=== PATIENT | female | born 1945 | race Caucasian/White ===

== ENCOUNTER → 2017-05-27 13:42 | Outpatient (CLI) | payer MEDICARE, OTHER, SELFPAY ==
[2017-05-27 15:49] LABS: Absolute Lymphocyte Count 1.73 X10^3/ul (0.83-4.51); Absolute Neutrophil Count 4.9 X10^3/uL (2.0-7.7); Basophil# 0.04 X10^3/uL; Basophil% 0.6 % (0-1); Eosinophil# 0.13 X10^3/uL; Eosinophils% 1.8 % (0-5); Hematocrit 44.8 % (37-47); Hemoglobin 13.8 g/dl (12.0-15.0); Lymphocyte # 1.73 X10^3/ul (4.0); Lymphocyte % 23.8 % (19-41); Mean Corp Hgb Conc 30.8 g/gl (32-36); Mean Corpuscular Hgb 29.6 pg (27.0-32.0); Mean Corpuscular Volume 95.9 fL (81-99); Mean Platelet Vol. 11.3 fl (6.2-12.0); Monocyte# 0.49 X10^3/uL; Monocyte% 6.7 % (0-10); Neutrophil # 4.87 X10^3/uL (2.7-7.7); Platelet Count 276 K/mm3 (150-450); RBC Distribution Width CV 14.1 % (11.6-14.6); RBC Distribution Width SD 49.4 fl (35.1-43.9); Red Blood Count 4.67 M/mm3 (4.2-5.4); White Blood Count 7.3 K/mm3 (4.4-11.0)
[2017-05-27 15:51] LABS: POSITIVE COUNT NO; POSITIVE DIFFERENTIAL NO; POSITIVE MORPHOLOGY NO
[2017-05-27 16:02] LABS: AST(SGOT) 24 U/L (15-37); Alanine Aminotransfer ALT/SGPT 24 U/L (13-56); Albumin, Serum 3.7 g/dL (3.2-5.0); Alkaline Phosphatase 92 U/L (45-117); Anion Gap 8 (5-15); BUN 18 mg/dL (7-18); BUN/Creat Ratio 14.5 RATIO (10-20); Calcium,Total 9.1 mg/dL (8.5-10.1); Chloride 105 mmol/L (98-107); Cholesterol 247 mg/dL (200); Creatinine, Serum 1.24 mg/dL (0.55-1.02); EST Glomerular Filtration Rate 45 mL/min (>60); Est Glom Filt Rate - Afr Amer 55 mL/min (>60); Globulin 3.8 g/dL (2.2-4.2); Glucose 90 mg/dL (74-106); High Density Lipoprotein 83 mg/dL; Lipase 56 U/L (73-393); Potassium 4.3 mmol/L (3.5-5.1); Protein, Total 7.5 g/dL (6.4-8.2); Sodium Level 143 mmol/L (136-145); Triglycerides 64 mg/dL; Very Low Density Lipoprotein 13 mg/dL (5-40)
[2017-05-27 16:05] LABS: Hemoglobin A1c 5.9 % (4.2-6.3)
[2017-05-27 16:13] LABS: T4 Free Direct 1.37 ng/dL (0.76-1.46); Thyroid Stim Hormone (TSH) 1.71 uIU/mL (0.358-3.74)
== END ==
PROVIDERS: Internal Medicine Cardiovascular Disease; Family Provider Family Medicine; PCP Family Medicine; Visit Provider Family Medicine
DX: I48.91 Unspecified atrial fibrillation (principal); I50.32 Chronic diastolic (congestive) heart failure; R07.9 Chest pain, unspecified; R73.01 Impaired fasting glucose
CPT/HCPCS: 36415; 80053; 80061; 83036; 83690; 83735; 84439; 84443; 85025

== ENCOUNTER → 2017-06-25 09:51 | Outpatient (CLI) | payer MEDICARE, OTHER, SELFPAY ==
--- NOTE | 2017-06-25 09:56 | BI_ITS ---
MAMMOGRAPHY - BILATERAL SCREENING REASON FOR EXAM: Female, 72 years old. Routine annual screening examination. PERTINENT HISTORY: Aunt with breast cancer. TECHNIQUE: Digital bilateral breast patricia (3D mammographic acquisition) in the CC and MLO projections. 2-D mediolateral oblique (MLO) and craniocaudad (CC) views of both breasts were obtained. CAD: Full Field Digital Mammography with Computer Added Detection was performed. COMPARISON: Comparison is made with prior study dated January 28, 2016 and July 31, 2014. FINDINGS: Breast Composition: There are scattered areas of fibroglandular density. There are no dominant masses or suspicious calcifications. No other significant abnormalities are identified. There has been no significant change since the prior study. BI/SCREENING MAMM (CAD), BILAT IMPRESSION: Stable bilateral screening mammogram. Yearly follow-up mammogram recommended. (A) ASSESSMENT CATEGORY: BIRADS Category 1: Negative. A letter regarding these results will be sent to the patient by the facility within 30 days. Approximately 10% of breast cancers are not detected by mammography. A normal mammogram should not delay biopsy of a clinically suspicious abnormality. [id number] Electronically Signed: Taiwo Tejada MD at 13:35 EDT Tel [phone], Service support ,
== END ==
PROVIDERS: Family Provider Family Medicine; PCP Family Medicine; Visit Provider Family Medicine
DX: Z12.31 Encounter for screening mammogram for malignant neoplasm of breast (principal)
CPT/HCPCS: 77063; 77067

== ENCOUNTER → 2018-04-06 13:11 | Outpatient (CLI) | payer MEDICARE, OTHER, SELFPAY ==
[2018-04-06 17:36] LABS: Absolute Lymphocyte Count 2.76 X10^3/ul (0.83-4.51); Absolute Neutrophil Count 5.3 X10^3/uL (2.0-7.7); Basophil# 0.04 X10^3/uL; Basophil% 0.5 % (0-1); Eosinophil# 0.13 X10^3/uL; Eosinophils% 1.5 % (0-5); Hematocrit 45.7 % (37-47); Hemoglobin 13.8 g/dl (12.0-15.0); Lymphocyte # 2.76 X10^3/ul (4.0); Lymphocyte % 31.5 % (19-41); Mean Corp Hgb Conc 30.2 g/gl (32-36); Mean Corpuscular Hgb 29.1 pg (27.0-32.0); Mean Corpuscular Volume 96.4 fL (81-99); Mean Platelet Vol. 10.9 fl (6.2-12.0); Monocyte# 0.53 X10^3/uL; Monocyte% 6.1 % (0-10); Neutrophil # 5.28 X10^3/uL (2.7-7.7); Neutrophil % 60.2 % (47-70); POSITIVE COUNT NO; POSITIVE DIFFERENTIAL NO; POSITIVE MORPHOLOGY NO; Platelet Count 327 K/mm3 (150-450); RBC Distribution Width CV 14.4 % (11.6-14.6); RBC Distribution Width SD 50.9 fl (35.1-43.9); Red Blood Count 4.74 M/mm3 (4.2-5.4); White Blood Count 8.8 K/mm3 (4.4-11.0)
[2018-04-06 17:54] LABS: Anion Gap 8 (5-15); BUN 19 mg/dL (7-18); Chloride 106 mmol/L (98-107); Creatinine, Serum 1.27 mg/dL (0.55-1.02); EST Glomerular Filtration Rate 44 mL/min (>60); Est Glom Filt Rate - Afr Amer 53 mL/min (>60); Glucose 90 mg/dL (74-106); Magnesium 2.1 mg/dL (1.6-2.6); Potassium 4.2 mmol/L (3.5-5.1); Sodium Level 140 mmol/L (136-145)
== END ==
PROVIDERS: Family Provider Family Medicine; PCP Family Medicine; Visit Provider Family Medicine
DX: I48.91 Unspecified atrial fibrillation (principal); I10 Essential (primary) hypertension; R04.0 Epistaxis
CPT/HCPCS: 36415; 80048; 83735; 85025

== ENCOUNTER 2018-04-08 08:57 | Outpatient (CLI) | payer MEDICARE, OTHER, SELFPAY ==
--- NOTE | 2018-04-08 09:17 | ECHOTEE_ITS ---
Reason For Study: A. fib/flutter Medication REAL probe passed without difficulty. No complications were noted. [place] Topical [place] given X4 metered doses orally. Versed 1 mg given slow IVP. Fentanyl 25 mcg given slow IVP. Left Ventricle Normal LV size. Left ventricular systolic function is normal. The estimated ejection fraction is 65 %. No regional wall motion abnormalities noted. Right Ventricle Normal RV size. Normal systolic function. Atria Probable secondum atrial septal defect. The left atrium is moderately enlarged. No thrombus is detected in the left atrial appendage. Normal right atrium. Mitral Valve Normal mitral valve. Mild (1+) eccentric mitral valve insufficiency. Tricuspid Valve Normal tricuspid valve. Aortic Valve Normal aortic valve. Trisinus/trileaflet aortic valve. Pulmonic Valve Normal pulmonic valve. Vessels Normal aortic root. Mild atherosclerosis of the aortic arch. The pulmonary artery is normal size. Pericardium No pericardial effusion. Interpretation Summary Normal LV size. Left ventricular systolic function is normal. The estimated ejection fraction is 65 %. The left atrium is moderately enlarged. No thrombus is detected in the left atrial appendage. Probable secondum atrial septal defect. Ordering Physician: Raghu Rollins Referring Physician: Harpreet Crain Performed By: Flakita Agustin RDCS
--- NOTE | 2018-04-08 09:26 | PCM.HP.BLA ---
Problem List (1) Atrial flutter Status: Acute Qualifiers: History and Physical Date of Admission: 04/08/18 HPI DOROTEO HANKS, is a 72 F who presents to the office today for a REAL with cardioversion. Patient does have a history of paroxysmal atrial fibrillation. Patient had called our office last week with concerns over nosebleeds. We had instructed her to hold her Eliquis and seek attention for her nosebleeds for possible cauterization. Patient was in to see her primary care doctor yesterday, she was noted to be in 2-1 atrial flutter. With a heart rate of 116. Patient states that this was out of follow-up from her nosebleed. She states that she was aware that she went in atrial fibrillation/flutter on Thursday evening. She felt that her heart was beating irregularly. She does feel the palpitations. Because she had interrupted her Eliquis for a few days for her nosebleeds patient is undergoing a REAL with a cardioversion post REAL. This is scheduled for today Intake: vital signs see clinical chart Allergies bacitracin [From Neosporin ([id number])] Allergy (Verified 09/07/17 13:09) Rash bacitracin zinc [From Neosporin ([id number])] Allergy (Verified 09/07/17 13:09) Rash neomycin sulfate [From Neosporin ([id number])] Allergy (Verified 09/07/17 13:09) Rash polymyxin B [From Neosporin ([id number])] Allergy (Verified 09/07/17 13:09) Rash Sulfa (Sulfonamide Antibiotics) Allergy (Verified 09/07/17 13:09) Rash sulfamethoxazole [From Bactrim] Allergy (Verified 09/07/17 13:09) Rash trimethoprim [From Bactrim] Allergy (Verified 09/07/17 13:09) Rash codeine Adverse Reaction (Verified 09/07/17 13:09) Vomiting Medications Lysine [l-Lysine] 500 mg PO DAILY 02/22/13 [History Confirmed 04/07/18] Multivitamins,Therapeutic [Multivitamin] 1 tab PO DAILY 02/22/13 [History Confirmed 04/07/18] diltiazem CD 120 mg capsule,extended release 24 hr 120 mg PO QPM cap 02/19/17 [History Confirmed 04/07/18] coenzyme Q10 100 mg capsule 100 mg PO QDAY 09/02/17 [History Confirmed 04/07/18] furosemide 20 mg tablet 20 mg PO DAILY PRN 09/02/17 [History Confirmed 04/07/18] Apixaban [Eliquis] 5 mg PO DAILY 04/07/18 [History Confirmed 04/07/18] PFSH Medical History Atrial flutter (Acute) History of supraventricular tachycardia (Chronic) Nonrheumatic mitral valve prolapse (Chronic) Chronic diastolic heart failure (Chronic) Typical atrial flutter (Chronic) Paroxysmal atrial fibrillation (Chronic) Syncope and collapse (Resolved) Surgical History History of cardioversion (Chronic ~03/19/16) History of laparoscopic cholecystectomy (Chronic) 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) lumbar disc decompression (Chronic) Family History Brother CAD (coronary artery disease) PPM Mother Congestive heart failure Social History Smoking Status: Never smoker ROS Const: Positive for fatigue; negative for weakness, body ache, fever(s), headache(s), chills, frequent falls, night sweats, daytime sleepiness, difficulty sleeping, excessive sweating, weight gain, weight loss, increased appetite, poor appetite, anorexia or other Eyes: Negative for blind spots, loss of peripheral vision, transient loss of vision, blurry vision, change in vision, double vision, floaters, tunnel vision or other ENT: Positive for Nosebleed/epistaxis; negative for headache(s) or balance problems Cardio Chest Pain: No Palpitations: Yes Edema: None Muscle aches with walking: None Respiratory: Negative for SOB with activity, SOB at rest, SOB orthopnea\SOB lying down, Coughing up blood/hemoptysis, chest congestion, pain on inspiration, snoring, stridor, wheezing, crackles, paroxysmal nocturnal dyspnea or other GI: Negative nausea, vomiting, heartburn, constipation, belching, bloating, cramping, vomiting blood/hematemesis, bright, red blood in stools, black,tarry stools, loose stools, Difficulty Swallowing or other : Negative for hematuria, frequent nighttime urination/ nocturia, erectile dysfunction or abnormal vaginal bleeding Musc: Negative for muscle aches/ myalgia, muscle weakness, joint pain or balance problems Skin: Negative redness, non-healing lesions, rash, unusual bruising, skin ulcer, wounds, jaundice or other Neuro: Negative for frequent falls, headache(s), weakness, blurry vision or double vision Hematologic/Lymphatic: Negative for easy bleeding, easy bruising, enlarged lymph nodes or other Endo: Positive for fatigue; negative for excessive sweating Psych: Negative for anxiety, depression, thoughts of harming anyone, thoughts of harming yourself, visual hallucinations, panic attacks or audible hallucinations Allergy/Immunology: Negative for rash Cardiology Exam Appearance: cooperative, healthy appearing and no acute distress Nutritional Appearance: well nourished Orientation: alert, oriented x3 and oriented to person Head: normal to inspection, normocephalic and atraumatic Nose: external nose normal Face and Sinus: face symmetric Mouth: oral mucosae normal Eyes General: appearance normal, both eyes and all related structures Eyelids: eyelids normal Conjunctivae: conjunctivae normal Pupils: PERRL and normal by confrontation EOM: EOM intact bilaterally Neck: normal visual inspection and full ROM Carotids: normal carotid upstroke Chest inspection: normal inspection of the chest Auscultation: Bilateral: Clear to Auscultation Cardio Palpation: normal PMI Rate: regular rate Rhythm: irregularly irregular Heart sounds: S1 normal and S2 normal GI: normal to inspection, no hepatosplenomegaly and bowel sounds present Neuro General: alert, awake, oriented x3, CN's II-XI intact bilaterally and moves all extremities Skin: no rashes or lesions noted Pulses: Normal: Right Femoral Pulse, Left Femoral Pulse, Right Dorsalis Pedis Pulse, Left Dorsalis Pedis Pulse, Right Posterior Tibial Pulse, Left Posterior Tibial Pulse, Right Radial Pulse, Left Radial Pulse Lower Extremity Edema: None: Bilateral Psychological: normal affect Assessment & Plan Problems 1. Atrial flutter, unspecified type I48.92 Plan Patient is scheduled to undergo a REAL with cardioversion. With her cardioversion she will need to continue with her anti-coagulation. She will also continue with her rate limiting medication. Procedure will be done by Dr. Rollins, he agrees with plan of care. She will be scheduled for a follow-up in the office
--- NOTE | 2018-04-08 09:31 | HP.PCM_ITS ---
Problem List (1) Atrial flutter Status: Acute Qualifiers: History and Physical Date of Admission: 04/08/18 HPI DOROTEO HANKS, is a 72 F who presents to the office today for a REAL with cardioversion. Patient does have a history of paroxysmal atrial fibrillation. Patient had called our office last week with concerns over nosebleeds. We had instructed her to hold her Eliquis and seek attention for her nosebleeds for possible cauterization. Patient was in to see her primary care doctor yesterday, she was noted to be in 2-1 atrial flutter. With a heart rate of 116. Patient states that this was out of follow-up from her nosebleed. She states that she was aware that she went in atrial fibrillation/flutter on Thursday evening. She felt that her heart was beating irregularly. She does feel the palpitations. Because she had interrupted her Eliquis for a few days for her nosebleeds patient is undergoing a REAL with a cardioversion post REAL. This is scheduled for today Intake: vital signs see clinical chart Allergies bacitracin [From Neosporin ([id number])] Allergy (Verified 09/07/17 13:09) Rash bacitracin zinc [From Neosporin ([id number])] Allergy (Verified 09/07/17 13:09) Rash neomycin sulfate [From Neosporin ([id number])] Allergy (Verified 09/07/17 13:09) Rash polymyxin B [From Neosporin ([id number]-[id number]-[id number])] Allergy (Verified 09/07/17 13:09) Rash Sulfa (Sulfonamide Antibiotics) Allergy (Verified 09/07/17 13:09) Rash sulfamethoxazole [From Bactrim] Allergy (Verified 09/07/17 13:09) Rash trimethoprim [From Bactrim] Allergy (Verified 09/07/17 13:09) Rash codeine Adverse Reaction (Verified 09/07/17 13:09) Vomiting Medications Lysine [l-Lysine] 500 mg PO DAILY 02/22/13 [History Confirmed 04/07/18] Multivitamins,Therapeutic [Multivitamin] 1 tab PO DAILY 02/22/13 [History Confirmed 04/07/18] diltiazem CD 120 mg capsule,extended release 24 hr 120 mg PO QPM cap 02/19/17 [History Confirmed 04/07/18] coenzyme Q10 100 mg capsule 100 mg PO QDAY 09/02/17 [History Confirmed 04/07/18] furosemide 20 mg tablet 20 mg PO DAILY PRN 09/02/17 [History Confirmed 04/07/18] Apixaban [Eliquis] 5 mg PO DAILY 04/07/18 [History Confirmed 04/07/18] PFSH Medical History Atrial flutter (Acute) History of supraventricular tachycardia (Chronic) Nonrheumatic mitral valve prolapse (Chronic) Chronic diastolic heart failure (Chronic) Typical atrial flutter (Chronic) Paroxysmal atrial fibrillation (Chronic) Syncope and collapse (Resolved) Surgical History History of cardioversion (Chronic ~03/19/16) History of laparoscopic cholecystectomy (Chronic) 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) lumbar disc decompression (Chronic) Family History Brother CAD (coronary artery disease) PPM Mother Congestive heart failure Social History Smoking Status: Never smoker ROS Const: Positive for fatigue; negative for weakness, body ache, fever(s), headache(s), chills, frequent falls, night sweats, daytime sleepiness, difficulty sleeping, excessive sweating, weight gain, weight loss, increased appetite, poor appetite, anorexia or other Eyes: Negative for blind spots, loss of peripheral vision, transient loss of vision, blurry vision, change in vision, double vision, floaters, tunnel vision or other ENT: Positive for Nosebleed/epistaxis; negative for headache(s) or balance problems Cardio Chest Pain: No Palpitations: Yes Edema: None Muscle aches with walking: None Respiratory: Negative for SOB with activity, SOB at rest, SOB orthopnea\SOB lying down, Coughing up blood/hemoptysis, chest congestion, pain on inspiration, snoring, stridor, wheezing, crackles, paroxysmal nocturnal dyspnea or other GI: Negative nausea, vomiting, heartburn, constipation, belching, bloating, cramping, vomiting blood/hematemesis, bright, red blood in stools, black,tarry stools, loose stools, Difficulty Swallowing or other : Negative for hematuria, frequent nighttime urination/ nocturia, erectile dysfunction or abnormal vaginal bleeding Musc: Negative for muscle aches/ myalgia, muscle weakness, joint pain or balance problems Skin: Negative redness, non-healing lesions, rash, unusual bruising, skin ulcer, wounds, jaundice or other Neuro: Negative for frequent falls, headache(s), weakness, blurry vision or double vision Hematologic/Lymphatic: Negative for easy bleeding, easy bruising, enlarged lymph nodes or other Endo: Positive for fatigue; negative for excessive sweating Psych: Negative for anxiety, depression, thoughts of harming anyone, thoughts of harming yourself, visual hallucinations, panic attacks or audible hallucinations Allergy/Immunology: Negative for rash Cardiology Exam Appearance: cooperative, healthy appearing and no acute distress Nutritional Appearance: well nourished Orientation: alert, oriented x3 and oriented to person Head: normal to inspection, normocephalic and atraumatic Nose: external nose normal Face and Sinus: face symmetric Mouth: oral mucosae normal Eyes General: appearance normal, both eyes and all related structures Eyelids: eyelids normal Conjunctivae: conjunctivae normal Pupils: PERRL and normal by confrontation EOM: EOM intact bilaterally Neck: normal visual inspection and full ROM Carotids: normal carotid upstroke Chest inspection: normal inspection of the chest Auscultation: Bilateral: Clear to Auscultation Cardio Palpation: normal PMI Rate: regular rate Rhythm: irregularly irregular Heart sounds: S1 normal and S2 normal GI: normal to inspection, no hepatosplenomegaly and bowel sounds present Neuro General: alert, awake, oriented x3, CN's II-XI intact bilaterally and moves all extremities Skin: no rashes or lesions noted Pulses: Normal: Right Femoral Pulse, Left Femoral Pulse, Right Dorsalis Pedis Pulse, Left Dorsalis Pedis Pulse, Right Posterior Tibial Pulse, Left Posterior Tibial Pulse, Right Radial Pulse, Left Radial Pulse Lower Extremity Edema: None: Bilateral Psychological: normal affect Assessment & Plan Problems 1. Atrial flutter, unspecified type I48.92 Plan Patient is scheduled to undergo a REAL with cardioversion. With her cardioversio n she will need to continue with her anti-coagulation. She will also continue with her rate limiting medication. Procedure will be done by Dr. Rollins, he agrees with plan of care. She will be scheduled for a follow-up in the office
--- NOTE | 2018-04-08 11:53 | PCM.PN.BLA ---
Progress Note Procedure note. DC cardioversion. Patient was noted to be in atrial fibrillation flutter. Patient underwent a transesophageal echocardiogram this morning which demonstrated no evidence of left atrial appendage thrombus. Left ventricular systolic function was normal. The patient was brought brought into the noninvasive lab. Patient was seen by Dr. Machuca of the critical care division. Informed consent was obtained. Anterior-posterior pads were applied. The patient was administered 40 mg of intravenous propofol and then 200 J of synchronized DC cardioversion energy were applied with prompt reversal to sinus rhythm. Patient tolerated the procedure well. Conclusion: Successful DC cardioversion from atrial fibrillation to sinus rhythm. Continue current medications including anticoagulation.
--- NOTE | 2018-04-08 13:14 | PCM.OPRPT ---
Problem List (1) Atrial flutter Status: Acute Qualifiers: (2) Chronic diastolic heart failure Status: Chronic (3) History of cardioversion Status: Chronic Comment: 09/12/2015, 03/19/2016 (4) Nonrheumatic mitral valve prolapse Status: Chronic (5) Paroxysmal atrial fibrillation Status: Chronic (6) Typical atrial flutter Status: Chronic Report of Operation Date of Procedure: 04/08/18 Pre-Operative Diagnosis: A. fib Post-Operative Diagnosis: A. fib Surgery/Procedure Performed:: Conscious sedation Description of Surgical Findings:: CONSCIOUS SEDATION REPORT BRIEF HISTORY OF PRESENT ILLNESS: The patient is a 72-year-old female who presented to [facility] for an elective outpatient cardioversion due to underlying atrial fibrillation. The patient reports no PO intake since midnight. The patient does not have a history of obstructive sleep apnea. The patient reports no history of smoking and COPD. The patient denies any recent constitutional symptoms such as fevers, chills, nausea or vomiting. The patient denies previous anesthetic complications. Patient did have a REAL earlier in the day, for which she received 1 mg of Versed and 50 mcg of fentanyl. This showed an ejection fraction of 65% and no clots. PHYSICAL EXAMINATION: VITAL SIGNS: Reviewed and were acceptable. GENERAL: The patient is a female, in no apparent distress, speaking in full sentences. HEENT: Normocephalic, atraumatic. Mucous membranes are moist and pink. Good mouth opening noted. Trachea is midline. Good neck mobility. MP II CHEST: S1, S2 irregularly irregular. No murmurs, rubs or gallops were noted. LUNGS: Clear to auscultation bilaterally without appreciable wheezes, rales or rhonchi. ABDOMEN: Soft, nontender, nondistended. Positive bowel sounds. EXTREMITIES: There is no clubbing, cyanosis or edema. ASA Class: II DESCRIPTION OF PROCEDURE: After confirmation of informed consent, the patient's anesthesia plan was reviewed in detail. Propofol was chosen. Risks and benefits were reviewed and the patient agreed to proceed. At 11:47 AM, the patient was given 40 mg of propofol. The patient achieved an appropriate level of sedation and received 1 attempt synchronized cardioversion, at [address] Rollins at the bedside. This was successful in achieving normal sinus rhythm. The patient was monitored until 11:53 AM, at which time the patient reached their baseline mental status and function. The patient tolerated the procedure well. COMPLICATIONS: None ESTIMATED BLOOD LOSS: None RECOMMENDATIONS: Okay to recover in usual fashion. Code Visit 9xxxx: Other Procedure See Report - [id number] - 8 minutes
--- NOTE | 2018-04-08 13:17 | OP.PCM_ITS ---
Problem List (1) Atrial flutter Status: Acute Qualifiers: (2) Chronic diastolic heart failure Status: Chronic (3) History of cardioversion Status: Chronic Comment: 09/12/2015, 03/19/2016 (4) Nonrheumatic mitral valve prolapse Status: Chronic (5) Paroxysmal atrial fibrillation Status: Chronic (6) Typical atrial flutter Status: Chronic Report of Operation Date of Procedure: 04/08/18 Pre-Operative Diagnosis: A. fib Post-Operative Diagnosis: A. fib Surgery/Procedure Performed:: Conscious sedation Description of Surgical Findings:: CONSCIOUS SEDATION REPORT BRIEF HISTORY OF PRESENT ILLNESS: The patient is a 72-year-old female who presented to [facility] for an elective outpatient cardioversion due to underlying atrial fibrillation. The patient reports no PO intake since midnight. The patient does not have a history of obstructive sleep apnea. The patient reports no history of smoking and COPD. The patient denies any recent constitutional symptoms such as fevers, chills, nausea or vomiting. The patient denies previous anesthetic complications. Patient did have a REAL earlier in the day, for which she rece ived 1 mg of Versed and 50 mcg of fentanyl. This showed an ejection fraction of 65% and no clots. PHYSICAL EXAMINATION: VITAL SIGNS: Reviewed and were acceptable. GENERAL: The patient is a female, in no apparent distress, speaking in full sentences. HEENT: Normocephalic, atraumatic. Mucous membranes are moist and pink. Good mouth opening noted. Trachea is midline. Good neck mobility. MP II CHEST: S1, S2 irregularly irregular. No murmurs, rubs or gallops were noted. LUNGS: Clear to auscultation bilaterally without appreciable wheezes, rales or rhonchi. ABDOMEN: Soft, nontender, nondistended. Positive bowel sounds. EXTREMITIES: There is no clubbing, cyanosis or edema. ASA Class: II DESCRIPTION OF PROCEDURE: After confirmation of informed consent, the patient's anesthesia plan was reviewed in detail. Propofol was chosen. Risks and benefits were reviewed and the patient agreed to proceed. At 11:47 AM, the patient was given 40 mg of propofol. The patient achieved an appropriate level of sedation and received 1 attempt synchronized cardioversion, at [address] Rollins at the bedside. This was successful in achieving normal sinus rhythm. The patient was monitored until 11:53 AM, at which time the patient reached their baseline mental status and function. The patient tolerated the procedure well. COMPLICATIONS: None ESTIMATED BLOOD LOSS: None RECOMMENDATIONS: Okay to recover in usual fashion. Code Visit 9xxxx: Other Procedure See Report - [id number] - 8 minutes
== END 2018-04-08 14:31 | disposition home health service (06) ==
LOC: CLSP 08:59
PROVIDERS: Family Provider Family Medicine; PCP Family Medicine; Referring Provider Internal Medicine Cardiovascular Disease; Visit Provider Internal Medicine Cardiovascular Disease
DX: I48.92 Unspecified atrial flutter (principal); I34.1 Nonrheumatic mitral (valve) prolapse; I50.32 Chronic diastolic (congestive) heart failure; I48.0 Paroxysmal atrial fibrillation; Z79.01 Long term (current) use of anticoagulants; Z79.899 Other long term (current) drug therapy
CPT/HCPCS: 92960; 93005; 93312; 93320; 93325; J7040; A4216

== ENCOUNTER → 2018-05-25 | Outpatient (CLI) | payer MEDICARE, OTHER, SELFPAY ==
[2018-04-16 09:59] VITALS: BMI 29.7
--- NOTE | 2018-05-25 10:32 | RAD_ITS ---
STUDY: X-RAY CHEST REASON FOR EXAM: Female, 73 years old. Fever and cough TECHNIQUE: PA and lateral views of the chest. COMPARISON: 2017 FINDINGS: Lungs are expanded with chronic interstitial changes in both lung rivera. There is a lingular opacification with small pleural effusion new since the previous study. Follow-up recommended to assure resolution. There is no demonstrated pleural abnormality. Normal size heart. Normal mediastinum and johnathon. Normal visualized pulmonary arteries. There is atherosclerotic calcification of the aortic arch with tortuosity. There are diffuse degenerative changes of the visualized thoracic spine. Normal visualized ribs, clavicles, and shoulders. There is no demonstrated abnormality of the visualized soft tissue structures of the upper abdomen. RAD/Chest PA and Lateral IMPRESSION: Lingular infiltrate with small pleural effusion. Follow-up recommended to assure resolution. Electronically Signed: Willem Suzao MD at 10:59 EDT , Service support ,
[2018-05-25 12:29] LABS: Absolute Lymphocyte Count 1.42 X10^3/ul (0.83-4.51); Absolute Neutrophil Count 5.3 X10^3/uL (2.0-7.7); Basophil# 0.02 X10^3/uL; Basophil% 0.3 % (0-1); Eosinophil# 0.07 X10^3/uL; Eosinophils% 0.9 % (0-5); Hemoglobin 13.1 g/dl (12.0-15.0); Lymphocyte # 1.42 X10^3/ul (4.0); Lymphocyte % 18.6 % (19-41); Mean Corp Hgb Conc 31.2 g/gl (32-36); Mean Corpuscular Hgb 28.8 pg (27.0-32.0); Mean Corpuscular Volume 92.3 fL (81-99); Mean Platelet Vol. 11.1 fl (6.2-12.0); Monocyte# 0.79 X10^3/uL; Monocyte% 10.3 % (0-10); Neutrophil # 5.33 X10^3/uL (2.7-7.7); Neutrophil % 69.8 % (47-70); POSITIVE COUNT NO; POSITIVE DIFFERENTIAL NO; POSITIVE MORPHOLOGY NO; Platelet Count 276 K/mm3 (150-450); RBC Distribution Width CV 13.8 % (11.6-14.6); RBC Distribution Width SD 45.8 fl (35.1-43.9); Red Blood Count 4.55 M/mm3 (4.2-5.4); White Blood Count 7.6 K/mm3 (4.4-11.0)
[2018-05-25 12:47] LABS: BNP,B-Type NATRIURETIC PEPTIDE 195.7 pg/mL (0-100)
[2018-05-25 12:51] LABS: Anion Gap 8 (5-15); BUN 14 mg/dL (7-18); BUN/Creat Ratio 10.9 RATIO (10-20); Calcium,Total 8.9 mg/dL (8.5-10.1); Chloride 103 mmol/L (98-107); Creatinine, Serum 1.28 mg/dL (0.55-1.02); EST Glomerular Filtration Rate 43 mL/min (>60); Est Glom Filt Rate - Afr Amer 52 mL/min (>60); Glucose 104 mg/dL (74-106); Potassium 4.1 mmol/L (3.5-5.1); Sodium Level 140 mmol/L (136-145); T4 Free Direct 1.31 ng/dL (0.76-1.46); Thyroid Stim Hormone (TSH) 1.17 uIU/mL (0.358-3.74)
== END | disposition home or self-care (01) ==
LOC: MTRAD 10:32
PROVIDERS: Family Provider Family Medicine; PCP Family Medicine; Referring Provider Physician Assistant Medical; Visit Provider Physician Assistant Medical
DX: R00.2 Palpitations (principal); R06.02 Shortness of breath
CPT/HCPCS: 36415; 71046; 80048; 83880; 84439; 84443; 85025

== ENCOUNTER → 2018-06-15 13:19 | Outpatient (CLI) | payer MEDICARE, OTHER, SELFPAY ==
[2018-04-16 09:59] VITALS: BMI 29.7
--- NOTE | 2018-06-15 14:59 | PFTCOMP ---
COMPLETE PULMONARY FUNCTION TEST INTERPRETATION Brief HPI: Patient is a 73 year old female, currently under the care of Kathleen Zhou, who presents to [facility] for complete pulmonary function tests secondary to diagnosis of dyspnea. Respiratory therapist reports good effort and reproducible results. Interpretation: Forced expiration spirometry shows no large airways obstructive ventilatory defect with an FEV1 of 95% predicted. There is no significant bronchodilator response by strict ATS criteria. Spirograms are of good quality and plateau normally. The respiratory flow volume loop shows decreased expiratory flow rates at high lung volumes consistent with small airways obstruction. Lung volumes by body plethysmography show a normal total lung capacity at 5.31 L, 106% predicted. All other lung volumes are within normal limits. Diffusion capacity by carbon monoxide is normal at 77% predicted. The airway resistance is normal. No previous pulmonary function tests were available for review. Impression: These pulmonary function tests are within normal limits.
== END ==
PROVIDERS: Family Provider Family Medicine; PCP Family Medicine; Referring Provider Physician Assistant Medical; Visit Provider Physician Assistant Medical
DX: R06.09 Other forms of dyspnea (principal); R00.2 Palpitations
CPT/HCPCS: 94060; 94726; 94729

== ENCOUNTER → 2018-06-28 10:23 | Outpatient (CLI) | payer MEDICARE, OTHER, SELFPAY ==
[2018-04-16 09:59] VITALS: BMI 29.7
--- NOTE | 2018-06-28 10:27 | RAD_ITS ---
STUDY: X-RAY CHEST REASON FOR EXAM: Female, 73 years old. Recent pneumonia TECHNIQUE: PA and lateral views of the chest COMPARISON: X-ray chest May 25, 2018 FINDINGS: There has been interval marked improvement of left lower lung zone consolidation. The left pleural space is now clear. The right lung and pleural space are clear. There is no pneumothorax. The heart is normal in size. The visualized osseous structures are within normal limits. RAD/Chest PA and Lateral IMPRESSION: Interval marked improvement of left lower lung zone consolidation and resolution of left pleural effusion. Electronically Signed: Jose A Nevarez, at 19:39 EDT Tel , Service support ,
== END ==
PROVIDERS: Family Provider Family Medicine; PCP Family Medicine; Referring Provider Family Medicine; Visit Provider Family Medicine
DX: J18.9 Pneumonia, unspecified organism (principal)
CPT/HCPCS: 71046

== ENCOUNTER → 2018-08-02 12:22 | Outpatient (CLI) | payer MEDICARE, OTHER, SELFPAY ==
[2018-04-16 09:59] VITALS: BMI 29.7
[2018-07-22 10:56] VITALS: BMI 29.6
--- NOTE | 2018-08-02 12:25 | BI_ITS ---
MAMMOGRAPHY - BILATERAL SCREENING REASON FOR EXAM: Female, 73 years old. Routine annual screening examination. PERTINENT HISTORY: Aunt with breast cancer. TECHNIQUE: Digital bilateral breast masoud (3D mammographic acquisition) in the CC and MLO projections. 2-D mediolateral oblique (MLO) and craniocaudad (CC) views of both breasts were obtained. CAD: Full Field Digital Mammography with Computer Added Detection was performed. COMPARISON: Comparison is made with prior mammogram dated June 25, 2017 and January 28, 2016. FINDINGS: Breast Composition: There are scattered areas of fibroglandular density. There are no dominant masses or suspicious calcifications. No other significant abnormalities are identified. There has been no significant change since the prior study. BI/SCREEN MAMM (CAD) W/MASOUD BILAT IMPRESSION: Stable bilateral screening mammogram. Yearly follow-up mammogram recommended. (A) ASSESSMENT CATEGORY: BIRADS Category 1: Negative. A letter regarding these results will be sent to the patient by the facility within 30 days. Approximately 10% of breast cancers are not detected by mammography. A normal mammogram should not delay biopsy of a clinically suspicious abnormality. [id number] Electronically Signed: Taiwo Tejada, at 13:31 EDT , Service support ,
== END ==
PROVIDERS: Family Provider Family Medicine; PCP Family Medicine; Referring Provider Family Medicine; Visit Provider Family Medicine
DX: Z12.31 Encounter for screening mammogram for malignant neoplasm of breast (principal)
CPT/HCPCS: 77063; 77067

== ENCOUNTER → 2018-10-27 10:57 | Outpatient (CLI) | payer MEDICARE, OTHER, SELFPAY ==
[2018-07-22 10:56] VITALS: BMI 29.6
[2018-10-27 12:14] LABS: Absolute Lymphocyte Count 1.78 X10^3/uL (0.83-4.51); Absolute Neutrophil Count 3.8 X10^3/uL (2.0-7.7); Basophil# 0.04 X10^3/uL; Basophil% 0.6 % (0-1); Eosinophil# 0.13 X10^3/uL; Eosinophils% 2.1 % (0-5); Hematocrit 39.8 % (37-47); Hemoglobin 12.2 g/dL (12.0-15.0); Lymphocyte # 1.78 X10^3/ul (4.0); Lymphocyte % 28.3 % (19-41); Mean Corp Hgb Conc 30.7 g/dL (32-36); Mean Corpuscular Hgb 27.5 pg (27.0-32.0); Mean Corpuscular Volume 89.6 fL (81-99); NRBC Flagged by Analyzer 0 % (0-5); Neutrophil # 3.82 X10^3/uL (2.7-7.7); Neutrophil % 60.8 % (47-70); Platelet Count 294 K/mm3 (150-450); RBC Distribution Width CV 14.3 % (11.6-14.6); RBC Distribution Width SD 47.3 fl (35.1-43.9); Red Blood Count 4.44 M/mm3 (4.2-5.4); White Blood Count 6.3 K/mm3 (4.4-11.0)
[2018-10-27 12:50] LABS: Anion Gap 8 (5-15); BUN 21 mg/dL (7-18); BUN/Creat Ratio 16.5 RATIO (10-20); Chloride 111 mmol/L (98-107); Creatinine, Serum 1.27 mg/dL (0.55-1.02); EST Glomerular Filtration Rate 44 mL/min (>60); Est Glom Filt Rate - Afr Amer 53 mL/min (>60); Glucose 84 mg/dL (74-106); Potassium 4.2 mmol/L (3.5-5.1); Sodium Level 145 mmol/L (136-145); T4 Free Direct 1.95 ng/dL (0.76-1.46); Thyroid Stim Hormone (TSH) 0.02 uIU/mL (0.358-3.74)
== END ==
PROVIDERS: Family Provider Family Medicine; PCP Family Medicine; Referring Provider Family Medicine; Visit Provider Family Medicine
DX: I48.91 Unspecified atrial fibrillation (principal); N18.3 Chronic kidney disease, stage 3 (moderate)
CPT/HCPCS: 36415; 80048; 84439; 84443; 85025

== ENCOUNTER → 2018-11-24 14:14 | Outpatient (CLI) | payer MEDICARE, OTHER, SELFPAY ==
[2018-07-22 10:56] VITALS: BMI 29.6
[2018-11-24 16:31] LABS: Anion Gap 8 (5-15); BUN 19 mg/dL (7-18); Calcium,Total 9.1 mg/dL (8.5-10.1); Chloride 108 mmol/L (98-107); Creatinine, Serum 1.27 mg/dL (0.55-1.02); EST Glomerular Filtration Rate 44 mL/min (>60); Est Glom Filt Rate - Afr Amer 53 mL/min (>60); Free T3 2.7 pg/mL (2.18-3.98); Glucose 85 mg/dL (74-106); Sodium Level 144 mmol/L (136-145); T4 Free Direct 1.71 ng/dL (0.76-1.46); Thyroid Stim Hormone (TSH) 0.05 uIU/mL (0.358-3.74)
== END ==
PROVIDERS: Family Provider Family Medicine; PCP Family Medicine; Visit Provider Family Medicine
DX: R73.01 Impaired fasting glucose (principal); E80.4 Gilbert syndrome; I48.91 Unspecified atrial fibrillation; E05.90 Thyrotoxicosis, unspecified without thyrotoxic crisis or storm
CPT/HCPCS: 36415; 80048; 83735; 84439; 84443; 84481

== ENCOUNTER → 2018-12-30 11:17 | Outpatient (CLI) | payer MEDICARE, OTHER, SELFPAY ==
[2018-07-22 10:56] VITALS: BMI 29.6
[2018-12-30 15:39] LABS: Absolute Neutrophil Count 4.7 X10^3/uL (2.0-7.7); Basophil# 0.06 X10^3/uL; Basophil% 0.8 % (0-1); Eosinophil# 0.18 X10^3/uL; Eosinophils% 2.3 % (0-5); Hemoglobin 12.8 g/dL (12.0-15.0); Lymphocyte % 27.3 % (19-41); Mean Corp Hgb Conc 29.1 g/dL (32-36); Mean Corpuscular Hgb 26.7 pg (27.0-32.0); Mean Corpuscular Volume 91.9 fL (81-99); Mean Platelet Vol. 10.8 fl (6.2-12.0); Monocyte# 0.64 X10^3/uL; Monocyte% 8.3 % (0-10); NRBC Flagged by Analyzer 0 % (0-5); Neutrophil # 4.68 X10^3/uL (2.7-7.7); Platelet Count 359 K/mm3 (150-450); RBC Distribution Width CV 14.6 % (11.6-14.6); RBC Distribution Width SD 49.5 fl (35.1-43.9); Red Blood Count 4.79 M/mm3 (4.2-5.4); White Blood Count 7.7 K/mm3 (4.4-11.0)
[2018-12-30 15:59] LABS: ALB/GLOB Ratio 0.9 RATIO (0.9-2.4); AST(SGOT) 17 U/L (15-37); Alanine Aminotransfer ALT/SGPT 18 U/L (13-56); Albumin, Serum 3.5 g/dL (3.2-5.0); Alkaline Phosphatase 101 U/L (45-117); Anion Gap 7 (5-15); BUN 15 mg/dL (7-18); BUN/Creat Ratio 11.5 RATIO (10-20); Chloride 105 mmol/L (98-107); EST Glomerular Filtration Rate 43 mL/min (>60); Est Glom Filt Rate - Afr Amer 51 mL/min (>60); Free T3 2.3 pg/mL (2.18-3.98); Globulin 4.1 g/dL (2.2-4.2); Glucose 94 mg/dL (74-106); Magnesium 1.9 mg/dL (1.6-2.6); Potassium 4.4 mmol/L (3.5-5.1); Protein, Total 7.6 g/dL (6.4-8.2); Sodium Level 141 mmol/L (136-145); T4 Free Direct 1.13 ng/dL (0.76-1.46); Thyroid Stim Hormone (TSH) 1.54 uIU/mL (0.358-3.74)
== END ==
LOC: LAB.FUTURE 11:17 → BFHLAB 11:18
PROVIDERS: Family Provider Family Medicine; PCP Family Medicine; Visit Provider Family Medicine
DX: I48.91 Unspecified atrial fibrillation (principal); E05.90 Thyrotoxicosis, unspecified without thyrotoxic crisis or storm; N18.3 Chronic kidney disease, stage 3 (moderate)
CPT/HCPCS: 36415; 80053; 83735; 84439; 84443; 84481; 85025

== ENCOUNTER → 2019-02-01 12:01 | Outpatient (CLI) | payer MEDICARE, OTHER, SELFPAY ==
[2018-07-22 10:56] VITALS: BMI 29.6
[2019-02-01 15:39] LABS: Anion Gap 4 (5-15); BUN 16 mg/dL (7-18); BUN/Creat Ratio 12.5 RATIO (10-20); Calcium,Total 8.6 mg/dL (8.5-10.1); Chloride 106 mmol/L (98-107); Creatinine, Serum 1.28 mg/dL (0.55-1.02); EST Glomerular Filtration Rate 43 mL/min (>60); Est Glom Filt Rate - Afr Amer 52 mL/min (>60); Free T3 2.3 pg/mL (2.18-3.98); Glucose 81 mg/dL (74-106); Potassium 4.1 mmol/L (3.5-5.1); Sodium Level 139 mmol/L (136-145); T4 Free Direct 1.12 ng/dL (0.76-1.46); Thyroid Stim Hormone (TSH) 4.89 uIU/mL (0.358-3.74)
== END ==
PROVIDERS: Family Provider Family Medicine; PCP Family Medicine; Visit Provider Family Medicine
DX: I48.91 Unspecified atrial fibrillation (principal); E05.90 Thyrotoxicosis, unspecified without thyrotoxic crisis or storm
CPT/HCPCS: 36415; 80048; 84439; 84443; 84481

== ENCOUNTER → 2019-03-08 11:21 | Outpatient (CLI) | payer MEDICARE, OTHER, SELFPAY ==
[2018-07-22 10:56] VITALS: BMI 29.6
[2019-03-03 09:18] VITALS: BMI 30.4
[2019-03-08 16:14] LABS: T4 Free Direct 1.01 ng/dL (0.76-1.46); Thyroid Stim Hormone (TSH) 5.35 uIU/mL (0.358-3.74)
[2019-03-10 16:08] LABS: Thyroid Peroxidase AB 10 IU/mL (0-34)
[2019-03-10 17:07] LABS: Thyroglobulin Antibody < 1.0 IU/mL (0.0-0.9)
== END ==
PROVIDERS: Family Provider Family Medicine; PCP Family Medicine; Visit Provider Family Medicine
DX: E05.90 Thyrotoxicosis, unspecified without thyrotoxic crisis or storm (principal)
CPT/HCPCS: 36415; 84439; 84443; 86376; 86800

== ENCOUNTER → 2019-05-12 13:43 | Outpatient (CLI) | payer MEDICARE, OTHER, SELFPAY ==
[2019-03-03 09:18] VITALS: BMI 30.4
[2019-05-12 17:22] LABS: Anion Gap 7 (5-15); BUN 18 mg/dL (7-18); BUN/Creat Ratio 14.9 RATIO (10-20); Calcium,Total 9.6 mg/dL (8.5-10.1); Chloride 105 mmol/L (98-107); Creatinine, Serum 1.21 mg/dL (0.55-1.02); EST Glomerular Filtration Rate 46 mL/min (>60); Est Glom Filt Rate - Afr Amer 56 mL/min (>60); Glucose 139 mg/dL (74-106); Sodium Level 141 mmol/L (136-145); T4 Free Direct 0.94 ng/dL (0.76-1.46); Thyroid Stim Hormone (TSH) 2.83 uIU/mL (0.358-3.74)
== END ==
PROVIDERS: PCP Family Medicine; Visit Provider Family Medicine
DX: I48.91 Unspecified atrial fibrillation (principal); R06.00 Dyspnea, unspecified; R53.83 Other fatigue
CPT/HCPCS: 36415; 80048; 84439; 84443

== ENCOUNTER 2019-09-12 16:49 | Inpatient (IN) | payer MEDICARE, OTHER, SELFPAY ==
[2019-09-12] VITALS (8 sets, daily range): BP systolic 113–144; BP diastolic 77–93; PULSE 75–145; RESP 16–18; TEMP 36.6–37.2; O2SAT 94–97; BMI 30.9; BMI 29.7; BMI 30.2
--- NOTE | 2019-09-12 17:25 | EKG12_ITS ---
Test Reason : TACHYCARDIA Blood Pressure : / mmHG Vent. Rate : 143 BPM Atrial Rate : 144 BPM P-R Int : 000 ms QRS Dur : 110 ms QT Int : 328 ms P-R-T Axes : 000 065 021 degrees QTc Int : 506 ms Atrial flutter Nonspecific ST abnormality Abnormal ECG Confirmed by IRVIN RUBI, SARAH ([id number]), editorial manager BOY RICH ([id number]) on 09/14/2019 12:36:38 PM Referred By: RHEA Confirmed By:SARAH BRYAN MD
--- NOTE | 2019-09-12 17:26 | ED.DCSUM_ITS ---
History of Present Illness Chief Complaint: Palpitations Informant: Patient Narrative: Patient states she has a history of atrial fibrillation/atrial flutter. She has had several cardiac ablations and cardioversions. She has been doing well since her last ablation since the being of the ER has not had any episodes. She has been maintained on flecainide Cardizem and Eliquis. Approximately 1 week ago she decided to try to wean herself off of the medications. She continued to take the Cardizem as directed but was taking every other day Eliquis and flecainide. On Thursday she felt her self going to atrial fibrillation which is persisted throughout the weekend and into today. She feels generally fatigued. She notes a chest heaviness today. Today her heart rate has stayed in the 150s or 160s as compared to over the weekend when it was pretty variable. She also noted her systolic blood pressure was around 96 today so she made an appointment and went to cardiology's office and was referred to the emergency department Past Medical History - Allergies and Home Meds Allergies/Adverse Reactions: Allergies bacitracin [From Neosporin ([id number])] Allergy (Verified 06/17/19 10:44) Rash bacitracin zinc [From Neosporin (emh-hqz-newer)] Allergy (Verified 06/17/19 10:44) Rash neomycin sulfate [From Neosporin (fuc-lfb-lfuvo)] Allergy (Verified 06/17/19 10:44) Rash polymyxin B [From Neosporin (bse-iin-jbusv)] Allergy (Verified 06/17/19 10:44) Rash Sulfa (Sulfonamide Antibiotics) Allergy (Verified 06/17/19 10:44) Rash sulfamethoxazole [From Bactrim] Allergy (Verified 06/17/19 10:44) Rash trimethoprim [From Bactrim] Allergy (Verified 06/17/19 10:44) Rash codeine Adverse Reaction (Verified 06/17/19 10:44) Vomiting Surgical History: - - T+A, Cholecystectomy, Back surgery, BL THR. Smoking Status: Never smoker - Family History Maternal Family History: Family History (Last Reviewed 09/12/19 @ 17:20 by ROBINSON Wright) Brother CAD (coronary artery disease) Mother Congestive heart failure Family History: Reports: Heart Disease Paternal Family History: Family History (Last Reviewed 09/12/19 @ 17:20 by ROBINSON Wright) Brother CAD (coronary artery disease) Mother Congestive heart failure Family History: Reports: - - Lupus Sibling Family History: Family History (Last Reviewed 09/12/19 @ 17:20 by ROBINSON Wright) Brother CAD (coronary artery disease) Mother Congestive heart failure Family History: Reports: Heart Disease Review of Systems General: Reports: Malaise. Denies: Chills, Fever, Sweats Eyes: Denies: Visual changes - bilaterally, Diplopia ENT: Denies: Rhinorrhea, Sore throat Cardiovascular: Reports: Palpitations, Heart racing. Denies: Chest pain Respiratory: Denies: Dyspnea, Cough, Dyspnea on exertion Gastrointestinal: Denies: Abdominal pain, Nausea, Vomiting, Diarrhea, Melena, Hematochezia Genitourinary: Denies: Dysuria, Hematuria, Frequency Musculoskeletal: Denies: Back pain, Extremity Pain Skin: Denies: Rash, Wounds Neurological: Denies: Headache, Weakness, Numbness Physical Exam Vital Signs/Narrative: Vital Signs Temp Pulse Resp BP Pulse Ox 09/12/19 16:51 98.0 F 145 H 16 139/83 H 96 General: Well nourished, Well developed, No Acute Distress Head: Normocephalic, Atraumatic Eyes: Perrl, EOMI ENT: Moist mucous membranes, No rhinorrhea Neck: Supple, Nontender Cardiovascular: No murmurs, Irregular, Tachycardia Respiratory: No distress, CTA bilaterally, Chest nontender Abdomen: Soft, Nontender, Nondistended, Normal bowel sounds Back: Nontender, Normal Inspection Extremities: Nontender, No edema Skin: Normal color, No rash Neurological: Alert, Oriented x3, Cranial nerves II-XII grossly intact, Normal Strength, Normal Sensation Psychological: Normal affect, Normal Mood Diagnostic/Tx/Re-eval Laboratory Last Values WBC 9.1 K/mm3 (4.4-11.0) 09/12/19 17:15 RBC 4.86 M/mm3 (4.2-5.4) 09/12/19 17:15 Hgb 13.9 g/dL (12.0-15.0) 09/12/19 17:15 Hct 45.6 % (37-47) 09/12/19 17:15 MCV 93.8 fL (81-99) 09/12/19 17:15 MCH 28.6 pg (27.0-32.0) 09/12/19 17:15 MCHC 30.5 g/dL (32-36) L 09/12/19 17:15 RDW Std Deviation 48.3 fl (35.1-43.9) H 09/12/19 17:15 RDW Coeff of Igor 14.2 % (11.6-14.6) 09/12/19 17:15 Plt Count 316 K/mm3 (150-450) 09/12/19 17:15 MPV 10.9 fl (6.2-12.0) 09/12/19 17:15 Immature Gran % (Auto) 0.300 % (0.0-0.9) 09/12/19 17:15 Neut % (Auto) 76.2 % (47-70) H 09/12/19 17:15 Lymph % (Auto) 17.7 % (19-41) L 09/12/19 17:15 [place] % (Auto) 4.8 % (0-10) 09/12/19 17:15 Eos % (Auto) 0.5 % (0-5) 09/12/19 17:15 Baso % (Auto) 0.5 % (0-1) 09/12/19 17:15 Absolute Neuts (auto) 6.9 X10^3/uL (2.0-7.7) 09/12/19 17:15 Absolute Lymphs (auto) 1.62 X10^3/uL (0.83-4.51) 09/12/19 17:15 Nucleated RBC % 0 % (0-5) 09/12/19 17:15 PT 15.4 SECONDS (11.7-14.9) H 09/12/19 17:15 INR 1.3 09/12/19 17:15 APTT 31.7 Seconds (24.1-36.2) 09/12/19 17:15 Sodium 139 mmol/L (136-145) 09/12/19 17:15 Potassium 4.4 mmol/L (3.5-5.1) 09/12/19 17:15 Chloride 105 mmol/L (98-107) 09/12/19 17:15 Carbon Dioxide 28.0 mmol/L (21.0-32.0) 09/12/19 17:15 Anion Gap 6 (5-15) 09/12/19 17:15 BUN 18 mg/dL (7-18) 09/12/19 17:15 Creatinine 1.34 mg/dL (0.55-1.02) H 09/12/19 17:15 Estim Creat Clear Calc 32.64 ml/min 09/12/19 17:15 Est GFR (MDRD) Af Amer 50 mL/min (>60) L 09/12/19 17:15 Est GFR (MDRD) Non-Af 41 mL/min (>60) L 09/12/19 17:15 BUN/Creatinine Ratio 13.4 RATIO (10-20) 09/12/19 17:15 Glucose 161 mg/dL (74-106) H 09/12/19 17:15 Calcium 9.3 mg/dL (8.5-10.1) 09/12/19 17:15 Magnesium 2.0 mg/dL (1.6-2.6) 09/12/19 17:15 Troponin I < 0.015 ng/mL (<0.045) 09/12/19 17:15 - Rhythm Strip Rhythm Strip: A-fib Rate: 141 - EKG Initial EKG Interpretation: Atrial Fibrillation - EKG shows atrial fibrillation with rapid ventricular response at a rate of 143. No concerning features of ACS. - Medical Decision Making She was given an IV dose of Cardizem. Her heart rate responded well to that. Basic blood work negative. Plan is going to be to admit her. ED Disposition - Plan for ED Patient: Disposition: Acute Care Hospital [facility] Diagnosis: Atrial fibrillation with RVR, Chest pain
[2019-09-12] MEDS: dilTIAZem 25 MG/5 ML Vial 10 MG IV BOLUS (17:30)
[2019-09-12 17:53] LABS: Absolute Lymphocyte Count 1.62 X10^3/uL (0.83-4.51); Absolute Neutrophil Count 6.9 X10^3/uL (2.0-7.7); Basophil# 0.05 X10^3/uL; Basophil% 0.5 % (0-1); Eosinophil# 0.05 X10^3/uL; Eosinophils% 0.5 % (0-5); Hematocrit 45.6 % (37-47); Hemoglobin 13.9 g/dL (12.0-15.0); Lymphocyte # 1.62 X10^3/ul (4.0); Lymphocyte % 17.7 % (19-41); Mean Corp Hgb Conc 30.5 g/dL (32-36); Mean Corpuscular Hgb 28.6 pg (27.0-32.0); Mean Corpuscular Volume 93.8 fL (81-99); Mean Platelet Vol. 10.9 fl (6.2-12.0); Monocyte# 0.44 X10^3/uL; Monocyte% 4.8 % (0-10); NRBC Flagged by Analyzer 0 % (0-5); Neutrophil # 6.94 X10^3/uL (2.7-7.7); Neutrophil % 76.2 % (47-70); Platelet Count 316 K/mm3 (150-450); RBC Distribution Width CV 14.2 % (11.6-14.6); RBC Distribution Width SD 48.3 fl (35.1-43.9); Red Blood Count 4.86 M/mm3 (4.2-5.4); White Blood Count 9.1 K/mm3 (4.4-11.0)
[2019-09-12 17:59] LABS: Anion Gap 6 (5-15); BUN 18 mg/dL (7-18); BUN/Creat Ratio 13.4 RATIO (10-20); Calcium,Total 9.3 mg/dL (8.5-10.1); Chloride 105 mmol/L (98-107); Creatinine, Serum 1.34 mg/dL (0.55-1.02); EST Glomerular Filtration Rate 41 mL/min (>60); Est Glom Filt Rate - Afr Amer 50 mL/min (>60); Estimated Creatinine Clearance 32.64 ml/min; Glucose 161 mg/dL (74-106); Potassium 4.4 mmol/L (3.5-5.1); Sodium Level 139 mmol/L (136-145)
--- NOTE | 2019-09-12 17:59 | NURSING ---
per dr austin, hold caardizem drip at this time
[2019-09-12 18:08] LABS: International Normalized Ratio 1.3; Prothrombin Time (Protime)PT. 15.4 SECONDS (11.7-14.9)
[2019-09-12 18:09] LABS: Partial Thromboplast Time 31.7 Seconds (24.1-36.2)
--- NOTE | 2019-09-12 18:16 | HP.PCM_ITS ---
Problem List (1) Atrial fibrillation with RVR Status: Acute (2) HTN (hypertension) Status: Chronic Qualifiers: Hypertension type: essential hypertension Qualified Code(s): I10 - Essential (primary) hypertension (3) Chest pain Status: Acute Qualifiers: Chest pain type: unspecified Qualified Code(s): R07.9 - Chest pain, unspecified (4) HLD (hyperlipidemia) Status: Chronic Qualifiers: Hyperlipidemia type: unspecified Qualified Code(s): E78.5 - Hyperlipidemia, unspecified (5) Multiple pulmonary nodules determined by computed tomography of lung Status: Acute (6) Chronic diastolic heart failure Status: Chronic (7) Paroxysmal atrial fibrillation Status: Chronic (8) CKD (chronic kidney disease), stage III Status: Chronic History of Present Illness Date of Admission: 09/12/19 Chief Complaint: Palpitations, racing heart, lightheadedness, chest pressure, recently started to wean herself off of her cardiac medications The patient is a 74 y/o F w/ PMHx: CKD stage III, PAF s/p RFA x 2 most recently 12/2018, Chronic Diastolic CHF, HTN, HLD, Hx multiple pulmonary nodules, Hx previously being on Amiodarone however d/c secondary to thyroid disease who presents to the [facility] ED on 09/12/19 with history of doing well since her last ablation per her report previously maintained on flecainide, Cardizem and Eliquis however approximately 1 week prior to current presentation she decided to wean herself off of her medications and had been taking her Eliquis and flecainide every other day with sudden onset on Thursday of tachycardia, palpitations, lightheadedness and dizziness with episode on day of ED presentation prior to presentation, episode of midsternal chest heaviness rated 2-3 out of 10 in severity with associated dyspnea but no diaphoresis or nausea improved since initial ED presentation, currently 1 out of 10 but patient points to her underneath her rib cages instead of midsternal at that time. Work-up in the ED included T 98, heart rate initially 145 with improvement 88 following C ardizem bolus, BP 139/83, respiratory rate 16, 96% on room air, CBC with WBC 9.1, hemoglobin 13.9, platelet 316 with mild left shift but absolute appropriate and no significant lymphopenia, coags with PT 15.4, INR 1.3, PTT 31.7, BMP with BUN/creatinine 18/1.34, glucose 161, magnesium 2.0, troponin < 0.015, EKG with atrial fibrillation with RVR. In the ED patient ministered Cardizem 10 mg IV bolus x1 with improvement of rate into the 80s to 100. Chest x-ray pending per ED upon evaluation. Past Medical History Past Medical History (Chronic Problems): Chronic Problems (Last Reviewed 09/12/19 @ 17:20 by ROBINSON Wright) HTN (hypertension) (Chronic) HLD (hyperlipidemia) (Chronic) CKD (chronic kidney disease), stage III (Chronic) Fatigue (Chronic) Palpitations (Chronic) History of supraventricular tachycardia (Chronic) Nonrheumatic mitral valve prolapse (Chronic) Chronic diastolic heart failure (Chronic) Typical atrial flutter (Chronic) Paroxysmal atrial fibrillation (Chronic) Medical History: Medical History (Last Reviewed 09/12/19 @ 17:20 by ROBINSON Wright) Syncope and collapse (Resolved) R55 Multiple pulmonary nodules determined by computed tomography of lung (Acute) R91.8 Pneumonia (Acute) Onset Date: ~06/28/18 J18.9 Palpitations (Chronic) R00.2 Atrial flutter (Acute) I48.92 History of supraventricular tachycardia (Chronic) Z86.79 Nonrheumatic mitral valve prolapse (Chronic) I34.1 Chronic diastolic heart failure (Chronic) I50.32 Typical atrial flutter (Chronic) I48.3 Paroxysmal atrial fibrillation (Chronic) I48.0 Allergies bacitracin [From Neosporin (lek-ctm-uiajr)] Allergy (Verified 06/17/19 10:44) Rash bacitracin zinc [From Neosporin (gjo-axr-fhveo)] Allergy (Verified 06/17/19 10:44) Rash neomycin sulfate [From Neosporin (nig-gyj-ojeyl)] Allergy (Verified 06/17/19 10:44) Rash polymyxin B [From Neosporin (yls-vty-iomva)] Allergy (Verified 06/17/19 10:44) Rash Sulfa (Sulfonamide Antibiotics) Allergy (Verified 06/17/19 10:44) Rash sulfamethoxazole [From Bactrim] Allergy (Verified 06/17/19 10:44) Rash trimethoprim [From Bactrim] Allergy (Verified 06/17/19 10:44) Rash codeine Adverse Reaction (Verified 06/17/19 10:44) Vomiting Home Medications: Ambulatory Orders Medication Instructions Recorded Lysine [l-Lysine] 500 mg PO DAILY 02/22/13 Multivitamins,Therapeutic 1 tab PO DAILY 02/22/13 [Multivitamin] flecainide 50 mg tablet 50 mg PO BID 03/03/19 cyanocobalamin (vitamin B-12) 1,000 mcg PO DAILY PRN PRN 06/17/19 1,000 mcg capsule Apixaban [Eliquis] 5 mg PO BID 09/12/19 Diltiazem HCl [Diltiazem 12Hr ER] 120 mg PO DAILY 09/12/19 Magnesium Oxide [Mag-Ox 400] 400 mg PO DAILY PRN PRN 09/12/19 Ubidecarenone [Co Q-10] 100 mg PO DAILY 09/12/19 Surgical History: Surgical History (Last Reviewed 09/12/19 @ 17:20 by ROBINSON Wright) History of total replacement of both hip joints (Resolved) Z96.643 History of laparoscopic cholecystectomy (Resolved) Z98.890, Z90.49 lumbar disc decompression (Resolved) History of transesophageal echocardiography (REAL) (Resolved) Onset Date: 04/08/18 Z87.898 History of cardioversion (Resolved) Onset Date: 04/08/18 Z98.890 09/12/2015, 03/19/2016, 04/08/2018 Surgical History: - - T+A, Cholecystectomy, Back surgery, BL THR, RFA x 2 last 12/2018 per patient report. Psychiatric History: No pertinent psych hx [employer] History: No pertinent [employer] history Lives: Spouse/ Significant Other Smoking Status: Never smoker Tobacco Use: Non-smoker Alcohol: None Drugs: None - *Family History Maternal Family History: Family History (Last Reviewed 09/12/19 @ 17:20 by ROBINSON Wright) Brother CAD (coronary artery disease) Mother Congestive heart failure History Items: Heart Disease Paternal Family History: Family History (Last Reviewed 09/12/19 @ 17:20 by ROBINSON Wright) Brother CAD (coronary artery disease) Mother Congestive heart failure History Items: - - Lupus Sibling Family History: Family History (Last Reviewed 09/12/19 @ 17:20 by ROBINSON Wright) Brother CAD (coronary artery disease) Mother Congestive heart failure History Items: Heart Disease Review of Systems Constitutional: Reports: Malaise, Weakness, Fatigue. Denies: Anorexia, Chills, Fever, Weight Change HEENT: Denies: Head Aches, Sinus Congestion, Sinus Drainage Cardiovascular: Reports: Chest Pressure, Light Headedness, Palpitations. Denies: Chest Pain, Chest Tightness, Orthopnea, Syncope Respiratory: Reports: Shortness of Breath. Denies: Cough, Shortness of breath at rest, Shortness of breath upon exertion, Sputum production Gastrointestinal: Denies: Abdominal Pain, Nausea, Vomiting Genitourinary: Denies: Dysuria Musculoskeletal: Denies: Joint Pain, Joint Tenderness Skin: Denies: Rash, Wounds Neurological: Denies: Numbness, Tingling, Focal weakness Psychiatric: Denies: Anxiety, Depression, Homicidal Ideations, Suicidal Ideations Hematologic/ Lymphatic: Reports: Easy Bruising, Easy Bleeding VTE Information - Inpt Only VTE Present on Admission: No VTE Mechan Device Prophylaxis: SCD's VTE Pharm Prophylaxis ordered?: No Reason prophylaxis not ordered:: Treatment Not Indicated - We will continue patient oral home Eliquis regimen. Patient Problems: Active and Suspected Problems (Last Reviewed 09/12/19 @ 17:20 by ROBINSON Wright) Atrial fibrillation with RVR (Acute) Chest pain (Acute) Subjective: Patient seated upright in ED bed, notes feeling improved since initial ED presentation, chest pressure now 1 out of 10, no lightheadedness or dizziness, rate improved. Objective: Physical Examination: General: awake, alert, oriented x 3 and cooperative, seated upright in the ED bed, fatigued appearance, notes feeling improved since initial ED presentation, chest pressure improved, rate improved. Skin: normal color, turgor, no icterus, cyanosis. HEENT: AT/NC, EOMI, PERRLA, mildly dry MM, no carotid bruits or JVD noted. Lungs: CTA bilaterally, moderate effort, mild decrease BL bases, no rales, ronchi or wheezing. Heart: Irregular, rate controlled currently; no gallop, rub audible. Abdomen: soft, NTTP, ND, normal BS, no HSM. Extremities: no cyanosis, clubbing, or edema. Neurological: patient awake, alert, oriented as noted; cognitive function intact; pupils equally reactive to light and accomodation; cranial nerves II-XII grossly normal, moving all 4 extremities, no focal deficits, strength mildly to moderately global decrease secondary to acute presentation. Psychiatric: affect appears mildly fatigued otherwise normal, no acute evidence of depressive or anxiety feelings. - Physical Exam Vitals/I&O's: Vital Signs Temp Pulse Resp BP Pulse Ox 98.0 F 88 18 113/77 95 09/12/19 16:51 09/12/19 17:59 09/12/19 17:59 09/12/19 17:59 09/12/19 17:59 Oxygen Delivery Method Room Air Weight: 178 lb 9.191 oz Body Mass Index (BMI) 29.7 Laboratory Results 09/12/19 17:15: WBC 9.1, RBC 4.86, Hgb 13.9, Hct 45.6, MCV 93.8, MCH 28.6, MCHC 30.5 L, RDW Std Deviation 48.3 H, RDW Coeff of Igor 14.2, Plt Count 316, MPV 10.9, Immature Gran % (Auto) 0.300, Neut % (Auto) 76.2 H, Lymph % (Auto) 17.7 L, Swain % (Auto) 4.8, Eos % (Auto) 0.5, Baso % (Auto) 0.5, Absolute Neuts (auto) 6.9, Absolute Lymphs (auto) 1.62, Nucleated RBC % 0 09/12/19 17:15: PT 15.4 H, INR 1.3, APTT 31.7 09/12/19 17:15: Sodium 139, Potassium 4.4, Chloride 105, Carbon Dioxide 28.0, Anion Gap 6, BUN 18, Creatinine 1.34 H, Estim Creat Clear Calc 32.64, Est GFR (MDRD) Af Amer 50 L, Est GFR (MDRD) Non-Af 41 L, BUN/Creatinine Ratio 13.4, Glucose 161 H, Calcium 9.3, Magnesium 2.0, Troponin I < 0.015 Current Medications Diltiazem HCl 125 mg/ Dextrose 125 mls @ 5 mls/hr IV .Q25H [facility]; Protocol Stop: 09/13/19 18:24 Assessment/Plan All Active Problems (Last Reviewed 09/12/19 @ 17:20 by ROBINSON Wright) Atrial fibrillation with RVR (Acute) Chest pain (Acute) Syncope and collapse (Resolved) History of total replacement of both hip joints (Resolved) History of laparoscopic cholecystectomy (Resolved) lumbar disc decompression (Resolved) Multiple pulmonary nodules determined by computed tomography of lung (Acute) Pneumonia (Acute ~06/28/18) Dyspnea on exertion (Acute) History of transesophageal echocardiography (REAL) (Resolved 04/08/18) Atrial flutter (Acute) History of cardioversion (Resolved 04/08/18) The patient is a 74 y/o F w/ PMHx: CKD stage III, PAF s/p RFA x 2 most recently 12/2018, Chronic Diastolic CHF, HTN, HLD, Hx multiple pulmonary nodules, Hx previously being on Amiodarone however d/c secondary to thyroid disease who presents to the [facility] ED on 09/12/19 with history of doing well since her last ab lation per her report previously maintained on flecainide, Cardizem and Eliquis however approximately 1 week prior to current presentation she decided to wean herself off of her medications with onset over the last several days palpitations, tachycardia, lightheadedness, dizziness and onset of chest pressure. 1. Paroxsymal atrial fibrillation with RVR with associated Chest pain: EKG in ED w/ atrial fibrillation w/ RVR. Patient administered cardizem 10 mg IV x 1 in ED. Will admit to PCU, maintain on telemetry, obtain cardiac enzyme serial set, obtain magnesium level, most recent ECHO 04/08/18 with normal LV size, normal LV systolic function, EF 65%, moderately enlarged LA, no evidence of thrombus, probable second of atrial septal defect noted thus will repeat, obtain TSH level, continue apixaban, will resume patient diltiazem, flecainide with dose now given patient recent noncompliance and self initiated withdrawal off medications. 2. Hyperglycemia: Admission glucose 161, hemoglobin A1c requested. 3. Hypertension: Continue home regimen including diltiazem, hold as needed Lasix, PRN hydralazine. 4. Hyperlipidemia: Not on regimen, defer to outpatient. 5. Chronic diastolic CHF: We will continue patient Eliquis, diltiazem, currently appears compensated but if necessary may add Lasix regimen given atrial fibrillation with RVR, not on CAT inhibitor or ARB nor statin therapy. 6. Chronic Kidney Disease Stage III: Admission BUN/Cr 18/1.34, baseline renal function 1.2-1.3, repeat BMP in AM. 7. DVT prophylaxis: SCDs, continue Eliquis. 8. CODE status: Patient REED is her and living will is currently in place. Discussed CODE status at length including difference between FULL code, DNR-CCA and DNR-CC status. Following discussions about the differences in these status, requested full CODE STATUS. Advanced Care Planning Face to Face Time: 16 minutes. OBSV E&M: [id number] Initial observation care L3 Procedures: [id number] Advncd Care Plan 30 Min
--- NOTE | 2019-09-12 18:30 | RAD_ITS ---
STUDY: X-RAY CHEST REASON FOR EXAM: Female, 74 years old. chest pain, a-fib TECHNIQUE: AP portable COMPARISON: 06-28-18 FINDINGS: There is a small left pleural effusion and mild left lower lobe atelectasis.. Mild pulmonary interstitial edema. Normal size heart. Normal mediastinum and johnathon. Normal visualized pulmonary arteries. Mildly calcified aortic arch and descending thoracic aorta. Dorsal spine and shoulders demonstrate degenerative change. Normal visualized ribs, and clavicles. There is no demonstrated abnormality of the visualized soft tissue structures of the upper abdomen. RAD/Chest 1 View (Portable) IMPRESSION: Mild pulmonary interstitial edema. Small left pleural effusion and left lower lobe atelectasis Electronically Signed: Jose A Rothman MD at 18:44 EDT , Service support ,
--- NOTE | 2019-09-12 19:53 | ECHOD_ITS ---
Reason For Study: ARRYTHYMIA Procedure This was a 2D Doppler, Color Flow transthoracic echocardiogram. Exam performed portable in patient room. Left Ventricle Normal size and thickness. The estimated ejection fraction is 65 %. Unable to assess diastolic dysfunction due to arrhythmia. No regional wall motion abnormalities noted. Right Ventricle Normal size and thickness. Normal systolic function. Atria Normal left atrium. Normal right atrium. Normal atrial septum. Patent foramen ovale. Mitral Valve Mild diffuse mitral valve thickening. Moderate mitral annular calcification extending into the posterior leaflet. Trivial mitral valve insufficiency. Tricuspid Valve Normal tricuspid valve. Trivial tricuspid valve insufficiency. Right ventricular systolic pressure estimated to be 40 mmHg. Mild pulmonary hypertension. Aortic Valve Normal aortic valve. Trisinus/trileaflet aortic valve. Pulmonic Valve Normal pulmonic valve. Great Vessels Normal aortic root. Normal arch. Normal inferior vena cava. Inferior vena cava collapse with sniff. Pericardium/Pleural No pericardial effusion. MMode/2D Measurements & Calculations LVIDd: 4.1 cm IVSd: 0.87 cm Ao root diam: 3.4 cm LVIDs: 2.2 cm LVPWd: 0.81 cm RVDd: 3.1 cm FS: 46.0 % LAV(MOD-bp): 71.0 ml LVAd ap4: 19.6 cm2 SV(MOD-sp4): 36.2 ml LAV(MOD-bp) Indexed: 37.6 ml/m2 EDV(MOD-sp4): 49.8 ml LAV(MOD-sp2): 69.7 ml EDV(sp4-el): 50.6 ml LAV(MOD-sp4): 69.6 ml LVAs ap4: 9.1 cm2 ESV(MOD-sp4): 13.5 ml ESV(sp4-el): 13.2 ml EF(MOD-sp4): 72.8 % EF(sp4-el): 73.9 % SV(sp4-el): 37.4 ml LA A4 area: 22.7 cm2 LA dimension(2D): 3.6 cm RA A4 area: 18.5 cm2 Time Measurements MV dec time: 0.18 sec Doppler Measurements & Calculations MV E max paul: 109.0 cm/sec Ao V2 max: 113.6 cm/sec LV V1 max: 108.0 cm/sec MV A max paul: 40.5 cm/sec Ao max P.2 mmHg LV V1 max P.7 mmHg MV E/A: 2.7 PA V2 max: 93.8 cm/sec TR max paul: 249.8 cm/sec TR max P.0 mmHg Interpretation Summary The estimated ejection fraction is 65 %. Unable to assess diastolic dysfunction due to arrhythmia. Patent foramen ovale. Trivial mitral valve insufficiency. Trivial tricuspid valve insufficiency. Right ventricular systolic pressure estimated to be 40 mmHg. Mild pulmonary hypertension. Compared to echo report dated 08/23/2015, LV function has remained the same but RVSP is increased from 23 to 40 mmHg. Patient appears to be in atrial fibrillation with controlled ventricular response. Ordering Physician: Letty Aguillon Referring Physician: MEKA PELAEZ Performed By: Diamond Gustafson RDCS
[2019-09-12 20:26] LABS: Hemoglobin A1c 6.2 % (3.8-5.6)
[2019-09-12 20:28] LABS: T4 Free Direct 0.87 ng/dL (0.76-1.46); Thyroid Stim Hormone (TSH) 2.84 uIU/mL (0.358-3.74)
--- NOTE | 2019-09-12 21:10 | EKG12_ITS ---
Test Reason : CP ADMISSION Blood Pressure : / mmHG Vent. Rate : 076 BPM Atrial Rate : 076 BPM P-R Int : 000 ms QRS Dur : 108 ms QT Int : 416 ms P-R-T Axes : 000 050 076 degrees QTc Int : 468 ms Normal sinus rhythm with atrial bigeminy Otherwise normal ECG When compared with ECG of 12-SEP-2019 17:02, MANUAL COMPARISON REQUIRED, DATA IS UNCONFIRMED Confirmed by ISAIAH WALKER ([id number]), multimedia editor BOY RICH ([id number]) on 09/15/2019 11:29:37 AM Referred By: KELLY Confirmed By:ISAIAH WALKER
[2019-09-12] MEDS: dilTIAZem CD 120 MG Capsule PO (21:23)
[2019-09-12] MEDS: Famotidine 20 MG Tablet PO (21:23)
[2019-09-12] MEDS: APIXABAN 5 MG TABLET PO (21:23)
[2019-09-12] MEDS: Flecainide 100 MG Tablet 50 MG PO (21:23)
[2019-09-12] MEDS: MELATONIN 3 MG TABLET PO (21:25)
[2019-09-13] VITALS (15 sets, daily range): BP systolic 112–145; BP diastolic 67–88; PULSE 68–100; RESP 14–18; TEMP 36.4–36.8; O2SAT 94–97; BMI 30.2
--- NOTE | 2019-09-13 05:55 | EKG12_ITS ---
Test Reason : AM EKG Blood Pressure : / mmHG Vent. Rate : 071 BPM Atrial Rate : 220 BPM P-R Int : 000 ms QRS Dur : 102 ms QT Int : 214 ms P-R-T Axes : 000 049 108 degrees QTc Int : 232 ms Atrial fibrillation Nonspecific T wave abnormality Abnormal ECG When compared with ECG of 12-SEP-2019 21:05, MANUAL COMPARISON REQUIRED, DATA IS UNCONFIRMED Confirmed by ISAIAH WALKER ([id number]), copy editor BOY RICH ([id number]) on 09/15/2019 11:30:07 AM Referred By: KELLY Confirmed By:ISAIAH WALKER
[2019-09-13 06:02] LABS: Absolute Lymphocyte Count 2.43 X10^3/uL (0.83-4.51); Absolute Neutrophil Count 4.9 X10^3/uL (2.0-7.7); Basophil# 0.06 X10^3/uL; Basophil% 0.7 % (0-1); Eosinophil# 0.31 X10^3/uL; Eosinophils% 3.7 % (0-5); Hematocrit 42.2 % (37-47); Hemoglobin 13.3 g/dL (12.0-15.0); Lymphocyte # 2.43 X10^3/ul (4.0); Lymphocyte % 28.8 % (19-41); Mean Corp Hgb Conc 31.5 g/dL (32-36); Mean Corpuscular Hgb 29.7 pg (27.0-32.0); Mean Corpuscular Volume 94.2 fL (81-99); Mean Platelet Vol. 10.4 fl (6.2-12.0); Monocyte# 0.69 X10^3/uL; Monocyte% 8.2 % (0-10); NRBC Flagged by Analyzer 0 % (0-5); Neutrophil # 4.94 X10^3/uL (2.7-7.7); Neutrophil % 58.4 % (47-70); Platelet Count 271 K/mm3 (150-450); RBC Distribution Width CV 14.4 % (11.6-14.6); RBC Distribution Width SD 48.8 fl (35.1-43.9); Red Blood Count 4.48 M/mm3 (4.2-5.4); White Blood Count 8.5 K/mm3 (4.4-11.0)
[2019-09-13 06:28] LABS: ALB/GLOB Ratio 0.7 RATIO (0.9-2.4); AST(SGOT) 17 U/L (15-37); Alanine Aminotransfer ALT/SGPT 15 U/L (13-56); Alkaline Phosphatase 91 U/L (45-117); Anion Gap 4 (5-15); BUN 17 mg/dL (7-18); BUN/Creat Ratio 15.3 RATIO (10-20); Calcium,Total 8.8 mg/dL (8.5-10.1); Chloride 106 mmol/L (98-107); Creatinine, Serum 1.11 mg/dL (0.55-1.02); EST Glomerular Filtration Rate 51 mL/min (>60); Est Glom Filt Rate - Afr Amer 62 mL/min (>60); Estimated Creatinine Clearance 39.41 ml/min; Globulin 4.4 g/dL (2.2-4.2); Glucose 93 mg/dL (74-106); Protein, Total 7.4 g/dL (6.4-8.2); Sodium Level 138 mmol/L (136-145)
[2019-09-13] MEDS: APIXABAN 5 MG TABLET PO ×2 (09:13→21:44)
[2019-09-13] MEDS: Famotidine 20 MG Tablet PO ×2 (09:13→21:44)
--- NOTE | 2019-09-13 10:33 | STEWCON_ITS ---
Reason For Study: AFIB/FLUTTER Stress Results Protocol: Vel Protocol WITH DEFINITY Maximum Predicted HR: 145 bpm Target HR: 123 bpm % Maximum Predicted HR: 81 % DurationHeart Rate Stage (mm:ss) (bpm) BP Comment BASELINE 83 142/744 CC DEFINITY TOTAL FOR TEST STAGE 1 3:00 118 142/58INCREASED SOB AND FATIGUE RECOVERY 99 122/68 Stress Duration: 3:00 mm:ss Maximum Stress HR: 118 bpm Baseline Echocardiogram Findings The estimated ejection fraction is 65 %. Stress Echo Wall motion Data Resting WM Intermediate WM Stress WM Resting Wall Motion Wall Motion Stress No regional wall motion No regional wall motion abnormalities noted. abnormalities noted. EKG Data Atrial fibrillation with controlled ventricular response. The patient exercised according to the regular Vel protocol for a total duration of 3:00. The maximum heart rate attained was 129 beats per minute. This was 88% of maximum predicted heart rate. The patient exercised into stage 1 of the Vel protocol. During stress, there were no ST or T wave changes noted to suggest ischemia. No clinical angina was noted. Interpretation Summary The estimated ejection fraction is 65 %. Normal, adequate, treadmill echocardiogram. Negative for ischemia by EKG and echocardiographic criteria. No anginal symptoms noted. Baseline atrial fibrillation but no other arrhythmias noted. Appropriate blood pressure response to exercise. Below average exercise capacity for age. Decrease sensitivity due to poor echo windows requiring Definity agent. Test terminated due to fatigue. Final LVEF is 75%. Patient tolerated procedure well. No complications. The study was technically difficult. Contrast injection was performed. Ordering Physician: David Sands Referring Physician: Toro Espinal MD Performed By: Diamond Gustafson RDCS
[2019-09-13] MEDS: Flecainide 100 MG Tablet PO (10:49)
--- NOTE | 2019-09-13 10:59 | EKG12_ITS ---
Test Reason : RHYTHM Blood Pressure : / mmHG Vent. Rate : 079 BPM Atrial Rate : 079 BPM P-R Int : 304 ms QRS Dur : 102 ms QT Int : 436 ms P-R-T Axes : -86 071 078 degrees QTc Int : 499 ms Atrial flutter with 2:[address] abnormality Prolonged QT Abnormal ECG When compared with ECG of 13-SEP-2019 04:50, MANUAL COMPARISON REQUIRED, DATA IS UNCONFIRMED Confirmed by ISAIAH WALKER ([id number]), editor school photograph BOY RICH ([id number]) on 09/15/2019 11:30:57 AM Referred By: KELLY Confirmed By:ISAIAH WALKER
--- NOTE | 2019-09-13 12:44 | CON.PCM_ITS ---
Problem List (1) Atrial fibrillation with RVR Status: Acute (2) HTN (hypertension) Status: Chronic Qualifiers: Hypertension type: essential hypertension Qualified Code(s): I10 - Essential (primary) hypertension (3) HLD (hyperlipidemia) Status: Chronic Qualifiers: Hyperlipidemia type: unspecified Qualified Code(s): E78.5 - Hyperlipidemia, unspecified (4) Atrial flutter Status: Acute Qualifiers: (5) History of supraventricular tachycardia Status: Chronic (6) History of cardioversion Status: Resolved Comment: 09/12/2015, 03/19/2016, 04/08/2018 Reason for Consult Date of Consultation: 09/13/19 Reason for Consultation: Afib with RVR History of Present Illness: Mrs Meade is a very pleasant 74-year-old nondiabetic, nonsmoking female, 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 The patient has noted that she's been on propranolol therapy since the for what appears to be intermittent palpitations and mitral valve prolapse. Recently in February 2013 the patient was taken off of her propranolol by her primary care physician. While in their office in February 2013, the patient developed a near syncopal event and was admitted Through [facility] ER. At that time the patient underwent a 2-D echo with Doppler on 02/22/13 which demonstrated normal LV size and function with an LVEF of 65%, 1+ mitral regurgitation, and RVSP of 24 mmHg. In addition she underwent a regedenson/MPI 02/23/13 which was negative for ischemia. On 07/28/13 the patient presented to [facility] ER after developing sudden onset of heart racing and beating strongly. An EKG at that time demonstrated a supraventricular tachycardia with a heart rate of 150 bpm. Patient was given 6 mg of IV adenosine which converted to normal sinus rhythm. I was consulted over the phone and we reinitiated her beta daniel but this time chose Toprol-XL 25 mg by mouth daily. Since initiating Toprol, the patient has had profound fatigue, tiredness, and of energy. At her last visit we switched her to propranolol, and she did not tolerate that either. She was seen urgently in the office by our GL[facility] [employer]OWER Kathleen and was switched from propranolol to Cardizem CD 180 mg a day. Patient also has a couple of nonspecific complaints which preceded her SVT including severe neck pain which lasted 1 day and was not relieved with Tylenol. Patient also complained of palpitations and chest pressure with exertion. patient a repeat stress test on 08/24/15 which was a nuclear non-walking stress test at which time it appears that she became hypotensive and bradycardic requiring IV fluids and prolonged recovery. In addition since initiating Cardizem she's complained of blurry vision in both eyes but she is unsure whether this is related to Cardizem or just getting older. Patient underwent successful REAL guided DC cardioversion on 09/12/15. She is now here for follow-up. She reports no palpitations, chest pain goes in and out of atrial fibrillation as she becomes fatigued and short of breath. Her main complaint today is fatigue and tiredness from the Cardizem. She again underwent successful repeat DC cardioversion on 03/19/16 and has remained in sinus rhythm ever since. She is now on low-dose amiodarone, combined with low-dose Cardizem at 120mg daily. Patient was referred to Dr. Chang at [facility], and was seen by Kirstie Tellez on 11/04/2017. At that time she was recommended to undergo medical management per patient reports that her palpitations are much improved and only had one episode of atrial fibrillation since her last visit, but still complains of fatigue which she ascribes to the side effects of her medications. Patient had recently seen Dr. Chang who agrees that the patient should undergo a atrial fibrillation ablation if nothing else just to try and get her off of some of these medications. Patient underwent successful atrial fibrillation ablation procedure by Dr. Chang on 11/10/2017. This held until around March 2018 where she returned with atrial fibrillation. Apparently bran berg underwent repeat REAL guided cardioversion on 04/08/[address] Rollins. She has remained in sinus rhythm ever since. She remains on Eliquis, Cardizem, and remain on amiodarone 100 mg a day but was unable to tolerate this due to shortness of breath which was subsequently discontinued.. Unfortunately due to scheduling issues she was unable to revisit with Dr. Chang after her cardioversion in March. Patient revisited with Dr. Chang and discontinued her amiodarone around September 2018. She then underwent repeat ablation with Dr. Chang in October 2018 which was successful for about 1 month and then she reverted back to atrial fibrillation. She is currently on flecainide therapy which appears to be controlling her heart rate and rhythm, and is awaiting a repeat visit with Dr. Chang to discuss possible AV node ablation and dual-chamber pacemaker placement. In addition she was evaluated with a CT scan which found multiple pulmonary nodules and has been referred to pulmonary for evaluation. 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 She denies any exertional chest pain symptoms, presyncope or syncope. She was most recently on flecainide 50 mg p.o. twice daily, Cardizem CD 180 mg a day, and Eliquis. The patient appeared to come down with a viral illness last week, with fatigue, runny nose, and her blood pressure decreased. Patient, on her own, without cardiac consultation in our office, changed her medication regimen to Eliquis and flecainide every other day but continued her Cardizem. The patient noted last Thursday that she may got back in atrial fibrillation and resumed her full dose of flecainide, Cardizem, and Eliquis. Since heart rate increased over the weekend, and she sought medical attention in her office yesterday with Kathleen. EKG demonstrated atrial fibrillation with rapid ventricular response. Patient was sent to the emergency room and when it was discovered that she had adjusted her medications, she was admitted for rapid atrial fibrillation with associated chest pressure. Her flecainide was increased to 100 mg p.o. twice daily, and her heart rate improved. Currently her most recent EKG suggest that she is in normal sinus rhythm with first-degree AV block versus atrial flutter with flutter waves hidden in the T wave component. A repeat 2D echo with Doppler was performed today 09/13/2019 with the following results: The estimated ejection fraction is 65 %. Unable to assess diastolic dysfunction due to arrhythmia. Patent foramen ovale. Trivial mitral valve insufficiency. Trivial tricuspid valve insufficiency. Right ventricular systolic pressure estimated to be 40 mmHg. Mild pulmonary hypertension. Compared to echo report dated 08/23/2015, LV function has remained the same but RVSP is increased from 23 to 40 mmHg. Patient appears to be in atrial fibrillation with controlled ventricular response. She was ruled out for myocardial infarction her TSH and T4 within normal limits. She is feeling much better now. Stress echo is pending. [] Past Medical History Allergies/Adverse Reactions: Allergies bacitracin [From Neosporin ([id number])] Allergy (Verified 06/17/19 10:44) Rash bacitracin zinc [From Neosporin ([id number])] Allergy (Verified 06/17/19 10:44) Rash neomycin sulfate [From Neosporin ([id number])] Allergy (Verified 06/17/19 10:44) Rash polymyxin B [From Neosporin ([id number])] Allergy (Verified 06/17/19 10:44) Rash Sulfa (Sulfonamide Antibiotics) Allergy (Verified 06/17/19 10:44) Rash sulfamethoxazole [From Bactrim] Allergy (Verified 06/17/19 10:44) Rash trimethoprim [From Bactrim] Allergy (Verified 06/17/19 10:44) Rash codeine Adverse Reaction (Verified 06/17/19 10:44) Vomiting Home Medications: Ambulatory Orders Medication Instructions Recorded Lysine [l-Lysine] 500 mg PO DAILY 02/22/13 Multivitamins,Therapeutic 1 tab PO DAILY 02/22/13 [Multivitamin] flecainide 50 mg tablet 50 mg PO BID 03/03/19 cyanocobalamin (vitamin B-12) 1,000 mcg PO DAILY PRN PRN 06/17/19 1,000 mcg capsule Apixaban [Eliquis] 5 mg PO BID 09/12/19 Diltiazem HCl [Diltiazem 12Hr ER] 120 mg PO DAILY 09/12/19 Magnesium Oxide [Mag-Ox 400] 400 mg PO DAILY PRN PRN 09/12/19 Ubidecarenone [Co Q-10] 100 mg PO DAILY 09/12/19 Past Medical History (Chronic Problems): Chronic Problems (Last Reviewed 09/12/19 @ 17:20 by ROBINSON Wright) HTN (hypertension) (Chronic) HLD (hyperlipidemia) (Chronic) CKD (chronic kidney disease), stage III (Chronic) Fatigue (Chronic) Palpitations (Chronic) History of supraventricular tachycardia (Chronic) Nonrheumatic mitral valve prolapse (Chronic) Chronic diastolic heart failure (Chronic) Typical atrial flutter (Chronic) Paroxysmal atrial fibrillation (Chronic) Surgical History: - - T+A, Cholecystectomy, Back surgery, BL THR, RFA x 2 last 12/2018 per patient report. 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: No pertinent CORE BAKER history - *Family History Maternal Family History: Family History (Last Reviewed 09/12/19 @ 17:20 by ROBINSON Wright) Brother CAD (coronary artery disease) Mother Congestive heart failure History Items: Heart Disease Paternal Family History: Family History (Last Reviewed 09/12/19 @ 17:20 by ROBINSON Wright) Brother CAD (coronary artery disease) Mother Congestive heart failure History Items: - - Lupus Sibling Family History: Family History (Last Reviewed 09/12/19 @ 17:20 by ROBINSON Wright) Brother CAD (coronary artery disease) Mother Congestive heart failure History Items: Heart Disease Lives: Spouse/ Significant Other Smoking Status: Never smoker Tobacco Use: Non-smoker Alcohol: None Drugs: None Subjectve: Pt in no distress Objective: Vital Signs Temp Pulse Resp BP Pulse Ox 97.8 F 74 16 115/69 95 09/13/19 09:10 09/13/19 10:54 09/13/19 09:10 09/13/19 10:48 09/13/19 09:10 Oxygen Delivery Method Room Air Weight: 181 lb 14.102 oz Body Mass Index (BMI) 30.2 Intake and Output for Last 24 Hours 09/11/19 09/12/19 09/13/19 23:59 23:59 23:59 Intake Total 600 / 600 Balance 600 / 600 General: Awake, Alert, Oriented x 3 HEENT: PERRL, EOMI, Sclera Non Icteric Neck: Supple, Good ROM, No Lymph Node Enlargement Lungs: Clear to auscultation Cardiovascular: Regular Rhythm, Premature Ectopic Beats, Normal S1, Normal S2, No Murmurs, No Rubs, No Gallops Vascular: No Carotid Bruits, Normal Femoral Pulses, Normal Radial Pulses, Normal Dorsalis Pedal Pulse, Normal Posterior Tibial Pulses Abdomen: Bowel Sounds Present, Soft, Non Tender, No HSM, No Organomegaly Extremities: No Cyanosis, No Clubbing, No edema Neurological: No Focal Motor or Sensory Deficit 09/12/19 17:15: WBC 9.1, RBC 4.86, Hgb 13.9, Hct 45.6, MCV 93.8, MCH 28.6, MCHC 30.5 L, Plt Count 316, MPV 10.9, Immature Gran % (Auto) 0.300, Neut % (Auto) 76.2 H, Lymph % (Auto) 17.7 L, Laurel % (Auto) 4.8, Eos % (Auto) 0.5, Baso % (Auto) 0.5, Absolute Neuts (auto) 6.9, Nucleated RBC % 0 09/12/19 17:15: PT 15.4 H, INR 1.3, APTT 31.7 09/12/19 17:15: Sodium 139, Potassium 4.4, Chloride 105, Carbon Dioxide 28.0, Anion Gap 6, BUN 18, Creatinine 1.34 H, Est GFR (MDRD) Af Amer 50 L, Est GFR (MDRD) Non-Af 41 L, BUN/Creatinine Ratio 13.4, Glucose 161 H, Calcium 9.3, Magnesium 2.0, Troponin I < 0.015 09/12/19 17:15: Hemoglobin A1c 6.2 H 09/12/19 20:40: Troponin I < 0.015 09/12/19 23:28: Troponin I < 0.015 09/13/19 05:34: WBC 8.5, RBC 4.48, Hgb 13.3, Hct 42.2, MCV 94.2, MCH 29.7, MCHC 31.5 L, Plt Count 271, MPV 10.4, Immature Gran % (Auto) 0.200, Neut % (Auto) 58.4, Lymph % (Auto) 28.8, Laurel % (Auto) 8.2, Eos % (Auto) 3.7, Baso % (Auto) 0.7, Absolute Neuts (auto) 4.9, Nucleated RBC % 0 09/13/19 05:34: Sodium 138, Potassium 4.0, Chloride 106, Carbon Dioxide 28.0, Anion Gap 4 L, BUN 17, Creatinine 1.11 H, Est GFR (MDRD) Af Amer 62, Est GFR (MDRD) Non-Af 51 L, BUN/Creatinine Ratio 15.3, Glucose 93, Calcium 8.8, Total Bilirubin 1.50 H Rhythm: EKG: ECHO: Stress Test: Cardiac Cath: PCI: CT Surgery: Holter monitor: EPS: PPM: CXR: Chest CT Scan: Assessment/Plan 1. Atrial fibrillation/flutter: The patient adjusted her 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 medications last week, changing her flecainide to 50 mg twice a day every other day which precipitated atrial fibrillation despite continuing Cardizem therapy. The patient did not seek medical attention to make these changes. Patient was admitted with rapid atrial fibrillation which was responded to resumption of her flecainide with increased dose of 100 mg p.o. twice daily. In fact, the patient may have chemically cardioverted on her own. During this admission she underwent a 2D echo with Doppler on 09/13/2019 with the following results: The estimated ejection fraction is 65 %. Unable to assess diastolic dysfunction due to arrhythmia. Patent foramen ovale. Trivial mitral valve insufficiency. Trivial tricuspid valve insufficiency. Right ventricular systolic pressure estimated to be 40 mmHg. Mild pulmonary hypertension. Compared to echo report dated 08/23/2015, LV function has remained the same but RVSP is increased from 23 to 40 mmHg. Patient appears to be in atrial fibrillation with controlled ventricular response. Given the patient's recurrence of atrial fibrillation with associated substernal chest pressure, I recommended that she undergo a treadmill echocardiogram. If this is negative for ischemia, and assuming that she is in atrial fibrillation, I would recommend a elective DC cardioversion tomorrow morning. However her most recent EKG late this morning demonstrates what appears to be sinus rhythm with first-degree AV block and left atrial enlargement. If her stress test is negative, would recommend confirming that she is in sinus rhythm versus atrial flutter with adenosine 6 mg IV during a rhythm strip run. If she is in atrial flutter she will then undergo a cardioversion tomorrow. If she is in sinus rhythm however she may be discharged home today. I had a long and thorough discussion regarding the patient's Cardizem, flecaini de, and Eliquis, and instructed the patient never to adjust her medicines on her own. Patient has had a long history of trying to get off her medications but I believe she will require lifelong atrial fibrillation medications going forward. This was conveyed to the patient, and the patient voiced understanding. I would recommend that she reduce her flecainide to 50 mg p.o. twice daily as she appeared to do well with flecainide 50 mg p.o. twice daily and it was not until she adjusted her 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 therapy did she lose atrial fibrillation suppression. 2. Thank you very much for the opportunity to participate in the cardiac care of your patient. Discussed with Dr. Ruiz. Consultation time took place between 1230 and 1 PM. Inpatient E&M: 07200 Init Hosp L2
--- NOTE | 2019-09-13 14:56 | EKG12_ITS ---
Test Reason : RHYTHM Blood Pressure : / mmHG Vent. Rate : 085 BPM Atrial Rate : 076 BPM P-R Int : 000 ms QRS Dur : 106 ms QT Int : 420 ms P-R-T Axes : 000 050 069 degrees QTc Int : 499 ms Atrial fibrillation Prolonged QT Abnormal ECG When compared with ECG of 13-SEP-2019 11:11, MANUAL COMPARISON REQUIRED, DATA IS UNCONFIRMED Confirmed by ISAIAH WALKER ([id number]), supervising editor trailer BOY RICH ([id number]) on 09/15/2019 11:31:30 AM Referred By: KELLY Confirmed By:ISAIAH WALKER
--- NOTE | 2019-09-13 19:07 | PCM.PROGNOTE ---
Patient Problems: Active and Suspected Problems (Last Reviewed 09/12/19 @ 17:20 by ROBINSON Wright) Atrial fibrillation with RVR (Acute) Chest pain (Acute) Subjective: Patient was seen and examined today, I talked with cardiology about her care, cardiology is planning to do a stress echo on her tomorrow. It appeared for a time today that the patient converted to normal sinus but later on this afternoon, it appeared that the patient was still in atrial fib. Cardiology readjusted her flecainide dosage today. Patient does not complain of any shortness of breath or cough - Physical Exam Vitals/I&O's: Vital Signs Temp Pulse Resp BP Pulse Ox 97.6 F L 68 16 122/86 H 95 09/13/19 15:50 09/13/19 15:50 09/13/19 15:50 09/13/19 15:50 09/13/19 15:50 Oxygen Delivery Method Room Air Weight: 82.5 kg Body Mass Index (BMI) 30.2 Intake and Output for Last 24 Hours 09/11/19 09/12/19 09/13/19 23:59 23:59 23:59 Intake Total 1200 / 1200 Balance 1200 / 1200 General: Alert, Oriented x3, Cooperative, No apparent distress, Well developed HEENT: Atraumatic, PERRLA, EOMI, Normocephalic Oral: Moist Mucosa Neck: Supple, No JVD, Trachea Midline, Thyroid Normal Size and Texture Lungs: Clear to auscultation, Normal air movement, No rhonchi, No wheeze, No rales Cardiovascular: No murmurs, PMI Normal, Irregular Rate, No rub noted, No Gallop Abdomen: Bowel Sounds Present, Soft, Non Tender, Non-Distended, No hernias noted Extremities: No clubbing, No cyanosis, No edema, Capillary Refill Less than 3 Seconds Skin: No rashes, No breakdown Musculoskeletal: No Tenderness to Palpation of Joints or Extremities Neurological: Cranial nerves II-XII grossly intact, Neuro grossly intact, Sensory exam intact to light touch and pain, Coordination normal Psych/Mental Status: Normal Affect, Appropriate, Alert and oriented to time, place, person, mood and affect Laboratory Results 09/12/19 17:15: TSH 2.84, Free T4 0.87 09/12/19 17:15: Hemoglobin A1c 6.2 H 09/12/19 20:40: Troponin I < 0.015 09/12/19 23:28: Troponin I < 0.015 09/13/19 05:34: WBC 8.5, RBC 4.48, Hgb 13.3, Hct 42.2, MCV 94.2, MCH 29.7, MCHC 31.5 L, RDW Std Deviation 48.8 H, RDW Coeff of Igor 14.4, Plt Count 271, MPV 10.4, Immature Gran % (Auto) 0.200, Neut % (Auto) 58.4, Lymph % (Auto) 28.8, Ashley % (Auto) 8.2, Eos % (Auto) 3.7, Baso % (Auto) 0.7, Absolute Neuts (auto) 4.9, Absolute Lymphs (auto) 2.43, Nucleated RBC % 0 09/13/19 05:34: Sodium 138, Potassium 4.0, Chloride 106, Carbon Dioxide 28.0, Anion Gap 4 L, BUN 17, Creatinine 1.11 H, Estim Creat Clear Calc 39.41, Est GFR (MDRD) Af Amer 62, Est GFR (MDRD) Non-Af 51 L, BUN/Creatinine Ratio 15.3, Glucose 93, Calcium 8.8, Total Bilirubin 1.50 H, AST 17, ALT 15, Alkaline Phosphatase 91, Total Protein 7.4, Albumin 3.0 L, Globulin 4.4 H, Albumin/Globulin Ratio 0.7 L Current Medications Acetaminophen (Tylenol) 650 mg PO Q6H PRN PRN PRN Reason: Pain Score 1-10/Temp > 100.7 F Al Hydroxide/Mg Hydroxide (Mylanta Ii) 30 ml PO Q6H PRN PRN PRN Reason: Gastric Burning Albuterol Sulfate (Ventolin Aerosols) 2.5 mg INHALATION Q2H PRN PRN PRN Reason: Dyspnea, wheezing Apixaban (Eliquis) 5 mg PO BID [facility] Last Admin: 09/13/19 09:13 Dose: 5 mg Documented by: Dextrose (D50w Syringe) 0 gm IV X1 PRN; Protocol PRN Reason: Hypoglycemia Diltiazem HCl (Cardizem Cd) 120 mg PO QHS [facility] Famotidine (Pepcid) 20 mg PO BID [facility] Last Admin: 09/13/19 09:13 Dose: 20 mg Documented by: Flecainide Acetate (Tambocor) 50 mg PO BID [facility] Glucagon () 1 mg IM .X1 PRN PRN Reason: Hypoglycemia Guaifenesin (Robitussin) 20 ml PO Q4H PRN PRN PRN Reason: COUGH Hydralazine HCl (Apresoline Iv) 10 mg IV Q4H PRN PRN PRN Reason: SBP > 160 Sodium Chloride () 250 mls @ 15 mls/hr IV .[id number] PRN PRN Reason: Saline Flush Sodium Chloride () 250 mls @ 15 mls/hr IV .[id number] PRN PRN Reason: Additional IVPB Infusion Sodium Chloride () 500 mls @ 0 mls/hr IV .Q0M MAISHA Magnesium Hydroxide (Milk Of Magnesia) 30 ml PO DAILY PRN PRN PRN Reason: Constipation Melatonin (Melatonin) 3 mg PO QHS PRN PRN PRN Reason: INSOMNIA Last Admin: 09/12/19 21:25 Dose: 3 mg Documented by: Morphine Sulfate () 2 mg IV Q3H PRN PRN PRN Reason: Pain Score 6-10/10 Nitroglycerin (Nitrostat) 0.4 mg SUBLINGUAL Q5M PRN PRN Reason: CARDIAC/CHEST PAIN Ondansetron HCl (Zofran) 4 mg IV Q8H PRN PRN PRN Reason: NAUSEA/VOMITING Oxycodone HCl (Oxyir) 5 mg PO Q4H PRN PRN PRN Reason: Pain Score 4-5/10 Prochlorperazine Edisylate (Compazine Iv) 5 mg IV Q4H PRN PRN PRN Reason: Breakthrough Nausea/Vomiting Psyllium Hydrophilic Mucilloid (Metamucil) 1 packet PO DAILY PRN PRN PRN Reason: Constipation Senna/Docusate Sodium (Senokot-S, Yary-Colace) 2 tablet PO BID PRN PRN PRN Reason: Constipation Sodium Chloride () 10 - 40 ml IV UD PRN PRN Reason: SALINE FLUSH Throat Lozenges (Cepacol Sore Throat Lozenge) 1 lozenge MUCOUS MEM Q2H PRN PRN PRN Reason: SORE THROAT Medical Necessity - Tobacco Use Smoking Status: Never smoker Tobacco Use: Non-smoker Assessment/Plan All Active Problems (Last Reviewed 09/12/19 @ 17:20 by ROBINOSN Wright) Atrial fibrillation with RVR (Acute) Chest pain (Acute) Syncope and collapse (Resolved) History of total replacement of both hip joints (Resolved) History of laparoscopic cholecystectomy (Resolved) lumbar disc decompression (Resolved) Multiple pulmonary nodules determined by computed tomography of lung (Acute) Pneumonia (Acute ~06/28/18) Dyspnea on exertion (Acute) History of transesophageal echocardiography (REAL) (Resolved 04/08/18) Atrial flutter (Acute) History of cardioversion (Resolved 04/08/18) #1 new onset atrial fib with RVR-continue present rate control medications per cardiology, patient will have a stress echo performed tomorrow #2 essential hypertension #3 hyperlipidemia #4 chronic kidney disease stage III #5 elevated bilirubin-etiology unclear, recheck liver enzymes tomorrow Inpatient E&M: 80047 Subs Hosp L2
[2019-09-13] MEDS: dilTIAZem CD 120 MG Capsule PO (21:44)
[2019-09-13] MEDS: Flecainide 100 MG Tablet 50 MG PO (21:44)
--- NOTE | 2019-09-13 23:44 | EKG12_ITS ---
Test Reason : RHYTHM CHG Blood Pressure : / mmHG Vent. Rate : 094 BPM Atrial Rate : 376 BPM P-R Int : 000 ms QRS Dur : 106 ms QT Int : 402 ms P-R-T Axes : 070 058 066 degrees QTc Int : 502 ms Atrial flutter Nonspecific ST abnormality Prolonged QT Abnormal ECG When compared with ECG of 13-SEP-2019 15:14, MANUAL COMPARISON REQUIRED, DATA IS UNCONFIRMED Confirmed by ISAIAH WALKER ([id number]), web editor BOY RICH ([id number]) on 09/15/2019 11:31:41 AM Referred By: DR WALKER Confirmed By:ISAIAH WALKER
[2019-09-14] VITALS (11 sets, daily range): BP systolic 102–156; BP diastolic 51–100; PULSE 65–97; RESP 16–18; TEMP 36.5–36.8; O2SAT 93–96
[2019-09-14] MEDS: Famotidine 20 MG Tablet PO (09:12)
[2019-09-14] MEDS: dilTIAZem CD 120 MG Capsule PO (09:12)
[2019-09-14] MEDS: Flecainide 100 MG Tablet 50 MG PO (09:12)
[2019-09-14] MEDS: APIXABAN 5 MG TABLET PO (09:12)
--- NOTE | 2019-09-14 10:46 | NURSING ---
Report called to medical lab tech instructor
--- NOTE | 2019-09-14 11:28 | CASEMGMT ---
RN CM COLOR MAKER FORMULATOR CM to room to meet with patient for initial transition planning/care coordination assessment. KRYSTEN LEE introduced self and role at [facility]. Pt voices understanding and consents to assessment at this time. Pt sitting up in chair in room in no distress at this time. Pt is A/O at this time and answers all questions appropriately. Care providers, pharmacy, and demographics verified/updated at this time. PCP: Dr Harpreet Crain Specialists: Dr Sands--cardiology, Dr Chang--[facility] Preferred Pharmacy: [facility] Retail Insurance: [place], [employer] Prescription Benefit: Yes Living Will/HPOA: Has both LW and Healthcare POA, who is her , Parker. Copies of both are on e-file @ [facility] LNOK: , Parker. 5 children. Living Arrangements: Lives w/her and son in 2-story home w/1-2 steps to enter. FFSU. Independent w/ADL's and IADL's. Transportation: Pt states drives self and states no transportation concerns at this time. will take her home @ discharge. DME: Denies using any DME and denies needs. HHC/SNF: No history of either. No needs identified. Pt wishes to return home and states has no concerns with going home at time of discharge. CM to follow for any discharge planning/needs. Pt voices no concerns/needs at this time. Advised pt to ask for CM if any questions/concerns/needs arise. Voices understanding. PLAN: Home w/family support and discharge plans in place. Cole ASHBY RN, CM
--- NOTE | 2019-09-14 11:30 | EKG12_ITS ---
Test Reason : PRE CARDIOVERSION Blood Pressure : / mmHG Vent. Rate : 098 BPM Atrial Rate : 098 BPM P-R Int : 200 ms QRS Dur : 104 ms QT Int : 382 ms P-R-T Axes : 092 063 071 degrees QTc Int : 487 ms Atrial flutter with 2:1 conduction Consider right ventricular involvement in acute inferior infarct Abnormal ECG When compared with ECG of 13-SEP-2019 23:56, MANUAL COMPARISON REQUIRED, DATA IS UNCONFIRMED Confirmed by ISAIAH WALKER ([id number]), senior editor BOY RICH ([id number]) on 09/15/2019 11:32:32 AM Referred By: EVELIN Confirmed By:ISAIAH WALKER
--- NOTE | 2019-09-14 12:28 | CARDIOVERS ---
Cardioversion Cardioversion: DC cardioversion results: The patient was brought to the Lead Portfolio Manager in the fasting state, and the risk/benefits of the procedure were thoroughly explained to the patient and informed consent was obtained. An EKG was obtained, in order to determine whether the patient was in sinus rhythm versus atrial flutter she received a single dose of 6 mg of IV adenosine during a rhythm strip. The rhythm strip demonstrated adequate AV francis blockage with evidence of atrial flutter waves. Once her atrial flutter was confirmed, we then proceeded with DC cardioversion. With the assistance of Dr. Hiro Santamaria the patient received a single dose of 40 mg of IV propofol. Once adequate sedation was obtained the patient received a single biphasic synchronized shock of 200 J of energy which converted from atrial flutter to normal sinus rhythm. This rhythm remained durable, and the patient spontaneously awoke, move all 4 extremities and tolerated the procedure well. Conclusions: Successful Eliquis and flecainide assisted DC cardioversion from atrial flutter to normal sinus rhythm. Would recommend the patient continue flecainide 50 mg p.o. twice daily, Cardizem CD 120 mg a day, and continue Eliquis therapy. She will have an EKG in 1 week's time in our office and follow-up with Dr. Sands going forward. Patient tolerated the procedure well. No complications, many thanks to Dr. Hiro Santamaria for his assistance.
--- NOTE | 2019-09-14 12:55 | PRO.PCM_ITS ---
Procedure Report Date of Procedure: 09/14/19 CONSCIOUS SEDATION REPORT DATE OF SERVICE: September 14, 2019 BRIEF HISTORY OF PRESENT ILLNESS: The patient is a 74-year-old female who is currently admitted to [facility] with heart palpitations. The patient was subsequently found to be in atrial fibrillation. She does have a history of prior cardioversions and ablations. She has already been evaluated by cardiology. During her last cardioversion, she did require 40 mg of propofol to achieve an appropriate level of sedation. Her last surface echocardiogram revealed an ejection fraction of approximately 65%. She is systemically anticoagulated on Eliquis. She denies any previous anesthetic complications. PHYSICAL EXAMINATION: VITAL SIGNS: Reviewed and were acceptable. GENERAL: The patient is a female, in no apparent distress, speaking in full sentences. HEENT: Normocephalic, atraumatic. Mucous membranes are moist and pink. Good mouth opening noted. Trachea is midline. CHEST: S1, S2 irregularly irregular. No murmurs, rubs or gallops were noted. LUNGS: Clear to auscultation bilaterally without appreciable wheezes, rales or rhonchi. ABDOMEN: Soft, nontender, nondistended. Positive bowel sounds. EXTREMITIES: There is no clubbing, cyanosis or edema. ASA Class: II DESCRIPTION OF PROCEDURE: After confirmation of informed consent, the patient's anesthesia plan was reviewed in detail. Propofol was chosen. Risks and benefits were reviewed and the patient agreed to proceed. At 1212, the patient was given 40 mg of propofol. The patient achieved an appropriate level of sedation and was given a 200 joule synchronized cardioversion by Dr. Sands at the bedside. This was successful in achieving normal sinus rhythm. The patient was monitored until 1222, at which time she reached her baseline mental status and function. The patient tolerated the procedure well. COMPLICATIONS: None ESTIMATED BLOOD LOSS: None RECOMMENDATIONS: Okay to recover in usual fashion. 9xxxx: Other Procedure See Report - [id number]
--- NOTE | 2019-09-14 15:56 | DCINST_ITS ---
- Discharge Diagnoses Current Active Problems: Current Active and Chronic Problems (Last Reviewed 09/12/19 @ 17:20 by ROBINSON Wright) Atrial fibrillation with RVR (Acute) Chest pain (Acute) HTN (hypertension) (Chronic) HLD (hyperlipidemia) (Chronic) CKD (chronic kidney disease), stage III (Chronic) You will use the following diet at home:: No restrictions Your food should be the consistency of: Regular Your liquids should be the consistency of: Regular/Thin Discharge Activity: Return to Normal Activity Weight Bearing Status: Full weight bearing Allergies/Adverse Reactions: Allergies bacitracin [From Neosporin ([id number])] Allergy (Verified 06/17/19 10:44) Rash bacitracin zinc [From Neosporin ([id number])] Allergy (Verified 06/17/19 10:44) Rash neomycin sulfate [From Neosporin ([id number])] Allergy (Verified 06/17/19 10:44) Rash polymyxin B [From Neosporin ([id number])] Allergy (Verified 06/17/19 10:44) Rash Sulfa (Sulfonamide Antibiotics) Allergy (Verified 06/17/19 10:44) Rash sulfamethoxazole [From Bactrim] Allergy (Verified 06/17/19 10:44) Rash trimethoprim [From Bactrim] Allergy (Verified 06/17/19 10:44) Rash codeine Adverse Reaction (Verified 06/17/19 10:44) Vomiting Medications to take at Discharge Lysine [l-Lysine] 500 mg PO DAILY 02/22/13 Multivitamins,Therapeutic [Multivitamin] 1 tab PO DAILY 02/22/13 flecainide 50 mg tablet 50 mg PO BID 03/03/19 cyanocobalamin (vitamin B-12) 1,000 mcg capsule 1,000 mcg PO DAILY PRN PRN 06/17/19 Apixaban [Eliquis] 5 mg PO BID 09/12/19 Diltiazem HCl [Diltiazem 12Hr ER] 120 mg PO DAILY 09/12/19 Magnesium Oxide [Mag-Ox 400] 400 mg PO DAILY PRN PRN 09/12/19 Ubidecarenone [Co Q-10] 100 mg PO DAILY 09/12/19 Flecainide [Tambocor] 50 mg PO BID tab 09/14/19 Primary Care Physician: Harpreet Crain MD [Primary Care Provider] - Please follow up with your Primary Care Physician in: AT REGULAR APPOINTMENT TIME Test Results: Test results from this visit will be discussed in further detail at your follow- up appointment, if applicable. Please Follow Up With: David Sands MD When: DIRECTED
--- NOTE | 2019-09-16 08:52 | DS.PCM_ITS ---
Discharge Date and Diagnosis Date of Admission: 09/12/19 - Primary Discharge Diagnosis Acute Problems: #1 new onset atrial fib/flutter with RVR #2 essential hypertension #3 hyperlipidemia #4 chronic kidney disease stage III #5 elevated bilirubin-etiology unclear #6 mild pulmonary hypertension - Secondary Discharge Diagnosis Chronic Problems: Chronic Problems (Last Reviewed 09/12/19 @ 17:20 by ROBINSON Wright) HTN (hypertension) (Chronic) HLD (hyperlipidemia) (Chronic) CKD (chronic kidney disease), stage III (Chronic) Fatigue (Chronic) Palpitations (Chronic) History of supraventricular tachycardia (Chronic) Nonrheumatic mitral valve prolapse (Chronic) Chronic diastolic heart failure (Chronic) Typical atrial flutter (Chronic) Paroxysmal atrial fibrillation (Chronic) Hospital Course and Treatment Operations: None Procedures: 2-D Echocardiogram, Cardioversion, - - Stress echocardiogram Summary of Care Provided: The patient is a 74 year old was seen in the emergency room at [facility] with a chief complaint of palpitations, she had had several cardiac ablations and cardioversions in the past. Patient not been taking her medication however as directed at home because she tried to wean herself off her medications. Patient was found to be in atrial fibrillation with rapid ventricular response at a rate of 143. Patient was given a dose of IV Cardizem in the ER with some control on her heart rate. Patient was admitted to PCU, she was seen in consultation by cardiology who felt that the patient may be actually flipping from fib to flutter. Patient underwent an echo stress test which was negative for reversible ischemia, she also on an echocardiogram. She was noted to have normal EF with mild pulmonary hypertension. On 09/14/2019, patient was taken to the cardiovascular department, she was given adenosine which revealed her to be in atrial flutter, she underwent cardioversion which was successful with return to normal sinus rhythm. On that date, she was seen and examined: On examination she appeared in good health and spirits, she does not appear to be in any distress. Vital signs as documented. Skin warm and dry and without overt rashes. Neck without JVD, thyroid appears normal, trachea is midline, neck is supple. Lungs clear, normal air movement was noted. Heart exam notable for regular rhythm, normal sounds and absence of murmurs, rubs or gallops. Abdomen unremarkable and without evidence of organomegaly, masses, or abdominal aortic enlargement, bowel sounds are present in all 4 quadrants, no abdominal tenderness was noted. Extremities nonedematous, no cyanosis was noted, no clubbing was noted. Neuro: Cranial nerves II through XII are grossly intact, no focal motor deficits were noted, sensation to light touch and pinprick is intact, motor exam 5/5 throughout. Psych: Patient is alert and oriented x3, she does not appear anxious or depressed, she does not appear agitated. On 09/14/2019, patient was seen and examined felt to be in stable condition for discharge home - Physical Exam Vitals/I&O's: Vital Signs Temp Pulse Resp BP Pulse Ox 98.1 F 67 16 102/51 L 96 09/14/19 15:01 09/14/19 15:01 09/14/19 15:01 09/14/19 15:01 09/14/19 15:01 Oxygen Delivery Method Room Air Weight: 83.2 kg Body Mass Index (BMI) 30.2 Intake and Output for Last 24 Hours 09/14/19 09/15/19 09/16/19 23:59 23:59 23:59 Intake Total 300 / 300 Balance 300 / 300 Discharge Activity: Return to Normal Activity Weight Bearing Status: Full weight bearing Home Medications: Medications to take at Discharge Lysine [l-Lysine] 500 mg PO DAILY 02/22/13 Multivitamins,Therapeutic [Multivitamin] 1 tab PO DAILY 02/22/13 cyanocobalamin (vitamin B-12) 1,000 mcg capsule 1,000 mcg PO DAILY PRN PRN 06/17/19 Apixaban [Eliquis] 5 mg PO BID 09/12/19 Diltiazem HCl [Diltiazem 12Hr ER] 120 mg PO DAILY 09/12/19 Magnesium Oxide [Mag-Ox 400] 400 mg PO DAILY PRN PRN 09/12/19 Ubidecarenone [Co Q-10] 100 mg PO DAILY 09/12/19 Flecainide [Tambocor] 50 mg PO BID tab 09/14/19 Primary Care Physician: Harpreet Crain MD [Primary Care Provider] - Please follow up with your Primary Care Physician in: AT REGULAR APPOINTMENT TIME Please Follow Up With: David Sands MD When: DIRECTED Please Follow Up With: Harpreet Crain MD Medical Necessity - Tobacco Use Smoking Status: Never smoker Tobacco Use: Non-smoker Meaningful Use Info Meaningful Use Diagnoses (Choose all that apply): None applicable Inpatient E&M: 19114 Disch Hosp
== END 2019-09-14 16:57 | disposition home or self-care (01) | DRG 309 ==
LOC: ED 18:51 → PCU 20:40
PROVIDERS: Admitting Provider Family Medicine; Emergency Provider Emergency Medicine; PCP Family Medicine; Visit Provider Internal Medicine
DX: I48.0 Paroxysmal atrial fibrillation (principal); I13.0 Hypertensive heart and chronic kidney disease with heart failure and stage 1 through stage 4 chronic kidney disease, or unspecified chronic kidney disease; I50.32 Chronic diastolic (congestive) heart failure; I48.92 Unspecified atrial flutter; Z91.19 Patient's noncompliance with other medical treatment and regimen; N18.3 Chronic kidney disease, stage 3 (moderate); I27.20 Pulmonary hypertension, unspecified; I34.1 Nonrheumatic mitral (valve) prolapse; E78.5 Hyperlipidemia, unspecified; R73.9 Hyperglycemia, unspecified; E80.6 Other disorders of bilirubin metabolism; Z79.01 Long term (current) use of anticoagulants; Z79.899 Other long term (current) drug therapy; Z96.643 Presence of artificial hip joint, bilateral
CPT/HCPCS: 36415; 71045; 80048; 80053; 83036; 83735; 84439; 84443; 84484; 85025; 85610; 85730; 92960; 93005; 93017; 93306; 93350; 99251; 99285; J7040; Q9957; A4216; C8928; G0463; J0153

== ENCOUNTER → 2019-09-27 10:35 | Outpatient (CLI) | payer MEDICARE, OTHER, SELFPAY ==
[2019-06-17 10:12] VITALS: BMI 30.9
[2019-09-21 14:46] VITALS: BMI 30.2
--- NOTE | 2019-09-27 10:53 | BI_ITS ---
MAMMOGRAPHY - BILATERAL SCREENING REASON FOR EXAM: Female, 74 years old. Routine annual screening examination. PERTINENT HISTORY: Aunt with breast cancer. TECHNIQUE: Digital bilateral breast masoud (3D mammographic acquisition) in the CC and MLO projections. 2-D mediolateral oblique (MLO) and craniocaudad (CC) views of both breasts were obtained. CAD: Full Field Digital Mammography with Computer Added Detection was performed. COMPARISON: Comparison is made with prior study dated 08/02/2018 and 06/25/2017. FINDINGS: Breast Composition: There are scattered areas of fibroglandular density. There are no dominant masses or suspicious calcifications. Stable benign-appearing bilateral axillary lymph nodes. No other significant abnormalities are identified. There has been no significant change since the prior study. BI/SCREEN MAMM (CAD) W/MASOUD BILAT IMPRESSION: Stable bilateral screening mammogram. Yearly follow-up mammogram recommended. (A) ASSESSMENT CATEGORY: BIRADS Category 2: Benign. A letter regarding these results will be sent to the patient by the facility within 30 days. Approximately 10% of breast cancers are not detected by mammography. A normal mammogram should not delay biopsy of a clinically suspicious abnormality. [id number] Electronically Signed: Taiwo Tejada, at 13:43 EDT , Service support ,
== END ==
PROVIDERS: PCP Family Medicine; Referring Provider Family Medicine; Visit Provider Family Medicine
DX: Z12.31 Encounter for screening mammogram for malignant neoplasm of breast (principal)
CPT/HCPCS: 77063; 77067

== ENCOUNTER → 2019-10-05 11:52 | Outpatient (CLI) | payer MEDICARE, OTHER, SELFPAY ==
--- NOTE | 2019-10-05 11:52 | LES_PTH ---
PATIENT: DOROTEO HANKS LOC: [facility] U#:[id number] AGE/SX: 79/F ROOM: RE10/05/[address]: Dr. Parker Elizabeth MD : 1945 BED: DIS: SPEC #: [id number] RECD: 10/05/19 16:58 STATUS: CHICO FAUSTO #: [id number] MICHAEL: 10/05/19 11:[address]: Parker Elizabeth DEPT: SURGICAL PATHOLOGY RECD BY: Fernando Nielson ENTERED: 10/06/19 09:29 SP TYPE: Lesion OTHR DR: Dr. Harpreet Crain MD Tissues: Skin of forehead Procedures: Surgery Specimen Level IV HEADER OPERATION: Skin lesion shave biopsy of forehead PRE-OP DIAGNOSIS: Skin lesion forehead TISSUE SUBMITTED: Forehead tissue MICROSCOPIC DIAGNOSIS Forehead lesion, shave biopsy: Squamous papilloma. GREGG:yessi 10/07/19 MICROSCOPIC DESCRIPTION Slides are reviewed. GROSS DESCRIPTION Received in fixative is one container labeled with the patient's name and designated forehead. The specimen consists of a shave biopsy of frost-white skin measuring 0.3 x 0.3 x 0.1 cm. The specimen is inked and submitted entirely in one cassette. / SJ:rg 10/06/19 TC:1 CPT: 96055
[2019-10-05 11:59] VITALS: BMI 30.2
== END ==
PROVIDERS: PCP Family Medicine; Referring Provider Surgery; Visit Provider Surgery
DX: L98.9 Disorder of the skin and subcutaneous tissue, unspecified (principal)
CPT/HCPCS: 88305

== ENCOUNTER 2019-11-01 23:21 | Observation (INO) | payer MEDICARE, OTHER, SELFPAY ==
[2019-10-27 09:40] VITALS: BMI 30.1
[2019-11-01 23:21] VITALS: BP 223/101; PULSE 75; RESP 16; TEMP 36.2; O2SAT 96; BMI 30.7
[2019-11-01 23:39] VITALS: BP 200/103; PULSE 66; RESP 13; O2SAT 99
--- NOTE | 2019-11-01 23:48 | EKG12_ITS ---
Test Reason : CP Blood Pressure : / mmHG Vent. Rate : 076 BPM Atrial Rate : 076 BPM P-R Int : 270 ms QRS Dur : 114 ms QT Int : 406 ms P-R-T Axes : 079 054 073 degrees QTc Int : 456 ms Sinus rhythm with 1st degree A-V block with occasional Premature ventricular complexes Nonspecific ST abnormality Abnormal ECG Confirmed by LETI RUBI, CINDY ([id number]), research editor LIDIA CALDERON ([id number]) on 11/07/2019 1:16:56 PM Referred By: RADHA Confirmed By:ALEX LANDEROS MD
--- NOTE | 2019-11-01 23:48 | RAD_ITS ---
STUDY: X-RAY CHEST REASON FOR EXAM: Female, 74 years old. TIGHTNESS IN CHEST AND HTN TECHNIQUE: PA and lateral views of the chest. COMPARISON: 08/13/2019. 06/28/2018. FINDINGS: There are superimposed monitor leads. Improved inspiratory level. There are areas of hyperinflation. Increased interstitial markings bilaterally without focal consolidation. Probable minimal scarring in the left base. There is no demonstrated pleural abnormality. Normal size heart. Normal mediastinum and johnathon. Normal visualized pulmonary arteries. There is atherosclerosis of the aortic arch. There are diffuse degenerative changes of the visualized thoracic spine. There is degenerative osteoarthritis of the bilateral shoulders. There is no demonstrated abnormality of the visualized soft tissue structures of the upper abdomen. RAD/Chest PA and Lateral IMPRESSION: Hyperinflation with interstitial prominence. Mild vascular congestion possible. No confluent pneumonia. Probable scarring in the left base. Resolution of previous atelectasis. Electronically Signed: Terese Ferreira MD at 0:18 EDT , Service support ,
--- NOTE | 2019-11-01 23:50 | ED.VIS.GEN ---
History of Present Illness Chief Complaint: Chest Pain Informant: Patient Narrative: Stated approximately 3 hours ago she started having lower chest tightness diffuse. No radiation. Denies any significant pain but feels tight. She took her blood pressure and it was 200 systolic. She normally run has a normal blood pressure. She does take Cardizem for history of atrial fibrillation and atrial flutter. She stated she does not have a history of hypertension however it appears in her medical record that she does. She is not on any other antihypertensives. No home treatment. Patient stated she recently had an admission for [facility] with RVR. She was cardioverted. She stated she had an echocardiogram and a stress test and reported that Dr. Sands told her that everything was fine. She has not had a heart catheterization. Patient denies any shortness of breath or other symptoms. Denies any pulmonary embolism risk factors. She is on Eliquis. Current severity is mild. - Past Medical History (1) Atrial fibrillation with RVR Status: Acute (2) Atrial flutter Status: Acute (3) Chest pain Status: Acute (4) Dyspnea on exertion Status: Acute (5) Multiple pulmonary nodules determined by computed tomography of lung Status: Acute (6) Pneumonia Status: Acute (7) Positive colorectal cancer screening using Cologuard test Status: Acute (8) Skin lesion of face Status: Acute (9) CKD (chronic kidney disease), stage III Status: Chronic (10) Chronic diastolic heart failure Status: Chronic (11) Fatigue Status: Chronic (12) HLD (hyperlipidemia) Status: Chronic (13) HTN (hypertension) Status: Chronic (14) History of supraventricular tachycardia Status: Chronic (15) Nonrheumatic mitral valve prolapse Status: Chronic (16) Palpitations Status: Chronic (17) Paroxysmal atrial fibrillation Status: Chronic (18) Typical atrial flutter Status: Chronic (19) History of cardioversion Status: Resolved Comment: 09/12/2015, 03/19/2016, 04/08/2018 (20) History of laparoscopic cholecystectomy Status: Resolved (21) History of total replacement of both hip joints Status: Resolved (22) History of transesophageal echocardiography (REAL) Status: Resolved (23) Syncope and collapse Status: Resolved (24) lumbar disc decompression Status: Resolved Past Medical History - Allergies and Home Meds Allergies/Adverse Reactions: Allergies bacitracin [From Neosporin ([id number])] Allergy (Verified 10/27/19 09:41) Rash bacitracin zinc [From Neosporin ([id number])] Allergy (Verified 10/27/19 09:41) Rash neomycin sulfate [From Neosporin ([id number]-[id number])] Allergy (Verified 10/27/19 09:41) Rash polymyxin B [From Neosporin ([id number])] Allergy (Verified 10/27/19 09:41) Rash Sulfa (Sulfonamide Antibiotics) Allergy (Verified 10/27/19 09:41) Rash sulfamethoxazole [From Bactrim] Allergy (Verified 10/27/19 09:41) Rash trimethoprim [From Bactrim] Allergy (Verified 10/27/19 09:41) Rash codeine Adverse Reaction (Verified 10/27/19 09:41) Vomiting Primary Care Physician: Harpreet Crain MD [Primary Care Provider] - Prior records reviewed: Yes Past Medical History: - - See problem list Surgical History: - - T+A, Cholecystectomy, Back surgery, BL THR, RFA x 2 last 12/2018 per patient report. Lives: With Family Smoking Status: Never smoker Alcohol: None Drugs: None - Family History Maternal Family History: Family History (Last Reviewed 10/27/19 @ 09:40 by Theresa Matias) Brother CAD (coronary artery disease) Mother Congestive heart failure Family History: Reports: Heart Disease Paternal Family History: Family History (Last Reviewed 10/27/19 @ 09:40 by Theresa Matias) Brother CAD (coronary artery disease) Mother Congestive heart failure Family History: Reports: - - Lupus Sibling Family History: Family History (Last Reviewed 10/27/19 @ 09:40 by Theresa Matias) Brother CAD (coronary artery disease) Mother Congestive heart failure Family History: Reports: Heart Disease Review of Systems General: Denies: Chills, Fever, Sweats Eyes: Denies: Visual changes - bilaterally, Diplopia ENT: Denies: Rhinorrhea, Sore throat Cardiovascular: Reports: Chest pain. Denies: Palpitations Respiratory: Denies: Dyspnea, Cough, Dyspnea on exertion Gastrointestinal: Denies: Abdominal pain, Nausea, Vomiting, Diarrhea, Melena, Hematochezia Genitourinary: Denies: Dysuria, Hematuria, Frequency Musculoskeletal: Denies: Back pain, Extremity Pain Skin: Denies: Rash, Wounds Neurological: Denies: Headache, Weakness, Numbness Physical Exam Vital Signs/Narrative: Vital Signs Temp Pulse Resp BP Pulse Ox 11/01/19 23:39 66 13 200/103 H 99 11/01/19 23:21 97.1 F L 75 16 223/101 H 96 General: Well nourished, Well developed, No Acute Distress Head: Normocephalic, Atraumatic Eyes: Perrl, EOMI ENT: Moist mucous membranes, No rhinorrhea Neck: Supple, Nontender Cardiovascular: Regular rate, Regular rhythm, No murmurs Respiratory: No distress, CTA bilaterally, Chest nontender Abdomen: Soft, Nontender, Nondistended, Normal bowel sounds Back: Nontender, Normal Inspection Extremities: Nontender, No edema Skin: Normal color, No rash Neurological: Alert, Oriented x3, Cranial nerves II-XII grossly intact, Normal Strength, Normal Sensation Psychological: Normal affect, Normal Mood Diagnostic/Tx/Re-eval - Medical Decision Making EKG shows sinus rhythm at a rate of 76. PVC noted. First-degree heart block appears similar to previous EKG in August. She does have new ST depression in V4 through V6. No STEMI. Lab work and. Patient given nitroglycerin sublingual series. I held off aspirin as she is on Eliquis. Lab work shows nothing acute. Troponin negative. CBC BMP normal. Chest x-ray shows slight interstitial prominence however no overt CHF. I did review she had a stress echo and August of this year that showed nothing acute normal ejection fraction. On reevaluation after treatment with 2 sublingual nitroglycerin the patient blood pressure down to 130 systolic. Currently is 143 systolic. She feels much better. Repeat EKG shows sinus bradycardia with first-degree heart block. Heart rate is 59. ST segment changes that were seen earlier are now resolved in V4 through V6. Discussed with the hospitalist. I feel it is important to bring this patient in for further evaluation and treatment. It may be just she had uncontrolled hypertension causing chest pain with ischemic changes on her EKG. Patient is in agreement. - Critical Care Time Critical care time (excluding procedures): 30-74 minutes ED Disposition - Plan for ED Patient: Disposition: Acute Care Hospital [facility] Diagnosis: Hypertensive emergency, Chest pain Referrals: Harpreet Crain MD [Primary Care Provider] -
[2019-11-01 23:54] LABS: Absolute Lymphocyte Count 3.37 X10^3/uL (0.83-4.51); Absolute Neutrophil Count 5.3 X10^3/uL (2.0-7.7); Basophil# 0.07 X10^3/uL; Basophil% 0.7 % (0-1); Eosinophil# 0.32 X10^3/uL; Eosinophils% 3.2 % (0-5); Hematocrit 44.3 % (37-47); Hemoglobin 13.8 g/dL (12.0-15.0); Lymphocyte # 3.37 X10^3/ul (4.0); Lymphocyte % 34.1 % (19-41); Mean Corp Hgb Conc 31.2 g/dL (32-36); Mean Corpuscular Hgb 29.2 pg (27.0-32.0); Mean Corpuscular Volume 93.7 fL (81-99); Mean Platelet Vol. 10.7 fl (6.2-12.0); Monocyte# 0.78 X10^3/uL; Monocyte% 7.9 % (0-10); NRBC Flagged by Analyzer 0 % (0-5); Neutrophil # 5.32 X10^3/uL (2.7-7.7); Neutrophil % 53.8 % (47-70); Platelet Count 282 K/mm3 (150-450); RBC Distribution Width CV 13.9 % (11.6-14.6); RBC Distribution Width SD 47.8 fl (35.1-43.9); Red Blood Count 4.73 M/mm3 (4.2-5.4); White Blood Count 9.9 K/mm3 (4.4-11.0)
[2019-11-02] VITALS (17 sets, daily range): BP systolic 114–190; BP diastolic 60–97; PULSE 58–71; RESP 10–18; TEMP 36.2–36.9; O2SAT 93–97; BMI 30.5
[2019-11-02] MEDS: Nitroglycerin SL (ED/IMG/CATH) 0.4 MG TABLET SUBLINGUAL ×2 (00:03→00:10)
[2019-11-02 00:18] LABS: Anion Gap 4 (5-15); BUN 14 mg/dL (7-18); BUN/Creat Ratio 13.7 RATIO (10-20); Calcium,Total 9.5 mg/dL (8.5-10.1); Chloride 106 mmol/L (98-107); Creatinine, Serum 1.02 mg/dL (0.55-1.02); EST Glomerular Filtration Rate 56 mL/min (>60); Est Glom Filt Rate - Afr Amer 68 mL/min (>60); Estimated Creatinine Clearance 42.88 ml/min; Glucose 100 mg/dL (74-106); Potassium 3.5 mmol/L (3.5-5.1); Sodium Level 140 mmol/L (136-145)
--- NOTE | 2019-11-02 00:29 | EKG12_ITS ---
Test Reason : CP ADMIT Blood Pressure : / mmHG Vent. Rate : 061 BPM Atrial Rate : 061 BPM P-R Int : 274 ms QRS Dur : 108 ms QT Int : 448 ms P-R-T Axes : 075 054 070 degrees QTc Int : 450 ms Sinus rhythm with 1st degree A-V block Otherwise normal ECG Confirmed by IRVIN RUBI, SARAH ([id number]), managing editor LIDIA CALDERON ([id number]) on 11/03/2019 1:13:28 PM Referred By: GELA Confirmed By:SARAH BRYAN MD
--- NOTE | 2019-11-02 00:50 | EKG12_ITS ---
Test Reason : REPEAT EKG Blood Pressure : / mmHG Vent. Rate : 059 BPM Atrial Rate : 059 BPM P-R Int : 246 ms QRS Dur : 108 ms QT Int : 456 ms P-R-T Axes : 074 049 064 degrees QTc Int : 451 ms Sinus bradycardia with 1st degree A-V block Otherwise normal ECG Confirmed by ELTI RUBI, CINDY ([id number]), makeup editor LIDIA CALDERON ([id number]) on 11/07/2019 1:17:14 PM Referred By: RADHA Confirmed By:ALEX LANDEROS MD
--- NOTE | 2019-11-02 01:17 | PCM.HP.STD ---
Problem List (1) Hypertensive emergency Status: Acute (2) Positive colorectal cancer screening using Cologuard test Status: Chronic (3) Chest pain Status: Acute Qualifiers: Chest pain type: unspecified Qualified Code(s): R07.9 - Chest pain, unspecified (4) HTN (hypertension) Status: Chronic Qualifiers: Hypertension type: essential hypertension Qualified Code(s): I10 - Essential (primary) hypertension (5) HLD (hyperlipidemia) Status: Chronic Qualifiers: Hyperlipidemia type: unspecified Qualified Code(s): E78.5 - Hyperlipidemia, unspecified (6) CKD (chronic kidney disease), stage III Status: Chronic (7) History of total replacement of both hip joints Status: Chronic (8) History of laparoscopic cholecystectomy Status: Chronic (9) Multiple pulmonary nodules determined by computed tomography of lung Status: Chronic (10) Fatigue Status: Chronic Qualifiers: Fatigue type: unspecified Qualified Code(s): R53.83 - Other fatigue (11) Palpitations Status: Chronic (12) History of transesophageal echocardiography (REAL) Status: Chronic (13) Atrial flutter Status: Chronic Qualifiers: (14) History of supraventricular tachycardia Status: Chronic (15) Nonrheumatic mitral valve prolapse Status: Chronic (16) Chronic diastolic heart failure Status: Chronic (17) Typical atrial flutter Status: Chronic (18) Paroxysmal atrial fibrillation Status: Chronic History of Present Illness Date of Admission: 11/02/19 Chief Complaint: Chest Pain The patient is a 74 year old F with a significant history of atrial fibrillation; a flutter; SVT; status post cardioversion; who presents to the emergency department with chest pain that started 3 hours prior to presentation. Her chest pain is located under her bilateral breasts. She described her chest pain as tightness. The chest pain is a continuous and of same intensity. She rates the severity of her pain as 5 out of 10. Her pain is nonradiating. She denies any aggravating factors to the pain. She took tylenol and an extra dose of Cardizem which helped with her pain. Also she received nitroglycerin at emergency department which helped with her pain and her blood pressure. At home at about the same time that she was having chest pain she checked her blood pressure. Her blood pressure was 217 - 218 over 117. At the ED she had first-degree AV block with ST depressions in leads V4 to V6. Her ST depression improved after receiving nitroglycerin and after her blood pressure has improved. Past Medical History Past Medical History (Chronic Problems): Chronic Problems (Last Reviewed 11/02/19 @ 02:[address] 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) History of laparoscopic cholecystectomy (Chronic) Multiple pulmonary nodules determined by computed tomography of lung (Chronic) Fatigue (Chronic) Palpitations (Chronic) History of transesophageal echocardiography (REAL) (Chronic 04/08/18) Atrial flutter (Chronic) History of supraventricular tachycardia (Chronic) Nonrheumatic mitral valve prolapse (Chronic) Chronic diastolic heart failure (Chronic) Typical atrial flutter (Chronic) Paroxysmal atrial fibrillation (Chronic) Medical History: Medical History (Last Reviewed 11/02/19 @ 05:[address] Ton Allan MD) Positive colorectal cancer screening using Cologuard test (Chronic) R19.5 Skin lesion of face (Inactive) L98.9 Syncope and collapse (Inactive) R55 Multiple pulmonary nodules determined by computed tomography of lung (Chronic) R91.8 Pneumonia (Inactive) Onset Date: ~06/28/18 J18.9 Palpitations (Chronic) R00.2 Atrial flutter (Chronic) I48.92 History of supraventricular tachycardia (Chronic) Z86.79 Nonrheumatic mitral valve prolapse (Chronic) I34.1 Chronic diastolic heart failure (Chronic) I50.32 Typical atrial flutter (Chronic) I48.3 Paroxysmal atrial fibrillation (Chronic) I48.0 Allergies bacitracin [From Neosporin ([id number]-[id number])] Allergy (Verified 10/27/19 09:41) Rash bacitracin zinc [From Neosporin ([id number])] Allergy (Verified 10/27/19 09:41) Rash neomycin sulfate [From Neosporin ([id number]-[id number])] Allergy (Verified 10/27/19 09:41) Rash polymyxin B [From Neosporin ([id number]-[id number])] Allergy (Verified 10/27/19 09:41) Rash Sulfa (Sulfonamide Antibiotics) Allergy (Verified 10/27/19 09:41) Rash sulfamethoxazole [From Bactrim] Allergy (Verified 10/27/19 09:41) Rash trimethoprim [From Bactrim] Allergy (Verified 10/27/19 09:41) Rash codeine Adverse Reaction (Verified 10/27/19 09:41) Vomiting Home Medications: Ambulatory Orders Medication Instructions Recorded Lysine [l-Lysine] 500 mg PO DAILY 02/22/13 Multivitamins,Therapeutic 1 tab PO DAILY 02/22/13 [Multivitamin] cyanocobalamin (vitamin B-12) 1,000 mcg PO QODAY 06/17/19 1,000 mcg capsule Diltiazem HCl [Diltiazem 12Hr ER] 120 mg PO DAILY 09/12/19 Magnesium Oxide [Mag-Ox 400] 400 mg PO DAILY PRN PRN 09/12/19 apixaban 5 mg tablet 5 mg PO BID #180 tab 09/21/19 flecainide 50 mg tablet 50 mg PO BID #180 tab 09/21/19 cholecalciferol (vitamin D3) 25 25 mcg PO DAILY 10/13/19 mcg (1,000 unit) capsule furosemide 20 mg tablet 20 mg PO DAILY PRN 10/13/19 zinc and copper 1 tablet PO QODAY 10/13/19 Surgical History: Surgical History (Last Reviewed 11/02/19 @ 05:[address] Ton Allan MD) 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) Z96.643 History of laparoscopic cholecystectomy (Chronic) Z98.890, Z90.49 lumbar disc decompression (Resolved) History of transesophageal echocardiography (REAL) (Chronic) Onset Date: 04/08/18 Z87.898 History of cardioversion (Resolved) Onset Date: 04/08/18 Z98.890 09/12/2015, 03/19/2016, 04/08/2018 History of colonoscopy Onset Date: ~2006 Z98.890 Surgical History: - - T+A, Cholecystectomy, Back surgery, BL THR, RFA x 2 last 12/2018 per patient report. 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 Ton Allan MD) Brother CAD (coronary artery disease) Mother Congestive heart failure History Items: Heart Disease Paternal Family History: Family History (Last Reviewed 11/02/19 @ 05:[address] Ton Allan MD) Brother CAD (coronary artery disease) Mother Congestive heart failure History Items: - - Lupus Sibling Family History: Family History (Last Reviewed 11/02/19 @ 05:[address] Ton Allan MD) Brother CAD (coronary artery disease) Mother Congestive heart failure History Items: Heart Disease Review of Systems Constitutional: Denies: Chills, Fever, Weight Change HEENT: Denies: Head Aches, Sinus Congestion, Sinus Drainage Cardiovascular: Reports: Chest Pain. Denies: Palpitations Respiratory: Denies: Cough, Shortness of breath at rest, Sputum production Gastrointestinal: Denies: Abdominal Pain, Nausea, Vomiting Genitourinary: Denies: Dysuria Musculoskeletal: Reports: Back Pain - New complaint of right-sided mid paraspinal pain while lying on the hospital bed.. Denies: Joint Pain, Joint Tenderness Skin: Denies: Rash, Wounds Neurological: Denies: Numbness, Tingling, Focal weakness Psychiatric: Denies: Anxiety, Depression, Homicidal Ideations, Suicidal Ideations Hematologic/ Lymphatic: Denies: Easy Bruising, Easy Bleeding VTE Information - Inpt Only VTE Present on Admission: No VTE Mechan Device Prophylaxis: SCD's VTE Pharm Prophylaxis ordered?: No Patient Problems: Active and Suspected Problems (Last Reviewed 11/02/19 @ 02:[address] Ton Allan MD) Hypertensive emergency (Acute) Chest pain (Acute) - Physical Exam Vitals/I&O's: Vital Signs Temp Pulse Resp BP Pulse Ox 97.1 F L 59 L 12 170/83 H 95 11/01/19 23:21 11/02/19 01:00 11/02/19 01:00 11/02/19 01:00 11/02/19 01:00 Oxygen Delivery Method Room Air Weight: 83.9 kg Body Mass Index (BMI) 30.7 General: Alert, Oriented x3, Cooperative HEENT: Atraumatic, PERRLA, EOMI, Normocephalic Neck: Supple, No JVD, Negative Carotid Bruits Lungs: Clear to auscultation, Normal air movement Cardiovascular: Regular rate, Normal S1, Normal S2, No murmurs Abdomen: Bowel Sounds Present, Soft, Non Tender Extremities: No edema, Capillary Refill Less than 3 Seconds Skin: No rashes, No breakdown Musculoskeletal: No Tenderness to Palpation of Joints or Extremities Neurological: Cranial nerves II-XII grossly intact Psych/Mental Status: Normal Affect, Appropriate Laboratory Results 11/01/19 23:32: WBC 9.9, RBC 4.73, Hgb 13.8, Hct 44.3, MCV 93.7, MCH 29.2, MCHC 31.2 L, RDW Std Deviation 47.8 H, RDW Coeff of Igor 13.9, Plt Count 282, MPV 10.7, Immature Gran % (Auto) 0.300, Neut % (Auto) 53.8, Lymph % (Auto) 34.1, [place] % (Auto) 7.9, Eos % (Auto) 3.2, Baso % (Auto) 0.7, Absolute Neuts (auto) 5.3, Absolute Lymphs (auto) 3.37, Nucleated RBC % 0 11/01/19 23:32: Sodium 140, Potassium 3.5, Chloride 106, Carbon Dioxide 30.0, Anion Gap 4 L, BUN 14, Creatinine 1.02, Estim Creat Clear Calc 42.88, Est GFR (MDRD) Af Amer 68, Est GFR (MDRD) Non-Af 56 L, BUN/Creatinine Ratio 13.7, Glucose 100, Calcium 9.5, Troponin I < 0.015 Current Medications Nitroglycerin (Nitrostat) 0.4 mg SUBLINGUAL Q5M PRN PRN Reason: Chest pain Last Admin: 11/02/19 00:10 Dose: 0.4 mg Documented by: Assessment/Plan All Active Problems (Last Reviewed 11/02/19 @ 02:[address] Ton Allan MD) Hypertensive emergency (Acute) Chest pain (Acute) lumbar disc decompression (Resolved) History of cardioversion (Resolved 04/08/18) The patient is a 74 year old F with a significant history of atrial fibrillation; a flutter; SVT; status post cardioversion; essential hypertension who presents emergency department with chest pain; and elevated blood pressure. Chest pain Etiology could be from hypertensive emergency or CAD. Review of old record showed negative stress echocardiogram in August 2019. Place on a monitored bed at PCU Actual CXR image was independently visualized. Chest x-ray showed vascular congestion. Will get BNP. Actual EKG tracing was independently visualized. EKG tracing showed a first-degree AV block with ST depression in lead V4 to V6. Follow-up EKG after nitroglycerin showed significant correction of ST depression in above leads. Aspirin 325 mg x 1 ordered; and then 81 mg daily. SL NTG 0.4 mg prn as needed for chest pain ordered Statin: Start patient on Lipitor 20 mg nightly. Initial troponin was negative. Serial cardiac enzymes ordered Stat EKG as needed for chest pain Discussed case with cardiology. Will hold Eliquis for now.. Hypertensive emergency At the ED: Highest systolic blood pressure 223; highest highest diastolic blood pressure 103. Reports home systolic blood pressure of 217 to 218/117 Patient is on home Cardizem for atrial fibrillation. She denies history of hypertension. Received nitroglycerin sublingual which helped improve her blood pressure. Will start patient on amlodipine p.o. 5 mg daily. Labetalol IV PRN for systolic blood pressure more than 160 or diastolic blood pressure more than 120 Cardizem p.o. continued. Trend blood sugar blood pressure and adjust blood pressure medication. Atrial fibrillation Status post cardioversion Cardizem continued Flecainide continued Eliquis on hold secondary to possible cardiac catheterization. Heart failure with preserved ejection fraction Echocardiogram on 09/13/2019 showed estimated ejection fraction of 65%. Diastolic dysfunction was unable to be assessed secondary to arrhythmia. Right ventricular systolic pressure was 40 mmHg. There was trivial tricuspid valve insufficiency. There was trivial mitral valve insufficiency. On Lasix 20 mg daily as needed. We will get BNP. Of note patient denies shortness of breath. DVT prophylaxis SCD. Inpatient E&M: 42138 Init Hosp L3
[2019-11-02 02:46] LABS: Magnesium 1.8 mg/dL (1.6-2.6)
[2019-11-02 02:56] LABS: BNP,B-Type NATRIURETIC PEPTIDE 158.5 pg/mL (0-100)
[2019-11-02] MEDS: Aspirin 81 MG TAB.CHEW 324 MG PO (03:20)
[2019-11-02] MEDS: amLODIPine 5 MG Tablet PO (03:50)
[2019-11-02 06:26] LABS: Anion Gap 4 (5-15); BUN 13 mg/dL (7-18); BUN/Creat Ratio 13.4 RATIO (10-20); Calcium,Total 9.1 mg/dL (8.5-10.1); Chloride 107 mmol/L (98-107); Cholesterol 233 mg/dL (200); Creatinine, Serum 0.97 mg/dL (0.55-1.02); EST Glomerular Filtration Rate 59 mL/min (>60); Est Glom Filt Rate - Afr Amer 72 mL/min (>60); Estimated Creatinine Clearance 45.09 ml/min; Glucose 93 mg/dL (74-106); High Density Lipoprotein 67 mg/dL; Potassium 4.3 mmol/L (3.5-5.1); Sodium Level 141 mmol/L (136-145); Triglycerides 77 mg/dL; Very Low Density Lipoprotein 15 mg/dL (5-40)
--- NOTE | 2019-11-02 08:27 | RDU_ITS ---
Reason For Study: HTN Right Renal Artery Left Renal Artery Right renal artery ostium Left renal artery ostium 100.3/21.7 270.4/38.8 RSV/EDV. PSV/EDV. Right renal artery proximal Left renal artery proximal PSV/EDV 258.6/31 PSV/EDV. 108.6/25.7 . Right renal artery mid 131.5/41.5 Left renal artery mid 116.4/28.2 PSV/EDV. PSV/EDV . Right renal artery distal Left renal artery distal 108.6/28.2 142.4/34.9 PSV/EDV. PSV/EDV. Right RAR 4.24. Left RAR 1.83. Right Renal Parenchyma Left Renal Parenchyma Upper Pole Medula 30/9.2 PSV/EDV. Left upper pole medulla 25.1/6.1 Right upper pole medulla EDR 0.31 . PSV/EDV . Right upper pole medulla R.I. Left upper pole medulla EDR 0.24 . 0.70 . Left upper pole medulla R.I. 0.76 . Upper Gerard Cortx 21.4/6.7 PSV/EDV. UP Cortex 18.4/4.9 PSV/EDV. Right upper pole cortex EDR 0.31 . Left upper pole cortex EDR 0.27 . Right upper pole cortex R.I. 0.69 . Left upper pole cortex R.I. 0.74 . Right lower Pole medulla 25.7/7.3 Left lower Pole medulla 27/7.9 PSV/EDV . PSV/EDV . Right lower pole medulla EDR 0.28 . Left lower pole medulla EDR 0.29 . Right lower pole medulla R.I. Left lower pole medulla R.I. 0.71 . 0.72 . Lower Pole Cortx 16.5/5.5 PSV/EDV. Lower Pole Cortex 18.4/6.1 PSV/EDV. Left lower pole cortex EDR 0.33 . Right lower pole cortex EDR 0.33 . Left lower pole cortex R.I. 0.67 . Right lower pole cortex R.I. 0.67 . Left Renal Hilar Right Renal Hilar LT Hilar avg 29.4/7.9 PSV/EDV . Right Hilar avg 52/11.8 PSV/EDV. Left hilar acceleration time 50 Right hilar acceleration time 50 m/sec. m/sec. Left Renal Dimensions Right Renal Dimensions Left kidney size 8.91 cm . Right kidney size 9.51 cm . Left cortical dimension 1.13 cm . Right cortical dimension 1.24 cm . Aorta Proximal abdominal aorta 1.93 x 1.95 cm . Proximal abdominal aorta peak systolic velocity is 63.7 cm/sec . Distal abdominal aorta 1.46 x 1.42 cm . Distal abdominal aorta peak systolic velocity is 79.7 cm/sec . Patient Safety Prelim to Luci. Interpretation Summary >60% stenosis right renal artery Right renal length 9.51cm <60% stenosis left renal artery Left renal length 8.91cm Maximal aortic dimensions proximally at 1.93 x 1.95cm Ordering Physician: Surya Verma Referring Physician: Harpreet Crain Performed By: Rhina Elliott RVT
--- NOTE | 2019-11-02 08:28 | CON.PCM_ITS ---
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 She appears to have an extensive past cardiovascular history which has revolved around her cardiac dysrhythmia history for which she has been cared for locally and at [facility] electrophysiology where she is undergone medical adjustment and EPS/RFA x2 different settings. She continues to follow with [facility] electrophysiology for her atrial dysrhythmias and monitoring as to whether or not in the future she may need an AV node ablation and permanent pacemaker backup. She states she was feeling well until yesterday evening. After conversation with her son who lives in [place] she began to feel the discomfort around her lower rib cage/upper abdominal area. She checked her blood pressure and noted it was markedly elevated with a systolic blood pressure in excess of 200 mmHg. She took additional medication at home with respect to her diltiazem/Cardizem with no significant improvement. She had her bring her to the hospital for further evaluation. There she states she was treated with nitroglycerin sublingual which improved her blood pressure and then subsequently her symptoms. She states she has an otherwise active individual. She cares for her grandchildren. She mows multiple lawns. She states that she has been feeling well otherwise and has not noted any other resting or exertional forms of chest discomfort. She had no issues with associated dyspnea. There is been no orthopnea or PND. She has no longstanding peripheral pitting edema. There has been no near syncope or syncope. She states since being in the hospital she feels better. Her blood pressure is noted to improved but not normalized. She does note that she is very sensitive to medications and thus her medications have been kept at a somewhat low dose. She has undergone troponin I levels which have remained negative. She had an ECG which demonstrated sinus rhythm with very subtle nonspecific ST segment change which appeared to improve as her blood pressure improved. She is undergone noninvasive cardiovascular evaluation in past with echoca rdiographic studies and exercise tolerance test/imaging studies. She has not required diagnostic cardiac catheterization in the past. This included a recent stress echocardiogram performed in the latter part of August of this year which was interpreted as negative. She does not recall undergoing any evaluation of hypertension in the past with respect to studies such as renal artery duplex studies, etc. [] Past Medical History Allergies/Adverse Reactions: Allergies bacitracin [From Neosporin ([id number])] Allergy (Verified 10/27/19 09:41) Rash bacitracin zinc [From Neosporin ([id number])] Allergy (Verified 10/27/19 09:41) Rash neomycin sulfate [From Neosporin ([id number])] Allergy (Verified 10/27/19 09:41) Rash polymyxin B [From Neosporin ([id number])] Allergy (Verified 10/27/19 09:41) Rash Sulfa (Sulfonamide Antibiotics) Allergy (Verified 10/27/19 09:41) Rash sulfamethoxazole [From Bactrim] Allergy (Verified 10/27/19 09:41) Rash trimethoprim [From Bactrim] Allergy (Verified 10/27/19 09:41) Rash codeine Adverse Reaction (Verified 10/27/19 09:41) Vomiting Home Medications: Ambulatory Orders Medication Instructions Recorded Lysine [l-Lysine] 500 mg PO DAILY 02/22/13 Multivitamins,Therapeutic 1 tab PO DAILY 02/22/13 [Multivitamin] cyanocobalamin (vitamin B-12) 1,000 mcg PO QODAY 06/17/19 1,000 mcg capsule Diltiazem HCl [Diltiazem 12Hr ER] 120 mg PO DAILY 09/12/19 Magnesium Oxide [Mag-Ox 400] 400 mg PO DAILY PRN PRN 09/12/19 apixaban 5 mg tablet 5 mg PO BID #180 tab 09/21/19 flecainide 50 mg tablet 50 mg PO BID #180 tab 09/21/19 cholecalciferol (vitamin D3) 25 25 mcg PO DAILY 10/13/19 mcg (1,000 unit) capsule furosemide 20 mg tablet 20 mg PO DAILY PRN 10/13/19 zinc and copper 1 tablet PO QODAY 10/13/19 Past Medical History (Chronic Problems): Chronic Problems (Last Reviewed 11/02/19 @ 05:[address] 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 Ton Allan MD) Brother CAD (coronary artery disease) Mother Congestive heart failure History Items: Heart Disease Paternal Family History: Family History (Last Reviewed 11/02/19 @ 05:[address] Ton Allan MD) Brother CAD (coronary artery disease) Mother Congestive heart failure History Items: - - Lupus Sibling Family History: Family History (Last Reviewed 11/02/19 @ 05:[address] Ton Allan MD) Brother CAD (coronary artery disease) Mother Congestive heart failure History Items: Heart Disease Lives: With Family Smoking Status: Never smoker Alcohol: None Drugs: None Review of Systems - Review of Systems General: Denies: Fever, Night Sweats, Fatigue HEENT: Reports: Head Aches Cardiovascular: Reports: Chest Discomfort Respiratory: Denies: Cough, Sputum Production, Hemoptysis Gastrointestinal: Denies: Hematemesis, Hematochezia, Melena Genitourinary: Denies: Dysuria, Hematuria Skin: Denies: Rash Subjectve: This is a 74-year-old white female who appears resting comfortably at the moment in no acute distress. Objective: Vital Signs Temp Pulse Resp BP Pulse Ox 97.7 F L 58 L 12 178/75 H 96 11/02/19 02:35 11/02/19 06:45 11/02/19 03:53 11/02/19 02:35 11/02/19 02:35 Oxygen Delivery Method Room Air Weight: 183 lb 6.793 oz Body Mass Index (BMI) 30.5 General: Awake, Alert, Oriented x 3, Cooperative, No Acute Distress HEENT: Atraumatic, Normocephalic, PERRL, EOMI, Sclera Non Icteric Neck: Supple, Good ROM, No JVD Lungs: Clear to auscultation Cardiovascular: Regular Rhythm, Normal S1, Normal S2 Vascular: No Carotid Bruits Abdomen: Bowel Sounds Present, Soft, Non Tender Extremities: No edema Neurological: No Focal Motor or Sensory Deficit Psych/Mental Status: Appropriate 11/01/19 23:32: WBC 9.9, RBC 4.73, Hgb 13.8, Hct 44.3, MCV 93.7, MCH 29.2, MCHC 31.2 L, Plt Count 282, MPV 10.7, Immature Gran % (Auto) 0.300, Neut % (Auto) 53.8, Lymph % (Auto) 34.1, [place] % (Auto) 7.9, Eos % (Auto) 3.2, Baso % (Auto) 0.7, Absolute Neuts (auto) 5.3, Nucleated RBC % 0 11/01/19 23:32: Sodium 140, Potassium 3.5, Chloride 106, Carbon Dioxide 30.0, Anion Gap 4 L, BUN 14, Creatinine 1.02, Est GFR (MDRD) Af Amer 68, Est GFR (MDRD) Non-Af 56 L, BUN/Creatinine Ratio 13.7, Glucose 100, Calcium 9.5, Troponin I < 0.015 11/01/19 23:32: Magnesium 1.8 11/01/19 23:32: B-Natriuretic Peptide 158.5 H 11/02/19 02:53: Troponin I < 0.015 11/02/19 05:45: Sodium 141, Potassium 4.3, Chloride 107, Carbon Dioxide 30.0, Anion Gap 4 L, BUN 13, Creatinine 0.97, Est GFR (MDRD) Af Amer 72, Est GFR (MDRD) Non-Af 59 L, BUN/Creatinine Ratio 13.4, Glucose 93, Calcium 9.1, Troponin I < 0.015, Triglycerides 77, Cholesterol 233 H, LDL Cholesterol 151 H, VLDL Cholesterol 15, HDL Cholesterol 67 Rhythm: Sinus rhythm EKG: Sinus rhythm; no acute ECG changes ECHO: Interpretation Summary The estimated ejection fraction is 65 %. Unable to assess diastolic dysfunction due to arrhythmia. Patent foramen ovale. Trivial mitral valve insufficiency. Trivial tricuspid valve insufficiency. Right ventricular systolic pressure estimated to be 40 mmHg. Mild pulmonary hypertension. Compared to echo report dated 08/23/2015, LV function has remained the same but RVSP is increased from 23 to 40 mmHg. Patient appears to be in atrial fibrillation with controlled ventricular response. Stress Test: 09-12-2019 Per the report: Considered negative for stress-induced ECG evidence or echocardi ographic evidence of stress-induced myocardial ischemia CXR: Per radiology: No acute cardiopulmonary disease process appears to been reported: Please see official report Assessment/Plan 1. Chest pain The patient experienced a chest discomfort as previously described. This was in the setting of her marked hypertension with systolic blood pressures greater than 200 mmHg. She has undergone evaluation which has included repetitive cardiac enzymes/troponin I levels which have been negative. Her ECG had demonstrated sinus rhythm with a very subtle nonspecific ST segment change which appeared to improve as her blood pressure has improved. At the present time the concern would be regarding her chest discomfort in the setting of her hypertensive urgency/emergency and noting her unremarkable cardiac enzymes and her previous unremarkable noninvasive study with respect to findings of any evidence of stress-induced myocardial ischemia that her symptoms and ECG changes may all be related to her hypertensive event. At the moment she is going to continue to be monitored. She will continue medical adjustment and attempt to bring her blood pressure under better control. This will include using agents such as hydrochlorothiazide diuretics, her calcium channel antagonist, and potential addition of CAT inhibitors or ARB's. At the moment there are no immediate plans for additional cardiac diagnostic studies either noninvasive or invasive barring a change in her clinical course or other objective findings. 2. Hypertensive urgency/emergency She will continue evaluation of her hypertension. This will include a renal artery duplex study to evaluate for any obvious evidence of renal artery stenosis that may be contributing to her blood pressure related issues. In the interim she will continue medical adjustment. 3. Atrial fibrillation status post EPS/RFA x2 At the moment she appears to be remaining in sinus rhythm. She will continue her medical therapy with respect to her rate control, 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 therapy, and anticoagulant therapy. She notes she has been very sensitive to various medications including beta-blockers and/or the dose of her rate limiting medications/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 therapy. She also has a follow-up appointment at [facility] electrophysiology in November/early December to continue to monitor her cardiac dysrhythmia for the need for additional evaluation and care. 4. Hyperlipidemia She does have a history of hyperlipidemia. She states she wants to avoid lipid- lowering therapy especially statins. Thus she is trying to take care of this issue with diet and activity. Comment: The patient's case has been discussed and reviewed with the patient. She is agreeable to the aforementioned evaluation and care plan. This note was generated using a voice recognition system and there may be incorrect words, spelling or punctuation that were not noted when reviewing the office note prior to saving.
[2019-11-02] MEDS: Multivitamins,Therapeutic Tablet 1 TABLET PO (09:18)
[2019-11-02] MEDS: dilTIAZem CD 120 MG Capsule PO (09:18)
[2019-11-02] MEDS: Flecainide 100 MG Tablet 50 MG PO ×2 (09:18→21:18)
[2019-11-02] MEDS: hydroCHLOROthiazide 25 MG Tablet PO (09:19)
[2019-11-02] MEDS: Aspirin E.C. 81 MG Tablet PO (09:19)
--- NOTE | 2019-11-02 12:00 | CASEMGMT ---
Patient has a Healthcare Power of Mechanical Service Technician and a Healthcare Living Will on file at [facility]. Her is her Healthcare Power of Mechanical Service Technician. Puja JACOBS MSW
--- NOTE | 2019-11-02 13:37 | PCM.PROGNOTE ---
<CalebDarlin INVESTMENT TRADER - Last Filed: 11/02/19 13:53> Patient Problems: Active and Suspected Problems (Last Reviewed 11/02/19 @ 05:[address] Ton Allan MD) Hypertensive emergency (Acute) Chest pain (Acute) Subjective: Patient seen and examined. Denies further chest pain. Denies previous history of hypertension. To undergo renal ultrasound. - Physical Exam Vitals/I&O's: Vital Signs Temp Pulse Resp BP Pulse Ox 98.5 F 64 18 121/60 H 95 11/02/19 09:12 11/02/19 09:12 11/02/19 09:12 11/02/19 09:12 11/02/19 09:12 Oxygen Delivery Method Room Air Weight: 183 lb 6.793 oz Body Mass Index (BMI) 30.5 Intake and Output for Last 24 Hours 10/31/19 11/01/19 11/02/19 23:59 23:59 23:59 Intake Total 400 / 400 Balance 400 / 400 General: Alert, Oriented x3, Cooperative HEENT: Atraumatic, PERRLA, EOMI, Normocephalic Neck: Supple, No JVD, Negative Carotid Bruits Lungs: Clear to auscultation, Normal air movement Cardiovascular: Regular rate, No murmurs Abdomen: Bowel Sounds Present, Soft, Non Tender Extremities: No clubbing, No cyanosis, No edema, Capillary Refill Less than 3 Seconds Skin: No rashes, No breakdown Musculoskeletal: No Tenderness to Palpation of Joints or Extremities Neurological: Cranial nerves II-XII grossly intact, Neuro grossly intact Psych/Mental Status: Normal Affect, Appropriate Laboratory Results 11/01/19 23:32: WBC 9.9, RBC 4.73, Hgb 13.8, Hct 44.3, MCV 93.7, MCH 29.2, MCHC 31.2 L, RDW Std Deviation 47.8 H, RDW Coeff of Igor 13.9, Plt Count 282, MPV 10.7, Immature Gran % (Auto) 0.300, Neut % (Auto) 53.8, Lymph % (Auto) 34.1, [place] % (Auto) 7.9, Eos % (Auto) 3.2, Baso % (Auto) 0.7, Absolute Neuts (auto) 5.3, Absolute Lymphs (auto) 3.37, Nucleated RBC % 0 11/01/19 23:32: Sodium 140, Potassium 3.5, Chloride 106, Carbon Dioxide 30.0, Anion Gap 4 L, BUN 14, Creatinine 1.02, Estim Creat Clear Calc 42.88, Est GFR (MDRD) Af Amer 68, Est GFR (MDRD) Non-Af 56 L, BUN/Creatinine Ratio 13.7, Glucose 100, Calcium 9.5, Troponin I < 0.015 11/01/19 23:32: Magnesium 1.8 11/01/19 23:32: B-Natriuretic Peptide 158.5 H 11/02/19 02:53: Troponin I < 0.015 11/02/19 05:45: Sodium 141, Potassium 4.3, Chloride 107, Carbon Dioxide 30.0, Anion Gap 4 L, BUN 13, Creatinine 0.97, Estim Creat Clear Calc 45.09, Est GFR (MDRD) Af Amer 72, Est GFR (MDRD) Non-Af 59 L, BUN/Creatinine Ratio 13.4, Glucose 93, Calcium 9.1, Troponin I < 0.015, Triglycerides 77, Cholesterol 233 H, LDL Cholesterol 151 H, VLDL Cholesterol 15, HDL Cholesterol 67 Current Medications Acetaminophen (Tylenol) 650 mg PO Q6H PRN PRN PRN Reason: Pain Score 1-10/Temp > 100.7 F Aspirin (Ecotrin) 81 mg PO DAILY [facility] Last Admin: 11/02/19 09:19 Dose: 81 mg Documented by: Atorvastatin Calcium (Lipitor) 20 mg PO QHS [facility] Last Admin: 11/02/19 03:52 Dose: Not Given Documented by: Cyanocobalamin (Vitamin B12) 1,000 mcg PO QODAY [facility] Diltiazem HCl (Cardizem Cd) 120 mg PO DAILY [facility] Last Admin: 11/02/19 09:18 Dose: 120 mg Documented by: Flecainide Acetate (Tambocor) 50 mg PO BID [facility] Last Admin: 11/02/19 09:18 Dose: 50 mg Documented by: Furosemide (Lasix) 20 mg PO DAILY PRN PRN PRN Reason: edema Hydrochlorothiazide (Hctz) 25 mg PO DAILY [facility] Last Admin: 11/02/19 09:19 Dose: 25 mg Documented by: Labetalol HCl (Trandate) 10 mg IV Q4H PRN PRN PRN Reason: sbp > 160; or DBP > 120 Melatonin (Melatonin) 3 mg PO QHS PRN PRN PRN Reason: INSOMNIA Multivitamins (Multivitamin) 1 tablet PO DAILYCM [facility] Last Admin: 11/02/19 09:18 Dose: 1 tablet Documented by: Nitroglycerin (Nitrostat) 0.4 mg SUBLINGUAL Q5M PRN PRN Reason: CARDIAC/CHEST PAIN Ondansetron HCl (Zofran) 4 mg IV Q8H PRN PRN PRN Reason: NAUSEA/VOMITING Sodium Chloride () 10 - 40 ml IV UD PRN PRN Reason: SALINE FLUSH Medical Necessity - Tobacco Use Smoking Status: Never smoker Assessment/Plan All Active Problems (Last Reviewed 11/02/19 @ 05:[address] Ton Allan MD) Hypertensive emergency (Acute) Chest pain (Acute) lumbar disc decompression (Resolved) History of cardioversion (Resolved 04/08/18) 1. Hypertensive urgency-improved. Cardiology following. Recent stress echo 09/13/2019 demonstrated an EF of 65%, negative for ischemia. Continue home Cardizem regimen. Added on hydrochlorothiazide 25 mg daily. Renal ultrasound pending. Continue BP monitoring with further adjustment in medication regimen as deemed appropriate. 2. Chest pain-ACS ruled out. Troponin negative. EKG without ST-T changes. Suspect secondary to #1. 3. Paroxysmal atrial fibrillation-on flecainide, Cardizem and Eliquis. Attempted beta-blockers in the past and patient was very symptomatic. 4. Hyperlipidemia-continue statin. 5. Heart failure with preserved ejection fraction-recent echo August 2019 demonstrated an EF of 65%, RVSP estimated to be 40 mmHg. 6. Multiple pulmonary nodules-following outpatient with pulmonary medicine. Found to be benign. 7. Chronic kidney disease stage III-at baseline. DVT prophylaxis-Lovenox subcu This patient was seen by CARLA Salas under the supervision of Dr. Hardy. <Michael Hardy F - Last Filed: 11/02/19 17:12> - Physical Exam Vitals/I&O's: Vital Signs Temp Pulse Resp BP Pulse Ox 98.5 F 70 18 125/71 H 94 11/02/19 15:08 11/02/19 15:08 11/02/19 15:08 11/02/19 15:08 11/02/19 15:08 Oxygen Delivery Method Room Air Weight: 183 lb 6.793 oz Body Mass Index (BMI) 30.5 Intake and Output for Last 24 Hours 10/31/19 11/01/19 11/02/19 23:59 23:59 23:59 Intake Total 400 / 400 Balance 400 / 400 Laboratory Results 11/01/19 23:32: WBC 9.9, RBC 4.73, Hgb 13.8, Hct 44.3, MCV 93.7, MCH 29.2, MCHC 31.2 L, RDW Std Deviation 47.8 H, RDW Coeff of Igor 13.9, Plt Count 282, MPV 10.7, Immature Gran % (Auto) 0.300, Neut % (Auto) 53.8, Lymph % (Auto) 34.1, [place] % (Auto) 7.9, Eos % (Auto) 3.2, Baso % (Auto) 0.7, Absolute Neuts (auto) 5.3, Absolute Lymphs (auto) 3.37, Nucleated RBC % 0 11/01/19 23:32: Sodium 140, Potassium 3.5, Chloride 106, Carbon Dioxide 30.0, Anion Gap 4 L, BUN 14, Creatinine 1.02, Estim Creat Clear Calc 42.88, Est GFR (MDRD) Af Amer 68, Est GFR (MDRD) Non-Af 56 L, BUN/Creatinine Ratio 13.7, Glucose 100, Calcium 9.5, Troponin I < 0.015 11/01/19 23:32: Magnesium 1.8 11/01/19 23:32: B-Natriuretic Peptide 158.5 H 11/02/19 02:53: Troponin I < 0.015 11/02/19 05:45: Sodium 141, Potassium 4.3, Chloride 107, Carbon Dioxide 30.0, Anion Gap 4 L, BUN 13, Creatinine 0.97, Estim Creat Clear Calc 45.09, Est GFR (MDRD) Af Amer 72, Est GFR (MDRD) Non-Af 59 L, BUN/Creatinine Ratio 13.4, Glucose 93, Calcium 9.1, Troponin I < 0.015, Triglycerides 77, Cholesterol 233 H, LDL Cholesterol 151 H, VLDL Cholesterol 15, HDL Cholesterol 67 Current Medications Acetaminophen (Tylenol) 650 mg PO Q6H PRN PRN PRN Reason: Pain Score 1-10/Temp > 100.7 F Aspirin (Ecotrin) 81 mg PO DAILY [facility] Last Admin: 11/02/19 09:19 Dose: 81 mg Documented by: Atorvastatin Calcium (Lipitor) 20 mg PO QHS [facility] Last Admin: 11/02/19 03:52 Dose: Not Given Documented by: Cyanocobalamin (Vitamin B12) 1,000 mcg PO QODAY [facility] Diltiazem HCl (Cardizem Cd) 120 mg PO DAILY [facility] Last Admin: 11/02/19 09:18 Dose: 120 mg Documented by: Flecainide Acetate (Tambocor) 50 mg PO BID [facility] Last Admin: 11/02/19 09:18 Dose: 50 mg Documented by: Furosemide (Lasix) 20 mg PO DAILY PRN PRN PRN Reason: edema Hydrochlorothiazide (Hctz) 25 mg PO DAILY [facility] Last Admin: 11/02/19 09:19 Dose: 25 mg Documented by: Labetalol HCl (Trandate) 10 mg IV Q4H PRN PRN PRN Reason: sbp > 160; or DBP > 120 Melatonin (Melatonin) 3 mg PO QHS PRN PRN PRN Reason: INSOMNIA [facility]it[facility] ([facility]amin) [facility] Last Admin: 11/02/19 09:18 Dose: 1 tablet Documented by: Nitroglycerin (Nitrostat) 0.4 mg SUBLINGUAL Q5M PRN PRN Reason: CARDIAC/CHEST PAIN Ondansetron HCl (Zofran) 4 mg IV Q8H PRN PRN PRN Reason: NAUSEA/VOMITING Sodium Chloride () 10 - 40 ml IV UD PRN PRN Reason: SALINE FLUSH Addendum: Dr. Hardy I personally examined the patient and reviewed the chart. I agree with the above. 74-year-old female presenting with chest pain. She had previous noninvasive cardiac work-up fairly recently which was unremarkable, cardiology was consulted and felt that controlling her blood pressure would be best at this point with managing her chest pain. Currently awaiting renal artery duplex results we will continue to monitor her blood pressure, at home she was on Cardizem, flecainide, furosemide, here she has hydrochlorothiazide added to her daily regimen. Now that her blood pressures under control she states that her chest pain has resolved. We will continue to monitor overnight and evaluate for any electrolyte abnormalities in the morning as well. OBSV E&M: 72228 Subsequent observation care L2
--- NOTE | 2019-11-02 19:16 | CT_ITS ---
STUDY: CTA OF THE ABDOMINAL AORTA AND BILATERAL LOWER EXTREMITIES REASON FOR EXAM: Female, 74 years old. Renal artery stenosis. Elevated hypertension. Cardiomegaly and bilateral hip replacement. Renal ultrasound may scan in 2 exam. RADIATION DOSAGE (If Supplied By Facility): CTDIvol = ( 25.41 ) mGy, DLP = ( 526.50 ) mGycm TECHNIQUE: Axial CT angiography multi-detector data acquisition was obtained from the diaphragm to the upper pelvis following intravenous administration of IV 100mL [id number]-370. Axial images and MIP images were reconstructed from the axial data set. Post-processing of the angiographic images was performed, with multiplanar reformation and 3D reconstruction. Individualized dose optimization techniques were used for this CT. TECHNICAL QUALITY: Good COMPARISON: Renal artery duplex ultrasound, 11/02/2019. Descriptors of Narrowing: None (0%) Mild (< 50%) Moderate (50-70%) Severe (70-90%) Subtotal/Total Occlusion (90-100%) Non-Evaluable (technically non-diagnostic FINDINGS: Abdominal aorta: There is minimal atherosclerotic changes of the abdominal aorta without aneurysm or dissection. Celiac and superior mesenteric arteries: Minimal atherosclerotic changes without stenosis. The splenic artery arises directly from the aorta adjacent to the celiac artery. Inferior mesenteric artery: No demonstrated narrowing. Right renal artery(arteries): There are atherosclerotic changes at the origin of the right renal artery. Just beyond the origin is in approximate 50-60% stenosis. The distal artery appears normal. Left renal artery(arteries): There is atherosclerotic changes at the origin of the left renal artery. Less than 50% stenosis. The distal artery is unremarkable. Right common iliac artery: Minimal atherosclerotic changes with mild stenosis. Right external iliac artery: No demonstrated narrowing. Right internal iliac artery: Minimal atherosclerotic changes. Left common iliac artery: Minimal atherosclerotic changes with mild stenosis Left external iliac artery: No demonstrated narrowing. Left internal iliac artery: Atherosclerotic changes with mild stenosis. The lung bases are clear. The heart is borderline enlarged. Normal liver. Status post cholecystectomy. Normal spleen. Atrophic pancreas. Normal adrenal glands. Normal kidneys. Normal IVC and retroperitoneum. Normal stomach. Normal visualized small bowel. There are scattered diverticuli in the distal descending colon. The proximal colon is unremarkable. Normal abdominal wall. There are degenerative changes of the lumbar spine. CT/CTA Abdomen W/WO Contrast IMPRESSION: 1. 50-60% stenoses of the proximal right renal artery. 2. A less than 50% stenosis of the proximal left renal artery. 3. Atherosclerotic changes of the abdominal aorta and common iliac arteries without dissection or aneurysm. 4. No evidence of acute intra-abdominal process. Electronically Signed: Joe Ashley DO at 21:34 EDT Tel [phone], Service support ,
[2019-11-02] MEDS: Docusate Sodium 100 MG Capsule PO (21:18)
[2019-11-02] MEDS: MELATONIN 3 MG TABLET PO (22:48)
[2019-11-03 02:57] VITALS: PULSE 57
[2019-11-03 03:16] VITALS: BP 108/58; PULSE 60; RESP 11; TEMP 36.8; O2SAT 94
[2019-11-03 06:38] VITALS: PULSE 58
[2019-11-03 06:44] VITALS: O2SAT 97
--- NOTE | 2019-11-03 08:05 | PCM.PN.CARD ---
Subjectve: The patient is awake and alert. She denies any ongoing chest discomfort or other symptoms at this time. Objective: Vital Signs Temp Pulse Resp BP Pulse Ox 98.2 F 58 L 11 L 108/58 L 97 11/03/19 03:16 11/03/19 06:38 11/03/19 03:16 11/03/19 03:16 11/03/19 06:44 Oxygen Delivery Method Room Air Weight: 183 lb 6.793 oz Body Mass Index (BMI) 30.5 Intake and Output for Last 24 Hours 11/01/19 11/02/19 11/03/19 23:59 23:59 23:59 Intake Total 940 / 940 Balance 940 / 940 General: Awake, Alert, Oriented x 3, Cooperative, No Acute Distress HEENT: Atraumatic, Normocephalic, PERRL, EOMI, Sclera Non Icteric Neck: Supple, Good ROM, No JVD Lungs: Clear to auscultation Cardiovascular: Regular Rhythm, Normal S1, Normal S2 Abdomen: Bowel Sounds Present, Soft Extremities: No edema Neurological: No Focal Motor or Sensory Deficit Psych/Mental Status: Appropriate Rhythm: Sinus rhythm Renal artery duplex study: Interpretation Summary >60% stenosis right renal artery Right renal length 9.51cm <60% stenosis left renal artery Left renal length 8.91cm Maximal aortic dimensions proximally at 1.93 x 1.95cm Abdominal CTA: FINDINGS: Abdominal aorta: There is minimal atherosclerotic changes of the abdominal aorta without aneurysm or dissection. Celiac and superior mesenteric arteries: Minimal atherosclerotic changes without stenosis. The splenic artery arises directly from the aorta adjacent to the celiac artery. Inferior mesenteric artery: No demonstrated narrowing. Right renal artery(arteries): There are atherosclerotic changes at the origin of the right renal artery. Just beyond the origin is in approximate 50-60% stenosis. The distal artery appears normal. Left renal artery(arteries): There is atherosclerotic changes at the origin of the left renal artery. Less than 50% stenosis. The distal artery is unremarkable. Right common iliac artery: Minimal atherosclerotic changes with mild stenosis. Right external iliac artery: No demonstrated narrowing. Right internal iliac artery: Minimal atherosclerotic changes. Left common iliac artery: Minimal atherosclerotic changes with mild stenosis Left external iliac artery: No demonstrated narrowing. Left internal iliac artery: Atherosclerotic changes with mild stenosis. The lung bases are clear. The heart is borderline enlarged. Normal liver. Status post cholecystectomy. Normal spleen. Atrophic pancreas. Normal adrenal glands. Normal kidneys. Normal IVC and retroperitoneum. Normal stomach. Normal visualized small bowel. There are scattered diverticuli in the distal descending colon. The proximal colon is unremarkable. Normal abdominal wall. There are degenerative changes of the lumbar spine. CT/CTA Abdomen W/WO Contrast IMPRESSION: 1. 50-60% stenoses of the proximal right renal artery. 2. A less than 50% stenosis of the proximal left renal artery. 3. Atherosclerotic changes of the abdominal aorta and common iliac arteries without dissection or aneurysm. 4. No evidence of acute intra-abdominal process. Medical Necessity - Tobacco Use Smoking Status: Never smoker Assessment/Plan 1. Chest pain The patient experienced a chest discomfort as previously described. This was in the setting of her marked hypertension with systolic blood pressures greater than 200 mmHg. She has undergone evaluation which has included repetitive cardiac enzymes/troponin I levels which have been negative. Her ECG had demonstrated sinus rhythm with a very subtle nonspecific ST segment change which appeared to improve as her blood pressure has improved. At the present time the concern would be regarding her chest discomfort in the setting of her hypertensive urgency/emergency and noting her unremarkable cardiac enzymes and her previous unremarkable noninvasive study with respect to findings of any evidence of stress-induced myocardial ischemia that her symptoms and ECG changes may all be related to her hypertensive event. She has undergone medical management. As her blood pressure has improved she has noted no recurrent chest discomfort. There is been no other acute cardiovascular changes. 2. Hypertensive urgency/emergency She will continue evaluation of her hypertension. She has undergone further evaluation with a renal artery duplex study and an abdominal CTA. She does have an element of renal artery stenosis greater on the right than the left. It would not be unreasonable to have the patient officially evaluated by peripheral vascular surgery for comment on her renal arteries for continued evaluation/care. In the interim her medications have been adjusted. With the dose of HCTZ she has had marked improvement in her systolic blood pressures while at [facility]. 3. Atrial fibrillation status post EPS/RFA x2 At the moment she appears to be remaining in sinus rhythm. She will continue her medical therapy with respect to her rate control, 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 therapy, and anticoagulant therapy. She notes she has been very sensitive to various medications including beta-blockers and/or the dose of her rate limiting medications/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 therapy. She also has a follow-up appointment at [facility] electrophysiology in November/early December to continue to monitor her cardiac dysrhythmia for the need for additional evaluation and care. 4. Hyperlipidemia She does have a history of hyperlipidemia. She states she would be willing to try a low dose of a statin. Overall, at the present time, the patient will continue medication adjustment as noted. There are no immediate plans for additional cardiovascular diagnostic studies/intervention. She will need to be followed as an outpatient for her long-term cardiovascular history as well as follow-up with her medications such as her HCTZ with a BMP and her lipid history with future fasting lipid and hepatic profile. Comment: The patient's case has been discussed and reviewed with the patient. She is agreeable to the aforementioned evaluation and care plan. This note was generated using a voice recognition system and there may be incorrect words, spelling or punctuation that were not noted when reviewing the office note prior to saving.
[2019-11-03 08:21] VITALS: BP 119/63; PULSE 61; RESP 18; TEMP 36.7; O2SAT 93
[2019-11-03] MEDS: Multivitamins,Therapeutic Tablet 1 TABLET PO (08:52)
[2019-11-03] MEDS: dilTIAZem CD 120 MG Capsule PO (08:53)
[2019-11-03] MEDS: Aspirin E.C. 81 MG Tablet PO (08:53)
[2019-11-03] MEDS: hydroCHLOROthiazide 25 MG Tablet PO (08:54)
[2019-11-03] MEDS: Flecainide 100 MG Tablet 50 MG PO (08:56)
[2019-11-03] MEDS: Cyanocobalamin 500 MCG Tablet 1000 MCG PO (08:57)
[2019-11-03] MEDS: Docusate Sodium 100 MG Capsule PO (09:00)
--- NOTE | 2019-11-03 10:00 | PCM.DC ---
- Discharge Diagnoses Current Active Problems: Current Active and Chronic Problems (Last Reviewed 11/02/19 @ 05:[address] Ton Allan MD) Hypertensive emergency (Acute) Chest pain (Acute) You will use the following diet at home:: Cardiac Your food should be the consistency of: Regular Your liquids should be the consistency of: Regular/Thin Discharge Activity: Return to Normal Activity Allergies/Adverse Reactions: Allergies bacitracin [From Neosporin ([id number])] Allergy (Verified 10/27/19 09:41) Rash bacitracin zinc [From Neosporin ([id number])] Allergy (Verified 10/27/19 09:41) Rash neomycin sulfate [From Neosporin ([id number])] Allergy (Verified 10/27/19 09:41) Rash polymyxin B [From Neosporin ([id number])] Allergy (Verified 10/27/19 09:41) Rash Sulfa (Sulfonamide Antibiotics) Allergy (Verified 10/27/19 09:41) Rash sulfamethoxazole [From Bactrim] Allergy (Verified 10/27/19 09:41) Rash trimethoprim [From Bactrim] Allergy (Verified 10/27/19 09:41) Rash codeine Adverse Reaction (Verified 10/27/19 09:41) Vomiting Medications to take at Discharge Lysine [l-Lysine] 500 mg PO DAILY 02/22/13 Multivitamins,Therapeutic [Multivitamin] 1 tab PO DAILY 02/22/13 cyanocobalamin (vitamin B-12) 1,000 mcg capsule 1,000 mcg PO QODAY 06/17/19 Diltiazem HCl [Diltiazem 12Hr ER] 120 mg PO DAILY 09/12/19 Magnesium Oxide [Mag-Ox 400] 400 mg PO DAILY PRN PRN 09/12/19 apixaban 5 mg tablet 5 mg PO BID #180 tab 09/21/19 flecainide 50 mg tablet 50 mg PO BID #180 tab 09/21/19 cholecalciferol (vitamin D3) 25 mcg (1,000 unit) capsule 25 mcg PO DAILY 10/13/19 furosemide 20 mg tablet 20 mg PO DAILY PRN 10/13/19 Aspirin E.C. [Ecotrin] 81 mg PO DAILY tablet 11/03/19 Atorvastatin Calcium [Lipitor] 20 mg PO QHS #30 tab 11/03/19 Hydrochlorothiazide [Hctz] 25 mg PO DAILY #30 tab 11/03/19 The following prescriptions were given: Hydrochlorothiazide [Hctz] 25 mg PO DAILY #30 tab Transmission Status: Pending to [facility] Atorvastatin Calcium [Lipitor] 20 mg PO QHS #30 tab Transmission Status: Pending to [facility] Primary Care Physician: Harpreet Crain MD [Primary Care Provider] - Please follow up with your Primary Care Physician in: 1-2 weeks Test Results: Test results from this visit will be discussed in further detail at your follow-up appointment, if applicable. Please Follow Up With: Surya Verma MD When: as directed Please Follow Up With: Parker Elizabeth MD - renal artery stenosis When: 3-4 weeks Proposed Discharge Date: 11/03/19
--- NOTE | 2019-11-03 12:34 | PCM.DC.SUM ---
<Curt Garibay - Last Filed: 11/03/19 12:34> Discharge Date and Diagnosis Date of Admission: 11/02/19 Date of Discharge: 11/03/19 - Primary Discharge Diagnosis Acute Problems: HTN urgency renal artery stenosis pAfib - Secondary Discharge Diagnosis Chronic Problems: Chronic Problems (Last Reviewed 11/02/19 @ 05:[address] 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) History of laparoscopic cholecystectomy (Chronic) Multiple pulmonary nodules determined by computed tomography of lung (Chronic) Fatigue (Chronic) Palpitations (Chronic) History of transesophageal echocardiography (REAL) (Chronic 04/08/18) Atrial flutter (Chronic) History of supraventricular tachycardia (Chronic) Nonrheumatic mitral valve prolapse (Chronic) Chronic diastolic heart failure (Chronic) Typical atrial flutter (Chronic) Paroxysmal atrial fibrillation (Chronic) Hospital Course and Treatment Imaging Results: RAD/Chest PA and Lateral IMPRESSION: Hyperinflation with interstitial prominence. Mild vascular congestion possible. No confluent pneumonia. Probable scarring in the left base. Resolution of previous atelectasis. renal artery US: Interpretation Summary >60% stenosis right renal artery Right renal length 9.51cm <60% stenosis left renal artery Left renal length 8.91cm Maximal aortic dimensions proximally at 1.[address]/CTA Abdomen W/WO Contrast IMPRESSION: 1. 50-60% stenoses of the proximal right renal artery. 2. A less than 50% stenosis of the proximal left renal artery. 3. Atherosclerotic changes of the abdominal aorta and common iliac arteries without dissection or aneurysm. 4. No evidence of acute intra-abdominal process. consults: Cardiology - [place] Operations: None Procedures: None Summary of Care Provided: The patient is a 74 year old F with past medical history as above who presented to the ER with chest pain that was somewhat relieved by nitro, Cardizem, Tylenol. She had markedly elevated blood pressure at 223/101. She had nonspecific EKG changes. Troponin was negative. Patient was admitted to the PCU for chest pain and hypertensive emergency. Cardiology was consulted. Hydrochlorothiazide was added to her home regimen. CT angiogram of the abdomen demonstrated 50 to 60% stenosis right proximal renal artery, less than 50% stenosis of the left left proximal renal artery. Follow-up ultrasound was obtained which demonstrated greater than 60% stenosis of the right renal artery less than 60% stenosis left renal artery. Troponin was negative x3. Cardiology recommended follow-up with vascular surgery as an outpatient, and going home on HCTZ and atorvastatin. The patient was discharged home in stable condition and will follow up with in 3 to 4 weeks and with cardiology as directed, routine follow-up with PCP in 1 to 2 weeks. This patient was seen by Curt Garibay PA-C under the supervision of Doctor Hayley [] - Physical Exam Vitals/I&O's: Vital Signs Temp Pulse Resp BP Pulse Ox 98.0 F 61 18 119/63 93 11/03/19 08:21 11/03/19 08:21 11/03/19 08:21 11/03/19 08:21 11/03/19 08:21 Oxygen Delivery Method Room Air Weight: 183 lb 6.793 oz Body Mass Index (BMI) 30.5 Intake and Output for Last 24 Hours 11/01/19 11/02/19 11/03/19 23:59 23:59 23:59 Intake Total 940 / 940 Balance 940 / 940 General: Alert, Oriented x3, Cooperative HEENT: Atraumatic, PERRLA, EOMI, Normocephalic Neck: Supple, No JVD, Negative Carotid Bruits Lungs: Clear to auscultation, Normal air movement Cardiovascular: Regular rate, No murmurs Abdomen: Bowel Sounds Present, Soft, Non Tender Extremities: No edema, Capillary Refill Less than 3 Seconds Skin: No rashes, No breakdown Musculoskeletal: No Tenderness to Palpation of Joints or Extremities Neurological: Cranial nerves II-XII grossly intact Psych/Mental Status: Normal Affect, Appropriate, Alert and oriented to time, place, person, mood and affect Discharge Diet: Low fat/ Low Cholesterol, 2000 mg Sodium Diet Discharge Activity: Return to Normal Activity Home Medications: Medications to take at Discharge Lysine [l-Lysine] 500 mg PO DAILY 02/22/13 Multivitamins,Therapeutic [Multivitamin] 1 tab PO DAILY 02/22/13 cyanocobalamin (vitamin B-12) 1,000 mcg capsule 1,000 mcg PO QODAY 06/17/19 Diltiazem HCl [Diltiazem 12Hr ER] 120 mg PO DAILY 09/12/19 Magnesium Oxide [Mag-Ox 400] 400 mg PO DAILY PRN PRN 09/12/19 apixaban 5 mg tablet 5 mg PO BID #180 tab 09/21/19 flecainide 50 mg tablet 50 mg PO BID #180 tab 09/21/19 cholecalciferol (vitamin D3) 25 mcg (1,000 unit) capsule 25 mcg PO DAILY 10/13/19 furosemide 20 mg tablet 20 mg PO DAILY PRN 10/13/19 Aspirin E.C. [Ecotrin] 81 mg PO DAILY tab 11/03/19 Atorvastatin Calcium [Lipitor] 20 mg PO QHS #30 tab 11/03/19 Hydrochlorothiazide [Hctz] 25 mg PO DAILY #30 tab 11/03/19 Following Prescriptions Were Given to Patient: Hydrochlorothiazide [Hctz] 25 mg PO DAILY #30 tab Transmission Status: Received by [facility] Atorvastatin Calcium [Lipitor] 20 mg PO QHS #30 tab Transmission Status: Received by [facility] Primary Care Physician: Harpreet Crain MD [Primary Care Provider] - Please follow up with your Primary Care Physician in: 1-2 weeks Please Follow Up With: Surya Verma MD When: as directed Please Follow Up With: Parker Elizabeth MD - renal artery stenosis When: 3-4 weeks Disposition: Home Minutes spent on discharge:: 35 Patient Condition:: Stable Medical Necessity - Tobacco Use Smoking Status: Never smoker Meaningful Use Info Meaningful Use Diagnoses (Choose all that apply): None applicable <Michael Hardy - Last Filed: 11/03/19 14:07> Discharge Date and Diagnosis - Secondary Discharge Diagnosis Chronic Problems: Chronic Problems (Last Reviewed 11/02/19 @ 05:[address] 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) History of laparoscopic cholecystectomy (Chronic) Multiple pulmonary nodules determined by computed tomography of lung (Chronic) Fatigue (Chronic) Palpitations (Chronic) History of transesophageal echocardiography (REAL) (Chronic 04/08/18) Atrial flutter (Chronic) History of supraventricular tachycardia (Chronic) Nonrheumatic mitral valve prolapse (Chronic) Chronic diastolic heart failure (Chronic) Typical atrial flutter (Chronic) Paroxysmal atrial fibrillation (Chronic) Hospital Course and Treatment Summary of Care Provided: The patient is a 74 year old F [] - Physical Exam Vitals/I&O's: Vital Signs Temp Pulse Resp BP Pulse Ox 98.0 F 61 18 119/63 93 11/03/19 08:21 11/03/19 08:21 11/03/19 08:21 11/03/19 08:21 11/03/19 08:21 Oxygen Delivery Method Room Air Weight: 183 lb 6.793 oz Body Mass Index (BMI) 30.5 Intake and Output for Last 24 Hours 11/01/19 11/02/19 11/03/19 23:59 23:59 23:59 Intake Total 940 / 940 Balance 940 / 940 Addendum: Dr. Hardy I personally examined the patient and reviewed the chart. I agree with the above. 74-year-old female presenting with chest pain. She had previous noninvasive cardiac work-up fairly recently which was unremarkable, cardiology was consulted and felt that controlling her blood pressure would be best at this point with managing her chest pain. Currently awaiting renal artery duplex results we will continue to monitor her blood pressure, at home she was on Cardizem, flecainide, furosemide, here she has hydrochlorothiazide added to her daily regimen. Now that her blood pressures under control she states that her chest pain has resolved. We will continue to monitor overnight and evaluate for any electrolyte abnormalities in the morning as well. 11/03/2019: Doing well today, and feels much better with medications. Her renal artery duplex demonstrated greater than 60% stenosis on the right kidney and she had a CTA of the abdomen which confirmed that. She had no other types of narrowing in the rest of her vasculature. She was started on hydrochlorothiazide per cardiology which has helped control her blood pressure. She will need to follow-up with vascular surgery for evaluation of that right renal artery stenosis. I discussed with her the plan for discharge today and she expressed understanding the risks and benefits of going home and she will like to follow-up with Dr. Elizabeth as an outpatient. OBSV E&M: [id number] Observation care discharge
== END 2019-11-03 10:01 | disposition other institution (70) ==
LOC: ED 11-02 01:32 → PCU 11-02 01:42
PROVIDERS: Admitting Provider Hospitalist; Emergency Provider Emergency Medicine; PCP Family Medicine; Visit Provider Family Medicine
DX: I16.1 Hypertensive emergency (principal); I70.1 Atherosclerosis of renal artery; I48.0 Paroxysmal atrial fibrillation; E78.5 Hyperlipidemia, unspecified; I13.0 Hypertensive heart and chronic kidney disease with heart failure and stage 1 through stage 4 chronic kidney disease, or unspecified chronic kidney disease; I50.32 Chronic diastolic (congestive) heart failure; N18.3 Chronic kidney disease, stage 3 (moderate); Z79.899 Other long term (current) drug therapy; Z79.01 Long term (current) use of anticoagulants; I48.3 Typical atrial flutter; R91.8 Other nonspecific abnormal finding of lung field; I10 Essential (primary) hypertension; R00.1 Bradycardia, unspecified; I44.0 Atrioventricular block, first degree
CPT/HCPCS: 36415; 71046; 74175; 80048; 80061; 83735; 83880; 84484; 85025; 93005; 93975; 99218; 99285; Q9967; A4216; G0378

== ENCOUNTER → 2019-11-10 11:57 | Outpatient (CLI) | payer MEDICARE, OTHER, SELFPAY ==
[2019-11-02 02:43] VITALS: BMI 30.5
[2019-11-10 16:01] LABS: Anion Gap 6 (5-15); BUN 17 mg/dL (7-18); BUN/Creat Ratio 13.6 RATIO (10-20); Calcium,Total 9.2 mg/dL (8.5-10.1); Chloride 101 mmol/L (98-107); Creatinine, Serum 1.25 mg/dL (0.55-1.02); EST Glomerular Filtration Rate 44 mL/min (>60); Est Glom Filt Rate - Afr Amer 54 mL/min (>60); Glucose 119 mg/dL (74-106); Potassium 3.2 mmol/L (3.5-5.1); Sodium Level 139 mmol/L (136-145)
== END ==
LOC: LAB.FUTURE 12:00 → MTLAB 12:09
PROVIDERS: PCP Family Medicine; Referring Provider Family Medicine; Visit Provider Family Medicine
DX: I12.9 Hypertensive chronic kidney disease with stage 1 through stage 4 chronic kidney disease, or unspecified chronic kidney disease (principal); N18.3 Chronic kidney disease, stage 3 (moderate)
CPT/HCPCS: 36415; 80048

== ENCOUNTER → 2019-11-21 09:43 | Outpatient (CLI) | payer MEDICARE, OTHER, SELFPAY ==
[2019-11-02 02:43] VITALS: BMI 30.5
[2019-11-21 12:01] LABS: Absolute Lymphocyte Count 1.82 X10^3/uL (0.83-4.51); Absolute Neutrophil Count 4.9 X10^3/uL (2.0-7.7); Basophil# 0.05 X10^3/uL; Basophil% 0.7 % (0-1); Eosinophil# 0.23 X10^3/uL; Eosinophils% 3.1 % (0-5); Hematocrit 42.4 % (37-47); Hemoglobin 13.6 g/dL (12.0-15.0); Lymphocyte # 1.82 X10^3/ul (4.0); Lymphocyte % 24.4 % (19-41); Mean Corp Hgb Conc 32.1 g/dL (32-36); Mean Corpuscular Hgb 30.7 pg (27.0-32.0); Mean Corpuscular Volume 95.7 fL (81-99); Mean Platelet Vol. 11.3 fl (6.2-12.0); Monocyte# 0.49 X10^3/uL; Monocyte% 6.6 % (0-10); NRBC Flagged by Analyzer 0 % (0-5); Neutrophil # 4.85 X10^3/uL (2.7-7.7); Neutrophil % 64.9 % (47-70); Platelet Count 278 K/mm3 (150-450); RBC Distribution Width CV 14.7 % (11.6-14.6); RBC Distribution Width SD 50.5 fl (35.1-43.9); Red Blood Count 4.43 M/mm3 (4.2-5.4); White Blood Count 7.5 K/mm3 (4.4-11.0)
[2019-11-21 12:32] LABS: Anion Gap 6 (5-15); BUN 17 mg/dL (7-18); BUN/Creat Ratio 13.9 RATIO (10-20); Chloride 104 mmol/L (98-107); Creatinine, Serum 1.22 mg/dL (0.55-1.02); EST Glomerular Filtration Rate 46 mL/min (>60); Est Glom Filt Rate - Afr Amer 55 mL/min (>60); Glucose 136 mg/dL (74-106); Potassium 3.7 mmol/L (3.5-5.1); Sodium Level 139 mmol/L (136-145); Thyroid Stim Hormone (TSH) 2.54 uIU/mL (0.358-3.74)
== END ==
PROVIDERS: Physician Assistant Medical; PCP Family Medicine; Visit Provider Family Medicine
DX: E87.6 Hypokalemia (principal); I48.92 Unspecified atrial flutter; R55 Syncope and collapse; R53.83 Other fatigue
CPT/HCPCS: 36415; 80048; 83735; 84443; 85025

== ENCOUNTER → 2019-12-15 14:24 | Outpatient (CLI) | payer MEDICARE, OTHER, SELFPAY ==
[2019-11-30 10:11] VITALS: BMI 29.7
== END ==
PROVIDERS: PCP Family Medicine; Visit Provider Family Medicine
DX: N39.0 Urinary tract infection, site not specified (principal)
CPT/HCPCS: 87086; 87088

== ENCOUNTER → 2020-01-02 09:20 | Outpatient (CLI) | payer MEDICARE, OTHER, SELFPAY ==
[2019-11-30 10:11] VITALS: BMI 29.7
[2020-01-02 10:42] LABS: Anion Gap 6 (5-15); BUN 18 mg/dL (7-18); BUN/Creat Ratio 13.8 RATIO (10-20); Calcium,Total 9.2 mg/dL (8.5-10.1); Chloride 101 mmol/L (98-107); EST Glomerular Filtration Rate 42 mL/min (>60); Est Glom Filt Rate - Afr Amer 51 mL/min (>60); Glucose 112 mg/dL (74-106); Potassium 3.8 mmol/L (3.5-5.1); Sodium Level 139 mmol/L (136-145)
[2020-01-02 19:01] LABS: Probe Check PASS; Specimen Processing Control PASS
== END ==
PROVIDERS: Surgery; PCP Family Medicine; Referring Provider Internal Medicine Cardiovascular Disease; Visit Provider Internal Medicine Cardiovascular Disease
DX: I48.91 Unspecified atrial fibrillation (principal); E78.5 Hyperlipidemia, unspecified; I10 Essential (primary) hypertension; Z98.890 Other specified postprocedural states
CPT/HCPCS: 36415; 80048; 87635; U0002

== ENCOUNTER → 2020-01-02 09:30 | Outpatient (CLI) | payer MEDICARE, OTHER, SELFPAY ==
[2019-10-27 09:40] VITALS: BMI 30.1
[2019-11-30 10:11] VITALS: BMI 29.7
== END ==
PROVIDERS: PCP Family Medicine; Referring Provider Family Medicine; Visit Provider Surgery
DX: Z20.828 Contact with and (suspected) exposure to other viral communicable diseases (principal)
CPT/HCPCS: 87426; C9803

== ENCOUNTER → 2020-03-27 10:35 | Outpatient (CLI) | payer MEDICARE, OTHER, SELFPAY ==
[2019-11-30 10:11] VITALS: BMI 29.7
[2020-03-27 13:16] LABS: Hemoglobin A1c 5.8 % (3.8-5.6)
[2020-03-27 13:25] LABS: ALB/GLOB Ratio 0.9 RATIO (0.9-2.4); AST(SGOT) 25 U/L (15-37); Alanine Aminotransfer ALT/SGPT 23 U/L (13-56); Albumin, Serum 3.7 g/dL (3.2-5.0); Alkaline Phosphatase 103 U/L (45-117); Anion Gap 5 (5-15); BUN 19 mg/dL (7-18); BUN/Creat Ratio 16.5 RATIO (10-20); Calcium,Total 9.4 mg/dL (8.5-10.1); Chloride 102 mmol/L (98-107); Cholesterol 225 mg/dL (200); Creatinine, Serum 1.15 mg/dL (0.55-1.02); EST Glomerular Filtration Rate 49 mL/min (>60); Est Glom Filt Rate - Afr Amer 59 mL/min (>60); Globulin 4.3 g/dL (2.2-4.2); Glucose 90 mg/dL (74-106); High Density Lipoprotein 86 mg/dL; Potassium 3.7 mmol/L (3.5-5.1); Sodium Level 140 mmol/L (136-145); T4 Free Direct 1.03 ng/dL (0.76-1.46); Thyroid Stim Hormone (TSH) 4.13 uIU/mL (0.358-3.74); Triglycerides 66 mg/dL; Very Low Density Lipoprotein 13 mg/dL (5-40)
== END ==
PROVIDERS: PCP Family Medicine; Visit Provider Family Medicine
DX: R73.01 Impaired fasting glucose (principal); E78.5 Hyperlipidemia, unspecified; I48.91 Unspecified atrial fibrillation; E05.90 Thyrotoxicosis, unspecified without thyrotoxic crisis or storm
CPT/HCPCS: 36415; 80053; 80061; 83036; 83735; 84439; 84443

== ENCOUNTER → 2020-04-09 12:35 | Outpatient (CLI) | payer MEDICARE, OTHER, SELFPAY ==
[2019-11-30 10:11] VITALS: BMI 29.7
--- NOTE | 2020-04-09 12:37 | CDU_ITS ---
Reason For Study: CAROTID STENOSIS Rt. Velocities/BP Lt. Velocities/BP Prox CCA 81/11 cm/sec. Prox CCA 118/19 cm/sec. Mid CCA 81/13 cm/sec. Mid CCA 107/19 cm/sec. Dist CCA 58/13 cm/sec. Dist CCA 87/14 cm/sec. Prox ICA 64/14 cm/sec. Prox ICA 105/29 cm/sec. Mid ICA 69/20 cm/sec. Mid ICA 78/25 cm/sec. Dist ICA 56/17 cm/sec. Dist ICA 95/29 cm/sec. Rt. ICA/CCA = .9. Lt. ICA/CCA = .9. Prox ECA 66/13 cm/sec. Prox ECA 78/11 cm/sec. Rt. Vert. 44/13 cm/sec. Lt. Vert. 46/13 cm/sec. Right Extracranial There is homogeneous, smooth atherosclerotic plaque noted in the right common carotid artery. There is heterogeneous, irregular atherosclerotic plaque noted in the right internal carotid artery. The atherosclerotic plaque causes acoustic shadowing. There is heterogeneous, irregular atherosclerotic plaque noted in the right external carotid artery. Antegrade flow is noted in the right vertebral artery. Left Extracranial There is homogeneous, smooth atherosclerotic plaque noted in the left common carotid artery. There is heterogeneous, irregular atherosclerotic plaque noted in the left internal carotid artery. The atherosclerotic plaque causes acoustic shadowing. There is no significant atherosclerotic plaque noted in the left external carotid artery. Antegrade flow is noted in the left vertebral artery. Procedure This is a Carotid Duplex examination using B-mode, color flow and specral Doppler. Exam performed in department. Interpretation Summary Irregular calcific plague at the proximal right internal carotid with <50% stenosis <50% stenosis right external carotid Irregular calcific plague proximal left internal carotid with <50% stenosis. <50% stenosis left external carotid Patent, antegrade vertebrals bilaterally Ordering Physician: Harpreet Crain Referring Physician: Harpreet Crain Performed By: Laurie Wade, ROSALIE, RVT
== END ==
PROVIDERS: PCP Family Medicine; Referring Provider Family Medicine; Visit Provider Family Medicine
DX: I65.23 Occlusion and stenosis of bilateral carotid arteries (principal)
CPT/HCPCS: 93880

== ENCOUNTER → 2020-05-24 12:16 | Outpatient (CLI) | payer MEDICARE, OTHER, SELFPAY ==
[2020-05-24 11:32] VITALS: BMI 29.8
--- NOTE | 2020-05-24 12:18 | CT_ITS ---
STUDY: CT BRAIN WITHOUT CONTRAST REASON FOR EXAM: Female, 74 years old. Orbital trauma RADIATION DOSAGE (If Supplied By Facility): CTDIvol = ( 44.99 ) mGy, DLP = ( 829.85 ) mGycm TECHNIQUE: Transaxial CT imaging of the brain was performed without administration of intravenous contrast material. Coronal and sagittal reconstructions were performed. Individualized dose optimization techniques were used for this CT. COMPARISON: None. FINDINGS: Small right frontal scalp hematoma. Mild right periorbital soft tissue swelling. Normal calvarium. Normal size ventricles and extra-axial spaces for the patient''s age. Normal white matter tracts of the cerebral hemispheres. Normal basal ganglia and thalami. Normal brainstem. Normal cerebellum. There is no intracranial hemorrhage. There are no findings of an acute ischemic infarction. Normal visualized paranasal sinuses. CT/Brain/Head without Contrast IMPRESSION: 1. Normal unenhanced CT scan of the brain. 2. Mild right periorbital soft tissue swelling and small right frontal scalp hematoma. Electronically Signed: Rafael Paz MD at 12:38 EDT , Service support ,
== END ==
PROVIDERS: PCP Family Medicine; Visit Provider Internal Medicine Cardiovascular Disease
DX: S00.10XA Contusion of unspecified eyelid and periocular area, initial encounter (principal)
CPT/HCPCS: 70450

== ENCOUNTER 2020-05-31 05:21 | Day surgery (SDC) | payer MEDICARE, OTHER, SELFPAY ==
[2020-05-24 12:43] VITALS: BMI 29.8
[2020-05-31 05:44] VITALS: BP 126/69; PULSE 63; RESP 18; TEMP 36.6; O2SAT 18; BMI 29.9
--- NOTE | 2020-05-31 05:52 | HP.PCM_ITS ---
Problem List (1) Positive colorectal cancer screening using Cologuard test Status: Chronic History and Physical Date of Admission: 05/31/20 Intake Visit Reasons: update history and physical C-scope Chief Complaint: update H&P for colonoscopy Cleaning Team Member Required: No Is patient in pain?: No Allergies bacitracin [From Neosporin ([id number]-ovapp)] Allergy (Verified 05/24/20 12:44) Rash bacitracin zinc [From Neosporin ([id number]-bkj-jdqip)] Allergy (Verified 05/24/20 12:44) Rash neomycin sulfate [From Neosporin (hzf-acd-hlixy)] Allergy (Verified 05/24/20 12:44) Rash polymyxin B [From Neosporin (few-fki-feemg)] Allergy (Verified 05/24/20 12:44) Rash Sulfa (Sulfonamide Antibiotics) Allergy (Verified 05/24/20 12:44) Rash sulfamethoxazole [From Bactrim] Allergy (Verified 05/24/20 12:44) Rash trimethoprim [From Bactrim] Allergy (Verified 05/24/20 12:44) Rash atorvastatin Adverse Reaction (Verified 05/24/20 12:44) Pain in joints codeine Adverse Reaction (Verified 05/24/20 12:44) Vomiting Is last menstrual period known: No Post menopausal: Yes Patient : No PFSH Medical History (Updated 05/24/20 @ 12:45 by Theresa Matias) Essential hypertension (Chronic) Renal artery stenosis (Acute) Positive colorectal cancer screening using Cologuard test (Chronic) CKD (chronic kidney disease), stage III (Chronic) Skin lesion of face (Inactive) Syncope and collapse (Inactive) Multiple pulmonary nodules determined by computed tomography of lung (Chronic) Palpitations (Chronic) Atrial flutter (Chronic) History of supraventricular tachycardia (Chronic) Nonrheumatic mitral valve prolapse (Chronic) Chronic diastolic heart failure (Chronic) Typical atrial flutter (Chronic) Paroxysmal atrial fibrillation (Chronic) History of COVID-19 (Acute ~12/2019) Pneumonia (Inactive ~06/28/18) Surgical History History of transesophageal echocardiography (REAL) (Chronic 04/08/18) History of colonoscopy (Acute ~2006) History of laparoscopic cholecystectomy (Chronic) 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 Patient notes she was scheduled for this procedure last year and found out she had COVID the day prior to her procedure. She recovered from this and was rescheduled however elective surgeries were placed on hold and her procedure was canceled. She returns today to schedule her procedure. She follows with cardiology for A fib. She is on eliquis and aspirin. She had a follow-up with her manager [employer] today who has given clearance for her to proceed with her scope procedures. She notes she recently fell over her mower. 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 Dr. Verma ordered a CT of her head as she did not seek treatment after this fall. Patient's previous history per Dr. Elizabeth: DOROTEO HANKS, is a 74 F who presents to the office today for surgical consultation regarding positive Cologuard test of October 02, 2019. She is on Eliquis because of refractory atrial fibrillation. No bright red blood per rectum or melena. No abdominal pain. Previous colonoscopy was 2006. There is an area of granulation tissue in the proximal sigmoid colon but otherwise nonspecific. Diverticulosis. She has not had any history of peptic ulcer disease. Recently I removed a skin lesion from her forehead. That was a squamous papilloma. There is no family history of colon cancer. ROS General General: Yes fatigue; no weight change, appetite, colon cancer, breast cancer or weakness HEENT HEENT: No difficulty swallowing, eye injury, eye surgery, swollen glands or hoarseness Endo Endocrine: No thyroid disease, diabetes mellitus, thyroid cancer, Hair loss, heat intolerance or cold intolerance Skin Skin: No rash or changing moles Breast Breast: No left breast lump, right breast lump, nipple discharge, breast pain, abnormal mammogram, abnormal US or breast enlargement Musc Musculoskeletal: Yes back problems and arthritis; no rheumatoid arthritis, gout or joint pain Cardio Cardiovascular: Yes atrial fibrillation; no murmur, pacemaker, heart disease, high blood pressure, heart attack, heart stent, palpitations, shortness of breat with exertion or chest pain Psych Psychiatric: No depression, anxiety or hearing voices Resp Respiratory: Yes shortness of breath, No sleep apnea, No cough, No COPD, No asthma, No emphysema, No wheezing Gastro Gastrointestinal: No abdominal pain, No nausea or vomiting, No diarrhea, No constipation, No blood in stool, No acid reflux, Yes hemorrhoids, No ulcers, Yes gallbladder problem, No black,tarry stools Peter Hematologic: Yes blood thinners, No blood disorders, No bleeding, No anemia, No blood clots Neuro Neurologic: No weakness Exam Const General: cooperative, healthy appearing, comfortable, no acute distress HENMT Head: normal to inspection Eyes General: appearance normal, both eyes and all related structures Neck Neck: normal visual inspection Chest Breast Palpation: No nipple discharge Resp Effort & Inspection: normal respiratory effort Auscultation: clear to auscultation bilaterally Cardio Rate: regular rate Rhythm: regular rhythm Heart Sounds: no murmurs GI Inspection: normal to inspection Palpation: soft Auscultation: normal bowel sounds Skin General: no rashes or lesions noted Neuro General: no focal motor deficits, CN's II-XI intact bilaterally Extrem General: normal to inspection Psych Appearance: grossly normal Affect: normal affect Assessment & Plan Problems 1. Positive colorectal cancer screening using Cologuard test R19.[address] Elizabeth will plan to perform an upper and lower endoscopy with possible biops ies, possible cessation of bleeding. Procedure details, risks and benefits have been reviewed with the patient. Patient has had the opportunity to ask and have questions answered. She will hold her Eliquis 2 days prior to the procedure and her aspirin 5 days prior to her procedure. Patient verbally understands and agrees with the plan. Patient would prefer a printed copy of her procedure report directly following the procedure that day. Will also review results from her brain CT. Coding Level of Care Code No Charge Diagnoses Positive colorectal cancer screening using Cologuard test R19.5 Comment Update H&P 05/24/20 1408 <Electronically signed by Lissy BOWERS PA-C> Date _ Lissy BOWERS PA-C I concur with the above findings. I have re-examined the patient. There are no clinical changes since date of exam. Procedure Criteria Procedure Type: Elective COVID Risk Discussion: The surgeon/proceduralist and patient have discussed in detail the risk of exposure to and/or potential harm posed by the COVID-19 virus with having a surgery/procedure at this time versus the risk of delaying the surgery/procedure. It is not possible to know either the risk of delaying the surgery or procedure or chance of getting an infection with perfect accuracy, but a joint decision was made between the patient and the surgeon/proceduralist to proceed at this time with the scheduled surgery/procedure as indicated on the consent form.
[2020-05-31] MEDS: Lactated Ringers 1,000 ML 100 ML IV (05:55)
--- NOTE | 2020-05-31 06:30 | EGD_PTH ---
PATIENT: DOROTEO HANKS LOC: EN U#:[id number] AGE/SX: 75/F ROOM: RE05/31/[address]: Dr. Parker Elizabeth MD : 1945 BED: DIS: 05/31/2020 SPEC #: [id number] RECD: 05/31/20 07:46 STATUS: CHICO LAMBERT #: [id number] MICHAEL: 05/31/20 06:[address]: Parker Elizabeth DEPT: SURGICAL PATHOLOGY RECD BY: Arlette Nesbitt ENTERED: 05/31/20 08:39 SP TYPE: EGD BIOPSY OT DR: Dr. Harpreet Crain MD Tissues: A - Gastric mucous membrane B - Esophagus, NOS C - Ascending colon Procedures: Special Stain Group II Surgery Specimen Level IV Alcian Blue/PAS (control) HEADER OPERATION: Colonoscopy, EGD ([facility] [place]) PRE-OP DIAGNOSIS: Positive colorectal cancer screening using Cologuard test TISSUE SUBMITTED: A - Antrum biopsy for H. pylori and path, B - Distal esophagus biopsy, C - Proximal ascending colon polyp biopsy cold snare MICROSCOPIC DIAGNOSIS A. Gastric antrum, biopsy: Chronic gastritis. See comment. B. Distal esophagus, biopsy: Gastroesophageal junction mucosa with mild chronic inflammation. No evidence of dysplasia. See comment. C. Proximal ascending colon polyp, biopsy: Fragments of tubular adenoma. AM:yessi 06/01/2020 COMMENT A. The results of immunohistochemistry for Helicobacter pylori will be reported separately ([id number]). B. Alcian blue/PAS stain with matched control supports the above diagnosis. MICROSCOPIC DESCRIPTION Slides are reviewed. GROSS DESCRIPTION A - Received in fixative is one container labeled with the patient's name and designated antrum biopsy. The specimen consists of one irregular fragment of light frost soft tissue that measures 0.3 x 0.3 x 0.1 cm. The specimen is totally submitted in one cassette. B - Received in fixative is one container labeled with the patient's name and designated distal esophagus biopsy. The specimen consists of multiple irregular fragments of light frost soft tissue that in aggregate measure 0.6 x 0.5 x 0.1 cm. The specimen is totally submitted in one cassette. C - Received in fixative is one container labeled with the patient's name and designated proximal ascending colon polyp biopsy snare. The specimen consists of multiple irregular fragments of light frost soft tissue that in aggregate measure 0.7 x 0.6 x 0.2 cm. The specimen is totally submitted in one cassette. / SJ:rg 05/31/20 TC:5 CPT: 92487 x3, 31856
--- NOTE | 2020-05-31 06:30 | IMM_PTH ---
PATIENT: DOROTEO HANKS LOC: EN U#:[id number] AGE/SX: 75/F ROOM: RE05/31/[address]: Dr. Parker Elizabeth MD : 1945 BED: DIS: 05/31/2020 SPEC #: [id number] RECD: 05/31/20 08:57 STATUS: CHICO REQ #: [id number] MICHAEL: 05/31/20 06:[address]: Parker Elizabeth DEPT: IMMUNOHISTOCHEMISTRY RECD BY: Kianna Muir ENTERED: 05/31/20 08:58 SP TYPE: IMMUNO OTHR DR: Dr. Harpreet Crain MD Tissues: A - Stomach, NOS Procedures: H Pylori (initial) PHYSICIAN & INSTITUTION [place] [address] SPECIMEN INFORMATION: Tissue Source: A - Antrum biopsy Clinical Info: Positive colorectal cancer screening using Cologuard test Specimen Number: [id number] CPT code: 69889 METHODOLOGY: Deparaffinized sections of prefer/formalin-fixed tissue or PAP/DQ stained slides are incubated with monoclonal/polyclonal antibodies/oligonucleotide probes. Localization is made via biotin free immunoperoxidase method. Appropriate controls are performed and reacted as expected. Results on target cell population are indicated in the following table: RESULTS: ANTIBODY / CLONE RESULT Block A H Pylori (polyclonal) negative These tests were developed and their performance characteristics determined by [facility]. They may not have been cleared or approved by the U.S. Food and Drug Administration. The FDA has determined that such clearance or approval is not necessary. INTERPRETATION: A. Antrum biopsy: Negative for Helicobacter pylori organisms. AM:yessi 06/04/2020
--- NOTE | 2020-05-31 06:30 | EGD_PTH ---
PATIENT: DOROTEO HANKS LOC: EN U#:[id number] AGE/SX: 75/F ROOM: RE05/31/[address]: Dr. Parker Elizabeth MD : 1945 BED: DIS: 05/31/2020 SPEC #: [id number] RECD: 05/31/20 07:46 STATUS: CHICO LAMBERT #: [id number] MICHAEL: 05/31/20 06:[address]: Parker Elizabeth DEPT: SURGICAL PATHOLOGY RECD BY: Arlette Nesbitt ENTERED: 05/31/20 08:39 SP TYPE: EGD BIOPSY OT DR: Dr. Harpreet Crain MD Tissues: A - Gastric mucous membrane B - Esophagus, NOS C - Ascending colon Procedures: Special Stain Group II Surgery Specimen Level IV Alcian Blue/PAS (control) HEADER OPERATION: Colonoscopy, EGD ([facility] [place]) PRE-OP DIAGNOSIS: Positive colorectal cancer screening using Cologuard test TISSUE SUBMITTED: A - Antrum biopsy for H. pylori and path, B - Distal esophagus biopsy, C - Proximal ascending colon polyp biopsy cold snare MICROSCOPIC DIAGNOSIS A. Gastric antrum, biopsy: Chronic gastritis. See comment. B. Distal esophagus, biopsy: Gastroesophageal junction mucosa with mild chronic inflammation. No evidence of goblet cell metaplasia. See comment. C. Proximal ascending colon polyp, biopsy: Fragments of tubular adenoma. AM:yessi 06/01/2020 AM:yessi 06/07/2020 COMMENT A. The results of immunohistochemistry for Helicobacter pylori will be reported separately ([id number]). B. Alcian blue/PAS stain with matched control supports the above diagnosis. MICROSCOPIC DESCRIPTION Slides are reviewed. GROSS DESCRIPTION A - Received in fixative is one container labeled with the patient's name and designated antrum biopsy. The specimen consists of one irregular fragment of light frost soft tissue that measures 0.3 x 0.3 x 0.1 cm. The specimen is totally submitted in one cassette. B - Received in fixative is one container labeled with the patient's name and designated distal esophagus biopsy. The specimen consists of multiple irregular fragments of light frost soft tissue that in aggregate measure 0.6 x 0.5 x 0.1 cm. The specimen is totally submitted in one cassette. C - Received in fixative is one container labeled with the patient's name and designated proximal ascending colon polyp biopsy snare. The specimen consists of multiple irregular fragments of light frost soft tissue that in aggregate measure 0.7 x 0.6 x 0.2 cm. The specimen is totally submitted in one cassette. / SJ:yessi 05/31/20 TC:5 CPT: 45289 x3, 73974
[2020-05-31 07:16] VITALS: BP 114/95; BP 126/69; PULSE 66; RESP 16; TEMP 36.3; O2SAT 100
--- NOTE | 2020-05-31 07:16 | OP.EGD_ITS ---
Patient Name: Chelo Meade Procedure Date: 05/31/2020 6:16 AM Date of : 1945 Age: 75 Procedure: Upper GI endoscopy Indications: Cologuard positive Providers: Parker Elizabeth MD Referring MD: Harpreet Crain Medicines: See the Anesthesia note for documentation of the administered medications Complications: No immediate complications. Procedure: Pre-Anesthesia Assessment: - Prior to the procedure, a History and Physical was performed, and patient medications and allergies were reviewed. The patient's tolerance of previous anesthesia was also reviewed. The risks and benefits of the procedure and the sedation options and risks were discussed with the patient. All questions were answered, and informed consent was obtained. Prior Anticoagulants: The patient has taken Eliquis (apixaban), last dose was 2 days prior to procedure. ASA Grade Assessment: III - A patient with severe systemic disease. After reviewing the risks and benefits, the patient was deemed in satisfactory condition to undergo the procedure. After obtaining informed consent, the endoscope was passed under direct vision. Throughout the procedure, the patient's blood pressure, pulse, and oxygen saturations were monitored continuously. The Endoscope was introduced through the mouth, and advanced to the second part of duodenum. The upper GI endoscopy was accomplished without difficulty. The patient tolerated the procedure well. Scope In: 6:34:15 AM Scope Out: 6:39:48 AM Total Procedure Duration Time 0 hours 5 minutes 33 seconds Findings: Esophagitis with no bleeding was found 41 cm from the incisors. Biopsies were taken with a cold forceps for histology. A small hiatal hernia was present. Diffuse mild inflammation characterized by erosions was found in the gastric body and in the gastric antrum. Biopsies were taken with a cold forceps for histology. Bilious fluid was found in the gastric body. The examined duodenum was normal. A non-bleeding diverticulum was found in the area of the papilla. Impression: - Reflux esophagitis. Biopsied. - Small hiatal hernia. - Acute gastritis. Biopsied. - Bilious gastric fluid. - Normal examined duodenum. - Non-bleeding duodenal diverticulum. Recommendation: - Discharge patient to home. - Resume previous diet. - Continue present medications. - Use Prilosec (omeprazole) 40 mg PO daily. - Telephone my office for pathology results in 1 week. Procedure Code(s): --- Professional --- 25463, Esophagogastroduodenoscopy, flexible, transoral; with biopsy, single or multiple Diagnosis Code(s): --- Professional --- K21.0, Gastro-esophageal reflux disease with esophagitis K44.9, Diaphragmatic hernia without obstruction or gangrene K29.00, Acute gastritis without bleeding K57.10, Diverticulosis of small intestine without perforation or abscess without bleeding CPT copyright 2017 [employer]. All rights reserved. The codes documented in this report are preliminary and upon technician preventative medicine review may be revised to meet current compliance requirements. Parker Elizabeth MD 05/31/2020 7:16:27 AM This report has been signed electronically. Number of Addenda: 0 Note Initiated On: 05/31/2020 6:16 AM
--- NOTE | 2020-05-31 07:17 | OP.CCLET_ITS ---
05/31/2020 Harpreet Crain Re : Upper GI endoscopy procedure for Chelo Meade Dear Breann This procedure was performed on May. My impressions and recommendations are as follows: Impressions : - Reflux esophagitis. Biopsied. - Small hiatal hernia. - Acute gastritis. Biopsied. - Bilious gastric fluid. - Normal examined duodenum. - Non-bleeding duodenal diverticulum. Recommendations : - Discharge patient to home. - Resume previous diet. - Continue present medications. - Use Prilosec (omeprazole) 40 mg PO daily. - Telephone my office for pathology results in 1 week. My findings are described in the full procedure note, which is enclosed. If I can be of further assistance, please feel free to contact me at Doctor phone number(s): Work: . Sincerely, Parker Elizabeth MD 05/31/2020 7:16:27 AM This report has been signed electronically.
--- NOTE | 2020-05-31 07:19 | OP.CCLET_ITS ---
05/31/2020 Harpreet Crain Re : Colonoscopy procedure for Chelo Meade Dear Breann This procedure was performed on May. My impressions and recommendations are as follows: Impressions : - Hemorrhoids found on perianal exam. - One 7 mm polyp in the proximal ascending colon, removed with a cold snare. Resected and retrieved. - Diverticulosis in the sigmoid colon and in the descending colon. Recommendations : - Discharge patient to home. - Resume previous diet. - Continue present medications. - Repeat colonoscopy in 5 years for surveillance based on pathology results. - Telephone my office for pathology results in 1 week. My findings are described in the full procedure note, which is enclosed. If I can be of further assistance, please feel free to contact me at Doctor phone number(s): Work: . Sincerely, Parker Elizabeth MD 05/31/2020 7:19:21 AM This report has been signed electronically.
--- NOTE | 2020-05-31 07:19 | OP.COLON_ITS ---
Patient Name: Chelo Meade Procedure Date: 05/31/2020 6:39 AM Date of : 1945 Age: 75 Procedure: Colonoscopy Indications: Cologuard positive Providers: Parker Elizabeth MD Referring MD: Harpreet Crain Medicines: See the Anesthesia note for documentation of the administered medications Patient Profile: Last Colonoscopy: 2008. Complications: No immediate complications. Procedure: Pre-Anesthesia Assessment: - Prior to the procedure, a History and Physical was performed, and patient medications and allergies were reviewed. The patient's tolerance of previous anesthesia was also reviewed. The risks and benefits of the procedure and the sedation options and risks were discussed with the patient. All questions were answered, and informed consent was obtained. Prior Anticoagulants: The patient has taken Eliquis (apixaban), last dose was 2 days prior to procedure. ASA Grade Assessment: III - A patient with severe systemic disease. After reviewing the risks and benefits, the patient was deemed in satisfactory condition to undergo the procedure. After I obtained informed consent, the scope was passed under direct vision. Throughout the procedure, the patient's blood pressure, pulse, and oxygen saturations were monitored continuously. The colonoscope was introduced through the anus and advanced to the cecum, identified by appendiceal orifice and ileocecal valve. The colonoscopy was performed with moderate difficulty due to a tortuous colon. Successful completion of the procedure was aided by applying abdominal pressure. The patient tolerated the procedure well. The quality of the bowel preparation was good. The ileocecal valve and the appendiceal orifice were photographed. Scope In: 6:42:23 AM Scope Withdrawal Time 0 hours 15 minutes 17 seconds Scope Out: 7:08:37 AM Total Procedure Duration Time 0 hours 26 minutes 14 seconds Findings: Hemorrhoids were found on perianal exam. A 7 mm polyp was found in the proximal ascending colon. The polyp was sessile. The polyp was removed with a cold snare. Resection and retrieval were complete. Multiple diverticula were found in the sigmoid colon and descending colon. Impression: - Hemorrhoids found on perianal exam. - One 7 mm polyp in the proximal ascending colon, removed with a cold snare. Resected and retrieved. - Diverticulosis in the sigmoid colon and in the descending colon. Recommendation: - Discharge patient to home. - Resume previous diet. - Continue present medications. - Repeat colonoscopy in 5 years for surveillance based on pathology results. - Telephone my office for pathology results in 1 week. Procedure Code(s): --- Professional --- 46717, Colonoscopy, flexible; with removal of tumor(s), polyp(s), or other lesion(s) by snare technique Diagnosis Code(s): --- Professional --- K64.9, Unspecified hemorrhoids D12.2, Benign neoplasm of ascending colon K57.30, Diverticulosis of large intestine without perforation or abscess without bleeding CPT copyright 2017 [employer]. All rights reserved. The codes documented in this report are preliminary and upon dragline operator helper review may be revised to meet current compliance requirements. Parker Elizabeth MD 05/31/2020 7:19:21 AM This report has been signed electronically. Number of Addenda: 0 Note Initiated On: 05/31/2020 6:39 AM
[2020-05-31 07:21] VITALS: BP 116/69; BP 126/69; PULSE 66; RESP 16; O2SAT 100
[2020-05-31 07:26] VITALS: BP 126/69; BP 127/76; PULSE 67; RESP 16; O2SAT 100
[2020-05-31 07:31] VITALS: BP 117/75; BP 126/69; PULSE 67; RESP 16; TEMP 36.4; O2SAT 100
[2020-05-31 08:15] VITALS: BP 126/69
== END 2020-05-31 08:15 | disposition home or self-care (01) ==
LOC: EN 05:22 → AC 05:22
PROVIDERS: PCP Family Medicine; Referring Provider Family Medicine; Visit Provider Surgery
PROC: 0DJD8ZZ Inspection of Lower Intestinal Tract, Via Natural or Artificial Opening Endoscopic (ICD-10-PCS; CPT 45378; principal; 2020-05-31 06:25)
DX: D12.2 Benign neoplasm of ascending colon (principal); K57.50 Diverticulosis of both small and large intestine without perforation or abscess without bleeding; K21.00 Gastro-esophageal reflux disease with esophagitis, without bleeding; K44.9 Diaphragmatic hernia without obstruction or gangrene; K29.50 Unspecified chronic gastritis without bleeding; K64.9 Unspecified hemorrhoids; I13.0 Hypertensive heart and chronic kidney disease with heart failure and stage 1 through stage 4 chronic kidney disease, or unspecified chronic kidney disease; N18.30 Chronic kidney disease, stage 3 unspecified; I50.32 Chronic diastolic (congestive) heart failure; I27.20 Pulmonary hypertension, unspecified; I48.0 Paroxysmal atrial fibrillation; I48.92 Unspecified atrial flutter; Z79.01 Long term (current) use of anticoagulants; Z86.16 Personal history of COVID-19; Z79.82 Long term (current) use of aspirin; Z87.19 Personal history of other diseases of the digestive system
CPT/HCPCS: 43239; 45385; 87426; 88305; 88313; 88342; C9803; J7120; J2405

== ENCOUNTER → 2020-07-09 13:18 | Outpatient (CLI) | payer MEDICARE, OTHER, SELFPAY | PROVIDERS: PCP Family Medicine; Referring Provider Urology; Visit Provider Urology | DX: N30.01 Acute cystitis with hematuria (principal) | CPT/HCPCS: 87086; 87088 ==

== ENCOUNTER → 2020-07-10 11:26 | Outpatient (CLI) | payer MEDICARE, OTHER, SELFPAY ==
--- NOTE | 2020-07-10 11:28 | US_ITS ---
STUDY: RENAL ULTRASOUND - COMPLETE REASON FOR EXAM: Female, 75 years old. Gross hematuria TECHNIQUE: Ultrasound evaluation of the kidneys was performed with real-time and static bruno-scale imaging. COMPARISON: None. FINDINGS: RIGHT KIDNEY: Normal location of the right kidney, which is normal in size. The right kidney measures 9 cm x 5.4 cm x 4.1 cm. There is a normal cortex of the right kidney. The renal cortex measures 1.1 cm. There is a 1 cm x 1 cm x 0.7 cm cyst in the lower pole. There are no right renal calculi. There is no right hydronephrosis. DISTAL RIGHT URETER: There is non-visualization of the distal right ureter. There is no demonstrated right ureterovesical junction calculus. There is a visualized right ureteral jet. LEFT KIDNEY: Normal location of the left kidney, which is normal in size. The left kidney measures 9.6 x 4.2 cm x 5.1 cm. There is a normal cortex of the left kidney. The renal cortex measures 1.2 cm. There is an 8 mm x 7 mm x 8 mm cyst. There are no left renal calculi. There is no left hydronephrosis. DISTAL LEFT URETER: There is non-visualization of the distal left ureter. There is no demonstrated left ureterovesical junction calculus. There is a visualized left ureteral jet. BLADDER: The distended urinary bladder has a volume of 81 ml. There is a normal wall thickness of the distended urinary bladder. There is no demonstrated mass within the urinary bladder. There are no demonstrated bladder calculi. US/Kidney and Bladder IMPRESSION: Small bilateral renal cysts. Electronically Signed: Taiwo Tejada MD at 13:53 EDT , Service support ,
== END ==
PROVIDERS: PCP Family Medicine; Referring Provider Urology; Visit Provider Urology
DX: R31.0 Gross hematuria (principal)
CPT/HCPCS: 76770

== ENCOUNTER 2020-07-21 10:07 | Emergency (ER) | payer MEDICARE, OTHER, SELFPAY ==
[2020-07-21 10:08] VITALS: BP 145/80; PULSE 63; RESP 18; TEMP 36.6; O2SAT 99; BMI 31.6
--- NOTE | 2020-07-21 10:21 | EX.ED.UPPERE ---
HPI History of Present Illness Chief Complaint: Upper Extremity Injury Informant: patient Occured/Mechanism Mechanism/Context: Yes fall and Yes same level fall Onset/Context/Timing Onset: Yesterday Context: Gradual Onset Quality of Pain: Aching Current Severity: Mild Maximum Severity: Mild Narrative Narrative: Patient presents secondary to right upper extremity injury. Patient states she was working in her flower bed yesterday when she lost her balance and fell forward. She struck her face and that her right arm tangled underneath her. She denies loss of consciousness. She denies headache or vision change. She states she has had some increased bruising and pain on her right wrist and hand today. Patient is currently on Eliquis. She did take Tylenol for pain prior to arrival. [facility] Medical History Atrial flutter Chronic diastolic heart failure CKD (chronic kidney disease), stage III Essential hypertension History of COVID-19 (~12/2019) History of supraventricular tachycardia Multiple pulmonary nodules determined by computed tomography of lung Nonrheumatic mitral valve prolapse Palpitations Paroxysmal atrial fibrillation Pneumonia (~06/28/18) Positive colorectal cancer screening using Cologuard test Renal artery stenosis Skin lesion of face Syncope and collapse Typical atrial flutter Home Medications lysine 500 mg PO DAILY 02/22/13 [History Last Taken 11/01/19 08:00] multivitamin with folic acid 1 tab PO DAILY 02/22/13 [History Last Taken 11/01/19 08:00] cyanocobalamin (vitamin B-12) 1,000 mcg capsule 1,000 mcg PO DAILY 06/17/19 [History Last Taken 11/01/19 08:00] apixaban 5 mg tablet 5 mg PO BID #180 tab 09/21/19 [Rx Last Taken 05/28/20] cholecalciferol (vitamin D3) 25 mcg (1,000 unit) capsule 25 mcg PO DAILY 10/13/19 [History Last Taken 11/01/19 08:00] aspirin 81 mg PO DAILY tab 11/03/19 [Rx Last Taken 05/25/20] hydrochlorothiazide 25 mg tablet 25 mg PO DAILY #90 tab 11/30/19 [Rx Last Taken Unknown] magnesium 200 mg tablet 100 mg PO .QOD tab 11/30/19 [History Last Taken Unknown] potassium chloride 10 mEq tablet,extended release 10 meq PO BID 11/30/19 [History Last Taken Unknown] diltiazem HCl 120 mg capsule,extended release 12 hr 120 mg PO BID #180 cap 01/30/20 [Rx Last Taken 05/31/20] flecainide 100 mg tablet 100 mg PO Q12H #180 tab 01/30/20 [Rx Last Taken 05/31/20] omeprazole 40 mg PO DAILY #90 capsule. 05/31/20 [Rx Last Taken Unknown] Allergy/AdvReac Type Severity Reaction Status Date / Time bacitracin Allergy Rash Verified 07/21/20 10:10 [From Neosporin ([id number])] bacitracin zinc Allergy Rash Verified 07/21/20 10:10 [From Neosporin ([id number])] neomycin sulfate Allergy Rash Verified 07/21/20 10:10 [From Neosporin ([id number])] polymyxin B Allergy Rash Verified 07/21/20 10:10 [From Neosporin ([id number])] Sulfa (Sulfonamide Allergy Rash Verified 07/21/20 10:10 Antibiotics) sulfamethoxazole Allergy Rash Verified 07/21/20 10:10 [From Bactrim] trimethoprim [From Bactrim] Allergy Rash Verified 07/21/20 10:10 atorvastatin AdvReac Pain in Verified 07/21/20 10:10 joints ciprofloxacin [From Cipro] AdvReac Pain in Verified 07/21/20 10:10 joints codeine AdvReac Vomiting Verified 07/21/20 10:10 Family History Brother CAD (coronary artery disease) PPM Mother Congestive heart failure Surgical History History of cardioversion (04/08/18) History of colonoscopy (~2006) History of laparoscopic cholecystectomy History of total replacement of both hip joints History of transesophageal echocardiography (REAL) (04/08/18) lumbar disc decompression Social History Smoking Status: Never smoker second hand exposure: Yes ROS ROS ED Constitutional Constitutional ED: Denies chills or fever(s) Eyes Eyes: Denies change in vision ENT ENT ED: Denies sore throat Cardiovascular Cardiovascular: Denies chest pain Respiratory/Chest Respiratory/Chest: Denies cough or dyspnea Gastrointestinal Gastrointestinal: Denies abdominal pain, diarrhea, nausea or vomiting Genitourinary Genitourinary ED: Denies dysuria Musculoskeletal Musculoskeletal: Reports other Details: Right upper extremity pain ; Denies back pain or neck pain Integumentary Denies rash Neurologic Neurologic: Denies headache(s), paresthesias or weakness Psychiatric Psychiatric: Denies anxiety or depression Endocrine Endocrinology: Denies polydipsia or polyuria Allergic/Immunologic Allergic/Immunologic ED: Denies urticaria EXAM Physical Exam Const Vital Signs: 07/21/20 10:08 Temperature 97.9 F Temperature Source Temporal Pulse Rate 63 Respiratory Rate 18 Blood Pressure 145/80 H Blood Pressure Mean 101 Pulse Ox 99 Oxygen Delivery Method Room Air Positive well nourished and well developed General Appearance ED: well developed HEENT normocephalic and atraumatic Neck supple Neck Narrative: No C-spine tenderness. Chest Wall inspection of chest normal and palpation of chest normal Resp normal respiratory effort and clear to auscultation bilaterally Cardio regular rate and regular rhythm GI non-tender Palpation: soft Back/Spine Cervical Spine: Negative for cervical spine tenderness Extremity Extremity Narrative: Ecchymosis to the volar aspect of the right wrist. Minimal edema. No obvious deformity. Full range of motion of the hand with no loss of strength or sensation. Neuro oriented x3 and no sensory deficits noted Sensorium / Orientation: alert Motor Exam: strength 5/5 throughout Skin Skin Narrative: Ecchymosis as above MDM MDM MDM Narrative Medical decision making narrative: Patient had taken Tylenol prior to arrival. She declined anything further for pain. Right hand and wrist x-rays are obtained. Treatment and Re-Evaluation Comments:: Per my interpretation of x-rays patient has a nondisplaced corner fracture of the distal radius. Patient was placed in a Velcro wrist splint. She can remove this to gently cleanse her skin and replace it. She wishes to follow-up with Dr. Arthur and his information will be provided. She declined a prescription for anything stronger for pain. Discharge Plan Triage Chief Complaint: Upper Extremity Injury ED Provider: Evelin Curry Dx/Rx/DC Orders Clinical Impression: Fracture of wrist Instructions: ED Fracture, Wrist, General Prescriptions: No Action cholecalciferol (vitamin D3) 25 mcg (1,000 unit) capsule 25 mcg PO DAILY RF: 0 cyanocobalamin (vitamin B-12) 1,000 mcg capsule 1,000 mcg PO DAILY RF: 0 potassium chloride 10 mEq tablet extended release 10 meq PO BID RF: 0 magnesium 200 mg tablet 100 mg PO .QOD RF: 0 hydrochlorothiazide 25 mg tablet 25 mg PO DAILY Qty: 90 RF: 3 lysine 500 MG tablet 500 mg PO DAILY RF: 0 multivitamin with folic acid 1 TABLET tablet 1 tab PO DAILY RF: 0 aspirin 81 MG tablet 81 mg PO DAILY RF: 0 omeprazole 40 MG capsule,delayed release(DR/EC) 40 mg PO DAILY Qty: 90 RF: 1 apixaban 5 mg tablet 5 mg PO BID Qty: 180 RF: 3 flecainide 100 mg tablet 100 mg PO Q12H Qty: 180 RF: 3 diltiazem HCl 120 mg capsule,extended release 12 hr 120 mg PO BID Qty: 180 RF: 3 Primary Care Provider: Harpreet Crain Referrals: Harpreet Crain MD [Primary Care Provider] - Terence Arthur MD [STAFF PHYSICIAN] - 5-7 Days Disposition Disposition: Home, self care
--- NOTE | 2020-07-21 10:40 | RAD_ITS ---
STUDY: X-RAY - RIGHT HAND REASON FOR EXAM: Female, 75 years old. injury TECHNIQUE: 3 view(s) of the hand. COMPARISON: None. FINDINGS: Normal radiocarpal articulation. Normal distal radioulnar joint. Acute nondisplaced oblique fracture of the lateral aspect of the distal radius at the radiocarpal joint. Normal visualized carpal bones. 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 The remainder of the carpal articulations are normal. There is degenerative arthrosis of the carpometacarpal (CMC) articulation of the thumb. Normal second through fifth carpometacarpal joints. Normal metacarpi. Normal metacarpophalangeal joint of the thumb. Normal interphalangeal joint of the thumb. Normal proximal and distal phalanges of the thumb. Normal metacarpophalangeal joints of the second through fifth fingers. There is diffuse articular joint space narrowing of the proximal and distal interphalangeal joints of the second through fifth fingers, but without erosive changes or periarticular soft tissue swelling. Normal phalanges of the second through fifth fingers. The soft tissue structures are unremarkable. RAD/Hand Min 3 Views IMPRESSION: Acute nondisplaced oblique fracture of the lateral aspect of the distal radius (Faulkner fracture) with extension into the radiocarpal joint.. Electronically Signed: Alfredito Haile MD at 11:08 EDT Tel , Service support ,
--- NOTE | 2020-07-21 10:40 | RAD_ITS ---
STUDY: X-RAY - RIGHT WRIST REASON FOR EXAM: Female, 75 years old. injury TECHNIQUE: 3 view(s) of the wrist were obtained. COMPARISON: None. FINDINGS: Acute nondisplaced oblique fracture the lateral aspect of the distal radius (Faulkner fracture) with extension the radiocarpal joint. Normal radiocarpal articulation. Normal distal radioulnar articulation. Normal carpal bones. There is degenerative arthrosis of the carpal articulations. There is degenerative arthrosis of the carpometacarpal articulation of the thumb. Normal second through fifth carpometacarpal articulations. Normal visualized metacarpal bones. The soft tissue structures are unremarkable. RAD/Wrist min 3 Views IMPRESSION: Acute Faulkner fracture of the distal radius with extension into the radiocarpal joint. Electronically Signed: Alfredito Haile MD at 11:10 EDT Tel , Service support ,
[2020-07-21 11:09] VITALS: RESP 17
== END 2020-07-21 11:09 | disposition home or self-care (01) ==
PROVIDERS: Emergency Provider Emergency Medicine; PCP Family Medicine
DX: S62.101A Fracture of unspecified carpal bone, right wrist, initial encounter for closed fracture (principal); W19.XXXA Unspecified fall, initial encounter
CPT/HCPCS: 73110; 73130; 99283

== ENCOUNTER → 2020-09-18 15:39 | Outpatient (CLI) | payer MEDICARE, OTHER, SELFPAY | PROVIDERS: PCP Family Medicine; Visit Provider Family Medicine | DX: N39.0 Urinary tract infection, site not specified (principal) | CPT/HCPCS: 87086; 87088 ==

== ENCOUNTER → 2020-10-02 10:58 | Outpatient (CLI) | payer MEDICARE, OTHER, SELFPAY ==
[2020-10-02 15:15] LABS: Anion Gap 6 (5-15); BUN 22 mg/dL (7-18); BUN/Creat Ratio 17.5 RATIO (10-20); Calcium,Total 9.2 mg/dL (8.5-10.1); Chloride 103 mmol/L (98-107); Creatinine, Serum 1.26 mg/dL (0.55-1.02); EST Glomerular Filtration Rate 44 mL/min (>60); Est Glom Filt Rate - Afr Amer 53 mL/min (>60); Glucose 85 mg/dL (74-106); Sodium Level 141 mmol/L (136-145)
== END ==
PROVIDERS: PCP Family Medicine; Referring Provider Family Medicine; Visit Provider Family Medicine
DX: I10 Essential (primary) hypertension (principal); E83.52 Hypercalcemia
CPT/HCPCS: 36415; 80048

== ENCOUNTER → 2020-12-24 09:40 | Outpatient (CLI) | payer MEDICARE, OTHER, SELFPAY | PROVIDERS: PCP Family Medicine; Referring Provider Physician Assistant Medical; Visit Provider Physician Assistant Medical | DX: I48.92 Unspecified atrial flutter (principal); R00.1 Bradycardia, unspecified; I48.91 Unspecified atrial fibrillation; I48.3 Typical atrial flutter; I48.0 Paroxysmal atrial fibrillation; Z51.81 Encounter for therapeutic drug level monitoring; Z79.899 Other long term (current) drug therapy | CPT/HCPCS: 93225; 93226 ==

== ENCOUNTER 2021-04-29 10:35 | Outpatient (CLI) | payer MEDICARE, OTHER, SELFPAY ==
--- NOTE | 2021-04-29 10:40 | BI_ITS ---
MAMMOGRAPHY - BILATERAL SCREENING 3-D TOMOSYNTHESIS REASON FOR EXAM: Female, 75 years old. SCREENING PERTINENT HISTORY: No significant family history. TECHNIQUE: 2-D mammograms and 3-D Tomosynthesis of the breast (s) were performed. CAD was performed. COMPARISON: 1120 FINDINGS: The breast composition is heterogeneously dense that can obscure small breast masses. Scattered benign calcifications are seen. No dense spiculated masses or suspicious microcalcifications are identified. No architectural distortion is identified. There is no skin thickening or retraction. There has been no significant change since the prior study. BI/SCRN MAMM (CAD)W/MASOUD BILAT IMPRESSION: No mammographic signs of malignancy. Routine yearly mammograms recommended. ASSESSMENT CATEGORY: BIRADS Category 1: Negative. A letter regarding these results will be sent to the patient by the facility within 30 days. FOLLOW UP RECOMMENDATION: Yearly follow up mammogram recommended. (A) Approximately 10% of breast cancers are not detected by mammography. A normal mammogram should not delay biopsy of a clinically suspicious abnormality. Electronically Signed: Alfredito Haile MD at 14:43 EDT ,
== END 2021-04-29 23:59 | disposition home or self-care (01) ==
LOC: OPBI 10:36
PROVIDERS: PCP Family Medicine; Visit Provider Family Medicine
DX: Z12.31 Encounter for screening mammogram for malignant neoplasm of breast (principal)
CPT/HCPCS: 77063; 77067

== ENCOUNTER 2021-05-05 17:05 | Emergency (ER) | payer MEDICARE, OTHER, SELFPAY ==
[2021-05-05 17:05] VITALS: BP 135/70; PULSE 69; RESP 18; TEMP 36.6; O2SAT 97; BMI 29.3
--- NOTE | 2021-05-05 17:24 | RAD_ITS ---
EXAM: XR CHEST, 2 VIEWS : 1945 CLINICAL INDICATION: cough TECHNIQUE: Frontal and lateral views of the chest. This report was created using [employer] report generation technology. COMPARISON: 11/01/2019 FINDINGS: LUNGS AND PLEURAL SPACES: Unremarkable. No consolidation or edema. No pneumothorax. No effusion. HEART: Unremarkable. Cardiac silhouette not enlarged. MEDIASTINUM: Central airways and mediastinal contour are unremarkable. BONES/JOINTS: Unremarkable. SOFT TISSUES: Unremarkable. RAD/Chest PA and Lateral IMPRESSION: No radiographic evidence of acute cardiopulmonary disease. at 1745 Reported and signed by: Greg Costa MD Electronically Signed: Greg Costa MD at 17:44 EDT ,
--- NOTE | 2021-05-05 17:24 | EX.ED.VIS.UR ---
HPI HPI - URI History of Present Illness Chief Complaint: Cough Narrative Narrative: 75-year-old female presenting with cough. She states she has some minor congestion nasal itching and eye itching associated with it. She states she does not know if she has seasonal allergies presents never been diagnosed. She has had to take allergy medicine before which does seem to help. She has been taking Zyrtec with some relief although she still has a cough. She states she has a mucousy cough. No fever, chills, shortness of breath chest pain, palpitations. She is not having nausea or vomiting. She is eating and drinking normally. Is making normal urine and stool. ROS ROS ED Constitutional Constitutional ED: Denies chills or fever(s) Eyes Eyes: Reports itchy eyes; Denies blurry vision or diplopia ENT ENT ED: Reports nasal congestion and rhinorrhea; Denies sore throat Cardiovascular Cardiovascular: Denies chest pain or palpitations Respiratory/Chest Respiratory/Chest: Reports cough; Denies dyspnea or dyspnea on exertion Gastrointestinal Gastrointestinal: Denies abdominal pain, nausea or vomiting Genitourinary Genitourinary ED: Denies dysuria or hematuria Musculoskeletal Musculoskeletal: Denies arthralgias or myalgias Integumentary Denies rash Neurologic Neurologic: Denies headache(s) or paresthesias Psychiatric Psychiatric: Denies anxiety or depression [facility] Medical History Atrial flutter Chronic diastolic heart failure CKD (chronic kidney disease), stage III Essential hypertension History of COVID-19 (~12/2019) History of supraventricular tachycardia Multiple pulmonary nodules determined by computed tomography of lung Nonrheumatic mitral valve prolapse Palpitations Paroxysmal atrial fibrillation Pneumonia (~06/28/18) Positive colorectal cancer screening using Cologuard test Renal artery stenosis Skin lesion of face Syncope and collapse Typical atrial flutter Home Medications lysine 500 mg PO DAILY 02/22/13 [History Last Taken 11/01/19 08:00] multivitamin with folic acid 1 tab PO DAILY 02/22/13 [History Last Taken 11/01/19 08:00] cyanocobalamin (vitamin B-12) 1,000 mcg capsule 1,000 mcg PO DAILY 06/17/19 [History Last Taken 11/01/19 08:00] apixaban 5 mg tablet 5 mg PO BID #180 tab 09/21/19 [Rx Last Taken 05/28/20] cholecalciferol (vitamin D3) 25 mcg (1,000 unit) capsule 25 mcg PO DAILY 10/13/19 [History Last Taken 11/01/19 08:00] magnesium 200 mg tablet 100 mg PO .QOD tab 11/30/19 [History Last Taken Unknown] potassium chloride 10 mEq tablet,extended release 10 meq PO DAILY tab 12/17/20 [History Last Taken Unknown] diltiazem HCl 120 mg capsule,24 hr,extended release 120 mg PO DAILY #90 cap 02/13/21 [Rx Last Taken Unknown] flecainide 50 mg tablet 50 mg PO Q12H tab 04/24/21 [History Last Taken Unknown] fluticasone propionate [Flonase Allergy Relief] 1 spray INTRANASAL DAILY #16 g 05/05/21 [Rx Last Taken Unknown] Allergy/AdvReac Type Severity Reaction Status Date / Time bacitracin Allergy Rash Verified 05/05/21 17:09 [From Neosporin ([id number])] bacitracin zinc Allergy Rash Verified 05/05/21 17:09 [From Neosporin ([id number])] neomycin sulfate Allergy Rash Verified 05/05/21 17:09 [From Neosporin ([id number])] polymyxin B Allergy Rash Verified 05/05/21 17:09 [From Neosporin ([id number])] Sulfa (Sulfonamide Allergy Rash Verified 05/05/21 17:09 Antibiotics) sulfamethoxazole Allergy Rash Verified 05/05/21 17:09 [From Bactrim] trimethoprim [From Bactrim] Allergy Rash Verified 05/05/21 17:09 atorvastatin AdvReac Pain in Verified 05/05/21 17:09 joints ciprofloxacin [From Cipro] AdvReac Pain in Verified 05/05/21 17:09 joints codeine AdvReac Vomiting Verified 05/05/21 17:09 Family History Brother CAD (coronary artery disease) PPM Mother Congestive heart failure Surgical History History of cardioversion (04/08/18) History of colonoscopy (~2006) History of laparoscopic cholecystectomy History of total replacement of both hip joints History of transesophageal echocardiography (REAL) (04/08/18) lumbar disc decompression Social History Smoking Status: Never smoker second hand exposure: Yes EXAM Physical Exam Const Vital Signs: 05/05/21 17:05 05/05/21 17:20 05/05/21 18:14 Temperature 97.8 F Temperature Source Temporal Pulse Rate 69 Respiratory Rate 18 18 Respiratory Effort Normal Non-Labored Respiratory Depth Normal Respiratory Pattern Normal Blood Pressure 135/70 H Blood Pressure Mean 91 Pulse Ox 97 Oxygen Delivery Method Room Air Room Air Positive well nourished General Appearance ED: NAD; Negative for pallor HEENT Reports moist mucous membranes normocephalic and atraumatic Eyes PERRL and EOMs intact bilaterally Neck no lymphadenopathy, supple and no meningeal signs Resp normal respiratory effort and clear to auscultation bilaterally Cardio Rate: regular rate Rhythm: regular rhythm Extremity normal to inspection and full ROM Neuro oriented x3, CN's II-XII intact bilaterally and no sensory deficits noted Sensorium / Orientation: alert Motor Exam: strength 5/5 throughout Skin General Skin Exam: Negative for jaundice or pallor Rashes: no rashes MDM MDM MDM Narrative Medical decision making narrative: I feel the patient's symptoms are likely caused by allergic rhinitis. This was discussed with the patient at length. I did obtain an x-ray of the chest 2 view which on my interpretation shows no acute cardiopulmonary process. Radiologist agree. Patient will be started on Flonase. She is already on Zyrtec. She is counseled to follow-up with her primary care physician to ensure resolution. Patient is given return precautions as well. Impression: 1. Allergic rhinitis Radiography Diagnostic Testing: Clinical Impression(s) from Imaging Studies Chest X-Ray 05/05/21 17:24 IMPRESSION: No radiographic evidence of acute cardiopulmonary disease. at 1745 Reported and signed by: Greg Costa MD Electronically Signed: Greg Costa MD at 17:44 EDT , Discharge Plan Triage Chief Complaint: Cough ED Provider: Michael Griffin Dx/Rx/DC Orders Instructions: ED Allergic Rhinitis Prescriptions: New fluticasone propionate [Flonase Allergy Relief] 50 mcg/actuation spray,suspension 1 spray intranasal DAILY Qty: 16 RF: 0 No Action cholecalciferol (vitamin D3) 25 mcg (1,000 unit) capsule 25 mcg PO DAILY RF: 0 cyanocobalamin (vitamin B-12) 1,000 mcg capsule 1,000 mcg PO DAILY RF: 0 magnesium 200 mg tablet 100 mg PO .QOD RF: 0 flecainide 50 mg tablet 50 mg PO Q12H RF: 0 lysine 500 MG tablet 500 mg PO DAILY RF: 0 multivitamin with folic acid 1 TABLET tablet 1 tab PO DAILY RF: 0 apixaban 5 mg tablet 5 mg PO BID Qty: 180 RF: 3 potassium chloride 10 mEq tablet extended release 10 meq PO DAILY RF: 0 diltiazem HCl 120 mg capsule,extended release 24 hr 120 mg PO DAILY Qty: 90 RF: 3 Primary Care Provider: Harpreet Crain Referrals: Harpreet Crain MD [Primary Care Provider] - Disposition Disposition: Home, Self Care Discharge Date/Time: 05/05/21 18:14
[2021-05-05 18:14] VITALS: RESP 18
== END 2021-05-05 18:14 | disposition home or self-care (01) ==
PROVIDERS: Emergency Provider Student in an Organized Health Care Education/Training Program; PCP Family Medicine; Visit Provider Student in an Organized Health Care Education/Training Program
DX: J30.9 Allergic rhinitis, unspecified (principal); Z86.16 Personal history of COVID-19
CPT/HCPCS: 71046; 99282

== ENCOUNTER 2021-05-10 15:27 | Outpatient (CLI) | payer MEDICARE, OTHER, SELFPAY | END 2021-05-10 23:59 | disposition home or self-care (01) | LOC: LABSPEC 15:28 | PROVIDERS: PCP Family Medicine; Visit Provider Otolaryngology | DX: J02.9 Acute pharyngitis, unspecified (principal) | CPT/HCPCS: 87070 ==

== ENCOUNTER 2021-06-11 01:30 | Emergency (ER) | payer MEDICARE, OTHER, SELFPAY ==
[2021-06-11 01:31] VITALS: BP 174/97; PULSE 93; RESP 16; TEMP 36.2; O2SAT 97; BMI 28.3
[2021-06-11] MEDS: Oxymetazoline 0.05% 1 SPRAY SPRAY.BTL NASAL (02:21)
--- NOTE | 2021-06-11 02:44 | EX.ED.DYSGE1 ---
HPI History of Present Illness Chief Complaint: Nosebleed Informant: patient Narrative Narrative: Patient is a 76-year-old female chronic Eliquis secondary to atrial flutter presenting with epistaxis. Has had increase dfreqeuncy of nosebleeds for that past 1-2 weeks. No started bleeding earlier tonight and she could not get it to stop after 2 hours so she came in the emergency room. No other complaints at this time. Does not feel lightheaded. PFSH PFSH Medical History Atrial flutter Chronic diastolic heart failure CKD (chronic kidney disease), stage III Essential hypertension History of COVID-19 (~12/2019) History of supraventricular tachycardia Multiple pulmonary nodules determined by computed tomography of lung Nonrheumatic mitral valve prolapse Palpitations Paroxysmal atrial fibrillation Pneumonia (~06/28/18) Positive colorectal cancer screening using Cologuard test Renal artery stenosis Skin lesion of face Syncope and collapse Typical atrial flutter Home Medications lysine 500 mg PO DAILY 02/22/13 [History Last Taken 11/01/19 08:00] multivitamin with folic acid 1 tab PO DAILY 02/22/13 [History Last Taken 11/01/19 08:00] cyanocobalamin (vitamin B-12) 1,000 mcg capsule 1,000 mcg PO DAILY 06/17/19 [History Last Taken 11/01/19 08:00] apixaban 5 mg tablet 5 mg PO BID #180 tab 09/21/19 [Rx Last Taken 05/28/20] cholecalciferol (vitamin D3) 25 mcg (1,000 unit) capsule 25 mcg PO DAILY 10/13/19 [History Last Taken 11/01/19 08:00] magnesium 200 mg tablet 100 mg PO .QOD tab 11/30/19 [History Last Taken Unknown] potassium chloride 10 mEq tablet,extended release 10 meq PO DAILY tab 12/17/20 [History Last Taken Unknown] diltiazem HCl 120 mg capsule,24 hr,extended release 120 mg PO DAILY #90 cap 02/13/21 [Rx Last Taken Unknown] fluticasone propionate [Flonase Allergy Relief] 1 spray INTRANASAL DAILY #16 g 05/05/21 [Rx Last Taken Unknown] flecainide 100 mg tablet 100 mg PO Q12H #180 tab 05/27/21 [Rx Last Taken Unknown] Allergy/AdvReac Type Severity Reaction Status Date / Time bacitracin Allergy Rash Verified 06/11/21 01:35 [From Neosporin ([id number])] bacitracin zinc Allergy Rash Verified 06/11/21 01:35 [From Neosporin ([id number])] neomycin sulfate Allergy Rash Verified 06/11/21 01:35 [From Neosporin ([id number])] polymyxin B Allergy Rash Verified 06/11/21 01:35 [From Neosporin ([id number])] Sulfa (Sulfonamide Allergy Rash Verified 06/11/21 01:35 Antibiotics) sulfamethoxazole Allergy Rash Verified 06/11/21 01:35 [From Bactrim] trimethoprim [From Bactrim] Allergy Rash Verified 06/11/21 01:35 atorvastatin AdvReac Pain in Verified 06/11/21 01:35 joints ciprofloxacin [From Cipro] AdvReac Pain in Verified 06/11/21 01:35 joints codeine AdvReac Vomiting Verified 06/11/21 01:35 Family History Brother CAD (coronary artery disease) PPM Mother Congestive heart failure Surgical History History of cardioversion (04/08/18) History of colonoscopy (~2006) History of laparoscopic cholecystectomy History of total replacement of both hip joints History of transesophageal echocardiography (REAL) (04/08/18) lumbar disc decompression Social History Smoking Status: Never smoker second hand exposure: Yes ROS ROS ED Constitutional Constitutional ED: Denies chills or fever(s) Eyes Eyes: Denies blurry vision or change in vision ENT ENT ED: Reports other Details: Epistaxis ; Denies ear pain or rhinorrhea Cardiovascular Cardiovascular: Denies chest pain Respiratory/Chest Respiratory/Chest: Denies dyspnea Gastrointestinal Gastrointestinal: Denies nausea or vomiting Integumentary Denies rash Neurologic Neurologic: Denies headache(s) or weakness Psychiatric Psychiatric: Denies anxiety EXAM Physical Exam Const Vital Signs: 06/11/21 01:31 Temperature 97.2 F L Temperature Source Temporal Pulse Rate 93 Respiratory Rate 16 Blood Pressure 174/97 H Blood Pressure Mean 122 Pulse Ox 97 Oxygen Delivery Method Room Air Positive well nourished and well developed General Appearance ED: well developed and NAD; Negative for pallor HEENT Reports moist mucous membranes HEENT Narrative: dried blood noted in left nares . Small area of blood vessels noted in the left anterior septum likely the cause of her earlier nosebleed. No active bleeding at this time.no blood in the oropharnyx. Negative for trauma Eyes PERRL and EOMs intact bilaterally Neck supple Chest Wall inspection of chest normal Resp normal respiratory effort Cardio regular rate and regular rhythm Extremity normal to inspection General Extremety ED: Negative for edema General Extremity: Negative for edema Neuro oriented x3 Sensorium / Orientation: alert Motor Exam: Negative for general weakness Psych mental status grossly normal Skin no rashes or lesions noted and no wounds General Skin Exam: Negative for pallor MDM MDM MDM Narrative Medical decision making narrative: Patient evaluated for epistaxis. Nose clamp is applied and pressure was held for approximately 10 minutes. On my evaluation patient has no active bleeding. Afrin is applied to help vasoconstrict. At this time given that she is not having active bleeding I do not think nasal packing is indicated. She is on chronic anticoagulation would like to refrain from cautery at this time. Is given ENT for outpatient follow-up. Patient counseled return precautions. Discussed using humidifier. Patient initially is hypertensive however this improves without any intervention. Discussed using short-term Afrin for vasoconstriction with nosebleeds. Counseled to not use regularly for more than 3 days of because and cause rebound rhinorrhea. Discharge Plan Triage Chief Complaint: Nosebleed ED Provider: Sera Grissom Dx/Rx/DC Orders Clinical Impression: Acute anterior epistaxis, Chronic anticoagulation Instructions: ED Epistaxis (Adult) Prescriptions: No Action cholecalciferol (vitamin D3) 25 mcg (1,000 unit) capsule 25 mcg PO DAILY RF: 0 cyanocobalamin (vitamin B-12) 1,000 mcg capsule 1,000 mcg PO DAILY RF: 0 magnesium 200 mg tablet 100 mg PO .QOD RF: 0 lysine 500 MG tablet 500 mg PO DAILY RF: 0 multivitamin with folic acid 1 TABLET tablet 1 tab PO DAILY RF: 0 fluticasone propionate [Flonase Allergy Relief] 50 mcg/actuation spray,suspension 1 spray intranasal DAILY Qty: 16 RF: 0 apixaban 5 mg tablet 5 mg PO BID Qty: 180 RF: 3 potassium chloride 10 mEq tablet extended release 10 meq PO DAILY RF: 0 diltiazem HCl 120 mg capsule,extended release 24 hr 120 mg PO DAILY Qty: 90 RF: 3 flecainide 100 mg tablet 100 mg PO Q12H Qty: 180 RF: 3 Primary Care Provider: Harpreet Crain Referrals: Kashif Jimenez MD [STAFF PHYSICIAN] - As soon as possible Harpreet Crain MD [Primary Care Provider] - Disposition Disposition: Home, Self Care Discharge Date/Time: 06/11/21 02:51
[2021-06-11 02:50] VITALS: BP 138/97; PULSE 62; RESP 15; O2SAT 98
--- NOTE | 2021-06-12 17:29 | CASEMGMT ---
[facility] ED visit f/u call: ED visit: 06/11/21 Complaint: Nosebleed Call to pt's #. No answer. Non-descript VM left requesting return call if there are any questions or concerns. Phone number provided. Cole CONKLINN RN CM
== END 2021-06-11 02:51 | disposition home or self-care (01) ==
PROVIDERS: Emergency Provider Emergency Medicine; PCP Family Medicine; Visit Provider Emergency Medicine
DX: R04.0 Epistaxis (principal); I48.92 Unspecified atrial flutter; I48.0 Paroxysmal atrial fibrillation; N18.30 Chronic kidney disease, stage 3 unspecified; Z86.16 Personal history of COVID-19; Z79.899 Other long term (current) drug therapy; Z79.01 Long term (current) use of anticoagulants
CPT/HCPCS: 30901; 99282

== ENCOUNTER → 2021-07-03 | Outpatient (CLI) | payer MEDICARE, OTHER, SELFPAY ==
[2021-07-17 08:10] LABS: Aldosterone, Serum 12.8 ng/dL (0.0-30.0)
[2021-07-17 08:22] LABS: Renin, Plasma 0.652 ng/mL/hr (0.167-5.380)
== END | disposition home or self-care (01) ==
LOC: LAB 12:36
PROVIDERS: PCP Family Medicine; Referring Provider Physician Assistant Medical; Visit Provider Physician Assistant Medical
DX: I70.1 Atherosclerosis of renal artery (principal); I16.1 Hypertensive emergency
CPT/HCPCS: 36415; 82088; 84244

== ENCOUNTER 2021-09-22 09:26 | Emergency (ER) | payer MEDICARE, OTHER, SELFPAY ==
[2021-09-22 09:27] VITALS: BP 122/76; PULSE 83; RESP 16; TEMP 36.2; O2SAT 99; BMI 28.3
--- NOTE | 2021-09-22 10:09 | EKG12_ITS ---
Test Reason : Blood Pressure : / mmHG Vent. Rate : 079 BPM Atrial Rate : 079 BPM P-R Int : 318 ms QRS Dur : 150 ms QT Int : 450 ms P-R-T Axes : 000 072 089 degrees QTc Int : 516 ms Sinus rhythm with 1st degree A-V block Brugada pattern, type 1 Confirmed by KAILEY RUBI, ATUL ([id number]), editor newspaper SHERRON GIL ([id number]) on 09/24/2021 9:08:27 AM Referred By: Confirmed By:ATUL BONNER MD
--- NOTE | 2021-09-22 10:09 | RAD_ITS ---
STUDY: X-RAY CHEST REASON FOR EXAM: Female, 76 years old. Near syncope TECHNIQUE: Single AP portable view of the chest. COMPARISON: May 05, 2021. FINDINGS: The lungs are clear and expanded. There is no demonstrated pleural abnormality. There is mild cardiac enlargement. Normal mediastinum and johnathon. Normal visualized pulmonary arteries. There is atherosclerotic calcification of the aortic arch with tortuosity. There are diffuse degenerative changes of the visualized thoracic spine. There is degenerative osteoarthritis of the bilateral shoulders. There is no demonstrated abnormality of the visualized soft tissue structures of the upper abdomen. RAD/Chest 1 View (Portable) IMPRESSION: Degenerative changes, as described above. No demonstrated acute cardiopulmonary process. Electronically Signed: Tejinder Marx MD at 11:18 EDT ,
--- NOTE | 2021-09-22 10:10 | EX.ED.DYSGE1 ---
HPI History of Present Illness Chief Complaint: Dizziness Detail of Chief Complaint: Dizziness and near Informant: patient and spouse/S.O. Narrative Narrative: Patient presents to the emergency department with complaint of feeling lightheaded and near syncopal this morning. 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 She describes feeling lightheaded and nauseated and sweaty. She did not actually pass out. Patient states that she had a similar episode yesterday and so she laid down and afterwards felt better. Patient states couple weeks ago she had similar episodes and she relates it may be to her blood pressure medication. Patient takes Cardizem in the morning 120 mg and she also takes losartan at night. Patient states typically at night her blood pressure goes up and when she wakes up in the morning it is in the 140s to 150 systolic. About an hour after taking her Cardizem patient states that at times she is felt lightheaded and felt like she was going to pass out and when she checks her blood pressure her systolics in the 90s. Patient has history of A. fib. Patient had been on Eliquis but was taken off recently for history of frequent nosebleeds. Patient denies recent illness. She denies any chest pain. She denies shortness of breath. Prior similar symptoms: Yes PFSH [facility] Medical History (Updated 09/22/21 @ 12:[address] Julia Meza, ) Atrial fibrillation/flutter Atrial flutter Chronic diastolic heart failure CKD (chronic kidney disease), stage III Essential hypertension History of COVID-19 (~12/2019) History of supraventricular tachycardia Multiple pulmonary nodules determined by computed tomography of lung Nonrheumatic mitral valve prolapse Palpitations Paroxysmal atrial fibrillation Pneumonia (~06/28/18) Positive colorectal cancer screening using Cologuard test Renal artery stenosis Skin lesion of face Syncope and collapse Typical atrial flutter Home Medications lysine 500 mg tablet 500 mg PO DAILY supplement 02/22/13 [History Last Taken 11/01/19 08:00] multivitamin with folic acid 400 mcg tablet 1 tab PO DAILY supplement 02/22/13 [History Last Taken 11/01/19 08:00] cyanocobalamin (vitamin B-12) 1,000 mcg capsule 1,000 mcg PO DAILY supplement 06/17/19 [History Last Taken 11/01/19 08:00] cholecalciferol (vitamin D3) 25 mcg (1,000 unit) capsule 25 mcg PO DAILY supplement 10/13/19 [History Last Taken 11/01/19 08:00] potassium chloride 10 mEq tablet,extended release 10 meq PO DAILY 12/17/20 [History Last Taken Unknown] diltiazem HCl 120 mg capsule,24 hr,extended release 120 mg PO DAILY #90 caps 02/13/21 [Rx Last Taken Unknown] flecainide 100 mg tablet 100 mg PO Q12H #180 tabs 05/27/21 [Rx Last Taken Unknown] magnesium 200 mg tablet 100 mg PO .2xWEEK 06/17/21 [History Last Taken Unknown] losartan 25 mg tablet 25 mg PO QHS 09/22/21 [History Last Taken Unknown] Allergy/AdvReac Type Severity Reaction Status Date / Time bacitracin Allergy Rash Verified 09/22/21 09:30 [From Neosporin ([id number])] bacitracin zinc Allergy Rash Verified 09/22/21 09:30 [From Neosporin ([id number])] neomycin sulfate Allergy Rash Verified 09/22/21 09:30 [From Neosporin ([id number])] polymyxin B Allergy Rash Verified 09/22/21 09:30 [From Neosporin ([id number]-[id number])] Sulfa (Sulfonamide Allergy Rash Verified 09/22/21 09:30 Antibiotics) sulfamethoxazole Allergy Rash Verified 09/22/21 09:30 [From Bactrim] trimethoprim [From Bactrim] Allergy Rash Verified 09/22/21 09:30 atorvastatin AdvReac Pain in Verified 09/22/21 09:30 joints ciprofloxacin [From Cipro] AdvReac Pain in Verified 09/22/21 09:30 joints codeine AdvReac Vomiting Verified 09/22/21 09:30 Family History Brother CAD (coronary artery disease) PPM Mother Congestive heart failure Surgical History History of cardioversion (04/08/18) History of colonoscopy (~2006) History of laparoscopic cholecystectomy History of total replacement of both hip joints History of transesophageal echocardiography (REAL) (04/08/18) lumbar disc decompression Social History Smoking Status: Never smoker second hand exposure: Yes ROS ROS ED ROS Narrative Near syncope, diaphoresis Review of Systems ROS Unobtainable: other Constitutional Constitutional ED: Reports lethargy; Denies chills, fever(s), sweats or weight loss Eyes Eyes: Denies blurry vision, change in vision or diplopia ENT ENT ED: Denies rhinorrhea or sore throat Cardiovascular Cardiovascular: Denies chest pain, orthopnea or racing heartbeat Respiratory/Chest Respiratory/Chest: Reports dyspnea and dyspnea on exertion; Denies cough, orthopnea or sputum Gastrointestinal Gastrointestinal: Reports nausea; Denies abdominal pain, diarrhea or vomiting Genitourinary Genitourinary ED: Denies dysuria, hematuria or urinary frequency Musculoskeletal Musculoskeletal: Denies arthralgias, back pain, myalgias or neck pain Integumentary Denies abscess, Abrasions or rash Neurologic Neurologic: Reports other Details: Dizziness ; Denies headache(s) or weakness Psychiatric Psychiatric: Denies anxiety, depression or suicidal thoughts Endocrine Endocrinology: Denies polydipsia, polyphagia or polyuria Hematologic/Lymphatic Hematologic/Lymphatic: Denies easy bleeding, easy bruising or lymphadenopathy Allergic/Immunologic Allergic/Immunologic ED: Denies mouth swelling, tongue swelling or urticaria EXAM Physical Exam Const Vital Signs: 09/22/21 09:27 09/22/21 10:30 09/22/21 10:45 Temperature 97.1 F L Temperature Source Temporal Pulse Rate 83 79 Pulse Rate [Lying] 80 Pulse Rate [Sitting (for 1 minute prior to obtaining)] 78 Pulse Rate [Standing (for 1 minute prior to obtaining)] 80 Respiratory Rate 16 18 Respiratory Effort Respiratory Pattern Blood Pressure 122/76 H 155/92 H Blood Pressure [Lying] 144/91 H Blood Pressure [Sitting (for 1 minute prior to obtaining)] 148/94 H Blood Pressure [Standing (for 1 minute prior to obtaining)] 141/90 H Blood Pressure Mean 91 113 Blood Pressure Mean [Lying] 108 Blood Pressure Mean [Sitting (for 1 minute prior to obtaining)] 112 Blood Pressure Mean [Standing (for 1 minute prior to obtaining)] 107 Pulse Ox 99 99 Oxygen Delivery Method Room Air Room Air 09/22/21 10:46 09/22/21 12:02 Temperature Temperature Source Pulse Rate 83 Pulse Rate [Lying] Pulse Rate [Sitting (for 1 minute prior to obtaining)] Pulse Rate [Standing (for 1 minute prior to obtaining)] Respiratory Rate 16 Respiratory Effort Normal Respiratory Pattern Normal Blood Pressure 168/101 H Blood Pressure [Lying] Blood Pressure [Sitting (for 1 minute prior to obtaining)] Blood Pressure [Standing (for 1 minute prior to obtaining)] Blood Pressure Mean 123 Blood Pressure Mean [Lying] Blood Pressure Mean [Sitting (for 1 minute prior to obtaining)] Blood Pressure Mean [Standing (for 1 minute prior to obtaining)] Pulse Ox 100 Oxygen Delivery Method Room Air Positive well nourished and well developed General Appearance ED: well developed and NAD HEENT Reports TM's clear and moist mucous membranes normocephalic and atraumatic; Negative for trauma or tenderness Tympanic Membrane ED: Yes TM's clear Eyes PERRL and EOMs intact bilaterally General Eye ED: Negative for pale conjunctiva or scleral icterus Neck no lymphadenopathy, supple and no JVD General: Negative for tenderness Chest Wall inspection of chest normal and palpation of chest normal Chest: Negative for tenderness Resp normal respiratory effort and clear to auscultation bilaterally Effort and Inspection: Negative for respiratory distress or pain with movement Auscultation: Negative for rhonchi, wheezes or diminished lung sounds Cardio regular rate, regular rhythm, S1 normal heart sound, S2 normal heart sound and no murmurs Peripheral Pulses: pulses 2+ throughout GI normal to inspection, nondistended, normoactive bowel sounds, soft to palpation, non-tender, non-distended and no masses Back/Spine no CVA tenderness and no thoracic nor lumbar tenderness Extremity normal to inspection General Extremety ED: Negative for edema General Extremity: Negative for edema Neuro oriented x3, CN's II-XII intact bilaterally, no sensory deficits noted and gait normal Sensorium / Orientation: awake, alert, oriented to person, oriented to place and oriented to time Motor Exam: strength 5/5 throughout and strength abnormal Psych mental status grossly normal Skin no rashes or lesions noted and no wounds MDM MDM MDM Narrative Medical decision making narrative: IV line established on arrival. Orthostatic vital signs performed were negative. Lab work-up was unremarkable. Urinalysis was normal. EKG obtained arrival showed a sinus rhythm with ST elevations in V1 and V2 which appear to be chronic when compared with old EKG from a month ago. There was a Brugada type I pattern. I discussed case with channel business manager on-call who recommended admission for further evaluation of these more frequent near syncopal episodes. I spoke with hospitalist who discussed case with Dr. Zavaleta who felt the patient might need an EP study and recommended transfer to [facility]. The hospitalist was able to find old records that showed patient has been seeing an snuff maker at [facility] and recommended transfer to [facility] for definitive care. I discussed case with transfer line at [facility] and they will be happy to accept her for transfer but do not have a bed available at this time and may be later today or tomorrow so they recommended temporarily admitting her at [facility]. Discussed case with hospitalist again who will admit patient Lab Data Attestation: I reviewed the patient's lab results. Labs: Laboratory Results - last 24 hr 09/22/21 09/22/21 09/22/21 10:25 10:25 10:30 WBC 9.4 RBC 4.67 Hgb 14.0 Hct 43.8 MCV 93.8 MCH 30.0 MCHC 32.0 RDW Std Deviation 50.0 H RDW Coeff of Igor 14.6 Plt Count 251 MPV 10.3 Immature Gran % (Auto) 0.100 Neut % (Auto) 77.7 H Lymph % (Auto) 16.1 L Roberts % (Auto) 5.0 Eos % (Auto) 0.7 Baso % (Auto) 0.4 Absolute Neuts (auto) 7.3 Absolute Lymphs (auto) 1.51 Nucleated RBC % 0 Sodium 139 Potassium 4.1 Chloride 105 Carbon Dioxide 30.0 Anion Gap 4 L BUN 25 H Creatinine 1.52 H Estim Creat Clear Calc 27.89 Est GFR (MDRD) Af Amer 43 L Est GFR (MDRD) Non-Af 35 L BUN/Creatinine Ratio 16.4 Glucose 120 H Calcium 9.4 Troponin I High Sens 16 Urine Color Yellow Urine Clarity Clear Urine pH 6.0 Ur Specific [place] 1.025 Urine Protein 30 H Urine Glucose (UA) Normal Urine Ketones 5 H Urine Occult Blood 10 H Urine Nitrite Negative Urine Bilirubin Negative Urine Urobilinogen 4 H Ur Leukocyte Esterase 100 H Urine RBC 0 SEEN Urine WBC 0-5 SEEN Ur Squamous Epith Cells 0-5 SEEN Urine Bacteria 1+ Urine Mucus 0 SEEN Radiography Chest X-Ray - ED: 1 View Diagnostic Testing: Clinical Impression(s) from Imaging Studies Chest X-Ray 09/22/21 10:09 IMPRESSION: Degenerative changes, as described above. No demonstrated acute cardiopulmonary process. Electronically Signed: Tejinder Marx MD at 11:18 EDT Reading Location ID and State: [facility] / [place] , Service support , 1 view chest are obtained interpreted by myself no acute disease process. Radiology in agreement. EKG Initial EKG: Attestation: I personally reviewed and interpreted this EKG as follows: Comments: Sinus rhythm with a ventricular rate of 79 bpm with a first-degree AV block and Brugada pattern type I. Prior EKG tracings: available for review Prior: Unchanged Discharge Plan Triage Chief Complaint: Dizziness ED Provider: Julia Meza Dx/Rx/DC Orders Clinical Impression: AF (paroxysmal atrial fibrillation), Syncope, near, History of hypertension Prescriptions: No Action cholecalciferol (vitamin D3) 25 mcg (1,000 unit) capsule 25 mcg PO DAILY cyanocobalamin (vitamin B-12) 1,000 mcg capsule 1,000 mcg PO DAILY magnesium 200 mg tablet 100 mg PO .2xWEEK lysine 500 MG tablet 500 mg PO DAILY Label Comments: Supplement multivitamin with folic acid 1 TABLET tablet 1 tab PO DAILY Label Comments: Supplement losartan 25 mg tablet 25 mg PO QHS potassium chloride 10 mEq tablet extended release 10 meq PO DAILY diltiazem HCl 120 mg capsule,extended release 24 hr 120 mg PO DAILY Qty: 90 3RF flecainide 100 mg tablet 100 mg PO Q12H Qty: 180 3RF Primary Care Provider: Harpreet Crain Referrals: Harpreet Crain MD [Primary Care Provider] - Disposition Disposition: Acute Care Hospital [facility]
[2021-09-22 10:30] VITALS: BP 141/90; BP 144/91; BP 148/94; PULSE 78; PULSE 80
[2021-09-22 10:34] LABS: Absolute Lymphocyte Count 1.51 X10^3/uL (0.83-4.51); Absolute Neutrophil Count 7.3 X10^3/uL (2.0-7.7); Basophil# 0.04 X10^3/uL; Basophil% 0.4 % (0-1); Eosinophil# 0.07 X10^3/uL; Eosinophils% 0.7 % (0-5); Hematocrit 43.8 % (37-47); Lymphocyte # 1.51 X10^3/ul (0.83-4.51); Lymphocyte % 16.1 % (19-41); Mean Corpuscular Volume 93.8 fL (81-99); Mean Platelet Vol. 10.3 fl (6.2-12.0); Monocyte# 0.47 X10^3/uL; NRBC Flagged by Analyzer 0 % (0-5); Neutrophil % 77.7 % (47-70); Platelet Count 251 K/mm3 (150-450); RBC Distribution Width CV 14.6 % (11.6-14.6); Red Blood Count 4.67 M/mm3 (4.2-5.4); White Blood Count 9.4 K/mm3 (4.4-11.0)
[2021-09-22 10:42] LABS: Mucous, Urine 0 SEEN /hpf (<or=2+); Red Blood Cells-Urine 0 SEEN /hpf (0-5)
[2021-09-22 10:45] VITALS: BP 155/92; PULSE 79; RESP 18; O2SAT 99
[2021-09-22] MEDS: 0.9% Normal Saline 1,000 ML 150 ML IV (10:45)
[2021-09-22 10:50] LABS: Color, Urine Yellow (Yellow); Glucose, Dipstick Normal (Normal); Ketone-Dipstick 5 mg/dl (Negative); Leukocyte Esterase-Dipstick 100 /ul (Negative); Nitrite-Dipstick Negative (Negative); Occult Blood-Urine 10 /ul (Negative); Protein-Dipstick 30 mg/dl (Negative); Specific Gravity, Urine 1.025 (1.002-1.030); Urine Bilirubin Dipstick Negative (Negative); Urine Clarity Clear (Clear); Urine Urobilinogen 4 mg/dl (Normal)
[2021-09-22 10:52] LABS: Anion Gap 4 (5-15); BUN 25 mg/dL (7-18); BUN/Creat Ratio 16.4 RATIO (10-20); Calcium,Total 9.4 mg/dL (8.5-10.1); Chloride 105 mmol/L (98-107); Creatinine, Serum 1.52 mg/dL (0.55-1.02); EST Glomerular Filtration Rate 35 mL/min (>60); Est Glom Filt Rate - Afr Amer 43 mL/min (>60); Estimated Creatinine Clearance 27.89 ml/min; Glucose 120 mg/dL (74-106); Potassium 4.1 mmol/L (3.5-5.1); Sodium Level 139 mmol/L (136-145); Troponin-I HS (w/2H Reflex) 16 pg/mL (3.0-54.0)
[2021-09-22 11:00] LABS: Bacteria 1+ /hpf (None Seen); Squamous Epithelial Cells - UA 0-5 SEEN /hpf (5-10); White Blood Cells 0-5 SEEN /hpf (0-5)
[2021-09-22 12:02] VITALS: BP 168/101; PULSE 83; RESP 16; O2SAT 100
[2021-09-22 12:29] LABS: Reflex Troponin-HS? (from REC) Y
[2021-09-22 13:19] LABS: Troponin-I HS 15 pg/mL (3.0-54.0)
[2021-09-22 14:07] VITALS: BP 163/91; PULSE 84; RESP 18; TEMP 36.6; O2SAT 94
--- NOTE | 2021-09-22 14:09 | ED.RN ---
CALLED [facility] TO GIVEN REPORT. NURSE NOT AVAILABLE. NUMBER GIVEN TO [facility] AND [facility] FOR NURSE TO CALL BACK FOR REPORT.
== END 2021-09-22 14:32 | disposition short-term general hospital (02) ==
PROVIDERS: Emergency Provider Emergency Medicine; PCP Family Medicine; Visit Provider Emergency Medicine
DX: I48.0 Paroxysmal atrial fibrillation (principal); I50.32 Chronic diastolic (congestive) heart failure; I13.0 Hypertensive heart and chronic kidney disease with heart failure and stage 1 through stage 4 chronic kidney disease, or unspecified chronic kidney disease; N18.30 Chronic kidney disease, stage 3 unspecified; R55 Syncope and collapse; Z86.16 Personal history of COVID-19; Z79.899 Other long term (current) drug therapy
CPT/HCPCS: 71045; 80048; 81001; 84484; 85025; 87811; 93005; 99285; J7030; A4216

== ENCOUNTER → 2021-12-17 | Outpatient (CLI) | payer MEDICARE, OTHER, SELFPAY ==
[2021-12-17 09:53] LABS: Hematocrit 45.1 % (37-47); Hemoglobin 14.6 g/dL (12.0-15.0); Mean Corp Hgb Conc 32.4 g/dL (32-36); Mean Corpuscular Hgb 30.7 pg (27.0-32.0); Mean Corpuscular Volume 94.9 fL (81-99); Mean Platelet Vol. 10.5 fl (6.2-12.0); Platelet Count 254 K/mm3 (150-450); RBC Distribution Width CV 13.2 % (11.6-14.6); RBC Distribution Width SD 46.8 fl (35.1-43.9); Red Blood Count 4.75 M/mm3 (4.2-5.4); White Blood Count 7.6 K/mm3 (4.4-11.0)
[2021-12-17 10:29] LABS: Anion Gap 5 (5-15); BUN 18 mg/dL (7-18); BUN/Creat Ratio 14.8 RATIO (10-20); Calcium,Total 9.5 mg/dL (8.5-10.1); Chloride 107 mmol/L (98-107); Creatinine, Serum 1.22 mg/dL (0.55-1.02); EST Glomerular Filtration Rate 45 mL/min (>60); Est Glom Filt Rate - Afr Amer 55 mL/min (>60); Glucose 73 mg/dL (74-106); Potassium 4.3 mmol/L (3.5-5.1); Sodium Level 142 mmol/L (136-145); Thyroid Stim Hormone (TSH) 3.03 uIU/mL (0.358-3.74)
== END | disposition home or self-care (01) ==
PROVIDERS: PCP Family Medicine; Referring Provider Internal Medicine Cardiovascular Disease; Visit Provider Internal Medicine Cardiovascular Disease
DX: R53.83 Other fatigue (principal); I50.32 Chronic diastolic (congestive) heart failure; I48.91 Unspecified atrial fibrillation; R00.2 Palpitations
CPT/HCPCS: 36415; 80048; 83735; 84436; 84443; 85027; 93225; 93226

== ENCOUNTER → 2022-06-03 | Outpatient (CLI) | payer MEDICARE, OTHER, SELFPAY ==
[2022-06-03 12:49] LABS: Absolute Lymphocyte Count 2.12 X10^3/uL (0.83-4.51); Absolute Neutrophil Count 4.7 X10^3/uL (2.0-7.7); Basophil# 0.06 X10^3/uL; Basophil% 0.8 % (0-1); Eosinophil# 0.12 X10^3/uL; Eosinophils% 1.6 % (0-5); Hematocrit 42.9 % (37-47); Hemoglobin 13.6 g/dL (12.0-15.0); Lymphocyte # 2.12 X10^3/ul (0.83-4.51); Lymphocyte % 28.2 % (19-41); Mean Corp Hgb Conc 31.7 g/dL (32-36); Mean Corpuscular Hgb 30.3 pg (27.0-32.0); Mean Corpuscular Volume 95.5 fL (81-99); Mean Platelet Vol. 11.1 fl (6.2-12.0); Monocyte# 0.52 X10^3/uL; Monocyte% 6.9 % (0-10); NRBC Flagged by Analyzer 0 % (0-5); Neutrophil # 4.68 X10^3/uL (2.7-7.7); Neutrophil % 62.2 % (47-70); Platelet Count 287 K/mm3 (150-450); RBC Distribution Width CV 13.1 % (11.6-14.6); RBC Distribution Width SD 45.9 fl (35.1-43.9); Red Blood Count 4.49 M/mm3 (4.2-5.4); White Blood Count 7.5 K/mm3 (4.4-11.0)
[2022-06-03 13:14] LABS: Vitamin B12 1565 pg/mL (211-911); Vitamin D,25 Hydroxy 30.8 ng/mL
[2022-06-03 13:29] LABS: ALB/GLOB Ratio 0.9 RATIO (0.9-2.4); AST(SGOT) 23 U/L (15-37); Alanine Aminotransfer ALT/SGPT 23 U/L (13-56); Albumin, Serum 3.6 g/dL (3.2-5.0); Alkaline Phosphatase 91 U/L (45-117); Anion Gap 5 (5-15); BUN 18 mg/dL (7-18); BUN/Creat Ratio 13.4 RATIO (10-20); Calcium,Total 9.5 mg/dL (8.5-10.1); Chloride 105 mmol/L (98-107); Cholesterol 248 mg/dL (200); Creatinine, Serum 1.34 mg/dL (0.55-1.02); EST Glomerular Filtration Rate 41 mL/min (>60); Est Glom Filt Rate - Afr Amer 49 mL/min (>60); Globulin 3.9 g/dL (2.2-4.2); Glucose 101 mg/dL (74-106); High Density Lipoprotein 81 mg/dL; Magnesium 1.8 mg/dL (1.6-2.6); Potassium 4.2 mmol/L (3.5-5.1); Protein, Total 7.5 g/dL (6.4-8.2); Sodium Level 138 mmol/L (136-145); T4 Free Direct 0.99 ng/dL (0.76-1.46); Thyroid Stim Hormone (TSH) 3.36 uIU/mL (0.358-3.74); Triglycerides 84 mg/dL; Very Low Density Lipoprotein 17 mg/dL (5-40)
== END | disposition home or self-care (01) ==
DX: E78.5 Hyperlipidemia, unspecified (principal); R73.01 Impaired fasting glucose; E05.90 Thyrotoxicosis, unspecified without thyrotoxic crisis or storm; E55.9 Vitamin D deficiency, unspecified; E53.8 Deficiency of other specified B group vitamins
CPT/HCPCS: 36415; 80053; 80061; 82306; 82607; 83735; 84439; 84443; 85025

== ENCOUNTER → 2022-06-10 | Outpatient (CLI) | payer MEDICARE, OTHER, SELFPAY ==
--- NOTE | 2022-06-10 08:40 | BI_ITS ---
MAMMOGRAPHY - BILATERAL SCREENING REASON FOR EXAM: Female, 77 years old. Routine annual screening examination. PERTINENT HISTORY: Aunt with breast cancer. TECHNIQUE: Digital bilateral breast masoud (3D mammographic acquisition) in the CC and MLO projections. 2-D mediolateral oblique (MLO) and craniocaudad (CC) views of both breasts were obtained. CAD: Full Field Digital Mammography with Computer Added Detection was performed. COMPARISON: Comparison is made with prior study dated April 29, 2021 and September 27, 2019. FINDINGS: Breast Composition: The breasts are heterogeneously dense, which may obscure small masses. There are no dominant masses or suspicious calcifications. No other significant abnormalities are identified. There has been no significant change since the prior study. BI/SCRN MAMM (CAD)W/MASOUD BILAT IMPRESSION: Stable bilateral screening mammogram. Yearly follow-up mammogram recommended. (A) ASSESSMENT CATEGORY: BIRADS Category 1: Negative. A letter regarding these results will be sent to the patient by the facility within 30 days. Approximately 10% of breast cancers are not detected by mammography. A normal mammogram should not delay biopsy of a clinically suspicious abnormality. [id number] Electronically Signed: Taiwo Tejada MD at 9:46 EDT ,
== END | disposition home or self-care (01) ==
LOC: OPBI 08:37
PROVIDERS: PCP Nurse Practitioner Family; Referring Provider Nurse Practitioner Family; Visit Provider Nurse Practitioner Family
DX: Z12.31 Encounter for screening mammogram for malignant neoplasm of breast (principal)
CPT/HCPCS: 77063; 77067

== ENCOUNTER → 2022-08-14 | Outpatient (CLI) | payer MEDICARE, OTHER, SELFPAY | END | disposition home or self-care (01) | LOC: PSN 12:11 | PROVIDERS: PCP Nurse Practitioner Family; Referring Provider Physician Assistant Medical; Visit Provider Physician Assistant Medical | DX: I48.11 Longstanding persistent atrial fibrillation (principal) | CPT/HCPCS: 93225; 93226 ==

== ENCOUNTER → 2023-01-12 | Outpatient (CLI) | payer MEDICARE, OTHER, SELFPAY ==
--- NOTE | 2023-01-12 13:34 | STRESSREP_ITS ---
Stress Test Report Exercise myocardial perfusion stress test. 77-year-old lady with a history of chest pain Stress protocol: Resting EKG demonstrates normal sinus rhythm with a rate of 56 bpm resting blood pressure is 146/80 mmHg. The patient exercised according to the regular Vel protocol for a total duration of 3 minutes and 30 seconds attaining a maximum heart rate of 109 bpm which was 76% of maximum predicted heart rate; the maximum workload was 5.8 metabolic equivalents. At rest there were no ST or T wave changes noted to suggest ischemia and at peak exercise upsloping ST changes only were noted which did not meet the criteria for ischemia. No clinical angina was noted the test was terminated due to the target heart rate being achieved/fatig ue. The peak blood pressure was 160/70 mmHg. Rate-pressure product was 16,000. Myocardial perfusion protocol. 11.9 mCi of technetium 99m sestamibi was injected at rest. The patient exercised according to regular Vel protocol for total duration of 3 minutes and 36 and at peak exercise 35.6 mCi of technetium 99m sestamibi was injected stress images were obtained stress and rest images were reconstructed in comparing the short axis vertical long and horizontal long axis. Gated images were also obtained. Perfusion SPECT analysis: Review of the stress images demonstrate normal uptake of tracer noted in all areas of the myocardium. The resting images similarly demonstrate normal uptake of tracer noted in all areas of the myocardium. No areas of reversibility are noted to suggest ischemia no previous infarct was noted. Gated SPECT analysis: The gated ejection fraction is over 80%. Conclusion: Normal exercise myocardial perfusion stress test at a low to moderate workload Preserved ejection fraction.
== END | disposition home or self-care (01) ==
LOC: CVS 06:00
PROVIDERS: PCP Nurse Practitioner Family; Referring Provider Internal Medicine Cardiovascular Disease; Visit Provider Internal Medicine Cardiovascular Disease
DX: R07.9 Chest pain, unspecified (principal); I11.0 Hypertensive heart disease with heart failure; I50.32 Chronic diastolic (congestive) heart failure; I48.11 Longstanding persistent atrial fibrillation; I48.0 Paroxysmal atrial fibrillation; R00.0 Tachycardia, unspecified; R06.09 Other forms of dyspnea; R00.1 Bradycardia, unspecified
CPT/HCPCS: 78452; 93017; A9500; A4216; J2785

== ENCOUNTER → 2023-04-15 | Outpatient (CLI) | payer MEDICARE, OTHER, SELFPAY ==
--- OUTSIDE RECORDS SUMMARY | 2023-04-15 07:37 | XMS RPT_ITS | CCD ---
Author Name Unknown Address [address] [place] [address] Organization [facility] Care Team Providers Care Cement Contractor Name Role Phone Jalil Laurence Yu Unavailable JimenesLaurence Unavailable Luke Garcia NP Unavailable Laurence Jimenes Unavailable Meka Crain Primary Care Provider [phone] David Sands Unavailable Ollie Chang Unavailable Meka Crain Primary Care Provider Surya Bryan Unavailable Ollie Chang MD Unavailable Meka Crain MD Primary Care Provider Surya Bryan Unavailable Ollie Elizabeth MD Unavailable Sascha Singh Unavailable Kel Jimenez Unavailable Ollie Chang MD Unavailable Meka Crain MD Primary Care Provider [phone] Surya Bryan Unavailable Ollie Elizabeth MD Unavailable Sascha Singh Unavailable Kel Jimenez Unavailable [phone] Meka Crain MD Primary Care Provider [phone] Surya Bryan Unavailable Ollie Elizabeth MD Unavailable [phone] Sascha Singh Unavailable Kel Jimenez Unavailable [phone] Ollie Chang MD Unavailable Breann RUBI, Meka Damian Primary Care Provider Surya Bryan Unavailable Ollie Elizabeth MD Unavailable Sascha Singh MD Unavailable Kel Jimenez Unavailable [phone] Ganga Pichardo [facility] Care Provider [phone] MEKA CRAIN [facility] Care Unavailable OLLIE CHANG Referring Unavailable LUCINDA KIM Attending Unavailable MEKA CRAIN Primary Care Unavailable JASMINA ROBERSON Admitting Unavailable OLLIE CHANG Consulting Unavailable SURYA BRYAN Referring Unavailable MEKA CRAIN Primary Care Unavailable OLLIE CHANG Attending Unavailable TYLER, DEVIN Attending Unavailable MEKA CRAIN [facility] Unavailable GANGA PICHARDO [facility] Care Unavailable GANGA PICHARDO Referring Unavailable OLLIE CHANG Attending Unavailable TYLER, DEVIN Attending Unavailable OLLIE CHANG Referring Unavailable OLLIE CHANG Admitting Unavailable MEKA CRAIN [facility] Unavailable OLLIE CHANG Attending Unavailable Allergies Allergy Classification Reported Allergen(s) Allergy Type Date of Onset Reaction(s) Facility (4 sources) bacitracin drug allergy 4 [facility] Work Phone: (20 sources) codeine; Translations: [CODEINE] drug allergy 7 [facility] Work Phone: (4 sources) Sulfonamides (Antibiotic) drug allergy 4 [facility] Work Phone: (4 sources) POLYMYXIN; Translations: [POLYMYXIN] allergy to substance 4 [facility] Work Phone: [phone] (20 sources) Acetaminophen / HYDROcodone; Translations: [HYDROCODONE-ACETA MINOPHEN] [facility] Morphine; Translations: [MORPHINE SULFATE] [facility] Sulfonamides (Antibiotic); Translations: [SULFA (SULFONAMIDE ANTIBIOTICS)] Drug Allergy 7 [facility] (20 sources) Trimethoprim; Translations: [TRIMETHOPRIM (BULK)] Drug Allergy 8 [facility] (20 sources) Neomycin-Bacitraci n-Polymyxin; Translations: [NEOMYCIN-BACITRAC IN-POLYMYXIN] Drug Allergy 7 [facility] (19 sources) atorvastatin; Translations: [ATORVASTATIN] [facility] e[facility]; Translations: [EZETIMIBE] Drug Allergy 1 Myalgia [facility] Work Phone: (16 sources) rosuvastatin; Translations: [ROSUVASTATIN] Drug Allergy 1 Myalgia [facility] Work Phone: Medications Current Medications Medication Drug Class(es) Dates Sig (Normalized) Sig (Original) perflutren lipid microspheres 1.3 mL in NaCl (PF) 0.9% 10 mL injection (DEFINITY) (4 sources) Start: 03-21-2022 End: 06-21-2023 perflutren lipid microspheres 1.3 mL in NaCl (PF) 0.9% 10 mL injection (DEFINITY) 125 ml sodium chloride 9 mg/ml prefilled syringe (4 sources) Start: 03-21-2022 End: 06-21-2023 sodium chloride 0.9 % (flush) 10 mL (BD POSIFLUSH) Completed/Discontinued Medications Medication Drug Class(es) Dates Sig (Normalized) Sig (Original) amiodarone hydrochloride 200 mg oral tablet (4 sources) Antiarrhythmic Start: 05-27-2016 take 1 tablet by mouth once daily AMIODARONE HCL 200 MG TABS One tablet by mouth daily AMIODARONE HCL [id number] David Sands MD amoxicillin 500 mg oral capsule (15 sources) Penicillin-class Antibacterial Start: 06-13-2020 amoxicillin (POLYMOX, AMOXIL) 500 mg capsule Take 2,000 mg by mouth as directed. Prior to dental procedures 0 06/13/2020 Active Problems Active Problems Problem Classification Problem Date Documented Date Episodic/Chronic Cardiac dysrhythmias (20 sources) Paroxysmal atrial fibrillation; Translations: [Atrial flutter] Onset: 08-01-2013 08-27-2015 Chronic Cardiac dysrhythmias (13 sources) Atypical atrial flutter; Translations: [Typical atrial flutter] 11-17-2018 Chronic kidney disease (15 sources) Chronic kidney disease stage 3; Translations: [Stage 3 chronic kidney disease] Onset: 07-19-2021 07-19-2021 Chronic Conduction disorders (20 sources) First degree atrioventricular block; Translations: [Atrioventricular block, first degree] Onset: 10-11-2021 10-11-2021 Chronic Congestive heart failure; nonhypertensive (20 sources) Acute on chronic diastolic (congestive) heart failure; Translations: [Chronic diastolic heart failure] Onset: 10-08-2015 10-08-2015 Chronic Disorders of lipid metabolism (20 sources) Mixed hyperlipidemia; Translations: [Mixed hyperlipidemia] Onset: 05-16-2008 12-12-2010 Chronic Essential hypertension (18 sources) Essential hypertension; Translations: [Essential (primary) hypertension] Onset: 07-19-2021 07-19-2021 Chronic Heart valve disorders (20 sources) Nonrheumatic mitral (valve) prolapse; Translations: [Mitral valve prolapse] Onset: 05-16-2008 10-05-2015 Chronic Hypertension with complications and secondary hypertension (15 sources) Hypertensive emergency; Translations: [Hypertensive emergency] Onset: 07-19-2021 07-19-2021 Chronic Other aftercare (20 sources) Long-term current use of anticoagulant; Translations: [halfway (current) use of anticoagulants] 11-17-2018 Episodic Other aftercare (12 sources) Long-term current use of drug therapy; Translations: [Other decal decorator (current) drug therapy] Episodic Other lower respiratory disease (20 sources) Dyspnea on exertion; Translations: [Dyspnea, unspecified] Onset: 08-27-2015 08-27-2015 Episodic Other lower respiratory disease (2 sources) Dyspnea; Translations: [Dyspnea, unspecified] Episodic Other nutritional; endocrine; and metabolic disorders (4 sources) Body mass index (BMI) 30.0-30.9, adult; Translations: [Body mass index (BMI) 30.0-30.9, adult] Onset: 08-01-2013 08-01-2013 Chronic Other nutritional; endocrine; and metabolic disorders (20 sources) Gilbert's syndrome; Translations: [Gilbert syndrome] Onset: 12-12-2010 12-12-2010 Chronic Other nutritional; endocrine; and metabolic disorders (15 sources) Obese class I; Translations: [Obesity, unspecified] Onset: 06-10-2017 06-10-2017 Chronic Other nutritional; endocrine; and metabolic disorders (6 sources) Obese class I; Translations: [Obesity, Class I, BMI 30-34.9] Onset: 06-10-2017 06-10-2017 Peripheral and visceral atherosclerosis (15 sources) Renal artery stenosis; Translations: [Atherosclerosis of renal artery] Onset: 07-19-2021 07-19-2021 Chronic Residual codes; unclassified (6 sources) Intolerance to drug; Translations: [Other specified health status] Episodic Residual codes; unclassified (6 sources) At risk of disease; Translations: [At risk for stroke] 11-11-2017 Unclassified (7 sources) Long-term current use of drug therapy; Translations: [halfway current use of 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 drug] 06-03-2019 Unclassified (6 sources) Patient encounter status; Translations: [Routine gynecological examination] Onset: 05-16-2008 12-12-2010 Unclassified (1 source) Other persistent atrial fibrillation; Translations: [Persistent atrial fibrillation (HCC)] Onset: 11-17-2018 Past or Other Problems Problem Classification Problem Date Documented Date Episodic/Chronic Cardiac dysrhythmias (20 sources) Palpitations; Translations: [Palpitations] Onset: 12-07-2019 12-07-2019 Episodic Other aftercare (1 source) halfway (current) use of anticoagulants; Translations: [Anticoagulant long-term use] Onset: 01-24-2022 Episodic Other lower respiratory disease (15 sources) Multiple nodules of lung; Translations: [Other nonspecific abnormal finding of lung field] Onset: 07-19-2021 07-19-2021 Episodic Other lower respiratory disease (1 source) Dyspnea, unspecified; Translations: [Dyspnea, unspecified type] Onset: 06-17-2022 Episodic Other screening for suspected conditions (not mental disorders or infectious disease) (1 source) Abnormal electrocardiogram [ECG] [EKG]; Translations: [Abnormal EKG] Onset: 10-15-2021 Episodic Other upper respiratory disease (11 sources) Bleeding from nose; Translations: [Epistaxis] Onset: 07-19-2021 Episodic Other upper respiratory disease (15 sources) Anterior epistaxis; Translations: [Epistaxis] Onset: 07-19-2021 07-19-2021 Episodic Other upper respiratory disease (5 sources) Epistaxis; Translations: [Epistaxis] Onset: 07-19-2021 07-19-2021 Episodic Poisoning by other medications and drugs (16 sources) Anticoagulant-induced bleeding; Translations: [Poisoning by anticoagulant antagonists, vitamin K and other coagulants, accidental (unintentional), initial encounter] Onset: 07-19-2021 Episodic Residual codes; unclassified (20 sources) H/O cardiac surgery; Translations: [Other specified postprocedural states] Onset: 03-06-2022 11-17-2018 Episodic Residual codes; unclassified (20 sources) Other specified personal risk factors, not elsewhere classified; Translations: [Other specified personal history presenting hazards to health] Onset: 11-11-2017 11-11-2017 Episodic Residual codes; unclassified (2 sources) Other specified postprocedural states; Translations: [Status post catheter ablation of atrial flutter] Onset: 01-24-2022 Episodic Residual codes; unclassified (1 source) Other specified health status; Translations: [Beta-daniel intolerance] Onset: 02-28-2022 Episodic Syncope (20 sources) Syncope and collapse; Translations: [Near syncope] Onset: 02-16-2013 08-01-2013 Episodic Unclassified (20 sources) Family history of ischemic heart disease and other diseases of the circulatory system; Translations: [Family history of other cardiovascular diseases] Onset: 05-16-2008 08-01-2013 Episodic Results Test Name Value Interpretation Reference Range Facil ity Vital Signs Date Time Vital Sign Value Performing Clinician Anu olvera 06-17-2022 12:40-0400 Body height 165.1 cm Devin Scott APRN.CNP Work Phone: [facility] 06-17-2022 12:40-0400 Body weight 77.56 kg Devin Riveraardi DESK DIRECTOR.REGIONAL FACILITIES MANAGER Work Phone: [facility] 06-17-2022 12:40-0400 Diastolic blood pressure 76 mm[Hg] Devin Riveraardi DESK DIRECTOR.REGIONAL FACILITIES MANAGER Work Phone: [facility] 06-17-2022 12:40-0400 Heart rate 91 /min Devin Riveraardi DESK DIRECTOR.REGIONAL FACILITIES MANAGER Work Phone: [facility] 06-17-2022 12:40-0400 SaO2% (BldA) [Mass fraction] 97 % Devin Linardi DESK DIRECTOR.REGIONAL FACILITIES MANAGER Work Phone: [facility] 06-17-2022 12:40-0400 Systolic blood pressure 147 mm[Hg] Devin Scott DESK DIRECTOR.REGIONAL FACILITIES MANAGER Work Phone: [facility] 02-28-2022 15:59-0500 Body height 165.1 cm Ollie Chang MD Work Phone: [facility] 02-28-2022 15:59-0500 Body weight 77.11 kg Ollie Chang MD Work Phone: [facility] 02-28-2022 15:59-0500 Diastolic blood pressure 97 mm[Hg] Ollie Chang MD Work Phone: [facility] 02-28-2022 15:59-0500 Heart rate 103 /min Ollie Chang MD Work Phone: [facility] 02-28-2022 15:59-0500 SaO2% (BldA) [Mass fraction] 97 % Ollie Chang MD Work Phone: [facility] 02-28-2022 15:59-0500 Systolic blood pressure 151 mm[Hg] Ollie Chang MD Work Phone: [facility] 01-03-2022 09:08-0500 Body height 165.1 cm Devin Scott DESK DIRECTOR.REGIONAL FACILITIES MANAGER Work Phone: [facility] 01-03-2022 09:08-0500 Body weight 76.66 kg Devin Scott DESK DIRECTOR.REGIONAL FACILITIES MANAGER Work Phone: [facility] 01-03-2022 09:08-0500 Diastolic blood pressure 77 mm[Hg] Devin Scott DESK DIRECTOR.REGIONAL FACILITIES MANAGER Work Phone: [facility] 01-03-2022 09:08-0500 Heart rate 106 /min Devin Scott DESK DIRECTOR.REGIONAL FACILITIES MANAGER Work Phone: [facility] 01-03-2022 09:08-0500 SaO2% (BldA) [Mass fraction] 97 % Devin Scott DESK DIRECTOR.REGIONAL FACILITIES MANAGER Work Phone: [facility] 01-03-2022 09:08-0500 Systolic blood pressure 131 mm[Hg] Devin Scott DESK DIRECTOR.REGIONAL FACILITIES MANAGER Work Phone: [facility] 10-11-2021 15:36-0400 Body height 167.6 cm Ollie Chang MD Work Phone: [facility] 10-11-2021 15:36-0400 Body weight 79.38 kg Ollie Chang MD Work Phone: [facility] 10-11-2021 15:36-0400 Diastolic blood pressure 80 mm[Hg] Ollie Chang MD Work Phone: [facility] 10-11-2021 15:36-0400 Heart rate 66 /min Ollie Chang MD Work Phone: [facility] 10-11-2021 15:36-0400 Respiratory rate 18 /min Ollie Chang MD Work Phone: [facility] 10-11-2021 15:36-0400 SaO2% (BldA) [Mass fraction] 96 % Ollie Chang MD Work Phone: [facility] 10-11-2021 15:36-0400 Systolic blood pressure 144 mm[Hg] Ollie Chang MD Work Phone: [facility] 07-19-2021 11:07-0400 Body height 167.6 cm Ollie Chang MD Work Phone: [facility] 07-19-2021 11:07-0400 Body weight 80.29 kg Ollie Chang MD Work Phone: [facility] 07-19-2021 11:07-0400 Diastolic blood pressure 84 mm[Hg] Ollie Chang MD Work Phone: [facility] 07-19-2021 11:07-0400 Heart rate 73 /min Ollie Chang MD Work Phone: [facility] 07-19-2021 11:07-0400 SaO2% (BldA) [Mass fraction] 96 % Ollie Chang MD Work Phone: [facility] 07-19-2021 11:07-0400 Systolic blood pressure 156 mm[Hg] Ollie Chang MD Work Phone: [facility] 12-19-2019 14:46-0500 Body weight 81.65 kg [facility] 12-19-2019 14:46-0500 BP Diastolic 90 mm[Hg] [facility] 12-19-2019 14:46-0500 BP Systolic 160 mm[Hg] [facility] 12-19-2019 14:46-0500 Height 165.1 cm [facility] 12-19-2019 14:46-0500 Pulse (Heart Rate) 72 /min [facility] 12-19-2019 14:46-0500 Pulse Oximetry 97 % [facility] 08-25-2016 08:25-0400 BMI (Body Mass Index) 30.12 kg/m2 Laurence [facility] Work Phone: 08-25-2016 08:25-0400 BP Diastolic 68 mm[Hg] [facility] Work Phone: 08-25-2016 08:25-0400 BP Systolic 130 mm[Hg] [facility] Work Phone: 08-25-2016 08:25-0400 Height 165.1 cm [facility]rence [facility] Work Phone: 08-25-2016 08:25-0400 Pulse (Heart Rate) 64 /min Laurence Jimenes [facility] Work Phone: 08-25-2016 08:25-0400 Respiratory Rate 17 /min Laurence Jimenes [facility] Work Phone: 08-25-2016 08:25-0400 Weight 82.1 kg Laurence Jimenes [facility] Work Phone: 05-29-2016 09:09-0400 BMI (Body Mass Index) 30.32 kg/m2 Luke Roof BIOMEDICAL ENGINEERING SUPERVISOR [facility] Work Phone: 05-29-2016 09:09-0400 BP Diastolic 82 mm[Hg] Luke Radha BIOMEDICAL ENGINEERING SUPERVISOR [facility] Work Phone: 05-29-2016 09:09-0400 BP Systolic 130 mm[Hg] Luke Radha BIOMEDICAL ENGINEERING SUPERVISOR [facility] Work Phone: 05-29-2016 09:09-0400 Height 165.1 cm Luke Radha BIOMEDICAL ENGINEERING SUPERVISOR [facility] Work Phone: 05-29-2016 09:09-0400 Pulse (Heart Rate) 72 /min Luke Radha BIOMEDICAL ENGINEERING SUPERVISOR [facility] Work Phone: 05-29-2016 09:09-0400 Respiratory Rate 20 /min Luke Radha BIOMEDICAL ENGINEERING SUPERVISOR [facility] Work Phone: 05-29-2016 09:09-0400 Weight 82.65 kg Luke Radha BIOMEDICAL ENGINEERING SUPERVISOR [facility] Work Phone: 03-04-2016 14:15-0500 BSA (Body Surface Area) 1.9 m2 Luke Roof BIOMEDICAL ENGINEERING SUPERVISOR [facility] Work Phone: 08-27-2015 15:10-0400 BP Diastolic 64 mm[Hg] Luke Radha BIOMEDICAL ENGINEERING SUPERVISOR [facility] Work Phone: 08-27-2015 15:10-0400 BP Systolic 132 mm[Hg] Luke Radha BIOMEDICAL ENGINEERING SUPERVISOR [facility] Work Phone: 08-27-2015 15:10-0400 Pulse (Heart Rate) 100 /min Luke Garcia BIOMEDICAL ENGINEERING SUPERVISOR [facility] Work Phone: Encounters Encounter Date Encounter Type Care Provider Facility Start: 10-14-2022 End: 10-14-2022 ambulatory GANGA PICHARDO [facility] Start: 06-17-2022 End: 06-17-2022 ambulatory DEVIN SCOTT Facility:[facility] Start: 06-17-2022 End: 06-17-2022 Patient encounter procedure Devin Scott DESK DIRECTOR.REGIONAL FACILITIES MANAGER Work Phone: [facility] Procedures Date Procedure Procedure Detail Performing Clinician Start: 06-17-2022 Ecg routine ecg w/le ast 12 lds w/i&r Devin Scott DESK DIRECTOR.REGIONAL FACILITIES MANAGER Work Phone: Start: 03-05-2022 Antibody screen MEKA BARRAGAN Plan of Treatment Date Care Activity Detail Author Start: 03-06-2025 DIABETES SCREEN DIABETES SCREEN [facility] Start: 10-17-2024 DIABETES SCREEN DIABETES SCREEN [facility] Start: 10-16-2024 DIABETES SCREEN DIABETES SCREEN [facility] Start: 10-15-2024 DIABETES SCREEN DIABETES SCREEN [facility] Start: 09-23-2024 DIABETES SCREEN DIABETES SCREEN [facility] Start: 03-06-2023 HEMOGLOBIN/HEMATOCRIT HEMOGLOBIN/HEM [facility] Start: 03-06-2023 SERUM CREATININE SERUM CREATININE [facility] Start: 10-17-2022 SERUM CREATININE SERUM CREATININE [facility] Start: 10-16-2022 HEMOGLOBIN/HEMATOCRIT HEMOGLOBIN/HEM [facility] Start: 10-16-2022 SERUM CREATININE SERUM CREATININE [facility] Start: 10-15-2022 HEMOGLOBIN/HEMATOCRIT HEMOGLOBIN/HEM [facility] Start: 10-15-2022 SERUM CREATININE SERUM CREATININE [facility] Start: 09-23-2022 SERUM CREATININE SERUM CREATININE [facility] Start: 06-03-2022 End: 03-21-2023 Echocardiography ECHO Cardiology Routine Dyspnea, unspecified type Persistent atrial fibrillation (HCC) Expected: 06/03/2022, Expires: 03/21/2023 [facility] Work Phone: Immunizations Immunization Date Immunization Notes Care Provider Fa ewa 10-30-2021 influenza (aIIV4) vaccine, age 65+ yr, quadrivalent, PF (FLUAD QUADRIVALENT) Ollie Chang MD Work Phone: [facility] Work Phone: 11-22-2018 influenza, seasonal, injectable Ollie Chang MD Work Phone: [facility] Work Phone: 11-22-2018 varicella virus vaccine Guero Chang MD Work Phone: [facility] Work Phone: 11-01-2014 influenza, seasonal, injectable Ollie Chang MD Work Phone: [facility] Work Phone: 11-01-2014 influenza, seasonal, injectable, preservative free External Provider [facility] Work Phone: 11-09-2013 influenza, seasonal, injectable Ollie Chang MD Work Phone: [facility] Work Phone: 12-12-2010 pneumococcal polysaccharide vaccine, 23 valent External Provider [facility] Work Phone: 07-18-2007 tetanus and diphther ia toxoids, adsorbed, preservative free, for adult use (2 Lf of tetanus toxoid and 2 Lf of diphtheria toxoid) External Provider [facility] Work Phone: NEGATED: Highlighted row has not occurred!11-11-2017 influenza, high dose seasonal, preservative-free External Provider [facility] Payers Date Payer Category Payer Medicare [id number] 2015 Private Health Insurance [id number] 2015 Private Health Insurance HUMANA HUMANA MEDICARE SUPPLEMENT [id number] 2015-Present [phone] [address] [address] [place] [address] Indemnity [id number] 2009 Medicare [id number] 2009 Medicare MEDICARE MEDICAR E A AND B [id number] 2009-Present [phone] [place] [address] Medicare [id number] 2009 Medicare [id number] Social History Date Type Detail Facility Start: 06-03-2019 End: 01-03-2022 Tobacco smoking status NHIS Never smoker [facility] Work Phone: Start: 06-03-2019 End: 01-03-2022 Tobacco use and exposure Never used [facility] Start: 06-03-2019 End: 06-17-2022 Alcohol intake Current non-drinker of alcohol (finding) [facility] Start: 1945 Sex Assigned At Not on file C [facility] Start: 07-09-2021 End: 01-03-2022 Exposure to SARS-CoV-2 (event) Not sure [facility] Clinical Notes 12-04-2016 to 10-14-2022 Devin Scott APRN.WES - 06/17/2022 1:00 PM Marcell Vail MA - 06/17/2022 12:43 PM Ashwin Gilmore [facility] - 06/17/2022 11:00 AM Evette Gregg MA - 10/11/2021 3:36 PM EDT Note Date & Type Note Facility 10-14-2022 Note HNO ID: [id number] Author: Ollie Chang MD Service: ? Author Type: Physician Type: Progress Notes Filed: 10/14/2022 10:59 AM Note Text: PRIMARY CARE PHYSICIAN: GANGA PICHARDO [address] [address] Patient Care Team: Ganga Pichardo NP as PCP - General Ollie Chang MD as Specialty Textile Dyer (Cardiology) Ollie Elizabeth MD as Specialty Textile Dyer (General Surgery) Francisco, Charli, MD as Specialty Textile Dyer (Urology) Kel Jimenez as Specialty Textile Dyer (Ent - Otolaryngology) Kathleen Zhou) as Physician Attendance Clerk (Pulmonary and Critical Care Medicine) CHIEF COMPLAINT: Follow up for arrhythmia HISTORY OF PRESENT ILLNESS: Ms. Hanks is a 77 year old female who presents today for a cardiovascular medicine follow-up visit. History copied from previous notes, edited as needed: Dr. 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 She states she has a very long history of intermittent palpitations since the that she attributes to mitral valve prolapse. She had an episode of tachycardia with palpitations in 2013. She was documented to have SVT in the [facility] ER. The SVT terminated after IV adenosine was administered. She experienced profound fatigue with two different beta-daniel medications (metoprolol, propranolol). The SVT has not been known to recur. She first experienced atrial fibrillation (AF) in about August 2015. 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 She was not experiencing chest pain, or severe lightheadedness or syncope. She waited to see if the symptoms would resolve, but the next day she was still experiencing them. Her convinced her to go to the [facility] ER she was found to be in atrial fibrillation with rapid response rates. She was treated with oral anticoagulation and underwent electrical cardioversion in August 2015. She experienced fatigue and blurred vision with diltiazem. The atrial fibrillation recurred and she underwent a second cardioversion procedure in March 2016. At some point she was treated with amiodarone. She experienced an episode of atrial fibrillation in the fall of 2016 lasting for 30 minutes. She states that she feels tired all the time and has a lot of fatigue that she attributes to the medications. The diltiazem dosage was decreased but she still experiences the bothersome fatigue. She also experiences insomnia, and wakes up at night AND cannot get back to sleep. She also experiences crazy dreams. She notices a rash or pinpoint red spots on her legs. She experiences exertional shortness of breath such as when walking up stairs particularly when she is carrying something, or walking long distances or running the vacuum block cleaner. She denies chest pain, orthopnea, PND, lightheadedness or syncope. Interval History 10/2017 Maribell Martino: Chelo Hanks presents for HANDP prior to undergoing Cryo PVAI scheduled for November 10, 2017. She reports that the last episode of afib was in 2016 She has been treated with Amiodarone 200 mg QD. She reports that she missed a dose of Eliquis on Thursday morning, November 01, 2017. She has fatigue with Diltiazem and the Amiodarone. She also has fatigue, palpitations with the Atrial fibrillation. She checks her pulse daily to determine whether or not she is in atrial fibrillation. She has SOB with exertion. She has occasional chest soreness after performing yard work. She denies syncope, dizziness. She hasn't had recent fever, chills, infection. She doesn't wear dentures. She denies difficulty with Anesthesia. Interval history Maribell Gunner: Chelo Hanks underwent a Cryoablation PVAI on November 10, 2017. She experienced left flank pain after the procedure and underwent a CT scan of the abdomen and pelvis which revealed no acute abnormalities. Incidentally there were multiple lung nodules measuring 3 mm or less and she was asked to follow-up with her PCP. The Eliquis and Diltiazem were continued. Interim history 02/11/2018 Maribell Martino: Today, Chelo Hanks presents for follow up regarding SVT, typical atrial flutter and PAF s/p Cryo PVAI. She reports feeling tired and having insomnia with the Cardizem. She denies recurrence of the atrial fibrillation. She has rare CP on occasion with laying down, she denies associated symptoms of dizziness, SOB. She denies syncope, CP with activity. She has SANTAMARIA. Interim History 08/27/2018 Dr. Chang: Ms. Hanks presents for follow up evaluation. She states that since she was last seen in [facility] (more content not included)... [facility] 06-17-2022 Note HNO ID: [id number] Author: Devin Scott APRN.REGIONAL FACILITIES MANAGER Service: ? Author Type: Nurse Practitioner Type: Progress Notes Filed: 06/17/2022 1:58 PM Note Text: [facility] Cardiology Electrophysiology PRIMARY CARE PHYSICIAN: Meka Crain [address] [place] [address] CHIEF COMPLAINT: 3-month follow-up status post radiofrequency PVI with Dr. Chang on 03/05/2022. HISTORY OF PRESENT ILLNESS (copied from Dr. Chang's note on 02/28/2022): Ms. Hanks presents for follow-up evaluation for arrhythmia, accompanied by her . She is scheduled for repeat catheter ablation procedure for arrhythmia, primarily atypical atrial flutter, next week on 03/05/2022. She has a history of recurrent symptomatic persistent atrial fibrillation, since about 2015. Arrhythmia was recurrent despite medical therapy, she underwent the first catheter ablation procedure for atrial fibrillation, a balloon catheter cryoablation procedure, in 2018. She developed recurrent atrial fibrillation and also had atypical atrial flutter. She underwent repeat catheter ablation procedure in 2019, targeting both of these atrial arrhythmias. She has developed recurrent atrial arrhythmia, predominantly atypical atrial flutter, and this has recurred despite electrical cardioversion(s). She is symptomatic, feels poorly in the arrhythmia. Ventricular rate control has been challenging due to intolerance of beta-blockers in particular. She is not currently experiencing chest pain or shortness of breath at rest. I have confirmed and edited as necessary, the PFSH and ROS obtained by others. Interval History: Chelo is a pleasant 77-year-old female who presents today for 3-month follow-up status post radiofrequency PVI with Dr. Chang on 03/05/2022. Overall Chelo reports she has been feeling okay. She does endorse some fatigue and shortness of breath with exertion. After discussion she believes this is likely because she is babysitting her grandchildren ages 6 and 9. She is frequently playing with them/chasing them around the home. She is compliant with her Eliquis and diltiazem regimens. Her attending general hide and skin colerer Dr. Bryan previously increased her diltiazem ER to 120 mg twice daily. Twelve-lead performed in office today was difficult to discern for me between sinus rhythm with a first-degree block and atypical atrial flutter. I conferred with my attending who confirmed patient is in her baseline of unique atypical atrial flutter. I had noticed several partially buried P waves in lead V1 and II. I discussed these results with patient. I apologized as I believed this was potentially sinus rhythm. Confirmed with Dr. Chang patient does not need a CT post PVI. She is a [id number] of 5 secondary to age, gender, and hypertension. Presently denies angina, shortness of breath, worsening activity tolerance, or constitutional symptoms. We discussed today's echo results. These were compared to echo from October 2021 which revealed an ejection fraction of 60% with a dilated left atrial cavity and mildly dilated right atrial cavity. Patient agreeable to follow-up in 3 months. PAST MEDICAL HISTORY Diagnosis Date Anticoagulant long-term use apixaban (Eliquis); indication: stroke prevention AF Anticoagulant-induced bleeding (HCC) recurrent epistaxis At risk for stroke [id number] = 4 (HTN, age2, female gender); on oral anticoagulation therapy Atypical atrial flutter (HCC) multiple atypical left atrial flutters ablated 11/16/2018; redo 03/05/2022 Beta-daniel intolerance profound fatigue, tiredness, lack of energy with metoprolol, propranolol Chronic diastolic heart failure (HCC) Dyspnea on exertion Epistaxis, recurrent Essential hypertension Family history of other cardiovascular diseases(V17.49) 05/16/2008 Mom, prior to age 65 First degree atrioventricular block 10/11/2021 Gilbert's disease 12/12/2010 Mildly elevated total bili (aroune 2.0), chronic, no other abnormal LFT's History of gross hematuria IVCD (intraventricular conduction defect) 10/11/2021 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 previously amiodarone since 2016; indication: symptomatic atrial fibrillation; stopped Oct 2018 Mitral valve disorders(424.0) Mitral valve prolapse diagnosis from many years ago, but more recent echocardiograms and REAL did not show substantial MVP Palpitations Persistent atrial fibrillation (HCC) symptomatic; multiple episodes requiring electrical cardioversions and 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 drug therapy; s/p AF balloon catheter cryoablation 11/10/2017 Spinal stenosis, other than cervical Stage 3 chronic kidney disease (HCC) 07/19/2021 Status post catheter ablation of atrial fibrillation balloon catheter cryoablation for AF 11/10/2017; indication: symptomatic drug refractory AF Status post catheter (more content not included)... [facility] 06-17-2022 History of Presen t illness Narrative [facility] Cardiology Electrophysiology PRIMARY CARE PHYSICIAN: Meka Crain [address] [place] [address] CHIEF COMPLAINT: 3-month follow-up status post radiofrequency PVI with Dr. Chang on 03/05/2022. HISTORY OF PRESENT ILLNESS (copied from Dr. Chang's note on 02/28/2022): Ms. Hanks presents for follow-up evaluation for arrhythmia, accompanied by her . She is scheduled for repeat catheter ablation procedure for arrhythmia, primarily atypical atrial flutter, next week on 03/05/2022. She has a history of recurrent symptomatic persistent atrial fibrillation, since about 2015. Arrhythmia was recurrent despite medical therapy, she underwent the first catheter ablation procedure for atrial fibrillation, a balloon catheter cryoablation procedure, in 2017. She developed recurrent atrial fibrillation and also had atypical atrial flutter. She underwent repeat catheter ablation procedure in 2019, targeting both of these atrial arrhythmias. She has developed recurrent atrial arrhythmia, predominantly atypical atrial flutter, and this has recurred despite electrical cardioversion(s). She is symptomatic, feels poorly in the arrhythmia. Ventricular rate control has been challenging due to intolerance of beta-blockers in particular. She is not currently experiencing chest pain or shortness of breath at rest. I have confirmed and edited as necessary, the PFSH and ROS obtained by others. Interval History: Chelo is a pleasant 77-year-old female who presents today for 3-month follow-up status post radiofrequency PVI with Dr. Chang on 03/05/2022. Overall Chelo reports she has been feeling okay. She does endorse some fatigue and shortness of breath with exertion. After discussion she believes this is likely because she is babysitting her grandchildren ages 6 and 9. She is frequently playing with them/chasing them around the home. She is compliant with her Eliquis and diltiazem regimens. Her attending general hide and skin colerer Dr. Bryan previously increased her diltiazem ER to 120 mg twice daily. Twelve-lead performed in office today was difficult to discern for me between sinus rhythm with a first-degree block and atypical atrial flutter. I conferred with my attending who confirmed patient is in her baseline of unique atypical atrial flutter. I had noticed several partially buried P waves in lead V1 and II. I discussed these results with patient. I apologized as I believed this was potentially sinus rhythm. Confirmed with Dr. Chang patient does not need a CT post PVI. She is a [id number] of 5 secondary to age, gender, and hypertension. Presently denies angina, shortness of breath, worsening activity tolerance, or constitutional symptoms. We discussed today's echo results. These were compared to echo from October 2021 which revealed an ejection fraction of 60% with a dilated left atrial cavity and mildly dilated right atrial cavity. Patient agreeable to follow-up in 3 months. PAST MEDICAL HISTORY Diagnosis Date Anticoagulant long-term use apixaban (Eliquis); indication: stroke prevention AF Anticoagulant-induced bleeding (HCC) recurrent epistaxis At risk for stroke [id number] = 4 (HTN, age2, female gender); on oral anticoagulation therapy Atypical atrial flutter (HCC) multiple atypical left atrial flutters ablated 11/16/2018; redo 03/05/2022 Beta-daniel intolerance profound fatigue, tiredness, lack of energy with metoprolol, propranolol Chronic diastolic heart failure (HCC) Dyspnea on exertion Epistaxis, recurrent Essential hypertension Family history of other cardiovascular diseases(V17.49) 05/16/2008 Mom, prior to age 65 First degree atrioventricular block 10/11/2021 Gilbert's disease 12/12/2010 Mildly elevated total bili (aroune 2.0), chronic, no other abnormal LFT's History of gross hematuria IVCD (intraventricular conduction defect) 10/11/2021 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 previously amiodarone since 2016; indication: symptomatic atrial fibrillation; stopped Oct 2018 Mitral valve disorders(424.0) Mitral valve prolapse diagnosis from many years ago, but more recent echocardiograms and REAL did not show substantial MVP Palpitations Persistent atrial fibrillation (HCC) symptomatic; multiple episodes requiring electrical cardioversions and 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 drug therapy; s/p AF balloon catheter cryoablation 11/10/2017 Spinal stenosis, other than cervical Stage 3 chronic kidney disease (HCC) 07/19/2021 Status post catheter ablation of atrial fibrillation balloon catheter cryoablation for AF 11/10/2017; indication: symptomatic drug refractory AF Status post catheter ablation of atrial flutter multiple atypical left atrial flutters ablated 11/16/2018; redo 03/05/2022 Status post catheter ablation of atrial flutter 03/06/2022 Patient underwent radiofrequency PVI for atrial fibrillation as well as atypical atrial flutter with Dr. Chang on 03/05/2022. SVT (supraventricular tachycardia) (HCC) documented episode 07/2013 at 150 bpm; terminated after IV adenosine in [facility] ER Syncope 2013 2013 Typical atrial flutter (HCC) PAST SURGICAL HISTORY Procedure Laterality Date ADENOIDECTOMY PRIMARY <AGE 11 Adenoidectomy AFIB ABLATION/PULM VEIN ISOLATION 11/10/2017 AF balloon catheter cryoablation; [facility] Dr. Chang AFIB ABLATION/PULM VEIN ISOLATION 11/16/2018 redo AF catheter ablation/PVAI (RF, Carto, Stereotaxis); re-isolation of recovered segments of PVs, plus lines across posterior wall, roof, floor posteriorly; [facility] Dr. Chang ARTHRP ACETBLR/PROX FEM PROSTC AGRFT/ALGRFT Right 1994 Hip replacement, total, right ARTHRP ACETBLR/PROX FEM PROSTC AGRFT/ALGRFT Left 1996 Hip replacement, total, left ATRIAL FIBRILLATION/FLUTTER ABLATION 03/05/2022 primarily targeting atypical left atrial flutter(s); also touched up regions at PVs for atrial fibrillation; sluggish AV conduction properties pre- and post-ablation; [facility] Dr. Chang CARDIOVERSION, ELECTIVE, ELECTRICAL 03/19/2016 successful religious of sinus rhythm from atrial fibrillation; [facility] Dr. Sands CARDIOVERSION, ELECTIVE, ELECTRICAL 09/12/2015 successful REAL-guided religious of sinus rhythm from atrial fibrillation; [facility] Dr. Sands CARDIOVERSION, ELECTIVE, ELECTRICAL 04/08/2018 successful religious of sinus rhythm from AF; [facility], Dr. Rollins CARDIOVERSION, ELECTIVE, ELECTRICAL 09/10/2019 successfully converted from AF to sinus rhythm at [facility] COLONOSCOPY 05/31/2020 COLSC FLX W/RMVL OF TUMOR POLYP LESION SNARE TQ 10/22/2006 DECOMPRESS DISC RF LUMBAR DILATION & CURETTAGE DX&/THER NONOBSTETRIC Dilation & curettage, several ECHO TRANSESOPHAGEAL 04/08/2018 normal LV systolic fxn; LVEF 65%; moderate LAE; no thrombus in POLLY; probable secundum ASD ECHOCARDIOGRAM 02/22/2013 normal LV systolic fxn; LVEF 65%; mild MR ECHOCARDIOGRAM 08/23/2015 normal LV size and systolic fxn; LVEF 65%; mild LAE; IVSd = 1.7 cm ECHOCARDIOGRAM 02/17/2019 normal LV systolic fxn; moderate LAE EGD 05/31/2020 EKG 02/18/2016,09/12/2015,08/24/2015 EPS: SVT ABLATION 11/16/2018 at time of redo AF catheter ablation/PVAI, RF catheter ablation of multiple atypical left atrial flutters (RF, Carto, Stereotaxis); [facility] Dr. Chang HOLTER MONITOR 24 HOUR 02/17/2019 sinus rhythm with PAF; AF burden 3.45% of the time LAPAROSCOPY SURG CHOLECYSTECTOMY 1999 Cholecystectomy, lap (Dr. Elizabeth) NUCLEAR STRESS LEXISCAN (CARD) 02/2013 no ischemia PAST SURGICAL HISTORY OF rupture L4-L5 REM LESION TRUNK,ARM,LEG 0.6 -1.0CM 11/16/2010 Exc. left forearm misti cyst STRESS TEST NUCLEAR 08/24/2015 no ischemia; LVEF 76% REAL (TRANSESOPHAGEAL ECHO) 10/17/2021 TONSILLECTOMY PRIMARY/SECONDARY <AGE 11 Tonsillectomy TRANSESOPHAGEAL ECHO 09/12/2015 pre-cardioversion; normal LV size and systolic fxn; LVEF 65%; no shunts; mild LAE; no thrombus in LA or POLLY; no mitral valve prolapse or stenosis; trivial MR; moderate TR TSH 05/27/2017 blood TSH within normal limits Social History Tobacco Use Smoking status: Never Smokeless tobacco: Never Vaping Use Vaping Use: Never used Substance Use Topics Alcohol use: No Drug use: No Family History Problem Relation Age of Onset Ischemic Heart Disease Mother Diabetes Mother Heart Failure Mother Hypertension Mother Hypertension Father other (lupus) Father Hypertension Sister other (polio) Sister Hyperlipidemia Sister No Known Problems Sister No Known Problems Brother Colon Cancer Maternal Grandfather Ischemic Heart Disease Brother Heart disease Brother had CABG Coronary Artery Disease Brother 45 had heart attack at age 45 yrs Diabetes Brother Prostate Cancer Brother ALLERGIES Allergen Reactions Codeine GI Upset Crestor [Rosuvastat* Myalgia Lipitor [Atorvastat* Myalgia Morphine Sulfate GI Upset Neosporin [Neomycin* Rash Sulfa (Sulfonamide * Rash Trimethoprim (Bulk) Rash Vicodin [Hydrocodon* GI Upset Zetia [Ezetimibe] Myalgia MEDICATIONS: dilTIAZem CD (CARDIZEM CD, CARTIA XT) 120 mg 24 hr capsule^Take 120 mg by mouth twice daily.^Disp: ^Rfl: apixaban (ELIQUIS) 2.5 mg tab(s)^Take 1 tablet by mouth twice daily.^Disp: 180 tablet^Rfl: 3 amoxicillin (POLYMOX, AMOXIL) 500 mg capsule^Take 2,000 mg by mouth as directed. Prior to dental procedures ^Disp: ^Rfl: potassium chloride ER (K-DUR, KLOR-CON) 10 mEq tablet^Take 10 mEq by mouth once daily. ^Disp: ^Rfl: magnesium oxide (MAG-OXIDE ORAL)^Take 250 mg by mouth every Thursday,Thursday,Thursday.^Disp: ^Rfl: cholecalciferol (VITAMIN D3) 1,000 unit tab tablet^Take 1,000 Units by mouth once daily.^Disp: ^Rfl: cyanocobalamin (VITAMIN B-12) 1,000 mcg tab^Take 1,000 mcg by mouth once daily.^Disp: ^Rfl: multivitamins(DAILY MULTIVITAMIN TAB)^Take one(1) tablet daily.^Disp: ^Rfl: 0 lysine(L-LYSINE 500 MG CAP)^Take 1 capsule by mouth once daily.^Disp: ^Rfl: 0 dilTIAZem (CARDIZEM) 60 mg tablet^Take 60 mg by mouth three times daily.^Disp: ^Rfl: (Patient not taking: Reported on 06/17/2022) REVIEW OF SYSTEMS: Review of Systems Constitutional: Negative for chills, fatigue and fever. Respiratory: Negative for apnea, cough, chest tightness, shortness of breath and wheezing. Cardiovascular: Negative for chest pain, palpitations and leg swelling. Gastrointestinal: Negative for abdominal distention, abdominal pain, constipation, diarrhea, nausea and vomiting. Genitourinary: Negative for difficulty urinating, dysuria and hematuria. Musculoskeletal: Negative for arthralgias. Neurological: Negative for dizziness, weakness, light-headedness and headaches. Psychiatric/Behavioral: Negative for agitation, behavioral problems, confusion and suicidal ideas. PHYSICAL EXAMINATION: BP 147/76 Pulse 91 Ht 5' 5 (1.65m) Wt 171 lb (77.6kg) SpO2 97% BMI 28.46 kg/(m^2). Physical Exam Constitutional: Appearance: Normal appearance. Cardiovascular: Rate and Rhythm: Normal rate. Rhythm irregular. Pulses: Normal pulses. Radial pulses are 2+ on the right side and 2+ on the left side. Posterior tibial pulses are 2+ on the right side and 2+ on the left side. Heart sounds: No murmur heard. No friction rub. No gallop. Pulmonary: Effort: Pulmonary effort is normal. Breath sounds: Normal breath sounds. Abdominal: General: Bowel sounds are normal. Palpations: Abdomen is soft. Musculoskeletal: Right lower leg: No edema. Left lower leg: No edema. Skin: General: Skin is warm and dry. Neurological: Mental Status: She is alert and oriented to person, place, and time. Psychiatric: Mood and Affect: Mood normal. Behavior: Behavior normal. CARDIOVASCULAR MEDICINE TESTING: EKG 02/28/2022 Atypical atrial flutter with a ventricular rate of 103. QRS 90. QT/QTc 346/453. Echo 10/17/2021 - Exam indication: Pre Cardioversion, Pre AF Ablation - The left ventricle is normal in size. Left ventricular systolic function is normal. EF = 60 5% (visual est.) - The right ventricle is normal in size. Right ventricular systolic function is normal. - The left atrial cavity is dilated. There is a left to right interatrial shunt consistent with trans septal puncture. There is no left atrial appendage thrombus. - The right atrial cavity is mildly dilated. - There are no significant valvular abnormalities. - Exam was compared with the prior echocardiographic exam performed on 09/23/2021. (Echo) There is no significant change. I have reviewed the EKG and echo. 3 months post testing pending. PLAN AND RECOMMENDATIONS: ASSESSMENT/PLAN: 1. Status post catheter ablation of atrial flutter - ICD9: V45.89, ICD10: Z98.890 (primary diagnosis) Patient underwent radiofrequency PVI for both atypical left atrial flutter and atrial fibrillation with Dr. Chang on 03/05/2022. Current treatment regimen includes diltiazem ER 120 mg times daily as well as Eliquis 2.5 mg twice daily. [id number] of 5 secondary to gender, age, hypertension, and CHF. Most recent echo from October 2021 showed an ejection fraction of 60% with no significant valvular abnormalities. Additionally patient had undergone two other ablations one in 2018 and another in 2019. 2. Essential hypertension - ICD9: 401.9, ICD10: I10 BP today 147/76. 3. At risk for stroke - ICD9: V15.89, ICD10: Z91.89 As above. Return in about 3 months (around 09/17/2022) for Follow up with Dr. Chang. . Devin Scott APRN.REGIONAL FACILITIES MANAGER documented in this encounter [facility] 06-17-2022 Note HNO ID: [id number] Author: Laura Gilmore Green Chainer Service: ? Author Type: Green Chainer Type: Nursing Progress Note Filed: 06/17/2022 10:53 AM Note Text: Holter monitor applied. Pt verbalized understanding of monitor use / diary. [facility] 06-17-2022 Nurse Note No cardiac complaints today. Ellie Vail MA documented in this encounter [facility] 06-17-2022 Nurse Note Holter monitor applied. Pt verbalized understanding of monitor use / diary. documented in this encounter [facility] 05-02-2022 Miscellaneous Notes Patient's request for medication is as follows: Requested Prescriptions Pending Prescriptions Disp Refills apixaban (ELIQUIS) 2.5 mg tab(s) 180 tablet 3 Sig: Take 1 tablet by mouth twice daily. Last seen 02/28/2022. Follow up scheduled for 06/17/2022. Prescription(s) as above. Please process accordingly. Darlin Callahan LPN documented in this encounter [facility] 03-21-2022 Miscellaneous Notes Post PVAI orders pended for signature - office will call to schedule documented in this encounter [facility] 03-06-2022 Note HNO ID: [id number] Author: Devin Scott APRN.WES Service: Electrophysiology Author Type: Nurse Practitioner Type: Progress Notes Filed: 03/06/2022 4:19 PM Note Text: PROGRESS NOTE ELECTROPHYSIOLOGY SERVICE SERVICE DATE: 03/06/2022 SERVICE TIME: 4:11 PM Subjective INTERIM HISTORY: 76-year-old female who underwent radiofrequency PVI for atrial fibrillation as well as atypical a flutter with Dr. Chang on 03/05/2022. Earlier this morning patient I discussed discharge which she was resistant to. She was agreeable in the afternoon unfortunately her left groin site oozed. Nursing staff held pressure for 20 minutes and this resolved. Decision was made to cancel discharge and order 4 hours of bedrest. We will reevaluate tomorrow morning. Cardizem was restarted 60 mg every 8 hours. Unfortunately twelve-lead and telemetry review suspicious for atrial tach and possibly atrial flutter. Rates have been in the low 100s. Blood pressures have also been elevated in the 160s/100s. Patient indicated earlier today she felt a little lightheaded and dizzy. She did endorse throwing up around 2 in the morning. This is likely due to the anesthesia she received. She was able to eat some lunch. She has also been ambulating to the bathroom. Review of Systems Constitutional: Negative. Eyes: Negative. Respiratory: Negative. Cardiovascular: Negative. Gastrointestinal: Negative. Genitourinary: Negative. Musculoskeletal: Negative. Skin: Negative. Neurological: Negative. Psychiatric/Behavioral: Negative. Objective PHYSICAL EXAM: Body mass index is 29.42 kg/m?. O2 Therapy: Room Air Patient Vitals for the past 24 hrs: BP Temp Temp src Pulse Resp SpO2 Height Weight 03/06/22 1320 161/100 -- -- 105 18 95 % -- -- 03/06/22 1032 162/106 36.8 ?C (98.2 ?F) Temporal 104 18 97 % -- -- 03/06/22 0851 167/99 36.4 ?C (97.5 ?F) Temporal 110 18 92 % -- -- 03/06/22 0226 151/93 -- -- 109 18 95 % -- -- 03/05/22 2230 132/91 36.4 ?C (97.5 ?F) Temporal 118 20 97 % -- -- 03/05/22 2130 133/89 -- -- 118 20 99 % -- -- 03/05/22 2030 140/88 -- -- 118 20 100 % -- -- 03/05/22 1939 123/77 -- -- 74 18 98 % -- -- 03/05/22 1835 117/75 -- -- 73 -- 100 % -- -- 03/05/22 180 -- -- -- -- -- -- 165.1 cm (5' 5 ) 80.2 kg (176 lb 12.9 oz) 03/05/22 1755 125/78 (!) 35.8 ?C (96.4 ?F) Temporal 66 16 100 % -- -- 03/05/22 1730 120/75 -- -- 68 15 100 % -- -- 03/05/22 1715 119/74 -- -- 73 (!) 36 99 % -- -- 03/05/22 1708 120/70 36 ?C (96.8 ?F) Temporal Art 69 10 99 % -- -- 03/05/22 1700 102/76 36 ?C (96.8 ?F) Temporal Art 60 20 97 % -- -- 03/05/22 1645 109/68 -- -- 68 24 92 % -- -- 03/05/22 1636 -- -- -- 71 15 90 % -- -- 03/05/22 1630 110/69 -- -- 70 12 96 % -- -- 03/05/22 1629 110/69 36 ?C (96.8 ?F) -- 70 13 97 % -- -- 03/05/22 1625 -- -- -- 67 -- 97 % -- -- 03/05/22 1624 -- -- 69 10 95 % -- -- 03/05/22 1623 110 36 ?C (96.8 ?F) -- 69 15 95 % -- -- 03/05/22 1615 106 -- -- 66 17 90 % -- -- Pleasant, comfortable, not in acute distress. SKIN: warm AND dry; normal color. HEENT: Normocephalic. NECK: Supple, no JVD, no carotid bruits auscultated. LUNGS: Clear to auscultation bilaterally. Respirations unlabored at rest. CARDIAC: Regularly irregular with rates in the low 100s. No clicks, murmurs, or rubs. ABDOMEN: Soft, nontender to superficial palpation, bowel sounds auscultated. EXTREMITIES: No edema lower extremities. NEURO: awake, alert, oriented X 3, moves all 4 extremities. PULSES: Bilateral radial and posterior tibial pulses +2. WOUND: Bulky pressure dressing removed. Bilateral groin dressings removed. Sites clean, dry, and intact. Soft and nontender to gentle palpation. Moderate bruising noted to left groin site. MEDICATIONS: Current Facility-Administered Medications Medication Dose Route Frequency sodium chloride 0.9 % (flush) 2-10 mL (BD POSIFLUSH) 2-10 mL INTRAVENOUS q 12 H potassium chloride ER 10 mEq tab(s) (K-DUR, KLOR-CON M10) 10 mEq ORAL DAILY apixaban 5 mg tab(s) (ELIQUIS) 5 mg ORAL BID ondansetron orally disintegrating 4 mg tab(s) (ZOFRAN ODT) 4 mg ORAL q 6 H PRN Or ondansetron (PF) 4 mg injection (ZOFRAN) 4 mg INTRAVENOUS q 6 H PRN metoclopramide HCl 5 mg (REGLAN) 5 mg ORAL q 6 H PRN Or metoclopramide HCl 5 mg injection (REGLAN) 5 mg INTRAVENOUS q 6 H PRN acetaminophen 650 mg tab(s) (TYLENOL) 650 mg ORAL q 4 H PRN dilTIAZem 60 mg tab(s) (CARDIZEM) 60 mg ORAL q 8 H DATA: Diagnostic tests reviewed for today's visit: Past 72 Hour Labs: Recent Labs 03/06/22 0750 WBC 8.93 RBC 3.99 HB 12.1 HCT 38.7 MCV 97.0 MCH 30.3 MCHC 31.3 RDWCV 13.2 PLT 203 MPV 11.2 GLUC 113* BUN 15 CREAT 1.16* NA 140 K 4.2 CHLOR 103 CO2 27 CA 9.0 Last Lab Drawn: Triglyceride 103 09/22/2021 HDL Cholesterol 72 09/22/2021 LDL Cholesterol 125 09/22/2021 Cholesterol, Total 218 09/22/2021 Assessment/Plan Patient Active Hospital Problem List: Status post catheter a (more content not included)... [facility] 03-06-2022 Note HNO ID: [id number] Author: Marleen Keyes RN Service: Care Management Author Type: Registered Nurse Type: Care Mgt Initial Assessment Filed: 03/06/2022 8:52 AM Note Text: CARE MANAGEMENT: ASSESSMENT AND DISCHARGE PLAN SERVICE DATE: March 06, 2022 SERVICE TIME: 8:40 AM PRIMARY CARE PHYSICIAN: Meka Crain MD Primary Contact: Extended Emergency Contact Information Primary Emergency Contact: Ollie Hanks Address: [facility] [place] [id number] Mobile Relation: Spouse ADMISSION STATUS: Ambulatory Surgery Insurance Provider: MEDICARE A AND B NEEDS PRIOR TO DISCHARGE Needs Prior to Discharge: Discharge Prescriptions POTENTIAL TRANSITION PLANS Home Patient's perception of need for this admission: Atrial fib, elective procedure ASSESSMENT AND PLAN: Information obtained from EMR review HPI: Elective adm for ablation. Atrial fib This patient has been screened for Care Management Transitional Planning Services. At this time, it does not appear this patient will require transition planning services. Should this change, and the patient require transition/discharge planning services during this admission, please call [phone]. Marleen Keyes RN March 06, 2022 8:52 AM SIGNATURE: Marleen Keyes RN PATIENT NAME: Chelo Hanks DATE: March 06, 2022 TIME: 8:40 AM CONTACT #: [id number] [facility] 03-05-2022 Note HNO ID: [id number] Author: Min Joseph APRN.WAFER MACHINE OPERATOR Service: Anesthesiology Author Type: Nurse Graphic Art Technician Type: Anesthesia Procedure Notes Filed: 03/05/2022 10:05 AM Note Text: Attestation signed by Amanda Wang MD at 03/05/2022 10:19 AM reviewed ANESTHESIOLOGY PROCEDURE NOTE PIV General Information Procedure Start Time/Medication Administration: 03/05/2022 9:55 AM Procedure End Time: 03/05/2022 9:57 AM Patient Location: OR Staffing Anesthesiologist: Amanda Wang MD Performed by: anesthesiologist Preparation Sterility Preparation: hand hygiene performed prior to procedure, surgical cap used, mask used, skin prep agent completely dried prior to procedure Sterility Technique Not Completely Performed Due to Extreme Emergency: No Site Prep: Chloraprep Procedure Details Indication: need for IV access Needle Size/Type: 18 gauge angiocath Orientation: Right Location: Wrist Imaging Guidance Used: No SIGNATURE: Min Joseph APRN.WAFER MACHINE OPERATOR PATIENT NAME: Chelo Hanks DATE: March 05, 2022 TIME: 10:03 AM CSN: [id number] [facility] 03-05-2022 Note HNO ID: [id number] Author: Min Joseph APRN.WAFER MACHINE OPERATOR Service: Anesthesiology Author Type: Nurse Graphic Art Technician Type: Anesthesia Procedure Notes Filed: 03/05/2022 10:03 AM Note Text: Attestation signed by Amanda Wang MD at 03/05/2022 10:19 AM reviewed ANESTHESIOLOGY PROCEDURE NOTE Airway General Information Procedure Start Time/Medication Administration: 03/05/2022 9:50 AM Procedure End Time: 03/05/2022 9:50 AM Patient location during procedure: OR Timeout Performed Pre-procedure: timeout performed Consent Obtained: Yes Patient identity confirmed: arm band and patient Staffing WAFER MACHINE OPERATOR: Min Joseph APRN.WAFER MACHINE OPERATOR Performed by: JAMIE Indications and Patient Condition Indications for airway management: anesthesia and airway protection Preoxygenated: yes anesthesia circuit Patient position: sniffing Method: asleep Cricoid Pressure: No Manual In-Line Stabilization: No Difficult Mask: No Final Airway Details Final airway type: endotracheal airway Final Endotracheal Airway: ETT Cuffed: yes Successful intubation technique: direct laryngoscopy Endotracheal tube insertion site: oral Blade: [place] Blade size: #2 ETT size (mm): 7.5 Measured from: lips Measurement (cm): 22 Placement verified by: chest auscultation Cormack-Lehane Classification: grade I - full view of glottis Number of attempts at approach: 1 Ventilation between attempts: none Failed airway: no Unrecognized esophageal intubation: no Airway not difficult SIGNATURE: Min Joseph APRN.WAFER MACHINE OPERATOR PATIENT NAME: Chelo Hanks DATE: March 05, 2022 TIME: 10:02 AM CSN: [id number] [facility] 03-05-2022 Note COVID 19 RESULT: SARS-CoV-2 (Agent of COVID-19) Not Detected by RT-PCR or equivalent method. This test has been authorized by FDA under an Emergency Use Authorization (EUA). INFLUENZA A PCR: Negative for Influenza A by RT-PCR INFLUENZA B PCR: Negative for Influenza B by RT-PCR RSV PCR: Negative for Respiratory Syncytial Virus (RSV) by PCR [facility] documented as of this encounter (statuses as of 07/20/2021) [facility] History of Past illness Narrative* Problem Noted Date Resolved Date Epistaxis 12/04/2016 11/10/2017 On amiodarone therapy 11/17/2018 documented as of this encounter (statuses as of 09/23/2021) [address]19-2017 History of Past illness Narrative* Problem Noted Date Resolved Date Epistaxis 12/04/2016 11/10/2017 On amiodarone therapy 11/17/2018 documented as of this encounter (statuses as of 10/15/2021) [address]19-2017 History of Past illness Narrative* Problem Noted Date Resolved Date Epistaxis 12/04/2016 11/10/2017 On amiodarone therapy 11/17/2018 documented as of this encounter (statuses as of 10/16/2021) [address]19-2017 History of Past illness Narrative* Problem Noted Date Resolved Date Epistaxis 12/04/2016 11/10/2017 On amiodarone therapy 11/17/2018 documented as of this encounter (statuses as of 10/16/2021) [address]19-2017 History of Past illness Narrative* Problem Noted Date Resolved Date Epistaxis 12/04/2016 11/10/2017 On amiodarone therapy 11/17/2018 documented as of this encounter (statuses as of 10/17/2021) [address]19-2017 History of Past illness Narrative* Problem Noted Date Resolved Date Epistaxis 12/04/2016 11/10/2017 On amiodarone therapy 11/17/2018 documented as of this encounter (statuses as of 11/21/2021) [address]19-2017 History of Past illness Narrative* Problem Noted Date Resolved Date Epistaxis 12/04/2016 11/10/2017 On amiodarone therapy 11/17/2018 documented as of this encounter (statuses as of 01/03/2022) [address]19-2017 History of Past illness Narrative* Problem Noted Date Resolved Date Epistaxis 12/04/2016 11/10/2017 On amiodarone therapy 11/17/2018 documented as of this encounter (statuses as of 01/15/2022) [facility] History of Past illness Narrative* Problem Noted Date Resolved Date Epistaxis 12/04/2016 11/10/2017 halfway current use of 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 drug 02/28/2022 Overview: indication: symptomatic atrial fibrillation On amiodarone therapy 11/17/2018 documented as of this encounter (statuses as of 03/01/2022) [facility] History of Past illness Narrative* Problem Noted Date Resolved Date Epistaxis 12/04/2016 11/10/2017 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 02/28/2022 Overview: indication: symptomatic atrial fibrillation On amiodarone therapy 11/17/2018 Status post catheter ablation of atrial fibrilla tion 03/06/2022 Overview: symptomatic; multiple episodes requiring electrical cardioversions and 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 drug therapy; s/p AF balloon catheter cryoablation 11/10/2017 Status post catheter ablation of atrial flutter 03/06/2022 Overview: multiple atypical left atrial flutters ablated 11/16/2018 documented as of this encounter (statuses as of 03/24/2022) [facility] History of Past illness Narrative* Problem Noted Date Resolved Date Epistaxis 12/04/2016 11/10/2017 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 02/28/2022 Overview: indication: symptomatic atrial fibrillation On amiodarone therapy 11/17/2018 Status post catheter ablation of atrial fibrilla tion 03/06/2022 Overview: symptomatic; multiple episodes requiring electrical cardioversions and 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 drug therapy; s/p AF balloon catheter cryoablation 11/10/2017 Status post catheter ablation of atrial flutter 03/06/2022 Overview: multiple atypical left atrial flutters ablated 11/16/2018 documented as of this encounter (statuses as of 05/02/2022) [facility] History of Past illness Narrative* Problem Noted Date Resolved Date Epistaxis 12/04/2016 11/10/2017 halfway current use of 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 drug 02/28/2022 Overview: indication: symptomatic atrial fibrillation On amiodarone therapy 11/17/2018 Status post catheter ablation of atrial fibrilla tion 03/06/2022 Overview: symptomatic; multiple episodes requiring electrical cardioversions and 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 drug therapy; s/p AF balloon catheter cryoablation 11/10/2017 Status post catheter ablation of atrial flutter 03/06/2022 Overview: multiple atypical left atrial flutters ablated 11/16/2018 documented as of this encounter (statuses as of 06/17/2022) [facility] History of Past illness Narrative* Problem Noted Date Resolved Date Epistaxis 12/04/2016 11/10/2017 halfway current use of 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 drug 02/28/2022 Overview: indication: symptomatic atrial fibrillation On amiodarone therapy 11/17/2018 Status post catheter ablation of atrial fibrilla tion 03/06/2022 Overview: symptomatic; multiple episodes requiring electrical cardioversions and 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 drug therapy; s/p AF balloon catheter cryoablation 11/10/2017 Status post catheter ablation of atrial flutter 03/06/2022 Overview: multiple atypical left atrial flutters ablated 11/16/2018 documented as of this encounter (statuses as of 06/18/2022) [facility] Diagnosis Atypical atrial flutter (HCC)- Primary Atrial flutter Persistent atrial fibrillation Atrial fibrillation Status post catheter ablation of atrial fibrillation Typical atrial flutter (HCC) Atrial flutter Status post catheter ablation of atrial flutter Palpitations halfway current use of 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 drug Chronic diastolic heart failure (HCC) Chronic diastolic heart failure At risk for stroke Other specified personal history presenting hazards to health Anticoagulant long-term use Long-term (current) use of anticoagulants Anticoagulant-induced bleeding (HCC) Defibrination syndrome Epistaxis, recurrent Epistaxis Dyspnea on exertion Other dyspnea and respiratory abnormality [facility] Diagnosis Persistent atrial fibrillation- Primary Atrial fibrillation Status post catheter ablation of atrial fibrillation Atypical atrial flutter (HCC) Atrial flutter Typical atrial flutter (HCC) Atrial flutter Status post catheter ablation of atrial flutter 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 First degree atrioventricular block IVCD (intraventricular conduction defect) Other heart block Chronic diastolic heart failure (HCC) Chronic diastolic heart failure At risk for stroke Other specified personal history presenting hazards to health Anticoagulant long-term use Long-term (current) use of anticoagulants Syncope, unspecified syncope type [facility] Diagnosis Paroxysmal atrial fibrillation (HCC)- Primary Atrial fibrillation Status post catheter ablation of atrial flutter Status post catheter ablation of atrial fibrillation Essential hypertension Unspecified essential hypertension Anticoagulant long-term use Long-term (current) use of anticoagulants Persistent atrial fibrillation (HCC) Atrial fibrillation [facility] Diagnosis Paroxysmal atrial fibrillation (HCC)- Primary Atrial fibrillation Atrial flutter (HCC) Atrial flutter Chronic diastolic heart failure (HCC) Chronic diastolic heart failure Status post catheter ablation of atrial fibrillation Anticoagulant long-term use Long-term (current) use of anticoagulants Atypical atrial flutter (HCC)- Primary Atrial flutter Status post catheter ablation of atrial flutter Persistent atrial fibrillation Atrial fibrillation Status post catheter ablation of atrial fibrillation At risk for stroke Other specified personal history presenting hazards to health Anticoagulant long-term use Long-term (current) use of anticoagulants First degree atrioventricular block Chronic diastolic heart failure (HCC) Chronic diastolic heart failure Beta-daniel intolerance Other drug allergy Chronic diastolic heart failure (HCC) Chronic diastolic heart failure Persistent atrial fibrillation (HCC) Atrial fibrillation Atypical atrial flutter (HCC) Atrial flutter Status post catheter ablation of atrial fibrillation Status post catheter ablation of atrial flutter Anticoagulant long-term use Long-term (current) use of anticoagulants [facility] Diagnosis Dyspnea, unspecified type- Primary Persistent atrial fibrillation (HCC) Atrial fibrillation [facility] Diagnosis Atypical atrial flutter (HCC) Atrial flutter Paroxysmal atrial fibrillation (HCC) Atrial fibrillation At risk for stroke Other specified personal history presenting hazards to health [facility] Diagnosis Status post catheter ablation of atrial flutter- Primary Essential hypertension Unspecified essential hypertension At risk for stroke Other specified personal history presenting hazards to health [facility] Diagnosis Dyspnea, unspecified type Persistent atrial fibrillation (HCC) Atrial fibrillation [facility] Outpatient Procedure (Routine) - Pending Review Specialty Diagnoses / Procedures Referred By Contac t Referred To [facility] Diagnoses Dyspnea, unspecified type Persistent atrial fibrillation (HCC) Procedures ECHO ECHO TTHRC R-T 2D W/WOM-MODE COMPL SPEC&COLR D Ollie Chang MD [address] [place] [address] [facility] [place] [address] [place] [address] Referral ID Status Reason Start Date Expiration Date Visits Requested Visits Authorized [id number] Pending Review Auto-Generat ed Referral 06/03/2022 03/21/2023 1 1 [facility] History of Past Illness Problem Noted Date Resolved Date Epistaxis 12/04/2016 11/10/2017 Paroxysmal atrial fibrillation 0 11/10/2017 On amiodarone therapy 11/17/2018 Palpitations 05/24/2019 Problem Noted Date Resolved Date Epistaxis 12/04/2016 11/10/2017 Paroxysmal atrial fibrillation 0 11/10/2017 On amiodarone therapy 11/17/2018 Problem Noted Date Resolved Date Epistaxis 12/04/2016 11/10/2017 Paroxysmal atrial fibrillation 0 11/10/2017 On amiodarone therapy 11/17/2018 Advance Directives No Advanced Directives Records FoundDocuments on File Type Date Recorded Patient Wearing Apparel Assembler Expl anation Advance Directive(s) Advance Directive(s) 11/10/2017 8:57 AM Advance Directive(s) 11/16/2018 7:17 AM Documents on File Type Date Recorded Patient Wearing Apparel Assembler Expl anation Advance Directive(s) Advance Directive(s) 11/16/2018 7:17 AM Advance Directive(s) 11/10/2017 8:57 AM Summary Purpose Family History No Family History Records FoundNo Family History Records FoundNo Family History Records Found Instructions * Patient Instructions* Kiet Feliciano (Transit Department Clerk Assembling Inspector), MAGNETIC TAPE COMPOSER OPERATOR - 12/19/2019 3:44 PM EST Atrial Fibrillation What is atrial fibrillation? Atrial fibrillation (also called A-fib) is a fast or irregular heartbeat that starts in the upper chambers of the heart. The abnormal heartbeat affects the ability of the heart to pump blood to the rest of the body. What is the cause? An electrical signal in your heart starts each heartbeat, causing the heart muscle to squeeze (contract). Normally, this signal starts in the upper right chamber of the heart (the right atrium) at a place called the sinus node. The signal then follows normal pathways to the upper left atrium and tothe lower chambers of the heart (the ventricles). When you have atrial fibrillation, electrical signals don t start in the normal place in the right atrium and don t travel normally. This can cause the upper chambers of the heart (atria) to beat very fast and not in a normal pattern. Common causes of heart rhythm problems are conditions that damage the heart, like coronary artery disease, heart attack, or heart failure. Problems with the heart valves are another common cause. The heart has 4 valves that open and closewith each heartbeat to help blood flow in the right direction through the heart. Other causes of atrial fibrillation include: Health problems, such as a stroke, lung disease, diabetes, overactive thyroid gland, or high blood pressure Abuse of alcohol or drugs, such as cocaine Sometimes no cause can be found. What are the symptoms? Some people don t have any symptoms. When atrial fibrillation does cause symptoms, the most common ones are: Feeling like your heart is beating too fast or too hard or skipping beats or fluttering Feeling tired or weak all the time Symptoms that are more serious include: Chest pain Trouble breathing Lightheadedness or dizziness confusion How is it diagnosed? Your healthcare provider will ask about your symptoms and medical history and examine you. Tests may include: An ECG (also called an EKG), which measures and records your heartbeat. You may have an ECG while you are resting or while you exercise on a treadmill. You may also be asked to wear a small portable ECG monitor for a few days or sometimes a couple weeks. Blood tests An echocardiogram, which uses sound waves (ultrasound) to show the structures of the heart, like the valves How is it treated? The goal of treatment is to help the heart keep a normal rhythm. Your treatment depends on the cause of the atrial fibrillation, how often you have symptoms, and the severity of your symptoms. If you have no symptoms, or your symptoms are fairly mild, you may not need treatment. For some people atrial fibrillation lasts just a short time and the heart goes back to a normal rhythm on its own. If you keep having spells of atrial fibrillation, treatment may help keep you from having so manyspells. If a health problem like a leaky heart valve is causing the atrial fibrillation, treating the health problem may also treat the fast or irregular heartbeat. Other possible treatments are: Medicine: Your provider may prescribe medicine to slow or restore a normal heart rate and rhythm. You may also need medicine to prevent blood clots because when the heart beats irregularly, some of the blood can stay in the upper chambers too long. This makes it easier for blood clots to form, increasing your risk of having a stroke or heart attack. Electrical cardioversion: First, you will be given medicine called anesthesia to keep you from feeling pain during the procedure. Then your chest will be given an electrical shock. The electrical shock should make your heart start beating normally again. You may need medicine to keep your heart rhythm normal after this procedure. Ablation: Ablation is a procedure that uses a small tube called a catheter to deliver energy to theinside of the heart. The energy (usually radio waves) scars small areas of heart tissue. The scars block abnormal electrical pathways and help you have a normal heart rhythm. With some types of ablation treatment, you will also need a pacemaker. A pacemaker is an electronic device put under the skin of your chest to help control the heartbeat. How can I take care of myself? Take your medicines as prescribed. Keep your appointments for follow-up blood tests. Make sure your healthcare provider knows about changes in your diet or medical condition. Your provider also needs to know about all prescription and nonprescription medicines, herbs, or supplements that you are taking. Some medicines may interact with your heart medicine or increase your risk for atrial fibrillation. If you want to drink alcohol, ask your provider how much is safe for you to drink. Follow your healthcare provider's instructions. Ask your provider: ?How and when you will hear your test results ?How long it will take to recover ?What activities you should avoid and when you can return to your normal activities ?How to take care of yourself at home ?What symptoms or problems you should watch for and what to do if you have them Make sure you know when you should come back for a checkup. How can I help prevent atrial fibrillation? The best prevention is to have a heart-healthy lifestyle. Keep a healthy weight. Eat a healthy diet that is low in sodium and saturated and trans fat. Stay fit with the right kind of exercise for you. Decrease stress. Don t smoke. Limit your use of alcohol. If you have heart disease or high blood pressure, follow your healthcare provider's instructions for treatment. Developed by [employer]. Published by [employer]. Copyright 2014 [employer] and/or one of its subsidiaries. All rights reserved. Electronically signed by Kiet (Transit Department Clerk Assembling Inspector) DAYNA Feliciano at 12/19/2019 3:44 PM EST documented in this encounter History of Present Illness * Kiet Feliciano ([place] Luis), MAGNETIC TAPE COMPOSER OPERATOR - 12/19/2019 3:00 PM EST PRIMARY CARE PHYSICIAN: Meka Crain MD [address] [place] [id number] Patient Care Team: Meka Crain as PCP - General (Family Practice) Ollie Chang as Specialty Textile Dyer (Cardiology) Surya Bryan as Aircraft Systems Repairer (Cardiology) CHIEF COMPLAINT: Patient presents with: F/U 6 Month: persistent a-fib HISTORY OF PRESENT ILLNESS: Ms. Hanks is a 74 year old female who presents today for an Electrophysiology follow-up visit. Patient is known to Dr. Chang, last visit (virtual) 06/03/19. History copied from previous notes, edited as needed: Dr. 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 She states she has a very long history of intermittent palpitations since the 1980s that she attributes to mitral valve prolapse. Shehad an episode of tachycardia with palpitations in 2013. She was documented to have SVT in the [facility] ER. The SVT terminated after IV adenosine was administered. She experienced profound fatigue with two different beta-daniel medications (metoprolol, propranolol). The SVT has not been known to recur. She first experienced atrial fibrillation (AF) in about August 2015. 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 She was not experiencing chest pain, or severe lightheadedness or syncope. She waited to see if the symptoms would resolve, but the next day she was still experiencing them. Her convinced her to go to the [facility] ER she was foundto be in atrial fibrillation with rapid response rates. She was treated with oral anticoagulation and underwent electrical cardioversion in August 2015. She experienced fatigue and blurred vision with diltiazem. The atrial fibrillation recurred and she underwent a second cardioversion procedure in March 2016. At some point she was treated with amiodarone. She experienced an episode of atrial fibrillation in the fall of 2016 lasting for 30 minutes. She states that she feels tired all the time and has a lot of fatigue that she attributes to the medications. The diltiazem dosage was decreasedbut she still experiences the bothersome fatigue. She also experiences insomnia, and wakes up at night & cannot get back to sleep. She also experiences crazy dreams. She notices a rash or pinpoint red spots on her legs. She experiences exertional shortness of breath such as when walking up s tairs particularly when she is carrying something, or walking long distances or running the vacuum block cleaner. She denies chest pain, orthopnea, PND, lightheadedness or syncope. Interval History 10/2017Maribell Martino: Chelo Hanks presents for H&P prior to undergoing Cryo PVAI scheduled for 2017. She reports that the last episode of afib was in 2016 She has been treated with Amiodarone 200 mg QD. She reports that she missed a dose of Eliquis on Thursday morning, November 01, 2017. She has fatigue with Diltiazem and the Amiodarone. She also has fatigue, palpitations with the Atrial fibrillation. She checks her pulse daily to determine whether or not she is in atrial fibrillation. She has SOB with exertion. She has occasional chest soreness after performing yard work. She denies syncope, dizziness. She hasn't had recent fever, chills, infection. She doesn't wear dentures. She denies difficulty with Anesthesia. Interval history Maribell Martino: Chelo Hanks underwent a CryoablationPVAI on November 10, 2017. She experienced left flank pain after the procedure and underwent a CT s can of the abdomen and pelvis which revealed no acute abnormalities. Incidentally there were multiple lung nodules measuring 3 mm or less and she was asked to follow-up with her PCP. The Eliquis and Diltiazem were continued. Interim history 02/11/2018 Maribell Martino: Today, Chelo Hanks presents for follow up regarding SVT, typical atrial flutter and PAF s/p Cryo PVAI. She reports feeling tired and having insomnia with the Cardizem. She denies recurrence of the atrial fibrillation. She has rare CP on occasion with laying down, she denies associated symptoms of dizziness, SOB. She denies syncope, CP with activity. She has SANTAMARIA. Interim History 08/27/2018 Dr. Chang: Ms. Hanks presents for follow up evaluation. She states that since she was last seen in January 2018 she developed recurrentarrhythmia in early 2018. She was found to be in atrial flutter. She underwent electrical cardioversion April 08, 2018. At some point the amiodarone was resumed, with initially a higher oral loading dose and then 200 mg daily. Some time after the cardioversion in 03/2018 she began taking 100 mg daily, and the diltiazem dosage was decreased from 180 mg daily to 120 mg daily. She was experiencing fatigue and feeling tired. She believes that this symptom improved somewhat since the reduction in the diltiazem and amiodarone dosages. However, she still feels fatigue and tiredness to some degree. She has not been aware of recurrent atrial arrhythmia since the cardioversion in March 2018. She denies chest pain, orthopnea, palpitations, PND, lightheadedness or syncope. Ms. Hanks seems misty doing well from a heart rhythm standpoint. She is taking low-dose amiodarone and diltiazem. She has not been aware of symptoms to suggest recurrence of atrial arrhythmia since the cardioversion procedure in March 2018. She is still feeling some degree of fatigue and believes that this is attributed to one or both of the heart rhythm medications (amiodarone and/or diltiazem). She would like to come off of these medications if at all possible. I think it is not unreasonable at this point to further reduce the amiodarone. She could try taking it every other day or 3 times a week or something of that nature. Then after about 2 weeks she could stop the amiodarone and we can see how she does. For now I would have her continue the diltiazem as prescribed while we are tapering off the amiodarone. PLAN AND RECOMMENDATIONS: 1) Reduce amiodarone dosage to every other day for about 2 weeks then discontinue it; 2) Continue diltiazem 120 mg daily for now; 3) Continue oral anticoagulation indefinitely provided risk:benefit remains favorable. Interim History Dr. Chang 10/15/2018: Ms. Hanks resents for follow-up evaluation. Since he was last seen, the amiodarone dosage was decreased to100 mg every other day for 2 weeks and then it was discontinued as I recommended. She states that she was off the amiodarone for about 10 days, when on 09/21/18 in the bench technician she experienced palpitations and rapid heartbeats. She contacted our office and was instructed to increase the amiodarone to 200 mg twice daily for one week then 200 mg daily thereafter. She has continued to experience the palpitations and rapid heartbeats. She was evaluated by her local hide and skin colerer, Dr. Sands, on 09/28/18 and it was confirmed that she was in atrial fibrillation. She was experiencing in addition tothe palpitations other symptoms including fatigue and feeling very tired with effort intolerance. On 10/06/18 at about 8:00 in the morning she noticed the heart rate to drop from the 100s bpm range down to about 70 bpm and regular. She believes this is when the rhythm spontaneously converted from the atrial fibrillation back to sinus rhythm. She believes that she has maintained sinus rhythm since t hat time. However, she does not tolerate taking the higher dose of amiodarone and does not wish to remain on this medication snf. She presents now to discuss the treatment options. She denies chest pain, shortness of breath, orthopnea, PND, lightheadedness or syncope. After extensive discussion the decision was made to undergo repeat AF catheter ablation. Interim history 02/17/2019 Kiet Feliciano APN: She presents today, February 17, 2019, for 3 month follow-up visit after having PVI and radiofrequency catheter ablation for atrial fibrillation on November 16, [address] Chang. She has beentransmitting her heart rhythm weekly since the ablation and had recurrence of atrial fibrillation per transmission on December 28, 2018. She states she knows exactly when she goes into atrial fibrillation and presented to me today 4 pages of her blood pressure and pulse readings and length of time she was in atrial fibrillation. On December 27, 2018 she was awakened at 4 AM with atrial fibrillation and recorded her blood pressure and pulse 21 times that day with BP range 85/62-149/91 and heart rate 74 when in normal sinus rhythm and 102-137 when in atrial fibrillation. She documented that A. fib lasted 5 days then one day then 2 hours. Rhythm transmissions weekly have shown sinus rhythm and atrial fibrillation. She states that she has been in normal sinus rhythm since 02/06/19 although rhythm transmission on 02/07/19 showed atrial fibrillation. She is highly symptomatic and describes heart racing, shortness of breath, marked fatigue, mild lightheadedness, intermittent chest tightness while in atrial fibrillation. She states she has continued to babysit her grandchildren almost every day and reports feeling pretty good the past few days and [place] this past [place] visit friends. She showed me results of TSH which have been done by her PCP. She had developed some hyperthyroidism based upon TSH levels while on amiodarone which has been discontinued and now TSH is elevated on 02/01/19 at 4.89. She states her PCP will be doing monthly TSH, T4 and free T3. Shehad 3 month post-ablation echocardiogram today which showed ejection fraction 66% and moderately dilated left atrium and she was informed of the results. She had 24 hour Holter monitor applied today and CT of chest done today for 3 month post ablation testing. EKG today shows normal sinus rhythm 69 bpm with first-degree AV block. She indicates that she is very sensitive to medications and has hadbad reactions multiple medications, but if necessary she is willing to try flecainide for atrial fibrillation because her is on it and tolerates it well. Interim History Dr. Chang 06/03/2019: Ms. Hanks presents for virtual visit follow-up, which consisted per her request of telephone only. She states that overall she has been doing better than previously. She believes that the heartrhythm has been good. She has experienced a couple episodes of tachycardia. She documented an episode to occur on May 18 with heart rate up to about 130 bpm. She states that then in the morning onApril 3 heart rate was in the 80s, but in the evening was more rapid again, and the same thing happened on May 20. By May 21 she was having more consistent normal heart rates and rhythm. She thinksthat she was probably dehydrated during this time. She admits that she does not pay much attention to hydration and that when she keeps herself more hydrated she has less symptoms. She would like to try to reduce the dosages or number of medications that she takes. She asked specifically to reduce the Cardizem dosage back down to 120 mg daily as she was doing previously. She asked about whether she could reduce the dose or discontinue flecainide. She denies chest pain, shortness of breath, orthopnea, PND, lightheadedness or syncope. Interim history for today's visit 12/19/19: Patient presents today for 6-month follow-up. She is accompanied with her . She states she knows when she goes into A. fib and had an episode of A. fib in August 2019. She experienced rapid heartbeats, mild shortness of breath, chest tightness which went on for more than a day so she went to [facility] and was admitted and underwent successfulcardioversion the next day on 09/10/2019. She also had a stress test during that admission and states it was OK . She states this occurred after she skipped a couple doses of flecainide because she thought she would try to wean herself off of it. She denies any further episodes of A. fib since thenand prior to the episode in August it had been since January 2019 the last time she had AFib. She mention today that she does not want another ablation and I told her that one episode in a year is probably acceptable. I instructed her to take an extra dose of flecainide if she has prolonged palpitations. She was hospitalized again in October 2019 at [facility] due to elevated blood pressure associated with chest tightness. She states cardiac enzymes were normal. HCTZ and aspirin 81 mg daily was added. She saw a vascular surgeon after that regarding renal artery stenosis and was told she did not need any stenting of the renal arteries. She monitors her blood pressure and pulse daily and presented the log to me and they have been normal recently. She states last Thursday she had hematuria which has resolved after PCP stopped her Eliquis for a few days and then she was diagnosed with a UTI. Review of Systems Constitutional: Positive for malaise/fatigue. Negative for chills and fever. HENT: Positive for nosebleeds. Respiratory: Positive for shortness of breath (mild SOB with exertion, improved since starting HCTZ). Negative for cough, hemoptysis and sputum production. Cardiovascular: Positive for chest pain (see HPI) and palpitations (see HPI). Negative for orthopnea, leg swelling and PND. Gastrointestinal: Positive for constipation. Negative for blood in stool, diarrhea, nausea and vomiting. Genitourinary: Positive for hematuria (see HPI). Negative for dysuria. Musculoskeletal: Positive for joint pain (knees & fingers since starting crestor) and myalgias (since starting crestor). Negative for falls. Skin: Negative for rash. Neurological: Positive for headaches. Negative for dizziness and loss of consciousness. 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 since 2016; indication: symptomatic atrial fibrillation; stopped Oct 2018 Mitral valve disorders(424.0) Mitral valve prolapse diagnosis from many years ago, but more recent echocardiograms and REAL did not show substantial MVP On amiodarone therapy indication: symptomatic atrial fibrillation; initiated sometime in 2016; stopped Oct 2018 Palpitations Persistent atrial fibrillation (HCC) symptomatic; multiple episodes requiring electrical cardioversions and 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 drug therapy;s/p AF balloon catheter cryoablation 11/10/2017 Spinal stenosis, other than cervical Status post catheter ablation of atrial fibrillation balloon catheter cryoablation for AF 11/10/2017; indication: symptomatic drug refractory AF Status post catheter ablation of atrial flutter multiple atypical left atrial flutters ablated 11/16/2018 SVT (supraventricular tachycardia) (HCC) documented episode 07/2013 at 150 bpm; terminated after IV adenosine in [facility] ER Syncope 2013 2013 Typical atrial flutter (HCC) PAST SURGICAL HISTORY Procedure Laterality Date AFIB ABLATION/PULM VEIN ISOLATION 11/10/2017 AF balloon catheter cryoablation; [facility] Dr. Chang AFIB ABLATION/PULM VEIN ISOLATION 11/16/2018 redo AF catheter ablation/PVAI (RF, Carto, Stereotaxis); re-isolation of recovered segments of PVs,plus lines across posterior wall, roof, floor posteriorly; [facility] Dr. Chang ATRIAL FIBRILLATION/FLUTTER ABLATION 11/16/2018 at time of redo AF catheter ablation/PVAI, RF catheter ablation of multiple atypical left atrial flutters (RF, Carto, Stereotaxis); [facility] Dr. Chang CARDIOVERSION 09/10/2019 successfully converted from AF to sinus rhythm at [facility] CARDIOVERSION, ELECTIVE, ELECTRICAL 03/19/2016 successful religious of sinus rhythm from atrial fibrillation; [facility] Dr. Sadns CARDIOVERSION, ELECTIVE, ELECTRICAL 09/12/2015 successful REAL-guided religious of sinus rhythm from atrial fibrillation; [facility] Dr. Sands CARDIOVERSION, ELECTIVE, ELECTRICAL 04/08/2018 successful religious of sinus rhythm from AF; [facility], Dr. Ayo HENNING W/REM POLYP SNARE 10/22/06 D&C, DIAG AND/OR THERAPEUTIC Dilation & curettage, several DECOMPRESS DISC RF LUMBAR ECHOCARDIOGRAM 02/22/2013 normal LV systolic fxn; LVEF 65%; mild MR ECHOCARDIOGRAM 08/23/2015 normal LV size and systolic fxn; LVEF 65%; mild LAE; IVSd = 1.7 cm ECHOCARDIOGRAM 02/17/2019 normal LV systolic fxn; moderate LAE EKG 02/18/2016,09/12/2015,08/24/2015 HOLTER MONITOR 24 HOUR 02/17/2019 sinus rhythm with PAF; AF burden 3.45% of the time LAPAROSCOPIC CHOLEYCYSTECTOMY 1999 Cholecystectomy, lap (Dr. Elizabeth) NUCLEAR STRESS LEXISCAN (CARD) 02/2013 no ischemia PAST SURGICAL HISTORY OF rupture L4-L5 REM LESION TRUNK,ARM,LEG 0.6 -1.0CM 11/16/10 Exc. left forearm misti cyst REMOVAL ADENOIDS,PRIMARY,<12 Y/O Adenoidectomy REMOVAL OF TONSILS,<12 Y/O Tonsillectomy STRESS TEST NUCLEAR 08/24/2015 no ischemia; LVEF 76% REAL 04/08/2018 normal LV systolic fxn; LVEF 65%; moderate LAE; no thrombus in POLLY; probable secundum ASD TOTAL HIP REPLACEMENT Right 1994 Hip replacement, total, right TOTAL HIP REPLACEMENT Left 1996 Hip replacement, total, left TRANSESOPHAGEAL ECHO 09/12/2015 pre-cardioversion; normal LV size and systolic fxn; LVEF 65%; no shunts; mild LAE; no thrombus in LA or POLLY; no mitral valve prolapse or stenosis; trivial MR; moderate TR TSH 05/27/2017 blood TSH within normal limits Social History Tobacco Use Smoking status: Never Smoker Smokeless tobacco: Never Used Substance Use Topics Alcohol use: No Drug use: No FAMILY HISTORY Problem Relation Age of Onset Ischemic Heart Disease Mother Diabetes Mother Heart Failure Mother Hypertension Mother Hypertension Father other (lupus) Father Hypertension Sister other (polio) Sister Hyperlipidemia Sister No Known Problems Sister No Known Problems Brother Colon Cancer Maternal Grandfather Ischemic Heart Disease Brother Heart disease Brother had CABG Coronary Artery Disease Brother 45 had heart attack at age 45 yrs Diabetes Brother Prostate Cancer Brother ALLERGIES Allergen Reactions Codeine GI Upset Lipitor [Atorvastat* Myalgia Morphine Sulfate GI Upset Neosporin [Neomycin* Rash Sulfa (Sulfonamide * Rash Trimethoprim (Bulk) Rash Vicodin [Hydrocodon* GI Upset MEDICATIONS: hydroCHLOROthiazide (HYDRODIURIL, ESIDRIX) 25 mg tablet Take 25 mg by mouth once daily. aspirin, enteric coated (ASPIRIN, ENTERIC COATED) 81 mg EC tablet Take 81 mg by mouth once daily. magnesium oxide (MAG-OXIDE ORAL) Take 100 mg by mouth every Thursday,Thursday,Thursday. potassium chloride (K-TAB) 10 mEq tablet Take 10 mEq by mouth twice daily. rosuvastatin (CRESTOR) 5 mg tablet Take 5 mg by mouth daily at bedtime. cholecalciferol (VITAMIN D) 1,000 unit tab tablet Take 1,000 Units by mouth once daily. cyanocobalamin (VITAMIN B-12) 1,000 mcg tab Take 1,000 mcg by mouth once daily. diltiazem CR (TIAZAC, TAZTIA XT) 120 mg 24 hr capsule Take 1 capsule by mouth once daily. flecainide (TAMBOCOR) 50 mg tablet Take 1 tablet by mouth twice daily. ELIQUIS 5 mg tab tab(s) Take 5 mg by mouth twice daily. multivitamins(DAILY MULTIVITAMIN TAB) Take one(1) tablet daily. lysine(L-LYSINE 500 MG CAP) Take one(1) tablet daily. ZINC ORAL Take 10 mg by mouth once daily. coenzyme Q10 (CO Q-10) 100 mg cap capsule Take 100 mg by mouth once daily. furosemide (LASIX) 20 mg tablet Take 20 mg by mouth as needed (leg edema). PHYSICAL EXAMINATION: BP 160/90 Pulse 72 Ht 5' 5 (1.65m) Wt 180 lb (81.6kg) SpO2 97% BMI 29.95 kg/(m^2). Physical Exam Constitutional: She is oriented to person, place, and time and well-developed, well-nourished, and in no distress. HENT: Head: Normocephalic. Eyes: No scleral icterus. Neck: Neck supple. No JVD present. Carotid bruit is not present. Cardiovascular: Normal rate, regular rhythm, S1 normal and S2 normal. Occasional extrasystoles are present. Exam reveals no gallop. No murmur heard. Pulses: Radial pulses are 3+ on the right side and 3+ on the left side. No edema lower extremities. Pulmonary/Chest: Effort normal and breath sounds normal. Abdominal: Soft. Bowel sounds are normal. Neurological: She is alert and oriented to person, place, and time. Gait normal. Skin: Skin is warm, dry and intact. Psychiatric: Affect normal. Nursing note and vitals reviewed. CARDIOVASCULAR MEDICINE TESTING: Electrocardiogram today: Sinus bradycardia with marked sinus arrhythmia with first-degree AV block,59 bpm, MN interval 302 ms, incomplete left bundle branch block, corrected QT 421 ms. I have personally reviewed the Electrocardiogram. ASSESSMENT AND PLAN: ASSESSMENT/PLAN: 1. Persistent atrial fibrillation - ICD9: 427.31, ICD10: I48.19 (primary diagnosis) Highly symptomatic; multiple episodes requiring electrical cardioversions and 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 drug therapy; status post AF balloon catheter cryoablation 11/10/2017 and RF ablation 11/16/2018; experienced symptomatic recurrences post ablation which have decreased now and has only had one episode of AF since January 2019 which was in August 2019 and underwent cardioversion at [facility] which occurred after she missed a few doses of flecainide because she wanted to try to wean herself off of it. She will continue diltiazem CD 120 mg daily and flecainide 50 mg every 12 hours. She will take an extra dose of flecainide 50 mg if she has prolonged palpitations. She is agreeable to this plan. 2. Status post catheter ablation of atrial fibrillation - ICD9: V45.89, ICD10: Z98.890 Had balloon catheter cryoablation for AF 11/10/2017 for symptomatic drug refractory AF and had RF catheter ablation 11/16/2018 3. Atypical atrial flutter (HCC) - ICD9: 427.32, ICD10: I48.4 4. Status post catheter ablation of atrial flutter - ICD9: V45.89, ICD10: Z98.890 Status post catheter ablation of atrial flutter 5. halfway current use of 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 drug - ICD9: V58.69, ICD10: Z79.899 On flecainide 50 mg twice daily for symptomatic atrial arrhythmias; continue same dose and take as needed dose if prolonged palpitations 6. Palpitations - ICD9: 785.1, ICD10: R00.2 Due to atrial arrhythmias; less frequent more recently; last episode was August 2019 7. Chronic diastolic heart failure (HCC) - ICD9: 428.32, ICD10: I50.32 Seems compensated 8. At risk for stroke - ICD9: V15.89, ICD10: Z91.89 Due to AF with [id number] score 3 (age 1, female gender) and is on oral anticoagulation therapy with Eliquis 5 mg twice daily 9. Anticoagulant long-term use - ICD9: V58.61, ICD10: Z79.01 Eliquis 5 mg twice daily for stroke prevention in the setting of AF; risk to benefit of oral anticoagulation therapy still seems favorable to continue. Had hematuria recently which has resolved and was in the setting of UTI. 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 Chang in 6 months, EKG. This note was partially generated using [employer] voice recognition system, and there may be some incorrect words, spellings, and punctuation that were not noted in checking the note before saving. 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 Palpitations Chronic diastolic heart failure (HCC) Chronic diastolic heart failure At risk for stroke Other specified personal history presenting hazards to health Anticoagulant long-term use Long-term (current) use of anticoagulants Additional Source Comments Source Comments (unrecognize d section and content) In the event this informatio n is protected by the Federal Confidentiality of Alcohol and Drug Abuse Patient Records regulations: The Federal rules restrict any use of the information to criminally investigate or prosecute any alcohol or drug abuse patient.[facility] the event this information is protected by the Federal Confidentiality of Alcohol and Drug Abuse Patient Records regulations: The Federal rules restrict any use of the information to criminally investigate or prosecute any alcohol or drug abuse patient.[facility] Hospital[facility] the event this information is protected by the Federal Confidentiality of Alcohol and Drug Abuse Patient Records regulations: The Federal rules restrict any use of the information to criminally investigate or prosecute any alcohol or drug abuse patient.[facility] HospitalIn the event this information is protected by the Federal Confidentiality of Alcohol and Drug Abuse Patient Records regulations: The Federal rules restrict any use of the information to criminally investigate or prosecute any alcohol or drug abuse patient.[facility] HospitalIn the event this information is protected by the Federal Confidentiality of Alcohol and Drug Abuse Patient Records regulations: The Federal rules restrict any use of the information to criminally investigate or prosecute any alcohol or drug abuse patient.[facility] HospitalIn the event this information is protected by the Federal Confidentiality of Alcohol and Drug Abuse Patient Records regulations: The Federal rules restrict any use of the information to criminally investigate or prosecute any alcohol or drug abuse patient.[facility] HospitalIn the event this information is protected by the Federal Confidentiality of Alcohol and Drug Abuse Patient Records regulations: The Federal rules restrict any use of the information to criminally investigate or prosecute any alcohol or drug abuse patient.[facility] HospitalIn the event this information is protected by the Federal Confidentiality of Alcohol and Drug Abuse Patient Records regulations: The Federal rules restrict any use of the information to criminally investigate or prosecute any alcohol or drug abuse patient.[facility] HospitalIn the event this information is protected by the Federal Confidentiality of Alcohol and Drug Abuse Patient Records regulations: The Federal rules restrict any use of the information to criminally investigate or prosecute any alcohol or drug abuse patient.[facility] HospitalIn the event this information is protected by the Federal Confidentiality of Alcohol and Drug Abuse Patient Records regulations: The Federal rules restrict any use of the information to criminally investigate or prosecute any alcohol or drug abuse patient.[facility] HospitalIn the event this information is protected by the Federal Confidentiality of Alcohol and Drug Abuse Patient Records regulations: The Federal rules restrict any use of the information to criminally investigate or prosecute any alcohol or drug abuse patient.[facility] HospitalIn the event this information is protected by the Federal Confidentiality of Alcohol and Drug Abuse Patient Records regulations: The Federal rules restrict any use of the information to criminally investigate or prosecute any alcohol or drug abuse patient.[facility] HospitalIn the event this information is protected by the Federal Confidentiality of Alcohol and Drug Abuse Patient Records regulations: The Federal rules restrict any use of the information to criminally investigate or prosecute any alcohol or drug abuse patient.[facility] HospitalIn the event this information is protected by the Federal Confidentiality of Alcohol and Drug Abuse Patient Records regulations: The Federal rules restrict any use of the information to criminally investigate or prosecute any alcohol or drug abuse patient.[facility] HospitalIn the event this information is protected by the Federal Confidentiality of Alcohol and Drug Abuse Patient Records regulations: The Federal rules restrict any use of the information to criminally investigate or prosecute any alcohol or drug abuse patient.[facility] HospitalIn the event this information is protected by the Federal Confidentiality of Alcohol and Drug Abuse Patient Records regulations: The Federal rules restrict any use of the information to criminally investigate or prosecute any alcohol or drug abuse patient.[facility] HospitalIn the event this information is protected by the Federal Confidentiality of Alcohol and Drug Abuse Patient Records regulations: The Federal rules restrict any use of the information to criminally investigate or prosecute any alcohol or drug abuse patient.[facility] HospitalIn the event this information is protected by the Federal Confidentiality of Alcohol and Drug Abuse Patient Records regulations: The Federal rules restrict any use of the information to criminally investigate or prosecute any alcohol or drug abuse patient.[facility] HospitalIn the event this information is protected by the Federal Confidentiality of Alcohol and Drug Abuse Patient Records regulations: The Federal rules restrict any use of the information to criminally investigate or prosecute any alcohol or drug abuse patient.[facility] INFORMATION SOURCE (unrecogn ized section and content) DATE CREATED AUTHOR AUTHOR'S ORGANIZ ATION 03/15/2021 [facility] DATE CREATED AUTHOR AUTHOR'S ORGANIZ ATION 10/15/2022 [facility] Reason for Visit (unrecogniz ed section and content) Reason Comments CARD Follow Up Annual persistent atrial fibrillation Reason Onset Date Comments Driver'S Education Instructor - Hospital Follow Up 09/23/2021 Reason Comments Patient Update Reason Comments CARD Hospital Follow Up HOSPITAL FOLLOW UP TO DISCUSS SYNCOPE Reason Onset Date Comments Driver'S Education Instructor - Other 10/16/2021 Reason Onset Date Comments Driver'S Education Instructor - Hospital Follow Up 10/17/2021 Reason Comments CARD Follow Up 3 Month Persistent a-fib s/p DCC Reason Comments Opened In Error Reason Comments Preparations For Procedures Reason Comments Cardiology Follow Up Persistent a-fib PV AI Reason Comments Orders Reason Onset Date Comments Refill Request 05/02/2022 Reason Comments CARD Follow Up 3 Month S/p ablation Ellie Vail (Allison) - 12/19/2019 2:51 PM EST Nursing Notes (unrecognized section and content) No cardiac complaints today. Ellie Vail CMA documented in this encounter Care Teams (unrecognized sec tion and content) Cement Contractor Relationship Specialty Start Date End Date Meka Crain MD [address] [place] [address] PCP - General Family Practice 12/19/19 Ollie Chang MD [address] [place] [address] Specialty Textile Dyer Cardiology 06/10/17 Surya Bryan [address] [facility] [address] [place] [address] Aircraft Systems Repairer Cardiology 12/19/19 Ollie Elizabeth MD [address] [place] [address] Specialty Textile Dyer General Surgery 07/19/21 [facility] [address] [place] [address] Specialty Textile Dyer Urology 07/19/21 Kel Jimenez [address] [place] [address] Specialty Textile Dyer Ent - Otolaryngology 07/19/21 Cement Contractor Relationship Specialty Start Date End Date Meka Crain MD [address] [place] [address] PCP - General Family Practice 12/19/19 Ollie Chang MD [address] [facility] [address] [place] [address] Specialty Textile Dyer Cardiology 06/10/17 Surya Bryan [address]61 [facility] YONY [facility] [address] [place] [address] Aircraft Systems Repairer Cardiology 12/19/19 Ollie Elizabeth MD [address] [place] [address] Specialty Textile Dyer General Surgery 07/19/21 [facility] Charli [address] [place] [address] Specialty Textile Dyer Urology 07/19/21 Kel Jimenez [address] [place] [address] Specialty Textile Dyer Ent - Otolaryngology 07/19/21 Cement Contractor Relationship Specialty Start Date End Date Meka Crain MD [address] [place] [address] PCP - General Family Practice 12/19/19 Ollie Chang MD [address] [place] [address] Specialty Textile Dyer Cardiology 06/10/17 Surya Bryan [address] [place] [address] Aircraft Systems Repairer Cardiology 12/19/19 Ollie Elizabeth MD [address] [place] [address] Specialty Textile Dyer General Surgery 07/19/21 Sascha Singh [address] [place] [address] [address] [place] [address] Specialty Textile Dyer Urology 07/19/21 Kel Jimenez [address] [place] [address] Specialty Textile Dyer Ent - Otolaryngology 07/19/21 Cement Contractor Relationship Specialty Start Date End Date Meka Crain MD [address] [place] [address] PCP - General Family Practice 12/19/19 Ollie Chang MD [address] [place] [address] Specialty Textile Dyer Cardiology 06/10/17 Surya Bryan [address] [place] [address] Aircraft Systems Repairer Cardiology 12/19/19 Ollie Elizabeth MD [address] [place] [address] Specialty Textile Dyer General Surgery 07/19/21 Francisco Sascha Bear 546 [facility] [address] [place] [address] Specialty Textile Dyer Urology 07/19/21 Kel Jimenez [address] [place] [address] Specialty Textile Dyer Ent - Otolaryngology 07/19/21 Cement Contractor Relationship Specialty Start Date End Date Meka Carin MD [address] [place] [address] PCP - General Family Practice 12/19/19 Ollie Chang MD [address] [facility] [address] [place] [address] Specialty Textile Dyer Cardiology 06/10/17 Surya Bryan [address] [facility] [address] [place] [address] Aircraft Systems Repairer Cardiology 12/19/19 Ollie Elizabeth MD [address] [place] [address] Specialty Textile Dyer General Surgery 07/19/21 Sascha Singh Miguel [address] [place] [address] Specialty Textile Dyer Urology 07/19/21 Kel Jimenez [address] [place] [address] Specialty Textile Dyer Ent - Otolaryngology 07/19/21 Cement Contractor Relationship Specialty Start Date End Date Meka Crain MD [address] [place], [place] [address] PCP - General Family Medicine 12/19/19 Ollie Chang MD [address] [place] [address] (Fax) Specialty Textile Dyer Cardiology 06/10/17 Surya Bryan [address] [place] [address] Aircraft Systems Repairer Cardiology 12/19/19 Ollie Elizabeth MD [address] [place] [address] Specialty Textile Dyer General Surgery 07/19/21 Sascha Singh [address] [place] [address] Specialty Textile Dyer Urology 07/19/21 Kel Jimenez [address] [place] [address] Specialty Textile Dyer Ent - Otolaryngology 07/19/21 Cement Contractor Relationship Specialty Start Date End Date Meka Crain MD [address] [facility] [place], [place] [address] PCP - General Family Medicine 12/19/19 Ollie Chang MD [address] [place] [address] (Fax) Specialty Textile Dyer Cardiology 06/10/17 Surya Bryan [address] [place] [address] Aircraft Systems Repairer Cardiology 12/19/19 Ollie Elizabeth MD [address] [place] [address] Specialty Textile Dyer General Surgery 07/19/21 Sascha Singh [address] [place] [address] Specialty Textile Dyer Urology 07/19/21 Kel Jimenez [address] [place] [address] Specialty Textile Dyer Ent - Otolaryngology 07/19/21 Cement Contractor Relationship Specialty Start Date End Date Meka Crain MD [address] [place] [address] PCP - General Family Medicine 12/19/19 Ollie Chang MD [address] [place] [address] Specialty Textile Dyer Cardiology 06/10/17 Surya Bryan [address]61 [facility] [address] [place] [address] Aircraft Systems Repairer Cardiology 12/19/19 Ollie Elizabeth MD [address] [place] [address] Specialty Textile Dyer General Surgery 07/19/21 Sascha Singh MD 546 [facility] [address] [place] [address] Specialty Textile Dyer Urology 07/19/21 Kel Jimenez [address]49 [place] [address] Specialty Textile Dyer Ent - Otolaryngology 07/19/21 Cement Contractor Relationship Specialty Start Date End Date Meka Crain MD [address] [place], [place] [address] PCP - General Family Medicine 12/19/19 Ollie Chang MD [address] [place] [address] Specialty Textile Dyer Cardiology 06/10/17 Surya Bryan [address] [place] [address] Aircraft Systems Repairer Cardiology 12/19/19 Ollie Elizaebth MD [address] [place] [address] Specialty Textile Dyer General Surgery 07/19/21 Sascha Singh MD [address] [address] [place] [address] Specialty Textile Dyer Urology 07/19/21 Kel Jimenez [address] [place] [address] [place] [address] Specialty Textile Dyer Ent - Otolaryngology 07/19/21 Cement Contractor Relationship Specialty Start Date End Date Meka Crain MD [address] [facility] [place] [address] PCP - General Family Medicine 12/19/19 Ollie Chang MD [address] [facility] [address] [place] [address] Specialty Textile Dyer Cardiology 06/10/17 Surya Bryan [address] [place] [address] Aircraft Systems Repairer Cardiology 12/19/19 Ollie Elizabeth MD [address] [place] [address] Specialty Textile Dyer General Surgery 07/19/21 Sascha Singh MD [address] [place] [address] Specialty Textile Dyer Urology 07/19/21 Kel Jimenez [address] [place] [address] Specialty Textile Dyer Ent - Otolaryngology 07/19/21 Cement Contractor Relationship Specialty Start Date End Date Meka Crain MD [address] [place] [address] PCP - General Family Medicine 12/19/19 Ollie Chang MD [address] [place] [address] (Fax) Specialty Textile Dyer Cardiology 06/10/17 Surya Bryan [address] [place] [address] Aircraft Systems Repairer Cardiology 12/19/19 Ollie Elizabeth MD [address] [place] [address] Specialty Textile Dyer General Surgery 07/19/21 Sascha Singh MD 546 [facility] [address] [place] [address] Specialty Textile Dyer Urology 07/19/21 Kel Jimenez [address] [place] [address] Specialty Textile Dyer Ent - Otolaryngology 07/19/21 Cement Contractor Relationship Specialty Start Date End Date Meka Crain MD [address] [place] [address] PCP - General Family Medicine 12/19/19 Ollie Chang MD [address] [place] [address] Specialty Textile Dyer Cardiology 06/10/17 Surya Bryan [address] [place] [address] Aircraft Systems Repairer Cardiology 12/19/19 Ollie Elizabeth MD [address] [place] [address] Specialty Textile Dyer General Surgery 07/19/21 Sascha Singh MD [address] [address] Specialty Textile Dyer Urology 07/19/21 Kel Jimenez [address] [place] [address] Specialty Textile Dyer Ent - Otolaryngology 07/19/21 Cement Contractor Relationship Specialty Start Date End Date [address] [place] [address] PCP - General 06/17/22 Ollie Chang MD [address] [facility] [address] [place] [address] Specialty Textile Dyer Cardiology 06/10/17 Surya Bryan 1761 [facility] [address] [place] [address] Aircraft Systems Repairer Cardiology 12/19/19 Ollie Elizabeth MD [address] [place] [address] Specialty Textile Dyer General Surgery 07/19/21 Sascha Singh MD [address] [place] [address] Specialty Textile Dyer Urology 07/19/21 Kel Jimenez [address] [place] [address] Specialty Textile Dyer Ent - Otolaryngology 07/19/21 Cement Contractor Relationship Specialty Start Date End Date [address] [place], [place] [address] PCP - General 06/17/22 Ollie Chang MD [address] [place] [address] Specialty Textile Dyer Cardiology 06/10/17 Surya Bryan [address]61 [facility] [address] [place] [address] Aircraft Systems Repairer Cardiology 12/19/19 Ollie Elizabeth MD [address] [place], [place] [address] Specialty Textile Dyer General Surgery 07/19/21 Sascha Singh MD 546 [facility] [address] [place], [place] [address] Specialty Textile Dyer Urology 07/19/21 Kel Jimenez [address] [place], [place] [address] Specialty Textile Dyer Ent - Otolaryngology 07/19/21 FOR RECORDS PERTAINING TO PATIENTS WHO ARE OR HAVE BEEN ENROLLED IN A CHEMICAL DEPENDENCY/SUBSTANCEABUSE PROGRAM, SOME INFORMATION MAY BE OMITTED. This clinical summary was aggregated from multiple sources. Caution should be exercised in using it in the provision of clinical care. This summary normalizes information from multiple sources, and as a consequence, information in this document may materially change the coding, format and clinical context of patient data. In addition, data may be omitted in some cases. CLINICAL DECISIONS SHOULD BE BASED ON THE PRIMARY CLINICAL RECORDS. [employer] provides no warranty or guarantee of the accuracy or completeness of information in this document.
[2023-04-15 10:21] LABS: Absolute Lymphocyte Count 2.05 X10^3/uL (0.83-4.51); Absolute Neutrophil Count 4.1 X10^3/uL (2.0-7.7); Basophil# 0.04 X10^3/uL; Basophil% 0.6 % (0-1); Eosinophil# 0.15 X10^3/uL; Eosinophils% 2.2 % (0-5); Hemoglobin 13.3 g/dL (12.0-15.0); Lymphocyte # 2.05 X10^3/ul (0.83-4.51); Lymphocyte % 29.7 % (19-41); Mean Corp Hgb Conc 30.9 g/dL (32-36); Mean Corpuscular Hgb 29.2 pg (27.0-32.0); Mean Corpuscular Volume 94.5 fL (81-99); Mean Platelet Vol. 11.4 fl (6.2-12.0); Monocyte# 0.52 X10^3/uL; Monocyte% 7.5 % (0-10); NRBC Flagged by Analyzer 0 % (0-5); Neutrophil # 4.14 X10^3/uL (2.7-7.7); Neutrophil % 59.9 % (47-70); Platelet Count 257 K/mm3 (150-450); RBC Distribution Width CV 13.5 % (11.6-14.6); RBC Distribution Width SD 46.8 fl (35.1-43.9); Red Blood Count 4.55 M/mm3 (4.2-5.4); White Blood Count 6.9 K/mm3 (4.4-11.0)
[2023-04-15 11:19] LABS: ALB/GLOB Ratio 0.9 RATIO (0.9-2.4); AST(SGOT) 21 U/L (15-37); Alanine Aminotransfer ALT/SGPT 20 U/L (13-56); Albumin, Serum 3.5 g/dL (3.2-5.0); Alkaline Phosphatase 89 U/L (45-117); Anion Gap 3 (5-15); BUN 17 mg/dL (7-18); BUN/Creat Ratio 15.7 RATIO (10-20); Calcium,Total 9.1 mg/dL (8.5-10.1); Chloride 108 mmol/L (98-107); Cholesterol 231 mg/dL (200); Creatinine, Serum 1.08 mg/dL (0.55-1.02); EST Glomerular Filtration Rate 52 mL/min (>60); Est Glom Filt Rate - Afr Amer 63 mL/min (>60); Globulin 3.8 g/dL (2.2-4.2); Glucose 95 mg/dL (74-106); High Density Lipoprotein 81 mg/dL; Potassium 4.1 mmol/L (3.5-5.1); Protein, Total 7.3 g/dL (6.4-8.2); Sodium Level 140 mmol/L (136-145); Thyroid Stim Hormone (TSH) 3.35 uIU/mL (0.358-3.74); Triglycerides 65 mg/dL; Very Low Density Lipoprotein 13 mg/dL (5-40)
== END | disposition home or self-care (01) ==
PROVIDERS: PCP Nurse Practitioner Family; Referring Provider Family Medicine; Visit Provider Family Medicine
DX: E78.5 Hyperlipidemia, unspecified (principal); I48.91 Unspecified atrial fibrillation; R73.01 Impaired fasting glucose; I10 Essential (primary) hypertension
CPT/HCPCS: 36415; 80053; 80061; 83735; 84443; 85025

== ENCOUNTER → 2023-06-15 | Outpatient (CLI) | payer MEDICARE, OTHER, SELFPAY ==
--- NOTE | 2023-06-15 12:46 | BI_ITS ---
MAMMOGRAPHY - BILATERAL SCREENING REASON FOR EXAM: Female, 78 years old. Routine annual screening examination. PERTINENT HISTORY: Aunt with breast cancer. TECHNIQUE: Digital bilateral breast masoud (3D mammographic acquisition) in the CC and MLO projections. 2-D mediolateral oblique (MLO) and craniocaudad (CC) views of both breasts were obtained. CAD: Full Field Digital Mammography with Computer Added Detection was performed. COMPARISON: Comparison is made with prior study dated June 10, 2022 and April 29, 2021. FINDINGS: Breast Composition: The breasts are heterogeneously dense, which may obscure small masses. There are no dominant masses or suspicious calcifications. No other significant abnormalities are identified. There has been no significant change since the prior study. BI/SCRN MAMM (CAD)W/MASOUD BILAT IMPRESSION: Stable bilateral screening mammogram. Yearly follow-up mammogram recommended. (A) ASSESSMENT CATEGORY: BIRADS Category 1: Negative. A letter regarding these results will be sent to the patient by the facility within 30 days. Approximately 10% of breast cancers are not detected by mammography. A normal mammogram should not delay biopsy of a clinically suspicious abnormality. [id number] Electronically Signed: Taiwo Tejada MD at 13:59 EDT ,
== END | disposition home or self-care (01) ==
LOC: OPBI 12:45
PROVIDERS: PCP Nurse Practitioner Family; Referring Provider Family Medicine; Visit Provider Family Medicine
DX: Z12.31 Encounter for screening mammogram for malignant neoplasm of breast (principal)
CPT/HCPCS: 77063; 77067

== ENCOUNTER 2023-07-15 11:27 | Emergency (ER) | payer MEDICARE, OTHER, SELFPAY ==
[2023-07-15] VITALS (13 sets, daily range): BP systolic 105–138; BP diastolic 66–99; PULSE 62–129; RESP 16–18; TEMP 36.4–37; O2SAT 94–99; BMI 29.5
--- NOTE | 2023-07-15 11:35 | EKG12_ITS ---
Test Reason : DIZZY Blood Pressure : / mmHG Vent. Rate : 128 BPM Atrial Rate : 000 BPM P-R Int : 000 ms QRS Dur : 086 ms QT Int : 330 ms P-R-T Axes : 000 043 018 degrees QTc Int : 481 ms Accelerated Junctional rhythm with retrograde conduction ST & T wave abnormality, consider lateral ischemia Abnormal ECG Confirmed by Dao Solano ([id number]), metropolitan editor LIDIA CALDERON ([id number]) on 07/20/2023 1:13:38 PM Referred By: Confirmed By:Dao Solano
--- NOTE | 2023-07-15 11:36 | ED.VIS.CHEST ---
HPI History of Present Illness Chief Complaint: Chest Other Informant: patient, spouse/S.O. and EMS Narrative Narrative: 78-year-old female with a history of atrial fibrillation on diltiazem and Eliquis presenting to the emergency room with a chief complaint of palpitations. Patient states that on Thursday evening she began to feel palpitations consistent with her prior history of atrial flutter/atrial fibrillation. Patient does see [facility] locally and Dr. Chang at [facility] for cardiology. She states that she has had prior ablations (x3) as well as direct cardioversions. She states that she has been in a normal sinus rhythm for the past several months until Thursday. She has not taken any extra medications but did take her normal medications this morning. She has not been in contact with her doctors as she is waiting to see if this would resolve on its own. This morning she felt more fatigued and had a episode where she felt near syncopal. That is when she called EMS. Prehospital EKG shows a narrow complex rhythm at around 130 bpm. I do not see obvious P waves. Patient currently denying any chest pain. No hypotension and route to the hospital. She is unsure if she took her Eliquis on Thursday evening or not. She states she was at a graduation constitution party cannot recall if she took it when she got home or not. Patient notes that in the past she has been on amiodarone as well as flecainide therapy Prior Similar Symptoms: Yes PFSH [facility] Medical History Longstanding persistent atrial fibrillation Atrial fibrillation/flutter History of COVID-19 (~12/2019) Essential hypertension Renal artery stenosis Positive colorectal cancer screening using Cologuard test Skin lesion of face CKD (chronic kidney disease), stage III Multiple pulmonary nodules determined by computed tomography of lung Pneumonia (~06/28/18) Palpitations Atrial flutter History of supraventricular tachycardia Syncope and collapse Nonrheumatic mitral valve prolapse Chronic diastolic heart failure Typical atrial flutter Paroxysmal atrial fibrillation Home Medications ?Medication ?Instructions ?Recorded ?Last Taken ?Type lysine 500 mg tablet 500 mg PO DAILY supplement 02/22/13 11/01/19 08:00 History multivitamin with folic acid 400 1 tab PO DAILY supplement 02/22/13 11/01/19 08:00 History mcg tablet cyanocobalamin (vitamin B-12) 1,000 mcg PO DAILY supplement 06/17/19 11/01/19 08:00 History 1,000 mcg capsule cholecalciferol (vitamin D3) 25 25 mcg PO DAILY supplement 10/13/19 11/01/19 08:00 History mcg (1,000 unit) capsule potassium chloride 10 mEq 10 meq PO DAILY 12/17/20 Unknown History tablet,extended release apixaban 5 mg tablet (Eliquis) 2.5 mg PO BID Dose decreased by 12/12/[address] Chang d/t nosebleeds diltiazem HCl 120 mg 120 mg PO BID Yes it is to be 11/17/22 Unknown Rx capsule,extended release 24 hr twice a day per Dr. Rollins #180 caps magnesium 250 mg tablet 250 mg PO DAILY 03/31/23 Unknown History Allergy/AdvReac Type Severity Reaction Status Date / Time bacitracin (From Neosporin Allergy Rash Verified 03/31/23 10:33 ([id number])) bacitracin zinc (From Allergy Rash Verified 03/31/23 10:33 Neosporin ([id number])) neomycin sulfate (From Allergy Rash Verified 03/31/23 10:33 Neosporin ([id number])) polymyxin B (From Neosporin Allergy Rash Verified 03/31/23 10:33 ([id number])) Sulfa (Sulfonamide Allergy Rash Verified 03/31/23 10:33 Antibiotics) sulfamethoxazole (From Allergy Rash Verified 03/31/23 10:33 Bactrim) trimethoprim (From Bactrim) Allergy Rash Verified 03/31/23 10:33 atorvastatin AdvReac Pain in Verified 03/31/23 10:33 joints ciprofloxacin (From Cipro) AdvReac Pain in Verified 03/31/23 10:33 joints codeine AdvReac Vomiting Verified 03/31/23 10:33 Family History Brother CAD (coronary artery disease) PPM Mother Congestive heart failure Other History of cardioversion Surgical History History of radiofrequency ablation procedure for cardiac arrhythmia (~03/05/22) History of colonoscopy (~2006) History of transesophageal echocardiography (REAL) (04/08/18) lumbar disc decompression History of laparoscopic cholecystectomy History of total replacement of both hip joints History of cardioversion (04/08/18) Social History Smoking Status: Never smoker second hand exposure: Yes ROS ROS ED Constitutional Constitutional ED: Denies chills, fever(s) or weight loss Eyes Eyes: Denies change in vision or diplopia ENT ENT ED: Denies ear pain, rhinorrhea or sore throat Cardiovascular Cardiovascular: Reports palpitations, racing heartbeat and other Details: Near syncope ; Denies chest pain or orthopnea Respiratory/Chest Respiratory/Chest: Denies cough, dyspnea or orthopnea Gastrointestinal Gastrointestinal: Denies abdominal pain, diarrhea, nausea or vomiting Genitourinary Genitourinary ED: Denies dysuria, hematuria or urinary frequency Musculoskeletal Musculoskeletal: Denies arthralgias or myalgias Integumentary Denies abscess or rash Neurologic Neurologic: Denies headache(s) or weakness Psychiatric Psychiatric: Denies anxiety, depression, suicidal ideation or suicidal thoughts Endocrine Endocrinology: Denies polydipsia, polyphagia or polyuria Allergic/Immunologic Allergic/Immunologic ED: Denies mouth swelling, tongue swelling or urticaria EXAM Physical Exam Const Vital Signs: 07/15/23 11:29 07/15/23 11:33 07/15/23 12:12 Temperature 98.5 F Temperature Source Temporal Pulse Rate 129 H 72 Pulse Rate [1] Respiratory Rate 18 18 Respiratory Rate [1] Respiratory Effort Normal Blood Pressure 125/86 H 112/84 H Blood Pressure Mean 99 93 Pulse Ox 98 98 Oxygen Delivery Method Room Air Room Air Oxygen Delivery Method [1] Oxygen Flow Rate (L/min) 07/15/23 13:00 07/15/23 14:00 07/15/23 15:00 Temperature Temperature Source Pulse Rate 74 85 95 Pulse Rate [1] Respiratory Rate 18 16 16 Respiratory Rate [1] Respiratory Effort Blood Pressure 117/86 H 138/72 H 133/99 H Blood Pressure Mean 96 94 110 Pulse Ox 98 97 98 Oxygen Delivery Method Room Air Room Air Room Air Oxygen Delivery Method [1] Oxygen Flow Rate (L/min) 07/15/23 15:45 07/15/23 15:55 07/15/23 16:00 Temperature 98.6 F Temperature Source Pulse Rate 94 Pulse Rate [1] 102 H Respiratory Rate 18 Respiratory Rate [1] 18 Respiratory Effort Blood Pressure 105/76 Blood Pressure Mean Pulse Ox 97 Oxygen Delivery Method Nasal Cannula Nasal Cannula Oxygen Delivery Method [1] Nasal Cannula Oxygen Flow Rate (L/min) 2 2 07/15/23 16:05 07/15/23 16:10 Temperature Temperature Source Pulse Rate Pulse Rate [1] Respiratory Rate Respiratory Rate [1] Respiratory Effort Blood Pressure Blood Pressure Mean Pulse Ox Oxygen Delivery Method Nasal Cannula Room Air Oxygen Delivery Method [1] Oxygen Flow Rate (L/min) 2 Positive well nourished and well developed General Appearance ED: well developed HEENT Reports normocephalic, head/scalp atraumatic and moist mucous membranes Eyes PERRL and EOMs intact bilaterally Neck no lymphadenopathy, supple and no JVD Resp normal respiratory effort and clear to auscultation bilaterally Cardio no murmurs Rate: tachycardic Rhythm: abnormal rhythm irregularly irregular GI normal to inspection, nondistended, normoactive bowel sounds and non-tender Palpation: soft Back/Spine no CVA tenderness and normal ROM Extremity normal to inspection General Extremety ED: Negative for edema General Extremity: Negative for edema Neuro oriented x3 and CN's II-XII intact bilaterally Sensorium / Orientation: alert Motor Exam: strength 5/5 throughout Psych mental status grossly normal Mood & Affect: Negative for depressed or tearful Skin no rashes or lesions noted and no wounds MDM MDM MDM Narrative Medical decision making narrative: Initial EKG confirms atrial fibrillation with rapid ventricular response at a rate of 128 bpm. Basic blood work was fairly unremarkable with a normal troponin at 28 creatinine 1.39 normal magnesium potassium and sodium. Blood glucose 126. Hemoglobin 14.9. Patient received a 10 mg dose of Cardizem during the laboratory portion of her stay. This resulted in what appeared to be a atrial flutter with near 2-1 conduction. Her rate slowly ryan again from the 70s up until a rate of 1 around 100. I have spoken previously with cardiology Dr. Espinal. We offered her cardioversion which she states again that she has had before is not successful. Patient provided informed written consent for electrical cardioversion. Patient was placed on the monitor in the usual procedural sedation set up. Patient received a total of 40 mg of propofol which provided adequate anesthesia. A single synchronized electrical shock was delivered at 200 J. This resulted in return to a normal sinus rhythm. A third EKG was obtained which confirms sinus rhythm with a first-degree AV block at a rate of 64 bpm. Patient was observed. No significant events during the sedation. Patient mention to me that she has had some intermittent left flank pain. She notes some intermittent hematuria. Formal urinalysis shows 1+ bacteria 0-5 reds 0-5 whites negative nitrates. Patient was requesting a renal ultrasound. I obtained a flank CT. pending a abnormal review by radiology I would anticipate a discharge with PCP and cardiology follow-up History & Record Review Discussion w/independent historian: EMS personnel, Patient and Significant other Lab Data Attestation: I reviewed the patient's lab results. Labs: Laboratory Results - last 24 hr 07/15/23 07/15/23 11:40 13:54 WBC 8.4 RBC 5.16 Hgb 14.9 Hct 48.7 H MCV 94.4 MCH 28.9 MCHC 30.6 L RDW Std Deviation 46.3 H RDW Coeff of Igor 13.2 Plt Count 279 MPV 10.6 Immature Gran % (Auto) 0.400 Neut % (Auto) 65.3 Lymph % (Auto) 27.0 Mcculloch % (Auto) 6.0 Eos % (Auto) 0.7 Baso % (Auto) 0.6 Absolute Neuts (auto) 5.5 Absolute Lymphs (auto) 2.28 Nucleated RBC % 0 Sodium 141 Potassium 3.9 Chloride 106 Carbon Dioxide 27.0 Anion Gap 8 BUN 17 Creatinine 1.39 H Estim Creat Clear Calc 34.38 Est GFR (MDRD) Af Amer 47 L Est GFR (MDRD) Non-Af 39 L BUN/Creatinine Ratio 12.2 Glucose 126 H Calcium 9.6 Magnesium 1.9 Troponin I High Sens 28 Urine Color Yellow Urine Clarity Sl. Cloudy Urine pH 7.0 Ur Specific [place] 1.015 Urine Protein 30 H Urine Glucose (UA) Normal Urine Ketones Negative Urine Occult Blood 10 H Urine Nitrite Negative Urine Bilirubin Negative Urine Urobilinogen Normal Ur Leukocyte Esterase 25 H Urine RBC 0-5 SEEN Urine WBC 0-5 SEEN Ur Squamous Epith Cells 0-5 SEEN Urine Bacteria 1+ Urine Mucus 0 SEEN Radiography Diagnostic Testing: Clinical Impression(s) from Imaging Studies Chest X-Ray 05/29/24 11:43 IMPRESSION: Mild degree of increased markings in the posterior medial segment of the left lower lobe suggestive of atelectasis and/or scarring. Electronically Signed: Taiwo Tejada MD at 12:13 EDT , EKG Initial EKG: Attestation: I personally reviewed and interpreted this EKG as follows: Comments: Narrow complex tachycardia with a ventricular rate of 128 bpm. There is some ST depression particularly laterally and in lead II and I consistent with rate dependent changes. Follow-up EKG: Attestation: I personally reviewed and interpreted this EKG as follows: Comments: Atrial tachycardia with near 2-1 conduction Management Discussion w/another healthcare provider: Librarian Specialist (Dr. Espinal (Cardiology)) Procedures Procedural Sedation 1 (Initial Baseline): Consent Signed: Yes Any Problems With Anesthesia: No You/Your family experience fever (hyperthermia) w/anesthesia: No Sedation medication: Propofol Dose: 40 Route: IV Total Moderate Sedation Units: 3 Maliampati Score: Class II ASA Classification: II Discharge Plan Triage Chief Complaint: Chest Other ED Provider: David Heard Dx/Rx/DC Orders Clinical Impression: Atrial fibrillation with rapid ventricular response, Near syncope, Anticoagulated, Acute flank pain Instructions: ED AFIB Prescriptions: No Action cholecalciferol (vitamin D3) 25 mcg (1,000 unit) capsule 25 mcg PO DAILY cyanocobalamin (vitamin B-12) 1,000 mcg capsule 1,000 mcg PO DAILY lysine 500 MG tablet 500 mg PO DAILY Patient Comments: Supplement multivitamin with folic acid 1 TABLET tablet 1 tab PO DAILY Patient Comments: Supplement potassium chloride 10 mEq tablet extended release 10 meq PO DAILY Eliquis 5 mg tablet 2.5 mg PO BID diltiazem HCl 120 mg capsule,extended release 24hr 120 mg PO BID Qty: 180 3RF magnesium 250 mg tablet 250 mg PO DAILY Primary Care Provider: Lakeisha Hassan Referrals: Lakeisha Hassan, PHOTOGEOLOGIST-C [Primary Care Provider] - Activity Restrictions/Additional Instructions: Please follow-up with your gag writer as well as your primary care doctor. Please continue home medications. Print Language: American Disposition Disposition: Home, Self Care
--- NOTE | 2023-07-15 11:43 | RAD_ITS ---
STUDY: X-RAY CHEST REASON FOR EXAM: Female, 78 years old. Palpitation TECHNIQUE: Single AP portable view of the chest. COMPARISON: Comparison is made with prior study dated September 22, 2021. FINDINGS: EKG electrodes are seen. Hyperinflation. Mild increased markings in the posterior medial segment of the left lower lobe suggestive of atelectasis and/or scarring. There is no demonstrated pleural abnormality. Normal size heart. Normal mediastinum and johnathon. Normal visualized pulmonary arteries. There is atherosclerotic calcification of the aortic arch with tortuosity. There are diffuse degenerative changes of the visualized thoracic spine. There is degenerative osteoarthritis of the bilateral shoulders. There is no demonstrated abnormality of the visualized soft tissue structures of the upper abdomen. RAD/Chest 1 View IMPRESSION: Mild degree of increased markings in the posterior medial segment of the left lower lobe suggestive of atelectasis and/or scarring. Electronically Signed: Taiwo Tejada MD at 12:13 EDT ,
[2023-07-15 11:52] LABS: Absolute Lymphocyte Count 2.28 X10^3/uL (0.83-4.51); Absolute Neutrophil Count 5.5 X10^3/uL (2.0-7.7); Basophil# 0.05 X10^3/uL; Basophil% 0.6 % (0-1); Eosinophil# 0.06 X10^3/uL; Eosinophils% 0.7 % (0-5); Hematocrit 48.7 % (37-47); Hemoglobin 14.9 g/dL (12.0-15.0); Lymphocyte # 2.28 X10^3/ul (0.83-4.51); Mean Corp Hgb Conc 30.6 g/dL (32-36); Mean Corpuscular Hgb 28.9 pg (27.0-32.0); Mean Corpuscular Volume 94.4 fL (81-99); Mean Platelet Vol. 10.6 fl (6.2-12.0); Monocyte# 0.51 X10^3/uL; NRBC Flagged by Analyzer 0 % (0-5); Neutrophil % 65.3 % (47-70); Platelet Count 279 K/mm3 (150-450); RBC Distribution Width CV 13.2 % (11.6-14.6); RBC Distribution Width SD 46.3 fl (35.1-43.9); Red Blood Count 5.16 M/mm3 (4.2-5.4); White Blood Count 8.4 K/mm3 (4.4-11.0)
[2023-07-15] MEDS: dilTIAZem 25 MG/5 ML Vial 10 MG IV BOLUS (11:59)
[2023-07-15 12:06] LABS: Anion Gap 8 (5-15); BUN 17 mg/dL (7-18); BUN/Creat Ratio 12.2 RATIO (10-20); Calcium,Total 9.6 mg/dL (8.5-10.1); Chloride 106 mmol/L (98-107); Creatinine, Serum 1.39 mg/dL (0.55-1.02); EST Glomerular Filtration Rate 39 mL/min (>60); Est Glom Filt Rate - Afr Amer 47 mL/min (>60); Estimated Creatinine Clearance 34.38 ml/min; Glucose 126 mg/dL (74-106); Magnesium 1.9 mg/dL (1.6-2.6); Potassium 3.9 mmol/L (3.5-5.1); Sodium Level 141 mmol/L (136-145); Troponin-I HS 28 pg/mL (3.0-54.0)
--- NOTE | 2023-07-15 13:08 | EKG12_ITS ---
Test Reason : REPEAT Blood Pressure : / mmHG Vent. Rate : 074 BPM Atrial Rate : 131 BPM P-R Int : 000 ms QRS Dur : 082 ms QT Int : 408 ms P-R-T Axes : 000 042 062 degrees QTc Int : 452 ms Critical Test Result: AV Block Sinus tachycardia with 2nd degree A-V block (Mobitz I) Abnormal ECG Confirmed by Dao Solano ([id number]), mapping editor LIDIA CALDERON ([id number]) on 07/20/2023 1:13:57 PM Referred By: Confirmed By:Dao Solano
[2023-07-15 14:01] LABS: Mucous, Urine 0 SEEN /hpf (<or=2+)
[2023-07-15 14:09] LABS: Color, Urine Yellow (Yellow); Glucose, Dipstick Normal (Normal); Ketone-Dipstick Negative (Negative); Leukocyte Esterase-Dipstick 25 /ul (Negative); Nitrite-Dipstick Negative (Negative); Occult Blood-Urine 10 /ul (Negative); Protein-Dipstick 30 mg/dl (Negative); Specific Gravity, Urine 1.015 (1.002-1.030); Urine Bilirubin Dipstick Negative (Negative); Urine Clarity Sl. Cloudy (Clear); Urine Urobilinogen Normal (Normal)
[2023-07-15 14:17] LABS: Bacteria 1+ /hpf (None Seen); Red Blood Cells-Urine 0-5 SEEN /hpf (0-5); Squamous Epithelial Cells - UA 0-5 SEEN /hpf (5-10); White Blood Cells 0-5 SEEN /hpf (0-5)
--- NOTE | 2023-07-15 16:02 | EKG12_ITS ---
Test Reason : POST CARDIO Blood Pressure : / mmHG Vent. Rate : 064 BPM Atrial Rate : 064 BPM P-R Int : 272 ms QRS Dur : 088 ms QT Int : 436 ms P-R-T Axes : 081 049 076 degrees QTc Int : 449 ms Sinus rhythm with 1st degree A-V block Otherwise normal ECG Confirmed by Dao Solano ([id number]), photography editor LIDIA CALDERON ([id number]) on 07/20/2023 1:17:29 PM Referred By: Confirmed By:Dao Solano
[2023-07-15] MEDS: Propofol 200 MG/20 ML Vial IV BOLUS (16:14)
--- NOTE | 2023-07-15 16:17 | CT_ITS ---
EXAM: CT ABDOMEN AND PELVIS WITHOUT INTRAVENOUS CONTRAST CLINICAL INDICATION: flank pain TECHNIQUE: Helically acquired images were obtained of the abdomen and pelvis without intravenous contrast. This CT exam was performed using one or more of the following dose reduction techniques: automated exposure control, adjustment of the mA and/or kV according to patient size, and/or use of iterative reconstruction technique. RADIATION DOSE: CTDIvol = 12.69 mGy, DLP = 612.03 mGy-cm COMPARISON: No relevant prior studies available. FINDINGS: LOWER THORAX: Unremarkable. Lung bases are clear. No cardiomegaly. No significant pericardial effusion. ABDOMEN: LIVER: Unremarkable. Homogeneous. GALLBLADDER AND BILE DUCTS: Cholecystectomy. No intra- or extrahepatic biliary ductal dilation. PANCREAS: Atrophy of the pancreas. No focal cystic mass. SPLEEN: Unremarkable. Normal size without focal cystic or solid mass. ADRENALS: Unremarkable. No nodules. KIDNEYS AND URETERS: No acute abnormality. Normal renal size and position. No hydronephrosis. No stones. STOMACH AND BOWEL: Evaluation of the GI tract is limited by absence of oral contrast. Cannot exclude stomach wall thickening. No dilated loops of bowel or evidence for obstruction. Cannot exclude segmental thickening of the kim of the small or large bowel. Cannot exclude enteritis or colitis. Moderate diffuse fecal retention. Diverticulosis without definite diverticulitis. Appendix within normal limits. PELVIS: APPENDIX: No evidence of acute appendicitis. BLADDER: Unremarkable. REPRODUCTIVE: Unremarkable as visualized. No mass. ABDOMEN and PELVIS: INTRAPERITONEAL SPACE: Unremarkable. No ascites or other fluid collection. No free air. BONES/JOINTS: Degenerative changes. No suspicious lytic or blastic abnormality. SOFT TISSUES: Unremarkable. No discrete abdominal or pelvic wall hernia. VASCULATURE: Calcified plaque of the aorta. No aneurysm. LYMPH NODES: Unremarkable. No enlarged lymph nodes. CT/Abdomen/Pelvis without Cont IMPRESSION: No definite acute or significant abnormality seen. Electronically Signed: Mamadou العراقي MD at 18:54 EDT ,
== END 2023-07-15 19:13 | disposition home or self-care (01) ==
PROVIDERS: Emergency Provider Emergency Medicine; PCP Nurse Practitioner Family; Visit Provider Emergency Medicine
DX: I48.91 Unspecified atrial fibrillation (principal); N18.30 Chronic kidney disease, stage 3 unspecified; R55 Syncope and collapse; R10.9 Unspecified abdominal pain; Z79.01 Long term (current) use of anticoagulants; Z79.899 Other long term (current) drug therapy; Z86.16 Personal history of COVID-19
CPT/HCPCS: 71045; 74176; 80048; 81001; 83735; 84484; 85025; 93005; 99283; J7030; A4216

== ENCOUNTER → 2024-01-06 | Outpatient (CLI) | payer MEDICARE, OTHER, SELFPAY ==
[2024-01-06 10:41] LABS: Hematocrit 43.9 % (37-47); Mean Corp Hgb Conc 31.9 g/dL (32-36); Mean Corpuscular Hgb 30.3 pg (27.0-32.0); Mean Platelet Vol. 10.1 fl (6.2-12.0); Platelet Count 246 K/mm3 (150-450); RBC Distribution Width CV 13.4 % (11.6-14.6); RBC Distribution Width SD 46.5 fl (35.1-43.9); Red Blood Count 4.62 M/mm3 (4.2-5.4); White Blood Count 7.8 K/mm3 (4.4-11.0)
[2024-01-06 11:06] LABS: Anion Gap 3 (5-15); BUN 17 mg/dL (7-18); BUN/Creat Ratio 14.2 RATIO (10-20); Calcium,Total 9.7 mg/dL (8.5-10.1); Chloride 107 mmol/L (98-107); EST Glomerular Filtration Rate 46 mL/min (>60); Est Glom Filt Rate - Afr Amer 56 mL/min (>60); Glucose 102 mg/dL (74-106); Potassium 4.3 mmol/L (3.5-5.1); Sodium Level 140 mmol/L (136-145)
== END | disposition home or self-care (01) ==
LOC: LAB 10:29
PROVIDERS: PCP Nurse Practitioner Family; Referring Provider Internal Medicine Cardiovascular Disease; Visit Provider Internal Medicine Cardiovascular Disease
DX: I48.92 Unspecified atrial flutter (principal); I48.11 Longstanding persistent atrial fibrillation
CPT/HCPCS: 36415; 80048; 85027

== ENCOUNTER → 2024-08-09 | Outpatient (CLI) | payer MEDICARE, OTHER, SELFPAY ==
[2024-08-09 12:31] LABS: Absolute Lymphocyte Count 2.65 X10^3/uL (0.83-4.51); Absolute Neutrophil Count 4.4 X10^3/uL (2.0-7.7); Basophil# 0.05 X10^3/uL; Basophil% 0.7 % (0-1); Eosinophil# 0.08 X10^3/uL; Hematocrit 45.2 % (37-47); Hemoglobin 14.2 g/dL (12.0-15.0); Lymphocyte # 2.65 X10^3/ul (0.83-4.51); Lymphocyte % 34.5 % (19-41); Mean Corp Hgb Conc 31.4 g/dL (32-36); Mean Corpuscular Volume 95.4 fL (81-99); Mean Platelet Vol. 11.1 fl (6.2-12.0); Monocyte# 0.52 X10^3/uL; Monocyte% 6.8 % (0-10); NRBC Flagged by Analyzer 0 % (0-5); Neutrophil # 4.36 X10^3/uL (2.7-7.7); Neutrophil % 56.7 % (47-70); Platelet Count 248 K/mm3 (150-450); RBC Distribution Width CV 13.3 % (11.6-14.6); RBC Distribution Width SD 46.6 fl (35.1-43.9); Red Blood Count 4.74 M/mm3 (4.2-5.4); White Blood Count 7.7 K/mm3 (4.4-11.0)
[2024-08-09 13:44] LABS: ALB/GLOB Ratio 1.3 RATIO (0.9-2.4); AST(SGOT) 24 U/L (<=31); Alanine Aminotransfer ALT/SGPT 10 U/L (<=34); Alkaline Phosphatase 89 U/L (35-104); Anion Gap 13 (5-15); BUN 17 mg/dL (4-19); BUN/Creat Ratio 14.2 RATIO (10-20); Calcium,Total 9.6 mg/dL (7.6-11.0); Carbon Dioxide 25.1 mmol/L (21.0-32.0); Chloride 103 mmol/L (98-108); Cholesterol 246 mg/dL (<=200); Creatinine, Serum 1.16 mg/dL (0.70-1.20); EST Glomerular Filtration Rate 48 (>60); Globulin 3.2 g/dL (2.2-4.2); Glucose 98 mg/dL (70-99); High Density Lipoprotein 83 mg/dL; Low Density Lipoprotein Calc. 151 mg/dL; Potassium 4.3 mmol/L (3.3-5.1); Protein, Total 7.2 g/dL (5.9-8.4); Sodium Level 141 mmol/L (133-145); Total Bilirubin 1.76 mg/dL (0.00-1.30); Triglycerides 62 mg/dL; Very Low Density Lipoprotein 12 mg/dL (5-40); Vitamin B12 1374 pg/mL (180-914); Vitamin D,25 Hydroxy 38.5 ng/mL (30-100); cholesterol:hdl ratio screen 2.97
== END | disposition home or self-care (01) ==
LOC: BFHLAB 09:03
PROVIDERS: PCP Nurse Practitioner Family; Visit Provider Nurse Practitioner Family
DX: E78.5 Hyperlipidemia, unspecified (principal); E53.8 Deficiency of other specified B group vitamins; E03.9 Hypothyroidism, unspecified; E55.9 Vitamin D deficiency, unspecified; I10 Essential (primary) hypertension
CPT/HCPCS: 36415; 80053; 80061; 82306; 82607; 84439; 84443; 85025

== ENCOUNTER → 2024-10-31 | Outpatient (CLI) | payer MEDICARE, OTHER, SELFPAY ==
--- NOTE | 2024-10-31 10:47 | RAD_ITS ---
PROCEDURE: RIBS UNI MIN 3V W/PA CHEST 10/31/2024 REASON FOR EXAM: RULE OUT FRACTURE Patient fell in shower 2 days ago. Right rib pain. TECHNIQUE: Procedure Code: RADRIB Modality: DX Procedure: RIBS UNI MIN 3V W/PA CHEST COMPARISON: Chest x-ray studies dated 07/15/2023 and 09/22/2021 FINDINGS: Findings: Heart size and configuration are within normal limits. Pulmonary vasculature and hilar structures are unremarkable. Trachea is midline. Arteriosclerotic vascular disease of the aorta is noted. Right lung is expanded and clear without evidence of pneumothorax, lung contusion, atelectasis, consolidation, effusion or pneumonic infiltrate. There is a small to moderate-sized left pleural effusion. There is adjacent compressive atelectasis of the left lung base. Left upper lung field is clear. BONES: Diffuse osteopenia of the bony thorax is noted. Arthritic changes are seen involving both shoulders. Degenerative arthritic changes are seen involving the thoracic spine. There is a subtle dextroscoliosis of the thoracic spine. RIBS: Diffuse osteopenia of the ribs is noted. Four views of the right ribs demonstrate no displaced fractures. There is no lung contusion or pneumothorax. Other: Surgical clips are seen in the gallbladder fossa. RAD/Ribs Uni Min 3V w/PA Chest IMPRESSION: Small to moderate size left pleural effusion with adjacent compressive atelecta sis of the left lung base. There are no pneumothoraces. There is no lung contusions. Diffuse osteopenia of the bony thorax and right ribs. No displaced right rib fractures. Reading Location: [id number]
== END | disposition home or self-care (01) ==
LOC: MTRAD 10:44
PROVIDERS: PCP Nurse Practitioner Family; Referring Provider Nurse Practitioner Family; Visit Provider Nurse Practitioner Family
DX: M54.9 Dorsalgia, unspecified (principal)
CPT/HCPCS: 71101